=== PATIENT | female | born 1975 | race African-American/Black ===

== ENCOUNTER 2016-06-03 09:44 | Inpatient (IN) ==
--- NOTE | 2016-06-03 10:07 | EKG Report ---
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
[2016-06-03] MEDS ORDERED: ASPIRIN 325 MG TABLET PO STA (11:26)
[2016-06-03] MEDS ORDERED: ASPIRIN 325 MG TABLET ONE (11:34)
[2016-06-03 11:36] LABS: Basophils % 1.2 % (0.0-0.8); Eosinophils # 0.1 10*3/uL (0.0-0.87); Eosinophils % 3.3 % (0.00-10.9); Hematocrit 29.6 VOL% (35.7-47.0); Hemoglobin 9.8 GM/DL (12.0-16.0); Immature Granulocytes % 0.3 %; Immature Granulocytes Absolute 0.01 #; Lymphocytes % 29.4 % (21.3-54.2); Mean Corpuscular HGB Conc 33.1 GM/DL (32-36); Mean Corpuscular Hemoglobin 28 PG (27-34); Mean Corpuscular Volume 82.9 FL (87-102); Mean Platelet Volume 13.5 FL (9.6-12.0); Monocytes # 0.2 10*3/uL (0.11-0.8); Monocytes % 5.6 % (1.7-12.7); Neutrophils % 60.2 % (38.7-73.9); Platelet Count 125 T/CUMM (130-400); Red Blood Count 3.57 MC/CUMM (3.8-5.5); Red Cell Distribution Width 12.7 % (9.3-17.3); White Blood Count 3.4 T/CUMM (4-12)
--- NOTE | 2016-06-03 11:43 | XRay Report ---
Portable chest Date: 06/03/2016 Clinical history: Chest pain Comparison: 02/20/2016 Technique: Portable AP sitting chest Findings: The heart is smaller in size with left subclavian atrioventricular AICD. Coronary artery stents are noted. Chronic scarring in the lungs with stable mediastinum and osseous structures. Impression: No acute cardiopulmonary pathology identified. The heart is smaller in size with left subclavian atrioventricular AICD and coronary artery stents. PROCEDURE INTERPRETED AT [facility] DEPARTMENT OF RADIOLOGY Final Report Signed by: Dr. Ashley Cloud
[2016-06-03 11:51] LABS: Calcium 9.2 MG/DL (8.5-10.1); Osmolality,Calculated 293.7 MOS/KG (273-304); Potassium 5.5 MMOL/L (3.5-5.1)
[2016-06-03] MEDS ORDERED: INSULIN LISPRO 100 UNIT/ML SUBCUT STA (12:29)
[2016-06-03] MEDS ORDERED: INSULIN LISPRO 100 UNIT/ML SUBCUT ONE (12:35)
[2016-06-03] MEDS ORDERED: SODIUM CHLORIDE 0.9% 500 ML IV STA (13:52)
[2016-06-03] MEDS ORDERED: MORPHINE 2 MG/1 ML SYRINGE IV PRN (14:08)
[2016-06-03] MEDS ORDERED: MAGNESIUM SULF RIDER 2 GM in PREMIX 1 EACH IV PRN (14:08)
[2016-06-03] MEDS ORDERED: ONDANSETRON 4 MG/2 ML VIAL IV PRN (14:08)
[2016-06-03] MEDS ORDERED: GLUCAGON 1 MG VIAL IM PRN (14:08)
[2016-06-03] MEDS ORDERED: MAGNESIUM SULF RIDER 4 GM in PREMIX 1 EACH IV PRN (14:08)
[2016-06-03] MEDS ORDERED: DEXTROSE 50% 25 GM/50 ML VIAL IV PRN (14:08)
--- NOTE | 2016-06-03 14:08 | Emergency Department Note ---
Miquel Sandoval Brittany, am scribing for, and in the presence of, Hawk Garcia MD 10:44. Jose Sandoval Doug C, MD, personally performed the services described in this documentation, ascribed by Shanon Lafleur in my presence, and it is both accurate and complete . Arrival - Arrival Chief Complaint: Weakness Stated Complaint: cardiac rehab, bp low, weakness ED Nursing Triage Note: C/o generalized weakness-onset just machine captain while at cardiac rehab. Denies CP or SOB. States that she is feeling better now. Mode of Arrival: Wheelchair Limitations: No Limitations Source: Patient, Old Records Reviewed, RN Notes Reviewed - History of Present Illness HPI Narrative: Patient 41-year-old black female who was exercising at cardiac rehab when she developed sudden onset of weakness. She states she had no chest pain, nausea, vomiting or diaphoresis with this episode. Patient states she felt like her blood pressure had dropped and indeed when it was checked it head. Patient states she has noticed every morning which takes her blood pressure medicine she feels weak and thinks her blood pressure was too low. She states she feels back to her normal now. She does have a history of coronary artery disease and has a permanent pacemaker in place. She did not perceive any palpitations. Onset (ago): hour(s) Consistency: now resolved Date of Last Menstrual Period: hysterectomy Allergies/Adverse Reactions: Allergies Allergy/AdvReac Type Severity Reaction Status Date / Time No Known Allergies Allergy Verified 08/05/15 14:12 Home Medications: Home Medications Medication Instructions Recorded Confirmed Type Omeprazole [Prilosec] 40 mg PO DAILY 07/24/14 04/22/16 History Magnesium Chloride [Slow Mag] 128 mg PO BID tablet 11/23/15 04/22/16 Rx Methocarbamol Tab [Robaxin Tab] 500 mg PO BID tablet 12/23/15 04/22/16 Rx Atorvastatin [Lipitor] 40 mg PO DAILY #30 tablet 02/24/16 04/22/16 Rx Carvedilol [Coreg] 25 mg PO BID #60 tablet 02/24/16 04/22/16 Rx Furosemide Tab [Lasix Tab] 40 mg PO BID DIURETIC #60 tablet 02/24/16 04/22/16 Rx Isosorbide Dinitrate [Isordil] 20 mg PO TID #90 tablet 02/24/16 04/22/16 Rx Pantoprazole Tab [Protonix Tab] 40 mg PO BEDTIME #30 tablet 02/24/16 04/22/16 Rx Sodium Bicarb Tab 650 mg PO TID #90 tablet 02/24/16 04/22/16 Rx Ticagrelor [Brilinta] 90 mg PO BID #60 tablet 02/24/16 04/22/16 Rx hydrALAZINE TAB [Apresoline Tab] 25 mg PO TID #90 tablet 02/24/16 04/22/16 Rx Aspirin [Ecotrin] 81 mg PO QAM 03/13/16 04/22/16 History Digoxin Tab [Lanoxin Tab] 0.125 mg PO DAILY 03/13/16 04/22/16 History HYDROcodone/ACETAMIN 7.5-325 1 tablet PO Q4H #20 tablet 03/13/16 04/22/16 Rx [[place] 7.5-325] Ciprofloxacin/Dexameth Otic 4 drop LEFT EAR BID #1 otic 04/28/16 Rx [Ciprodex Otic Susp] suspension Insulin Glargine [Lantus] 20 unit SUBCUT BID #0 injection 04/28/16 Rx Levofloxacin Tab [Levaquin Tab] 250 mg PO DAILY #25 tablet 04/28/16 Rx Bacitracin Oph Oint 1 applic LEFT EYE TID #1 tube 05/27/16 Rx traMADol TAB [Ultram] 50 mg PO Q6H PRN #15 tablet 05/27/16 Rx Review of System - Review of System 12 point system: reviewed and no additional remarkable complaints except as stated - Review of System Constitutional: Present: weakness, other (hypotension). Absent: diaphoresis Eyes: Absent: vision change Head/Ears/Nose/Throat: Absent: nasal drainage, sore throat Respiratory: Absent: respiratory distress Cardiovascular: Absent: chest pain, palpitations Gastrointestinal: Absent: abdominal pain, nausea, vomiting Genitourinary female: Absent: dysuria, frequency, urgency Musculoskeletal: Absent: arm pain, back pain, leg pain, neck pain Skin: Absent: rash Neurological: Absent: headache Psychiatric: Absent: anxiety, depression Endocrine: Present: fatigue Hematological/Lymphatic: Absent: easy bleeding, easy bruising Medical,Surgical,& Family Hx - Medical History Cardio: History of: Cardiac Dysrhythmia, CHF, CAD, Hypertension, Pacemaker, Cardiovascular Problems (ischemic cardiomyopathy - EF 15-20%) Neurology: History of: Peripheral Neuropathy HEENT: History of: Ear Problem (ongoing left ear problem, previously seen by [facility] (notes not availa), Eye Problem (diabetic retinopathy) Endocrine: History of: Diabetes Mellitus (IDDM), Diabetes Mellitus (NIDDM), Dyslipidemia, Thyroid Disorder Rheumatology: History of;: Gout No history of;: Systemic Lupus Erythematosus Respiratory: History of: Bronchitis, Obstructive Sleep Apnea (C-Pap), Respiratory Problems (Flu Vac 2014) No history of: Asthma, COPD, Pneumonia Renal: History of: Renal Failure (chronic kidney disease stage III) No history of: Dialysis Genitourinary: History of: Recurring Urinary Tract Infections No history of: Kidney Stones Gastrointestinal: History of: GERD, Liver Problems, GI Problems (gastroparesis) No history of: Gastrointestinal Bleed, Hemorrhoids, Pancreatitis Musculoskeletal: No history of: Amputation, Back/Neck Problems Hematology: History of: Anemia No history of: Blood Transfusion Reaction, Sickle Cell Disease Other: No history of: Anesthesia Reactions, Cancer, HIV, MRSA - Surgical History Cardiac Surgeries: Sugical HX of: Cardiac Catheterization (Stents x's 3), Cardiac Surgery (pacemaker) Thoracic Surgeries: Patient denies;: Organ Transplant, Lobectomy Neurologic Surgeries: Patient denies: Neurologic Surgery HEENT Surgeries: Surgical HX of: Eye Surgery (left retina surgery by Dr. Mathis) Patient denies: Tonsilectomy & Adenoidectomy Abdominal Surgeries: Surgical HX of: Cholecystectomy, EGD Patient denies: Abdominal Surgery Reproductive Surgeries: Surgical HX of;: Section, Gynecologic Surgery, Hysterectomy Patient denies;: Genitourinary Surgery Orthopedic Surgeries: Patient denies;: Implanted Devices, Orthopedic Surgery, Spinal Surgery, Total Hip Replacement, Total Knee Replacement - Family History Family History: Reports;: Family Diabetes, Family Heart Disease (mother), Family Hypertension, Family Stroke - Social History Smoking Status: Never smoker Frequency of Alcohol Use: None Type of Drug Use: None Exam Vital Signs: Vital Signs Temperature 97.1 F L 06/03/16 09:45 Pulse Rate 75 06/03/16 10:19 Respiratory Rate 19 06/03/16 10:19 Blood Pressure 107/66 06/03/16 09:45 O2 Sat by Pulse Oximetry 98 06/03/16 09:45 - General General appearance: alert, in no apparent distress - Head Head exam: Present: atraumatic, normocephalic - Eye Eye exam: Present: normal appearance, PERRL, EOMI - ENT ENT exam: Present: normal exam, normal oropharynx, mucous membranes moist, TM's normal bilaterally - Neck Neck exam: Present: normal inspection, full ROM, trachea midline - Chest Chest inspection: Present: normal inspection - Respiratory Respiratory exam: Present: normal lung sounds bilaterally. Absent: rales, rhonchi, wheezes - Cardiovascular Cardiovascular exam: Present: regular rate, normal rhythm, normal heart sounds. Absent: murmur, rubs, gallop - Abdominal Exam Abdominal exam: Present: soft, normal bowel sounds. Absent: distention, tenderness - Extremities Exam Extremities exam: Present: normal inspection, full ROM - Back Exam Back exam: Present: normal inspection, full ROM - Neurological Exam Neurological exam: Present: alert, oriented X3 - Psychiatric Psychiatric exam: Present: normal affect - Skin Skin exam: Present: warm, dry, intact, normal color Course Course Narrative: Patient's clinical presentation, laboratory and radiographic findings were discussed with Dr. Romero. Patient will be admitted to observation telemetry bed to his services per Results - Labs CBC & BMP: 06/03/16 10:54 06/03/16 10:54 Lab Results: I have reviewed the patients labs Labs: Laboratory Tests 06/03/16 10:54 WBC 3.4 L RBC 3.57 L Hgb 9.8 L Hct 29.6 L MCV 82.9 L MCH 28 MCHC 33.1 RDW 12.7 Plt Count 125 L MPV 13.5 H Neut % (Auto) 60.2 Lymph % (Auto) 29.4 [place] % (Auto) 5.6 Eos % (Auto) 3.3 Baso % (Auto) 1.2 H Neut # (Auto) 2.0 Lymph # (Auto) 1.0 L [place] # (Auto) 0.2 Eos # (Auto) 0.1 Baso # (Auto) 0.0 Immature Gran % 0.3 Nucleated RBC % 0.0 Immature Gran # 0.01 Nucleated RBCs # 0.00 Laboratory Tests 06/03/16 06/03/16 10:54 10:54 Sodium 131 L Potassium 5.5 H Chloride 95 L Carbon Dioxide 27 Anion Gap 14.5 BUN 29 H Creatinine 2.00 H GFR Calculation 34 BUN/Creatinine Ratio 14.00 Glucose 560 H* Calculated Osmolality 293.7 Calcium 9.2 Troponin I 0.119 H - EKG EKG results: interpreted by ERMD, no acute changes (Paced rhythm at 73 bpm) - Diagnostic Findings Procedure: Chest x-ray: report reviewed by me (No acute cardiopulmonary pathology is identified. The heart is smaller in size with left subclavian atrioventricular AICD and coronary artery stents.) Disposition Clinical Impression: Orthostatic hypotension, Uncontrolled diabetes mellitus Case discussed with: patient Disposition: Still a Patient Condition: Guarded Time of Disposition: 14:08
--- NOTE | 2016-06-03 14:45 | EKG Report ---
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
[2016-06-03] MEDS: INSULIN LISPRO 100 UNIT/ML SUBCUT SCH ×2 (17:57→22:04)
[2016-06-03] MEDS: ENOXAPARIN 30 MG/0.3 ML SYRINGE SUBCUT SCH (17:57)
[2016-06-03] MEDS: DEXTROSE 5% NACL 0.45% 1,000 ML IV SCH ×2 (17:58→22:04)
[2016-06-04 04:59] LABS: Basophils % 0.7 % (0.0-0.8); Eosinophils # 0.2 10*3/uL (0.0-0.87); Eosinophils % 3.9 % (0.00-10.9); Hematocrit 28.4 VOL% (35.7-47.0); Hemoglobin 9.4 GM/DL (12.0-16.0); Immature Granulocytes % 0.2 %; Immature Granulocytes Absolute 0.01 #; Lymphocytes # 1.9 10*3/uL (1.4-4.0); Lymphocytes % 43.1 % (21.3-54.2); Mean Corpuscular HGB Conc 33.1 GM/DL (32-36); Mean Corpuscular Hemoglobin 27 PG (27-34); Mean Corpuscular Volume 82.8 FL (87-102); Mean Platelet Volume 12.9 FL (9.6-12.0); Monocytes # 0.3 10*3/uL (0.11-0.8); Monocytes % 6.9 % (1.7-12.7); Neutrophils % 45.2 % (38.7-73.9); Platelet Count 128 T/CUMM (130-400); Red Blood Count 3.43 MC/CUMM (3.8-5.5); White Blood Count 4.4 T/CUMM (4-12)
[2016-06-04 05:26] LABS: Calcium 8.9 MG/DL (8.5-10.1); Magnesium 1.9 MG/DL (1.8-2.4); Osmolality,Calculated 286.8 MOS/KG (273-304); Potassium 4.7 MMOL/L (3.5-5.1)
[2016-06-04] MEDS: DEXTROSE 5% NACL 0.45% 1,000 ML IV SCH ×2 (05:45→14:03)
[2016-06-04] MEDS: PANTOPRAZOLE 40 MG TABLET PO SCH (08:33)
[2016-06-04] MEDS: INSULIN LISPRO 100 UNIT/ML SUBCUT SCH ×4 (08:33→20:55)
--- NOTE | 2016-06-04 11:31 | Cardiology History & Physical ---
I, Katie Hays, RN, am scribing for, and in the presence of, Jake Romero MD 11:27. Assessment and Plan - Time spent with patient Time spent with patient: Less than 30 minutes (1) Orthostatic hypotension Status: Acute Assessment and plan: 06/03/16: 1. 41 y/o BF complains of lightheadedness ongoing since February. 2. Orthostasis noted in ER. Blood pressure now returned to normal and patient asymptomatic at present. 3. Will address home medications once confirmed in the chart. 4. Obtain orthostatic vital signs. 5. We will hold all medicines for now, to allow the blood pressure to increase back to normal. Tomorrow, Dr. Howard can restart some medications, maybe at half dose is of some, to allow her blood pressure come down but not be too low. It does seem that she had orthostatic hypotension causing most of her symptoms. [I, Dr. Jake Romero, did see the patient on the day of 06/03/16 and was involved in the interview, examination, and management of this patient. I'm finishing the note at this point.] Current Visit: Yes (2) Uncontrolled diabetes mellitus Status: Acute Current Visit: Yes (3) Anemia in CKD (chronic kidney disease) Status: Acute Current Visit: No (4) CAD (coronary artery disease) Status: Acute Current Visit: No (5) Hyperkalemia Status: Acute Current Visit: No (6) CKD (chronic kidney disease) Status: Chronic Current Visit: No Qualifiers: Chronic kidney disease stage: stage 3 (moderate) Qualified Code(s): N18.3 - Chronic kidney disease, stage 3 (moderate) (7) Cardiomyopathy Status: Chronic Current Visit: No History of Present Illness Chief complaint: lightheadedness, hypotension History of present illness: Ms. Mejía is a 41 year old female who was previously followed by Dr. Connor. Patient has since been seen at [facility] by several of our [facility] physicians but reports her heart doctor is Dr. Roy. She has a history of hypertension, diabetes, prior cardiac stent placement and ICD placement by Dr. Connor in 2011, congestive heart failure, chronic renal failure, peripheral neuropathy, diabetic retinopathy, gastroesophageal reflux disease. She has risk factors significant for: Hypertension, diabetes, personal history of CAD, sedentary lifestyle. She presents to the emergency room today with complaints of lightheadedness and orthostasis. She tells me that she was at cardiac rehabilitation today exercising when she told them she felt weak. When they checked her blood pressure and was noted to be low and they recommended she come to the emergency room. Ms. Mejía tells me that she takes all of her medications daily as directed but she has been feeling lightheaded and sleepy every day following her morning doses of medications. She reports this has been ongoing since February when she was discharged from the hospital. She tells me that when she takes her medications at night she has no symptoms. She also complains of blurry vision but she has diabetic retinopathy. She denies recent chest pain, shortness of breath, palpitations, diaphoresis, syncope, fever, chills, nausea, vomiting, painful inspiration, hematochezia, melena, headaches, hematuria. Upon arrival to the emergency room today around 1300 her blood pressure was noted to be 99/60, heart rate was 79. Her blood pressure did come up to 152/ 100 after being in the emergency room for a couple of hours. She is noted to have a microcytic anemia with hemoglobin 9.8 and hematocrit 29.6, MCV 82.9. Her potassium is 5.5, creatinine 2.0, BUN/creatinine 29, troponin 0.119. Glucose on admission was 560. She has chronic mild elevation of troponin. It is currently the lowest it has been in the last 6 months. Prior echocardiogram done 02/20/16 revealed 2-3+ left atrial enlargement, 2-3+ right ventricular enlargement, ejection fraction 20-25% with septal dyskinesis, 4+ tricuspid regurgitation with RV systolic pressure estimated to be 28 mmHg plus RAP. She underwent left heart catheterization on 02/22/16 and was found to have 30% proximal to mid LAD stenosis, 80% ostial OM1 stenosis, 70-80% mid circumflex stenosis, 70% proximal and mid RCA stenosis, widely patent mid LAD and proximal OM1 stents. She developed a subtotal mid circumflex occlusion due to thrombosis during intervention with resolution after IC integrilin and manual thrombectomy as well as stenting with [id number] JOSS. Home Medications Medication Instructions Recorded Confirmed Type Omeprazole [Prilosec] 40 mg PO DAILY 07/24/14 06/03/16 History Carvedilol [Coreg] 25 mg PO BID #60 tablet 11/09/16 02/17/17 Rx Furosemide Tab [Lasix Tab] 40 mg PO BID DIURETIC #60 tablet 02/24/16 06/03/16 Rx Isosorbide Dinitrate [Isordil] 20 mg PO TID #90 tablet 02/24/16 06/03/16 Rx Ticagrelor [Brilinta] 90 mg PO BID #60 tablet 02/24/16 06/03/16 Rx Aspirin [Ecotrin] 81 mg PO QAM 03/13/16 06/03/16 History Digoxin Tab [Lanoxin Tab] 0.125 mg PO DAILY 03/13/16 06/03/16 History Levofloxacin Tab [Levaquin Tab] 250 mg PO DAILY #25 tablet 04/28/16 06/03/16 Rx Bacitracin Oph Oint 1 applic LEFT EYE TID #1 tube 05/27/16 06/03/16 Rx Insulin Glargine [Lantus] 20 unit SUBCUT BEDTIME 06/03/16 06/03/16 History Allergies Allergy/AdvReac Type Severity Reaction Status Date / Time No Known Allergies Allergy Verified 08/05/15 14:12 12 point system: reviewed and no additional remarkable complaints except as stated - Constitutional Constitutional: Present: fatigue, weakness. Absent: anorexia, chills, daytime sleepiness, excessive sweating, fever(s), frequent falls, headache(s), increased appetite, lethargy, malaise, night sweats, stops breathing during sleep, weight gain, weight loss - EENT Eyes: Present: blurry vision. Absent: diplopia Ears: Absent: decreased hearing, ear discharge, ear pain Nose, mouth and throat: Absent: dysphagia, epistaxis, headache(s), hoarseness, lip swelling, nasal congestion, neck mass, neck pain, sinus pressure, sore throat, throat swelling, tongue swelling, vertigo - Cardiovascular Cardiovascular: Present: as per HPI, lightheadedness. Absent: chest pain at rest, chest pain with activity, claudication, diaphoresis, dyspnea, dyspnea on exertion, edema, radiating jaw, neck or arm pain, orthopnea, palpitations, PND - Respiratory Respiratory: Present: as per HPI. Absent: cough, dyspnea, hemoptysis, dyspnea on exertion, wheezing, snoring, pain on inspiration - Gastrointestinal Gastrointestinal: Absent: abdominal pain, bloating, change in bowel habits, constipation, diarrhea, dysphagia, heartburn, hematemesis, hematochezia, loose stools, melena, nausea, vomiting - Genitourinary Genitourinary: Absent: difficulty urinating, dysuria, flank pain, hematuria, urinary frequency, urinary hesitancy - Musculoskeletal Musculoskeletal: Absent: arthralgias, back pain, joint swelling, limited range of motion, muscle cramps, muscle weakness, myalgias - Neurological Neurological: Absent: abnormal gait, abnormal speech, behavioral changes, confusion, convulsions, disequilibrium, dizziness, focal weakness, frequent falls, headache(s), memory loss, numbness, paresthesias, radicular pain, syncope , tremor(s) - Psychiatric Psychiatric: Absent: anxiety, confusion, depression, memory loss, panic attacks - Endocrine Endocrine: Present: fatigue. Absent: cold intolerance, heat intolerance, polydipsia, polyphagia - Hematologic/Lymphatic Hematologic/Lymphatic: Absent: easy bleeding, easy bruising, lymphadenopathy Medical,Surgical,& Family Hx - Medical History Cardio: History of: Cardiac Dysrhythmia, CHF, CAD, Hypertension, Pacemaker, Cardiovascular Problems (ischemic cardiomyopathy - EF 15-20%) Neurology: History of: Peripheral Neuropathy HEENT: History of: Ear Problem (ongoing left ear problem, previously seen by [facility] (notes not availa), Eye Problem (diabetic retinopathy) Endocrine: History of: Diabetes Mellitus (IDDM), Diabetes Mellitus (NIDDM), Dyslipidemia, Thyroid Disorder Rheumatology: History of;: Gout No history of;: Systemic Lupus Erythematosus Respiratory: History of: Bronchitis, Obstructive Sleep Apnea (C-Pap), Respiratory Problems (Flu Vac 2014) No history of: Asthma, COPD, Pneumonia Renal: History of: Renal Failure (chronic kidney disease stage III) No history of: Dialysis Genitourinary: History of: Recurring Urinary Tract Infections No history of: Kidney Stones Gastrointestinal: History of: GERD, Liver Problems, GI Problems (gastroparesis) No history of: Gastrointestinal Bleed, Hemorrhoids, Pancreatitis Musculoskeletal: No history of: Amputation, Back/Neck Problems Hematology: History of: Anemia No history of: Blood Transfusion Reaction, Sickle Cell Disease Other: No history of: Anesthesia Reactions, Cancer, HIV, MRSA - Surgical History Cardiac Surgeries: Sugical HX of: Cardiac Catheterization (Stents x's 3), Cardiac Surgery (pacemaker) Thoracic Surgeries: Patient denies;: Organ Transplant, Lobectomy Neurologic Surgeries: Patient denies: Neurologic Surgery HEENT Surgeries: Surgical HX of: Eye Surgery (left retina surgery by Dr. Mathis) Patient denies: Tonsilectomy & Adenoidectomy Abdominal Surgeries: Surgical HX of: Cholecystectomy, EGD Patient denies: Abdominal Surgery Reproductive Surgeries: Surgical HX of;: Section, Gynecologic Surgery, Hysterectomy Patient denies;: Genitourinary Surgery Orthopedic Surgeries: Patient denies;: Implanted Devices, Orthopedic Surgery, Spinal Surgery, Total Hip Replacement, Total Knee Replacement - Family History Family History: Reports;: Family Diabetes, Family Heart Disease (mother), Family Hypertension, Family Stroke - Social History Smoking Status: Never smoker Frequency of Alcohol Use: None Type of Drug Use: None Cardiology Physical Exam - Constitutional Vitals: Vital Signs Temp Pulse Resp BP Pulse Ox 97.1 F L 75 19 107/66 98 06/03/16 09:45 06/03/16 10:19 06/03/16 10:19 06/03/16 09:45 06/03/16 09:45 Intake and Output 06/03/16 06/03/16 06/03/16 06:59 14:59 22:59 Intake Total 500 / 500 Balance 500 / 500 Intake: IV 500 / 500 Ns 500 ml @ 999 mls/hr IV 500 / 500 1X ED BOLUS STA Rx#: [id number] General appearance: no acute distress, over weight - Head Head exam: Present: normal inspection, normocephalic - Eye Eye exam: Absent: conjunctival injection, periorbital swelling, scleral icterus Pupils: Present: SG. Absent: dilated - ENT ENT exam: Present: normal exam, normal external ear exam - Neck Neck exam: Present: normal inspection. Absent: tenderness - Respiratory Respiratory exam: Present: clear to auscultation bilaterally. Absent: rales, rhonchi, stridor, wheezes - Cardiovascular Cardiovascular exam: Present: regular rate and rhythm. Absent: carotid bruit, diastolic murmur, systolic murmur - GI/Abdominal GI/Abdominal exam: Present: normal bowel sounds, soft. Absent: distended, mass , tenderness - Extremities Exam Extremities exam: Present: normal inspection, other (peripheral pulses present and palpable). Absent: edema - Back Exam Back exam: Present: normal inspection. Absent: vertebral tenderness - Neurological Exam Neurological exam: Present: alert, oriented X3, other (grossly intact, no resting or essential tremor) - Psychiatric Psychiatric exam: Present: normal affect, normal mood - Skin Skin exam: Present: warm, dry. Absent: cyanosis Result/EKG - Labs CBC & BMP: 06/04/16 04:26 06/04/16 04:26 Lab Results: I have reviewed the past 24 hour labs Labs: Laboratory Results - last 24 hr 06/03/16 06/03/16 06/03/16 14:46 16:34 18:22 WBC RBC Hgb Hct MCV MCH MCHC RDW Plt Count MPV Neut % (Auto) Lymph % (Auto) [place] % (Auto) Eos % (Auto) Baso % (Auto) Neut # (Auto) Lymph # (Auto) [place] # (Auto) Eos # (Auto) Baso # (Auto) Immature Gran % Nucleated RBC % Immature Gran # Nucleated RBCs # Sodium Potassium Chloride Carbon Dioxide Anion Gap BUN Creatinine GFR Calculation BUN/Creatinine Ratio Glucose POC Glucose 286 H Hemoglobin A1c Calculated Osmolality Calcium Magnesium Troponin I 0.100 H 0.115 H 06/03/16 06/04/16 06/04/16 20:01 04:26 04:26 WBC 4.4 RBC 3.43 L Hgb 9.4 L Hct 28.4 L MCV 82.8 L MCH 27 MCHC 33.1 RDW 13.0 Plt Count 128 L MPV 12.9 H Neut % (Auto) 45.2 Lymph % (Auto) 43.1 [place] % (Auto) 6.9 Eos % (Auto) 3.9 Baso % (Auto) 0.7 Neut # (Auto) 2.0 Lymph # (Auto) 1.9 [place] # (Auto) 0.3 Eos # (Auto) 0.2 Baso # (Auto) 0.0 Immature Gran % 0.2 Nucleated RBC % 0.0 Immature Gran # 0.01 Nucleated RBCs # 0.00 Sodium 137 Potassium 4.7 Chloride 98 Carbon Dioxide 28 Anion Gap 15.7 H BUN 33 H Creatinine 1.90 H GFR Calculation 37 BUN/Creatinine Ratio 17.00 Glucose 222 H POC Glucose 136 H Hemoglobin A1c Calculated Osmolality 286.8 Calcium 8.9 Magnesium 1.9 Troponin I 06/04/16 06/04/16 04:26 07:04 WBC RBC Hgb Hct MCV MCH MCHC RDW Plt Count MPV Neut % (Auto) Lymph % (Auto) [place] % (Auto) Eos % (Auto) Baso % (Auto) Neut # (Auto) Lymph # (Auto) [place] # (Auto) Eos # (Auto) Baso # (Auto) Immature Gran % Nucleated RBC % Immature Gran # Nucleated RBCs # Sodium Potassium Chloride Carbon Dioxide Anion Gap BUN Creatinine GFR Calculation BUN/Creatinine Ratio Glucose POC Glucose 239 H Hemoglobin A1c 14.8 H Calculated Osmolality Calcium Magnesium Troponin I - EKG EKG results: interpreted by me, sinus rhythm (ventricularly paced with right bundle branch block) INick Dale, MD, personally performed the services described in this documentation, ascribed by Katie Hays, RN in my presence, and it is both accurate and complete .
[2016-06-04] MEDS ORDERED: CARVEDILOL 3.125 MG TABLET PO STA (13:32)
[2016-06-04] MEDS ORDERED: CLOPIDOGREL 300 MG TABLET PO ONE (13:34)
--- NOTE | 2016-06-04 13:38 | Cardiology Progress Note ---
Assessment and Plan (1) Orthostatic dizziness Status: Acute Assessment and plan: 1. 41-year-old BF with previously controlled hypertension, IDDM, CAD status post stenting 2011 at [facility] with ICD placement (a generator change their in 2015) , with multiple heart failure admissions until I changed several medications after she presented to [facility] February 2016, and I stented her mid circumflex ; she now presents with worsening of her daily "weak spells" after taking her medication with orthostatic hypotension 2. Her symptoms are completely resolved after holding her medication, we will restart her heart failure medications lower dosages 3. Ejection fraction 20-25% with 4+ TR February 2016 4. Change Brilinta to Plavix in case she is having side effects from it 5. Will consider discharge tomorrow if she continues to do well Current Visit: Yes (2) Cardiomyopathy Status: Acute Current Visit: Yes (3) Hypertension Status: Acute Current Visit: Yes (4) CAD (coronary artery disease) Status: Acute Current Visit: Yes Cardiology - PN: Subj Interval history: Mrs. Mejía is feeling quite well although her pressures up bit since holding her medications. She having no chest discomfort shortness of breath at rest palpitations nausea vomiting or diaphoresis. Her dizziness and weak episodes of completely resolved. Exam (Progress Note) - Constitutional Vitals: Period Temp Pulse Resp BP Sys/Valenzuela Pulse Ox Last 24 Hr 97.1 F-98.6 F 72-90 18-20 118-157/70-93 99-100 General appearance: normal weight, no acute distress - Head Head exam: Present: normal inspection, normocephalic, atraumatic - Neck Neck exam: Present: normal inspection - Respiratory Respiratory exam: Present: clear to auscultation bilaterally. Absent: rhonchi, stridor, wheezes - Cardiovascular Cardiovascular exam: Present: regular rate and rhythm. Absent: diastolic murmur , rubs - GI/Abdominal GI/Abdominal exam: Present: soft. Absent: tenderness - Extremities Exam Extremities exam: Absent: edema Result/EKG - Labs CBC & BMP: 06/04/16 04:26 06/04/16 04:26 Labs: Laboratory Results - last 24 hr 06/03/16 06/03/16 06/03/16 14:46 16:34 18:22 WBC RBC Hgb Hct MCV MCH MCHC RDW Plt Count MPV Neut % (Auto) Lymph % (Auto) [place] % (Auto) Eos % (Auto) Baso % (Auto) Neut # (Auto) Lymph # (Auto) [place] # (Auto) Eos # (Auto) Baso # (Auto) Immature Gran % Nucleated RBC % Immature Gran # Nucleated RBCs # Sodium Potassium Chloride Carbon Dioxide Anion Gap BUN Creatinine GFR Calculation BUN/Creatinine Ratio Glucose POC Glucose 286 H Hemoglobin A1c Calculated Osmolality Calcium Magnesium Troponin I 0.100 H 0.115 H 06/03/16 06/04/16 06/04/16 20:01 04:26 04:26 WBC 4.4 RBC 3.43 L Hgb 9.4 L Hct 28.4 L MCV 82.8 L MCH 27 MCHC 33.1 RDW 13.0 Plt Count 128 L MPV 12.9 H Neut % (Auto) 45.2 Lymph % (Auto) 43.1 [place] % (Auto) 6.9 Eos % (Auto) 3.9 Baso % (Auto) 0.7 Neut # (Auto) 2.0 Lymph # (Auto) 1.9 [place] # (Auto) 0.3 Eos # (Auto) 0.2 Baso # (Auto) 0.0 Immature Gran % 0.2 Nucleated RBC % 0.0 Immature Gran # 0.01 Nucleated RBCs # 0.00 Sodium 137 Potassium 4.7 Chloride 98 Carbon Dioxide 28 Anion Gap 15.7 H BUN 33 H Creatinine 1.90 H GFR Calculation 37 BUN/Creatinine Ratio 17.00 Glucose 222 H POC Glucose 136 H Hemoglobin A1c Calculated Osmolality 286.8 Calcium 8.9 Magnesium 1.9 Troponin I 06/04/16 06/04/16 06/04/16 04:26 07:04 11:06 WBC RBC Hgb Hct MCV MCH MCHC RDW Plt Count MPV Neut % (Auto) Lymph % (Auto) [place] % (Auto) Eos % (Auto) Baso % (Auto) Neut # (Auto) Lymph # (Auto) [place] # (Auto) Eos # (Auto) Baso # (Auto) Immature Gran % Nucleated RBC % Immature Gran # Nucleated RBCs # Sodium Potassium Chloride Carbon Dioxide Anion Gap BUN Creatinine GFR Calculation BUN/Creatinine Ratio Glucose POC Glucose 239 H 350 H Hemoglobin A1c 14.8 H Calculated Osmolality Calcium Magnesium Troponin I
[2016-06-04] MEDS: ISOSORBIDE DINITRATE 20 MG TABLET PO SCH ×2 (14:03→20:54)
[2016-06-04] MEDS: hydrALAZINE 25 MG TABLET PO SCH ×2 (14:03→20:55)
[2016-06-04] MEDS: DIGOXIN 0.125 MG TABLET PO SCH (14:03)
[2016-06-04] MEDS: ENOXAPARIN 30 MG/0.3 ML SYRINGE SUBCUT SCH (17:28)
[2016-06-04] MEDS: CARVEDILOL 6.25 MG TABLET PO SCH (20:54)
[2016-06-05] MEDS: DEXTROSE 5% NACL 0.45% 1,000 ML IV SCH ×3 (05:26→14:20)
[2016-06-05 07:41] LABS: Basophils % 0.9 % (0.0-0.8); Eosinophils # 0.1 10*3/uL (0.0-0.87); Eosinophils % 3.8 % (0.00-10.9); Hematocrit 25.7 VOL% (35.7-47.0); Hemoglobin 8.7 GM/DL (12.0-16.0); Lymphocytes # 1.3 10*3/uL (1.4-4.0); Mean Corpuscular HGB Conc 33.9 GM/DL (32-36); Mean Corpuscular Hemoglobin 28 PG (27-34); Mean Corpuscular Volume 81.8 FL (87-102); Mean Platelet Volume 12.9 FL (9.6-12.0); Monocytes # 0.3 10*3/uL (0.11-0.8); Monocytes % 7.2 % (1.7-12.7); Neutrophils # 1.8 10*3/uL (1.4-7.4); Neutrophils % 51.1 % (38.7-73.9); Platelet Count 113 T/CUMM (130-400); Red Blood Count 3.14 MC/CUMM (3.8-5.5); Red Cell Distribution Width 12.9 % (9.3-17.3); White Blood Count 3.5 T/CUMM (4-12)
[2016-06-05 08:08] LABS: Calcium 8.6 MG/DL (8.5-10.1); Magnesium 1.9 MG/DL (1.8-2.4); Osmolality,Calculated 292.1 MOS/KG (273-304); Potassium 5.2 MMOL/L (3.5-5.1)
[2016-06-05] MEDS: INSULIN LISPRO 100 UNIT/ML SUBCUT SCH ×4 (09:32→21:35)
[2016-06-05] MEDS: POTASSIUM CHLORIDE 20 MEQ TABLET PO SCH (09:33)
[2016-06-05] MEDS: CLOPIDOGREL 75 MG TABLET PO SCH (09:33)
[2016-06-05] MEDS: CARVEDILOL 6.25 MG TABLET PO SCH ×2 (09:33→21:34)
[2016-06-05] MEDS: ISOSORBIDE DINITRATE 20 MG TABLET PO SCH ×3 (09:33→21:34)
[2016-06-05] MEDS: PANTOPRAZOLE 40 MG TABLET PO SCH (09:33)
[2016-06-05] MEDS: FUROSEMIDE 40 MG TABLET PO SCH (09:33)
[2016-06-05] MEDS: hydrALAZINE 25 MG TABLET PO SCH ×3 (09:33→21:34)
[2016-06-05] MEDS: DIGOXIN 0.125 MG TABLET PO SCH (13:37)
[2016-06-05] MEDS: ENOXAPARIN 30 MG/0.3 ML SYRINGE SUBCUT SCH (16:40)
[2016-06-06 05:05] LABS: Basophils % 0.7 % (0.0-0.8); Eosinophils # 0.1 10*3/uL (0.0-0.87); Eosinophils % 4.4 % (0.00-10.9); Hematocrit 23.9 VOL% (35.7-47.0); Immature Granulocytes % 0.3 %; Immature Granulocytes Absolute 0.01 #; Lymphocytes # 1.4 10*3/uL (1.4-4.0); Lymphocytes % 47.6 % (21.3-54.2); Mean Corpuscular HGB Conc 33.5 GM/DL (32-36); Mean Corpuscular Hemoglobin 28 PG (27-34); Mean Corpuscular Volume 82.7 FL (87-102); Mean Platelet Volume 12.6 FL (9.6-12.0); Monocytes # 0.2 10*3/uL (0.11-0.8); Monocytes % 7.8 % (1.7-12.7); Neutrophils # 1.2 10*3/uL (1.4-7.4); Neutrophils % 39.2 % (38.7-73.9); Platelet Count 110 T/CUMM (130-400); Red Blood Count 2.89 MC/CUMM (3.8-5.5); White Blood Count 2.9 T/CUMM (4-12)
[2016-06-06 05:31] LABS: Hypochromasia 1+; Ovalocytes Slight; Platelet Estimate Decreased
[2016-06-06 05:34] LABS: Calcium 8.6 MG/DL (8.5-10.1); Osmolality,Calculated 305.7 MOS/KG (273-304); Potassium 5.1 MMOL/L (3.5-5.1)
[2016-06-06] MEDS ORDERED: GLUCAGON 1 MG VIAL IM PRN (08:02)
[2016-06-06] MEDS ORDERED: DEXTROSE 50% 25 GM/50 ML VIAL IV PRN (08:02)
[2016-06-06] MEDS: INSULIN LISPRO 100 UNIT/ML SUBCUT SCH ×4 (08:24→21:25)
[2016-06-06] MEDS: ASPIRIN EC 81 MG TABLET PO SCH (10:45)
[2016-06-06] MEDS: BACITRACIN OPH OINT 3.5 GM TUBE LEFT EYE SCH ×3 (10:45→21:33)
[2016-06-06] MEDS: hydrALAZINE 25 MG TABLET PO SCH ×3 (10:45→21:24)
[2016-06-06] MEDS: CARVEDILOL 6.25 MG TABLET PO SCH (10:46)
[2016-06-06] MEDS: ISOSORBIDE DINITRATE 20 MG TABLET PO SCH ×4 (10:46→21:23)
[2016-06-06] MEDS: CLOPIDOGREL 75 MG TABLET PO SCH (10:46)
[2016-06-06] MEDS: FUROSEMIDE 40 MG TABLET PO SCH (10:47)
[2016-06-06] MEDS: POTASSIUM CHLORIDE 20 MEQ TABLET PO SCH (11:21)
[2016-06-06] MEDS: DIGOXIN 0.125 MG TABLET PO SCH ×2 (11:22→12:05)
[2016-06-06] MEDS: DEXTROSE 5% NACL 0.45% 1,000 ML IV SCH ×3 (11:22→16:42)
--- NOTE | 2016-06-06 11:44 | Cardiology Progress Note ---
<Leidy Salazar E - Last Filed: 06/06/16 15:12> Assessment and Plan - Time spent with patient Time spent with patient: Greater than 30 minutes (1) Anemia Status: Chronic Assessment and plan: SEE PLAN OF CARE LISTED BELOW Current Visit: Yes (2) Hypertension Status: Chronic Assessment and plan: SEE PLAN OF CARE LISTED BELOW Current Visit: No Qualifiers: Hypertension type: essential hypertension Qualified Code(s): I10 - Essential (primary) hypertension (3) Chronic renal insufficiency Status: Chronic Assessment and plan: SEE PLAN OF CARE LISTED BELOW Current Visit: No Qualifiers: Chronic kidney disease stage: stage 3 (moderate) Qualified Code(s): N18.3 - Chronic kidney disease, stage 3 (moderate) (4) Diabetes mellitus type 2, uncontrolled Status: Chronic Assessment and plan: SEE PLAN OF CARE LISTED BELOW Current Visit: No (5) Hypertensive cardiovascular disease Status: Chronic Assessment and plan: SEE PLAN OF CARE LISTED BELOW Current Visit: No (6) Cardiomyopathy Status: Chronic Assessment and plan: SEE PLAN OF CARE LISTED BELOW Current Visit: No (7) Dyslipidemia Status: Chronic Assessment and plan: SEE PLAN OF CARE LISTED BELOW Current Visit: No (8) CAD (coronary artery disease) Status: Chronic Assessment and plan: SEE PLAN OF CARE LISTED BELOW Current Visit: No Cardiology - PN: Subj Interval history: Ms. Mejía is a 41 year old female who was previously followed by Dr. Connor. Patient has since been seen at [facility] by several of our [facility] physicians but reports her heart doctor is Dr. Roy. She has a history of hypertension, diabetes, prior cardiac stent placement and ICD placement by Dr. Connor in 2011, congestive heart failure, chronic renal failure, peripheral neuropathy, diabetic retinopathy, gastroesophageal reflux disease. She has risk factors significant for: Hypertension, diabetes, personal history of CAD, sedentary lifestyle. She presented to the emergency room Friday, June 03, 2016 with complaints of lightheadedness and orthostasis. Upon arrival to the emergency department she was hypotensive (99/60), heart rate 76bpm. This improved in the emergency department without treatment. She is noted to have a microcytic anemia with hemoglobin 9.8 and hematocrit 29.6. Glucose on admission was 560. She has chronic mild elevation of troponin. Troponin is currently the lowest it has been in the last 6 months. Prior echocardiogram done 02/20/16 revealed 2-3+ left atrial enlargement, 2-3+ right ventricular enlargement, ejection fraction 20-25% with septal dyskinesis, 4+ tricuspid regurgitation with RV systolic pressure estimated to be 28 mmHg plus RAP. She underwent left heart catheterization on 02/22/16 and was found to have 30% proximal to mid LAD stenosis, 80% ostial OM1 stenosis, 70-80% mid circumflex stenosis, 70% proximal and mid RCA stenosis, widely patent mid LAD and proximal OM1 stents. She developed a subtotal mid circumflex occlusion due to thrombosis during intervention with resolution after IC integrilin and manual thrombectomy as well as stenting with [id number] JOSS. Her home medications were held as there was a question about exactly which medications she was actually taking at home. After identifying her home meds, decreased doses were initiated. Her blood pressures now have rebound and are averaging 140s to 170s. I'll increase her Coreg at this point from 6.25 mm times orally twice a day to 12-1/2 mg orally twice a day. She is on hydralazine and Imdur were. We are avoiding Martin inhibitors due to fear of worsening her renal insufficiency. Also, I'll add an anemia profile to her labs. Check stool for occult blood 3. ASSESSMENT/PLAN: 1. ORTHOSTATIC DIZZINESS - this has improved during the hospital stay 2. CARDIOMYOPATHY - considered to be ischemic cardiomyopathy, EF 25% 3. HYPERTENSION - after hypotension resolved, incorporated lower dose meds into med regimen. Increasing Coreg today. 4. CAD - See above - required stenting February 2016. Currently taking ASA 81 mg daily and Plavix 75mg orally daily. Avoiding MARTIN (CKD) and using Hydralazine and Imdur combo 5. DYSLIPIDEMIA - continue lipid lowering agent 6. ANEMIA - requesting anemia profile from lab, check stools for occult blood. 7. DIABETES - history of being poorly controlled. Improved while hospitalized 8. RENAL INSUFFICIENCY - CKD, stage III 9. S/P ICD - [address] Connor. Exam (Progress Note) - Constitutional Vitals: Period Temp Pulse Resp BP Sys/Valenzuela Pulse Ox Last 24 Hr 97 F-97.8 F 79-180 18-21 111-171/53-89 97-100 Exam: General: Appears well with no apparent distress. Pleasant and cooperative. Appears comfortable. HEENT: PERRL, normocephalic, atraumatic. Mucous membranes moist. No jaundice noted. Conjunctiva moist and clear, sclerae anicteric Neck: No JVD/HJR, no thyromegaly or lymphadenopathy noted. No carotid bruit appreciated Cardiac: Regular rate and rhythm. II/ HSM heard best at 5ICS left. Lungs: Relatively clear to auscultation without accessory muscle use to assist the respiratory pattern. Uses oxygen intermittently. Abdomen: Soft, bowel sounds normoactive. Nontender and nondistended. No abdominal bruit or thrill noted. No masses noted. Musculoskeletal: No fluid collection. Decreased range of motion is noted. Extremities: No clubbing, cyanosis noted. No edema noted. Upper extremity pulses 2+. Lower extremity pulses 2+. Capillary refill less than 3 seconds. Skin: No unusual lesions or rashes. No skin breakdown appreciated. Neuro: Awake, alert and oriented 3. Moves all extremities well without hemiparesis or paralysis. No essential tremor is appreciated. Result/EKG - Labs CBC & BMP: 06/06/16 11:54 06/06/16 04:24 Lab Results: I have reviewed the past 24 hour labs Labs: Laboratory Results - last 24 hr 06/05/16 06/05/16 06/06/16 15:28 19:47 04:24 WBC 2.9 L RBC 2.89 L Hgb 8.0 L Hct 23.9 L MCV 82.7 L MCH 28 MCHC 33.5 RDW 13.0 Plt Count 110 L MPV 12.6 H Neut % (Auto) 39.2 Lymph % (Auto) 47.6 [place] % (Auto) 7.8 Eos % (Auto) 4.4 Baso % (Auto) 0.7 Neut # (Auto) 1.2 L Lymph # (Auto) 1.4 [place] # (Auto) 0.2 Eos # (Auto) 0.1 Baso # (Auto) 0.0 Immature Gran % 0.3 Nucleated RBC % 0.0 Immature Gran # 0.01 Nucleated RBCs # 0.00 Platelet Estimate Decreased Hypochromasia 1+ Ovalocytes Slight Morphology Comment Sodium Potassium Chloride Carbon Dioxide Anion Gap BUN Creatinine GFR Calculation BUN/Creatinine Ratio Glucose POC Glucose 276 H 272 H Calculated Osmolality Calcium Magnesium 06/06/16 06/06/16 04:24 07:10 WBC RBC Hgb Hct MCV MCH MCHC RDW Plt Count MPV Neut % (Auto) Lymph % (Auto) [place] % (Auto) Eos % (Auto) Baso % (Auto) Neut # (Auto) Lymph # (Auto) [place] # (Auto) Eos # (Auto) Baso # (Auto) Immature Gran % Nucleated RBC % Immature Gran # Nucleated RBCs # Platelet Estimate Hypochromasia Ovalocytes Morphology Comment Sodium 138 Potassium 5.1 Chloride 101 Carbon Dioxide 25 Anion Gap 17.1 H BUN 43 H Creatinine 2.00 H GFR Calculation 35 BUN/Creatinine Ratio 21.00 H Glucose 459 H POC Glucose 393 H Calculated Osmolality 305.7 H Calcium 8.6 Magnesium 2.0 - EKG EKG results: interpreted by vt EKG shows: sinus rhythm <Kenton Holland - Last Filed: 06/06/16 20:20> Exam (Progress Note) - Constitutional Vitals: Period Temp Pulse Resp BP Sys/Valenzuela Pulse Ox Last 24 Hr 96.8 F-96.9 F 83-93 18-18 109-124/65-71 99-100 Result/EKG - Labs CBC & BMP: 06/06/16 11:54 06/06/16 04:24 Labs: Laboratory Results - last 24 hr 06/06/16 06/06/16 15:42 18:59 POC Glucose 275 H 435 H
[2016-06-06] MEDS ORDERED: CARVEDILOL 6.25 MG TABLET PO ONE (11:53)
[2016-06-06] MEDS: PANTOPRAZOLE 40 MG TABLET PO SCH (12:06)
[2016-06-06 12:17] LABS: Basophils % 0.6 % (0.0-0.8); Eosinophils # 0.2 10*3/uL (0.0-0.87); Eosinophils % 4.4 % (0.00-10.9); Hematocrit 27.8 VOL% (35.7-47.0); Hemoglobin 9.1 GM/DL (12.0-16.0); Immature Granulocytes % 0.6 %; Immature Granulocytes Absolute 0.02 #; Lymphocytes # 1.4 10*3/uL (1.4-4.0); Lymphocytes % 39.2 % (21.3-54.2); Mean Corpuscular HGB Conc 32.7 GM/DL (32-36); Mean Corpuscular Hemoglobin 28 PG (27-34); Mean Platelet Volume 12.5 FL (9.6-12.0); Monocytes # 0.3 10*3/uL (0.11-0.8); Monocytes % 7.2 % (1.7-12.7); Neutrophils # 1.7 10*3/uL (1.4-7.4); Platelet Count 143 T/CUMM (130-400); Red Blood Count 3.27 MC/CUMM (3.8-5.5); White Blood Count 3.6 T/CUMM (4-12)
[2016-06-06 13:02] LABS: Folate 19.7 NG/ML (5.4-24.0); Vitamin B12 573 PG/ML (211-911)
[2016-06-06 13:20] LABS: Sedimentation Rate-Westergren 119 MM/HR (0-20)
[2016-06-06] MEDS: LACTULOSE 20 GM/30 ML UDCUP PO PRN ×2 (15:32→21:27)
[2016-06-06] MEDS: ENOXAPARIN 30 MG/0.3 ML SYRINGE SUBCUT SCH (15:35)
[2016-06-06] MEDS ORDERED: FUROSEMIDE 40 MG TABLET PO SCH (16:00)
[2016-06-06] MEDS ORDERED: INSULIN GLARGINE 100 UNIT/ML SUBCUT SCH (21:00)
[2016-06-06] MEDS: CARVEDILOL 12.5 MG TABLET PO SCH (21:24)
[2016-06-07 06:51] LABS: Hemoglobin A1 (Alkaline) 97.3 % (96.5-98.5); Hemoglobin A2 (Alkaline) 2.7 % (1.5-3.5)
[2016-06-07] MEDS: INSULIN LISPRO 100 UNIT/ML SUBCUT SCH ×2 (08:37→13:13)
[2016-06-07] MEDS: ASPIRIN EC 81 MG TABLET PO SCH (09:22)
[2016-06-07] MEDS: CARVEDILOL 12.5 MG TABLET PO SCH (09:22)
[2016-06-07] MEDS: hydrALAZINE 25 MG TABLET PO SCH ×2 (09:22→14:20)
[2016-06-07] MEDS: ISOSORBIDE DINITRATE 20 MG TABLET PO SCH ×2 (09:23→14:20)
[2016-06-07] MEDS: DIGOXIN 0.125 MG TABLET PO SCH ×2 (09:24→14:20)
[2016-06-07] MEDS: CLOPIDOGREL 75 MG TABLET PO SCH (09:28)
[2016-06-07] MEDS: PANTOPRAZOLE 40 MG TABLET PO SCH (09:28)
[2016-06-07] MEDS: BACITRACIN OPH OINT 3.5 GM TUBE LEFT EYE SCH ×2 (09:31→14:20)
[2016-06-07] MEDS: FUROSEMIDE 40 MG TABLET PO SCH (09:41)
[2016-06-07] MEDS: DEXTROSE 5% NACL 0.45% 1,000 ML IV SCH ×2 (09:54→14:19)
[2016-06-07] MEDS: POTASSIUM CHLORIDE 20 MEQ TABLET PO SCH (09:54)
[2016-06-07 11:51] VITALS: BP 129/68
--- NOTE | 2016-06-07 12:17 | Discharge Summary ---
Hospital Course - Hospital Course Hospital Course: Ms. Mejía is a 41 year old female who was previously followed by Dr. Connor. Patient has since been seen at [facility] by several of our [facility] physicians but reports her heart doctor is Dr. Roy. She has a history of hypertension, diabetes, prior cardiac stent placement and ICD placement by Dr. Connor in 2011, congestive heart failure, chronic renal failure, peripheral neuropathy, diabetic retinopathy, gastroesophageal reflux disease. She has risk factors significant for: Hypertension, diabetes, personal history of CAD, sedentary lifestyle. She presented to the emergency room Monday, June 03, 2016 with complaints of lightheadedness and orthostasis. Upon arrival to the emergency department she was hypotensive (99/60), heart rate 76bpm. This improved in the emergency department without treatment. She is noted to have a microcytic anemia with hemoglobin 9.8 and hematocrit 29.6. Glucose on admission was 560. She has chronic mild elevation of troponin. Troponin is currently the lowest it has been in the last 6 months. Prior echocardiogram done 02/20/16 revealed 2-3+ left atrial enlargement, 2-3+ right ventricular enlargement, ejection fraction 20-25% with septal dyskinesis, 4+ tricuspid regurgitation with RV systolic pressure estimated to be 28 mmHg plus RAP. She underwent left heart catheterization on 02/22/16 and was found to have 30% proximal to mid LAD stenosis, 80% ostial OM1 stenosis, 70-80% mid circumflex stenosis, 70% proximal and mid RCA stenosis, widely patent mid LAD and proximal OM1 stents. She developed a subtotal mid circumflex occlusion due to thrombosis during intervention with resolution after IC integrilin and manual thrombectomy as well as stenting with [id number] JOSS. Her home medications were held as there was a question about exactly which medications she was actually taking at home. After identifying her home meds, decreased doses were initiated. Her blood pressures now returned to normal and she is doing well. She is taking betablocker, hydralazine and aimdur combination (avoiding LIBBY due to renal insufficiency), lipid lowering agent. Patient is chronically anemic she is also noted to have no obvious source of bleeding. Elevated ESR, hyper-regenerative anemia with microcytosis. She is anxious for release home. She denies having a primary care provider we will refer her to Dr. Chris at internal medicine clinic for workup of her anemia, management of her diabetes etc. At this point, having felt she met maximal medical therapy, patient's being discharged home in stable condition. She will be given a follow-up appointment with Dr. Roy as she wishes to see Manuela rather than Dr. Connor. - Time spent with patient Time with patient DS: Greater than 30 minutes Diagnosis - Discharge Diagnosis (1) Anemia Status: Chronic (2) Hypertension Status: Chronic (3) Chronic renal insufficiency Status: Chronic (4) Diabetes mellitus type 2, uncontrolled Status: Chronic (5) Hypertensive cardiovascular disease Status: Chronic (6) Cardiomyopathy Status: Chronic (7) Dyslipidemia Status: Chronic (8) CAD (coronary artery disease) Status: Chronic Specialty Discharge - Follow Up or Referrals Follow up with: Jagdish Chris MD [Physician] - 1 Week (BMP, Mg, CBC) Herrera Roy MD [Physician] - 2 Weeks (EKG) Discharge Plan - Discharge Data Disposition: Disch To Home/Self Care Condition at Discharge: Stable Discharge Diet: heart healthy Activity: resume usual activities as tolerated Hygiene: no restrictions Weight Bearing at Discharge: full weight bearing Contact your physician if you experience:: fever over 101, Difficulty voiding, Redness or swelling, Nausea/Vomiting, Shortness of breath, Bleeding, pain uncontrolled by pain medications - Discharge Medications New Clopidogrel [Plavix] 75 mg PO DAILY #30 tablet Potassium Chloride Cap/Tab [K Dur] 20 meq PO DAILY #30 tablet hydrALAZINE TAB [Apresoline Tab] 25 mg PO TID #90 tablet Continue Omeprazole [Prilosec] 40 mg PO DAILY Furosemide Tab [Lasix Tab] 40 mg PO BID DIURETIC #60 tablet Isosorbide Dinitrate [Isordil] 20 mg PO TID #90 tablet Aspirin [Ecotrin] 81 mg PO QAM Digoxin Tab [Lanoxin Tab] 0.125 mg PO DAILY Bacitracin Oph Oint 1 applic LEFT EYE TID #1 tube Insulin Glargine [Lantus] 20 unit SUBCUT BEDTIME Carvedilol [Coreg] 25 mg PO BID #60 tablet Discontinued Ticagrelor [Brilinta] 90 mg PO BID #60 tablet Levofloxacin Tab [Levaquin Tab] 250 mg PO DAILY #25 tablet - Follow Up or Referral - Forms/Instructions Exam - Constitutional Vitals: Period Temp Pulse Resp BP Sys/Valenzuela Pulse Ox Last 24 Hr 96.8 F-98.1 F 72-93 18-20 109-164/65-83 98-100 Exam: General: Appears well with no apparent distress. Pleasant and cooperative. Appears comfortable. HEENT: PERRL, normocephalic, atraumatic. Mucous membranes moist. No jaundice noted. Conjunctiva moist and clear, sclerae anicteric Neck: No JVD/HJR, no thyromegaly or lymphadenopathy noted. No carotid bruit appreciated Cardiac: Regular rate and rhythm. II/ HSM heard best at 5ICS left. Lungs: Relatively clear to auscultation without accessory muscle use to assist the respiratory pattern. Uses oxygen intermittently. Abdomen: Soft, bowel sounds normoactive. Nontender and nondistended. No abdominal bruit or thrill noted. No masses noted. Musculoskeletal: No fluid collection. Decreased range of motion is noted. Extremities: No clubbing, cyanosis noted. No edema noted. Upper extremity pulses 2+. Lower extremity pulses 2+. Capillary refill less than 3 seconds. Skin: No unusual lesions or rashes. No skin breakdown appreciated. Neuro: Awake, alert and oriented 3. Moves all extremities well without hemiparesis or paralysis. No essential tremor is appreciated. Discharge Results Labs on day of discharge: Labs from last 24 hours 06/07/16 06/07/16 06/07/16 11:15 09:51 07:26 POC Glucose 221 H 183 H Digoxin 0.80 L 06/07/16 06/06/16 06/06/16 00:55 18:59 15:42 POC Glucose 221 H 435 H 275 H Digoxin - Imaging and Cardiology Cardiology Procedure: report reviewed by me DS: Provider Date of admission: 06/06/16 12:13 Primary care physician: . No PCP Attending physician on admission: Herrera Melchor Discharging clinician: Leidy Salazar NP Expected date of discharge: 06/07/16
[2016-06-07] MEDS ORDERED: ENOXAPARIN 40 MG/0.4 ML SYRINGE SUBCUT SCH (15:00)
== END 2016-06-07 15:11 | disposition home or self-care (01) | DRG 312 ==
LOC: N.EDINP 09:44 → N.ED 09:44 → N.TELEN 15:42
PROVIDERS: ADMIT Internal Medicine Cardiovascular Disease; ATTEND Internal Medicine Cardiovascular Disease

== ENCOUNTER 2016-06-26 04:16 | Inpatient (IN) ==
[2016-06-26] MEDS ORDERED: INSULIN REGULAR 100 UNIT/ML ONE (04:30)
[2016-06-26] MEDS ORDERED: INSULIN REGULAR 100 UNIT/ML IV STA (04:30)
[2016-06-26 04:42] LABS: Basophils % 0.9 % (0.0-0.8); Eosinophils # 0.2 10*3/uL (0.0-0.87); Eosinophils % 5.7 % (0.00-10.9); Hematocrit 27.3 VOL% (35.7-47.0); Hemoglobin 9.1 GM/DL (12.0-16.0); Immature Granulocytes % 0.2 %; Immature Granulocytes Absolute 0.01 #; Lymphocytes # 1.6 10*3/uL (1.4-4.0); Lymphocytes % 36.6 % (21.3-54.2); Mean Corpuscular HGB Conc 33.3 GM/DL (32-36); Mean Corpuscular Hemoglobin 28 PG (27-34); Mean Corpuscular Volume 82.5 FL (87-102); Mean Platelet Volume 13.2 FL (9.6-12.0); Monocytes # 0.3 10*3/uL (0.11-0.8); Monocytes % 7.3 % (1.7-12.7); Neutrophils # 2.1 10*3/uL (1.4-7.4); Neutrophils % 49.3 % (38.7-73.9); Platelet Count 149 T/CUMM (130-400); Red Blood Count 3.31 MC/CUMM (3.8-5.5); Red Cell Distribution Width 12.1 % (9.3-17.3); White Blood Count 4.2 T/CUMM (4-12)
[2016-06-26 04:54] LABS: PT Patient Result 10.5 SECS; Partial Thromboplastin Time 25.2 SECS (0-40)
[2016-06-26 05:05] LABS: Alanine Aminotransferase 33 U/L (13-56); Albumin 3.4 G/DL (3.4-5.0); Alkaline Phosphatase 399 U/L (45-117); Aspartate Amino Transferase 40 U/L (0-37); Bilirubin,Total < 0.39 MG/DL (0.2-1.0); Blood Urea Nitrogen 29 MG/DL (7-18); CKMB % 3.6 %; Calcium 9.2 MG/DL (8.5-10.1); Glucose 448 MG/DL (74-106); Osmolality,Calculated 292.2 MOS/KG (273-304); Potassium 4.2 MMOL/L (3.5-5.1); Sodium 134 MMOL/L (136-145); Total Protein 6.8 G/DL (6.4-8.3)
[2016-06-26 05:13] LABS: Troponin I Only 0.324 NG/ML (0.00-0.045)
--- NOTE | 2016-06-26 05:25 | Emergency Department Note ---
I, Vonnie Mosquera, am scribing for, and in the presence of, Marlyn Al DO 04:55. IServando Debra, DO, personally performed the services described in this documentation, ascribed by Vonnie Mosquera in my presence, and it is both accurate and complete 525 . Arrival - Arrival Stated Complaint: chest pain ED Nursing Triage Note: pt to room via stretcher. pt c/o chest pain 07/25 since 2200 last night . pt has had mi in past , 2 stents and pacemaker Mode of Arrival: Stretcher Limitations: No Limitations Source: Patient - History of Present Illness HPI Narrative: Pt is a 41 y/o female who was brought to ED by EMS with c/o non radiating chest pain while trying to to go to bed at 10pm last night. Pt reports having taken an aspiring and was given two nitros en route to ED. Pt denies SOB, nausea, numbness and diaphoresis. Pt's blood sugar is 423 and is DM. PMHx of pacemaker 2011 and 2 stents. Onset (ago): hour(s) Consistency: constant Severity: mild Severity scale (1-10): 3 Quality: aching Allergies/Adverse Reactions: Allergies Allergy/AdvReac Type Severity Reaction Status Date / Time No Known Allergies Allergy Verified 06/26/16 04:25 Home Medications: Home Medications Medication Instructions Recorded Confirmed Type Omeprazole [Prilosec] 40 mg PO DAILY 07/24/14 06/03/16 History Furosemide Tab [Lasix Tab] 40 mg PO BID DIURETIC #60 tablet 02/24/16 06/03/16 Rx Isosorbide Dinitrate [Isordil] 20 mg PO TID #90 tablet 02/24/16 06/03/16 Rx Aspirin [Ecotrin] 81 mg PO QAM 03/13/16 06/03/16 History Digoxin Tab [Lanoxin Tab] 0.125 mg PO DAILY 03/13/16 06/03/16 History Bacitracin Oph Oint 1 applic LEFT EYE TID #1 tube 05/27/16 06/03/16 Rx Insulin Glargine [Lantus] 20 unit SUBCUT BEDTIME 06/03/16 06/03/16 History Carvedilol [Coreg] 25 mg PO BID #60 tablet 06/07/16 Rx Clopidogrel [Plavix] 75 mg PO DAILY #30 tablet 06/07/16 Rx Potassium Chloride Cap/Tab [K Dur] 20 meq PO DAILY #30 tablet 06/07/16 Rx hydrALAZINE TAB [Apresoline Tab] 25 mg PO TID #90 tablet 06/07/16 Rx Review of System - Review of System 12 point system: reviewed and no additional remarkable complaints except as stated - Review of System Constitutional: Absent: chills, diaphoresis, fever Cardiovascular: Present: chest pain (non radiating; reproducible). Absent: syncope Gastrointestinal: Absent: nausea, vomiting Musculoskeletal: Absent: arm pain Skin: Absent: rash Neurological: Absent: headache, weakness, numbness, paresthesias Medical,Surgical,& Family Hx - Medical History Cardio: History of: Cardiac Dysrhythmia, CHF, CAD, Hypertension, Pacemaker, Cardiovascular Problems (ischemic cardiomyopathy - EF 15-20%) Neurology: History of: Peripheral Neuropathy HEENT: History of: Ear Problem (ongoing left ear problem, previously seen by [facility] (notes not availa), Eye Problem (diabetic retinopathy) Endocrine: History of: Diabetes Mellitus (IDDM), Diabetes Mellitus (NIDDM), Dyslipidemia, Thyroid Disorder Rheumatology: History of;: Gout No history of;: Systemic Lupus Erythematosus Respiratory: History of: Bronchitis, Obstructive Sleep Apnea (C-Pap), Respiratory Problems (Flu Vac 2014) No history of: Asthma, COPD, Pneumonia Renal: History of: Renal Failure (chronic kidney disease stage III) No history of: Dialysis Genitourinary: History of: Recurring Urinary Tract Infections No history of: Kidney Stones Gastrointestinal: History of: GERD, Liver Problems, GI Problems (gastroparesis) No history of: Gastrointestinal Bleed, Hemorrhoids, Pancreatitis Musculoskeletal: No history of: Amputation, Back/Neck Problems Hematology: History of: Anemia No history of: Blood Transfusion Reaction, Sickle Cell Disease Other: No history of: Anesthesia Reactions, Cancer, HIV, MRSA - Surgical History Cardiac Surgeries: Sugical HX of: Cardiac Catheterization (stents x 2), Cardiac Surgery (pacemaker) Thoracic Surgeries: Patient denies;: Organ Transplant, Lobectomy Neurologic Surgeries: Patient denies: Neurologic Surgery HEENT Surgeries: Surgical HX of: Eye Surgery (left retina surgery by Dr. Mathis) Patient denies: Tonsilectomy & Adenoidectomy Abdominal Surgeries: Surgical HX of: Cholecystectomy, EGD Patient denies: Abdominal Surgery Reproductive Surgeries: Surgical HX of;: Section, Gynecologic Surgery, Hysterectomy Patient denies;: Genitourinary Surgery Orthopedic Surgeries: Patient denies;: Implanted Devices, Orthopedic Surgery, Spinal Surgery, Total Hip Replacement, Total Knee Replacement - Family History Family History: Reports;: Family Diabetes, Family Heart Disease (mother), Family Hypertension, Family Stroke - Social History Smoking Status: Unknown if ever smoked Frequency of Alcohol Use: None Type of Drug Use: None Exam Vital Signs: Vital Signs Temperature 98.1 F 06/26/16 04:16 Pulse Rate 91 H 06/26/16 04:16 Respiratory Rate 14 06/26/16 04:25 Blood Pressure 144/92 06/26/16 04:16 O2 Sat by Pulse Oximetry 98 06/26/16 04:16 - General General appearance: alert, in no apparent distress, other (unkept) - Head Head exam: Present: atraumatic, normocephalic - Eye Eye exam: Present: PERRL, EOMI - ENT ENT exam: Present: mucous membranes moist. Absent: mucous membranes dry - Neck Neck exam: Present: full ROM. Absent: tenderness - Chest Chest inspection: Present: symmetric chest wall rise, tenderness (tender to palpation to chest wall) - Respiratory Respiratory exam: Present: normal lung sounds bilaterally. Absent: respiratory distress - Cardiovascular Cardiovascular exam: Present: regular rate, normal rhythm, normal heart sounds - Abdominal Exam Abdominal exam: Present: soft. Absent: tenderness - Extremities Exam Extremities exam: Present: full ROM. Absent: tenderness, pedal edema - Neurological Exam Neurological exam: Present: alert, oriented X3, CN II-XII intact. Absent: motor sensory deficit - Psychiatric Psychiatric exam: Present: normal affect, normal mood - Skin Skin exam: Present: warm, dry Course Course Narrative: spoke with DR Lane who agreed to admission. pt is stable at this time. chest pain free. Results - Labs CBC & BMP: 06/26/16 04:25 06/26/16 04:25 Lab Results: I have reviewed the patients labs Labs: Laboratory Tests 06/26/16 04:25 RBC 3.31 L Hgb 9.1 L Hct 27.3 L MCV 82.5 L MPV 13.2 H Baso % (Auto) 0.9 H Laboratory Tests 06/26/16 04:25 Sodium 134 L Anion Gap 15.2 H BUN 29 H Creatinine 1.70 H Glucose 448 H AST 40 H Alkaline Phosphatase 399 H CK-MB (CK-2) 5.4 H Troponin I 0.324 H Albumin/Globulin Ratio 1.0 L - EKG EKG results: interpreted by BONNIE, no acute changes - Diagnostic Findings Procedure: Chest x-ray: image reviewed by me Disposition Clinical Impression: Chest pain Case discussed with: patient Disposition: Still a Patient Condition: Stable Time of Disposition: 05:33
[2016-06-26] MEDS ORDERED: SODIUM CHLORIDE 0.9% 500 ML IV STA (05:31)
[2016-06-26] MEDS ORDERED: ENOXAPARIN 80 MG/0.8 ML SYRINGE SUBCUT ONE (05:33)
[2016-06-26] MEDS ORDERED: MORPHINE 2 MG/1 ML SYRINGE IV PRN (05:35)
[2016-06-26] MEDS ORDERED: MAGNESIUM SULF RIDER 2 GM in PREMIX 1 EACH IV PRN (05:35)
[2016-06-26] MEDS ORDERED: MAGNESIUM SULF RIDER 4 GM in PREMIX 1 EACH IV PRN (05:35)
[2016-06-26] MEDS ORDERED: ENOXAPARIN 80 MG/0.8 ML SYRINGE SUBCUT STA (05:39)
[2016-06-26 06:21] LABS: Apearance,Urine CLEAR (Clear); Bilirubin,Urine Negative (Negative); Blood, Urine Small mg/dL (Negative); Glucose,Urine (UA) >=500 mg/dL (Negative); Ketones,Urine Negative (Negative); Mucus,Urine Occasional /LPF (Occasional); Nitrite,Urine Negative (Negative); Protein,Urine >=500 MG/DL; RBC,Urine 5 /HPF (0-4); Squamous Epithelial Cell,Urine Occasional /HPF (0-10); Urine Color Yellow (Yellow); Urine Specific Gravity 1.015 (1.001-1.035); Urine Urobilinogen < 2.0 EU/DL (0.2-1.0); WBC,Urine 1 /HPF (0-6)
[2016-06-26 06:25] LABS: CKMB % 3.7 %
[2016-06-26 06:27] LABS: Troponin I Only 0.334 NG/ML (0.00-0.045)
[2016-06-26 06:55] LABS: Barbiturates Screen,Urine Negative (Negative); Benzodiazepines Screen,Urine Negative (Negative); Cannabinoid Screen,Urine Negative (Negative); Opiate Screen,Urine Negative (Negative); Phencyclidine Screen,Urine Negative (Negative)
--- NOTE | 2016-06-26 07:25 | XRay Report ---
Portable chest Date: 06/26/2016 Clinical history: Shortness of breath Comparison: 06/03/2016 Technique: Portable AP sitting chest Findings: The heart is normal in size with stable left subclavian atrioventricular AICD. Coronary artery stents are noted. Chronic scarring in the lungs with stable mediastinum and osseous structures. Impression: No acute cardiopulmonary pathology identified. Stable left subclavian atrioventricular AICD. PROCEDURE INTERPRETED AT [facility] DEPARTMENT OF RADIOLOGY Final Report Signed by: Dr. Ashley Cloud
--- NOTE | 2016-06-26 09:30 | EKG Report ---
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
[2016-06-26 09:52] LABS: CKMB % 3.8 %; Troponin I Only 0.331 NG/ML (0.00-0.045)
--- NOTE | 2016-06-26 10:12 | Cardiology History & Physical ---
Assessment and Plan - Time spent with patient Time spent with patient: Greater than 30 minutes (1) CAD (coronary artery disease) Status: Chronic Assessment and plan: See plan of care listed below Current Visit: Yes (2) Ischemic cardiomyopathy Status: Chronic Assessment and plan: See plan of care listed below Current Visit: Yes (3) Anemia Status: Chronic Assessment and plan: See plan of care listed below Current Visit: Yes (4) ICD (implantable cardioverter-defibrillator) in place Status: Chronic Assessment and plan: See plan of care listed below Current Visit: Yes (5) Chest pain Status: Acute Current Visit: Yes (6) Hypertension Status: Chronic Assessment and plan: See plan of care listed below Current Visit: No Qualifiers: Hypertension type: essential hypertension Qualified Code(s): I10 - Essential (primary) hypertension (7) Chronic renal insufficiency Status: Chronic Assessment and plan: See plan of care listed below Current Visit: No Qualifiers: Chronic kidney disease stage: stage 3 (moderate) Qualified Code(s): N18.3 - Chronic kidney disease, stage 3 (moderate) History of Present Illness Chief complaint: Chest pain History of present illness: Ms. Mejía is a 41 year old female reports her heart doctors Dr. Roy. She has not followed up with Dr. Roy in clinic. Risk factors include: known history of coronary artery disease, hypertension, dyslipidemia, diabetes, sedentary lifestyle. History of ICD placement by Dr. Connor 2011, chronic renal failure, peripheral neuropathy, diabetic retinopathy, GERD, congestive heart failure, chronic regenerative anemia with microcystosis. Patient presented to the emergency department at [facility] last evening after experiencing chest pain in the center and right chest area while sleeping. It did not radiate, cause nausea, vomiting or diaphoresis. She describes the discomfort as sharp and stabbing. She can identify no aggravating factors nor any alleviating factors. She rates her discomfort as a 7 on a scale of 1-10 she is currently chest pain-free. Although she is not tender to touch at this point, she tells me that when she was experiencing the chest discomfort last evening it was tender to touch. Troponin is 0.324, 0.334, 0.331. Of note, her troponin is chronically elevated each admission. EKG does not reveal any acute event but is abnormal. Prior echocardiogram done 02/20/16 revealed 2-3+ left atrial enlargement, 2-3+ right ventricular enlargement, ejection fraction 20-25% with septal dyskinesis, 4+ tricuspid regurgitation with RV systolic pressure estimated to be 28 mmHg plus RAP. She underwent left heart catheterization on 02/22/16 and was found to have 30% proximal to mid LAD stenosis, 80% ostial OM1 stenosis, 70-80% mid circumflex stenosis, 70% proximal and mid RCA stenosis, widely patent mid LAD and proximal OM1 stents. She developed a subtotal mid circumflex occlusion due to thrombosis during intervention with resolution after IC integrilin and manual thrombectomy as well as stenting with [id number] JOSS. Dr. Holland saw patient in consultation May 2016 for hypotension with the following noted: The LV lead for GENERAL DENTIST/OWNER-D appears to be either in the apical branch of the posterior vein or dislodged into the RV, with suboptimal separation from the RV lead. This is stable since 2014. ECG shows no effective LV pacing. The GENERAL DENTIST/OWNER-D was interrogated. If management of her CHF remains difficult, revision of her GENERAL DENTIST/OWNER-D may be considered. She is scheduled to see Dr. Chris , June 30, 2016 for better management of diabetes and anemia. Hemoglobin 9.1, hematocrit 27.3. Blood glucose level 448. She intends on keeping this appointment. She tells me that after she takes her medications each day she feels significantly fatigued, lightheaded, dizzy and presyncopal. Supine vital signs 154/94, sitting 150/83. Creatinine is 1.7. Alkaline phosphatase 399, AST is 40. We will add an amylase and lipase to her labs today. ASSESSMENT/PLAN: 1. CHEST PAIN -suspect this is noncardiac in nature. We will continue with PPI, monitoring serial cardiac biomarkers which appear to be flat at this point. 2. KNOWN CAD -continue with aspirin and Plavix. 3. ICM -EF 20-25% per echocardiogram February 2016. At this point, no need to repeat echo. She has an ICD 4. DIABETES -continue current plan of care. Will cover with sliding scale insulin. She has an appointment to see Dr. Chris for adjustments in her diabetic regimen. 5. HYPERTENSION -continue current plan of care. Suboptimally controlled and may adjust medications during hospital stay for better blood pressure 6. DYSLIPIDEMIA -hold statins for now 7. ELEVATED TROPONIN -although mildly elevated they have been unchanged for 3 consecutive draws. 8. ANEMIA - seeing Dr. Chris Monday for further work-up of this chronic condition 9. S/P ICD -continue current plan of care 10. ELEVATED ALP, AST - adding amylase and lipase to labs. Holding cholesterol lowering agent Home Medications Medication Instructions Recorded Confirmed Type Omeprazole [Prilosec] 40 mg PO DAILY 07/24/14 06/26/16 History Furosemide Tab [Lasix Tab] 40 mg PO BID DIURETIC #60 tablet 02/24/16 06/26/16 Rx Isosorbide Dinitrate [Isordil] 20 mg PO TID #90 tablet 02/24/16 06/26/16 Rx Aspirin [Ecotrin] 81 mg PO QAM 03/13/16 06/26/16 History Digoxin Tab [Lanoxin Tab] 0.125 mg PO DAILY 03/13/16 06/26/16 History Insulin Glargine [Lantus] 20 unit SUBCUT BEDTIME 06/03/16 06/26/16 History Carvedilol [Coreg] 25 mg PO BID #60 tablet 06/07/16 06/26/16 Rx Clopidogrel [Plavix] 75 mg PO DAILY #30 tablet 06/07/16 06/26/16 Rx Potassium Chloride Cap/Tab [K Dur] 20 meq PO DAILY #30 tablet 06/07/16 06/26/16 Rx hydrALAZINE TAB [Apresoline Tab] 25 mg PO TID #90 tablet 06/07/16 06/26/16 Rx Allergies Allergy/AdvReac Type Severity Reaction Status Date / Time No Known Allergies Allergy Verified 06/26/16 04:25 Review of systems: REVIEW OF SYSTEMS: - Constitutional Constitutional: Present: Fatigue. Absent: syncope, anorexia, night sweats - EENT Eyes: Absent: blurry vision, loss of vision, diplopia Ears: Absent: decreased hearing, ear pain, ear discharge - Cardiovascular Cardiovascular: Present: chest pain at rest. Chronic dyspnea on exertion, reports occasional lower extremity edema. Denies palpitations. Absent: chest pain with deep breath, claudication - Respiratory Respiratory: Present: THOMPSON, denies cough. Absent: wheezing, hemoptysis, change in phlegm color - Gastrointestinal Gastrointestinal: Absent: Constipation, abdominal pain, hematemesis, hematochezia, melena, change in bowel habits, nausea - Genitourinary Genitourinary: Absent: difficulty urinating, dysuria, urinary hesitancy, flank pain - Musculoskeletal Musculoskeletal: Present: back pain Absent: joint swelling, muscle cramps, muscle weakness - Neurological Neurological: Present: normal gait without frequent falls. Absent: dizziness, hemiparesis - Psychiatric Psychiatric: Absent: anxiety, depression, difficulty concentrating - Endocrine Endocrine: Present: fatigue. Absent: cold intolerance, heat intolerance, polyuria, polyphagia, polydipsia - Hematologic/Lymphatic Hematologic/Lymphatic: Present: easy bruising. Absent: easy bleeding -Integumentary Integumentary: Absent: lesions, rashes, skin breakdown Medical,Surgical,& Family Hx - Medical History Cardio: History of: Cardiac Dysrhythmia, CHF, CAD, Hypertension, Pacemaker, Cardiovascular Problems (ischemic cardiomyopathy - EF 15-20%) Neurology: History of: Peripheral Neuropathy HEENT: History of: Ear Problem (ongoing left ear problem, previously seen by [facility] (notes not availa), Eye Problem (diabetic retinopathy) Endocrine: History of: Diabetes Mellitus (IDDM), Diabetes Mellitus (NIDDM), Dyslipidemia, Thyroid Disorder Rheumatology: History of;: Gout No history of;: Systemic Lupus Erythematosus Respiratory: History of: Bronchitis, Obstructive Sleep Apnea (C-Pap), Respiratory Problems (Flu Vac 2015) No history of: Asthma, COPD, Pneumonia Renal: History of: Renal Failure (chronic kidney disease stage III) No history of: Dialysis Genitourinary: History of: Recurring Urinary Tract Infections No history of: Kidney Stones Gastrointestinal: History of: GERD, Liver Problems, GI Problems (gastroparesis) No history of: Gastrointestinal Bleed, Hemorrhoids, Pancreatitis Musculoskeletal: No history of: Amputation, Back/Neck Problems Hematology: History of: Anemia No history of: Blood Transfusion Reaction, Sickle Cell Disease Other: No history of: Anesthesia Reactions, Cancer, HIV, MRSA - Surgical History Cardiac Surgeries: Sugical HX of: Cardiac Catheterization (stents x 2), Cardiac Surgery (pacemaker) Thoracic Surgeries: Patient denies;: Organ Transplant, Lobectomy Neurologic Surgeries: Patient denies: Neurologic Surgery HEENT Surgeries: Surgical HX of: Eye Surgery (left retina surgery by Dr. Mathis) Patient denies: Tonsilectomy & Adenoidectomy Abdominal Surgeries: Surgical HX of: Cholecystectomy, EGD Patient denies: Abdominal Surgery Reproductive Surgeries: Surgical HX of;: Section, Gynecologic Surgery, Hysterectomy Patient denies;: Genitourinary Surgery Orthopedic Surgeries: Patient denies;: Implanted Devices, Orthopedic Surgery, Spinal Surgery, Total Hip Replacement, Total Knee Replacement - Family History Family History: Reports;: Family Diabetes, Family Heart Disease (mother), Family Hypertension, Family Stroke - Social History Smoking Status: Unknown if ever smoked Frequency of Alcohol Use: None Type of Drug Use: None Cardiology Physical Exam - Constitutional Vitals: Vital Signs Temp Pulse Resp BP Pulse Ox 96.8 F L 83 18 166/86 100 06/26/16 07:40 06/26/16 07:40 06/26/16 07:40 06/26/16 07:40 06/26/16 07:40 Intake and Output 06/25/16 06/26/16 06/26/16 22:59 07:59 15:59 Other: Weight Patient Weight 06/27/16 00:59 Weight 67.84 kg Exam: General: [Appears well with no apparent distress.] [Pleasant and cooperative. ] [Appears comfortable.] HEENT: [PERRL, normocephalic, atraumatic. Mucous membranes moist. No jaundice noted. Conjunctiva moist and clear, sclerae anicteric] Neck: No JVD/HJR, no thyromegaly or lymphadenopathy noted. No carotid bruit appreciated Cardiac: [Regular rate and rhythm.] [II/ HSM heard best at 5ICS left] Lungs: [Clear to auscultation without accessory muscle use to assist the respiratory pattern.] Not requiring oxygen. Abdomen: Soft, bowel sounds normoactive. Nontender and nondistended. No abdominal bruit or thrill noted. No masses noted. Musculoskeletal: No fluid collection. Decreased range of motion is noted. Extremities: No clubbing, cyanosis noted. [ No edema noted.] Upper extremity pulses 2+. Lower extremity pulses 2+. Capillary refill less than 3 seconds. Skin: No unusual lesions or rashes. No skin breakdown appreciated. Neuro: Awake, alert and oriented 3. Moves all extremities well without hemiparesis or paralysis. No essential tremor is appreciated. Result/EKG - Labs CBC & BMP: 06/26/16 04:25 06/26/16 04:25 Lab Results: I have reviewed the past 24 hour labs Labs: Laboratory Results - last 24 hr 06/26/16 05:47 POC Glucose 360 H - Diagnostic Findings Procedure: Chest x-ray: report reviewed by me - EKG EKG results: interpreted by me EKG shows: sinus rhythm
[2016-06-26] MEDS: PANTOPRAZOLE 40 MG TABLET PO SCH (11:21)
[2016-06-26] MEDS: ASPIRIN EC 81 MG TABLET PO SCH (11:21)
[2016-06-26] MEDS: CLOPIDOGREL 75 MG TABLET PO SCH (11:22)
[2016-06-26] MEDS: DIGOXIN 0.125 MG TABLET PO SCH (11:22)
[2016-06-26] MEDS: POTASSIUM CHLORIDE 20 MEQ TABLET PO SCH (11:22)
[2016-06-26] MEDS: CARVEDILOL 25 MG TABLET PO SCH ×2 (11:22→21:15)
[2016-06-26 12:25] LABS: CKMB % 3.9 %
[2016-06-26 12:26] LABS: Troponin I Only 0.326 NG/ML (0.00-0.045)
[2016-06-26] MEDS: FUROSEMIDE 40 MG TABLET PO SCH (17:04)
[2016-06-26] MEDS: ISOSORBIDE DINITRATE 20 MG TABLET PO SCH ×2 (17:04→21:17)
[2016-06-26] MEDS: hydrALAZINE 25 MG TABLET PO SCH ×2 (17:04→21:17)
[2016-06-26] MEDS: INSULIN REGULAR 100 UNIT/ML SUBCUT SCH ×2 (17:27→21:15)
[2016-06-26] MEDS ORDERED: INSULIN GLARGINE 100 UNIT/ML SUBCUT SCH (21:00)
[2016-06-26] MEDS ORDERED: INSULIN REGULAR 100 UNIT/ML SUBCUT SCH (21:00)
--- NOTE | 2016-06-27 07:32 | EKG Report ---
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
[2016-06-27] MEDS: ISOSORBIDE DINITRATE 20 MG TABLET PO SCH (08:55)
[2016-06-27] MEDS: DIGOXIN 0.125 MG TABLET PO SCH (08:55)
[2016-06-27] MEDS: ASPIRIN EC 81 MG TABLET PO SCH (08:55)
[2016-06-27] MEDS: POTASSIUM CHLORIDE 20 MEQ TABLET PO SCH (08:55)
[2016-06-27] MEDS: hydrALAZINE 25 MG TABLET PO SCH (08:56)
[2016-06-27] MEDS: PANTOPRAZOLE 40 MG TABLET PO SCH (08:56)
[2016-06-27] MEDS: CLOPIDOGREL 75 MG TABLET PO SCH (08:56)
[2016-06-27] MEDS: CARVEDILOL 25 MG TABLET PO SCH (08:56)
[2016-06-27] MEDS: FUROSEMIDE 40 MG TABLET PO SCH (08:56)
[2016-06-27] MEDS: INSULIN REGULAR 100 UNIT/ML SUBCUT SCH ×2 (10:50→12:42)
--- NOTE | 2016-06-27 12:08 | Discharge Summary ---
Addendum entered and electronically signed by Kartik Ruiz MD 06/27/16 13:16 : I have seen, interviewed, examined the patient and reviewed his chart and discussed the case with the mid-level provider and agree with the plan as outlined in the note. Original Note: <Leidy Salazar - Last Filed: 06/27/16 12:09> Hospital Course - Hospital Course Hospital Course: Ms. Mejía is a 41 year old female reports her heart doctor Dr. Roy. She has not followed up with Dr. Roy in clinic. Risk factors include: known history of coronary artery disease, hypertension, dyslipidemia, diabetes, sedentary lifestyle. History of ICD placement by Dr. Connor 2011, chronic renal failure, peripheral neuropathy, diabetic retinopathy, GERD, congestive heart failure, chronic regenerative anemia with microcystosis. Patient presented to the emergency department at [facility] June 25, 2016 after experiencing chest pain in the center and right chest area while sleeping. She was hospitalized and monitored closely. Troponins were flat, and remained unchanged throughout the hospital stay. EKG stable. Patient had no additional chest discomfort since hospitalization. She has been walking without chest pain, heaviness or tightness. She is scheduled to see Dr. Chris , June 30, 2016 for better management of diabetes and anemia. She intends on keeping this appointment. She is anxious for release home today. She has an appointment to see Dr. Roy in June and she will keep this appointment. Having felt him at maximal medical therapy, patient is released in stable condition. History of elevated liver enzymes in past thererfor not on lipid lowering agent - Time spent with patient Time with patient DS: Greater than 30 minutes Diagnosis - Discharge Diagnosis (1) CAD (coronary artery disease) Status: Chronic (2) Ischemic cardiomyopathy Status: Chronic (3) Anemia Status: Chronic (4) ICD (implantable cardioverter-defibrillator) in place Status: Chronic (5) Chest pain Status: Acute (6) Hypertension Status: Chronic (7) Chronic renal insufficiency Status: Chronic Specialty Discharge - Follow Up or Referrals Follow up with: Jagdish Chris MD [Physician] - (Keep follow-up appointment ) Herrera Roy MD [Physician] - (Keep follow-up appointment in June) Discharge Plan - Discharge Data Disposition: Disch To Home/Self Care Condition at Discharge: Stable Discharge Diet: heart healthy Activity: resume usual activities as tolerated Hygiene: no restrictions Weight Bearing at Discharge: full weight bearing Driving: not until seen by doctor Contact your physician if you experience:: fever over 101, Difficulty voiding, Redness or swelling, Nausea/Vomiting, Shortness of breath, Bleeding, pain uncontrolled by pain medications - Discharge Medications Continue Omeprazole [Prilosec] 40 mg PO DAILY Furosemide Tab [Lasix Tab] 40 mg PO BID DIURETIC #60 tablet Isosorbide Dinitrate [Isordil] 20 mg PO TID #90 tablet Aspirin [Ecotrin] 81 mg PO QAM Digoxin Tab [Lanoxin Tab] 0.125 mg PO DAILY Insulin Glargine [Lantus] 20 unit SUBCUT BEDTIME Clopidogrel [Plavix] 75 mg PO DAILY #30 tablet Potassium Chloride Cap/Tab [K Dur] 20 meq PO DAILY #30 tablet hydrALAZINE TAB [Apresoline Tab] 25 mg PO TID #90 tablet Carvedilol [Coreg] 25 mg PO BID #60 tablet - Follow Up or Referral Follow Up: Jagdish Chris MD [Physician] - (Keep follow-up appointment ) Herrera Roy MD [Physician] - (Keep follow-up appointment in June) - Forms/Instructions Instructions: Chest Pain (DC) Exam - Constitutional Vitals: Period Temp Pulse Resp BP Sys/Valenzuela Pulse Ox Last 24 Hr 97.2 F-97.9 F 70-88 16-20 102-154/53-83 97-100 Exam: General: [Appears well with no apparent distress.] [Pleasant and cooperative. ] [Appears comfortable.] HEENT: [PERRL, normocephalic, atraumatic. Mucous membranes moist. No jaundice noted. Conjunctiva moist and clear, sclerae anicteric] Neck: No JVD/HJR, no thyromegaly or lymphadenopathy noted. No carotid bruit appreciated Cardiac: [Regular rate and rhythm.] [No murmur rub or gallop.] Lungs: [Clear to auscultation without accessory muscle use to assist the respiratory pattern.] Not requiring oxygen. Abdomen: Soft, bowel sounds normoactive. Nontender and nondistended. No abdominal bruit or thrill noted. No masses noted. Musculoskeletal: No fluid collection. Decreased range of motion is noted. Extremities: No clubbing, cyanosis noted. [ No edema noted.] Upper extremity pulses 2+. Lower extremity pulses 2+. Capillary refill less than 3 seconds. Skin: No unusual lesions or rashes. No skin breakdown appreciated. Neuro: Awake, alert and oriented 3. Moves all extremities well without hemiparesis or paralysis. No essential tremor is appreciated. Discharge Results Labs on day of discharge: Labs from last 24 hours 06/27/16 06/27/16 06/27/16 11:37 07:36 01:17 POC Glucose 317 H 165 H 91 06/26/16 06/26/16 06/26/16 22:43 20:22 17:05 POC Glucose 222 H 470 H 465 H - Imaging and Cardiology Procedure: Chest x-ray: report reviewed by me DS: Provider Date of admission: 06/26/16 05:35 Primary care physician: . No PCP Attending physician on admission: Lamar Dexter Consults: 06/26/16 06:24 Consult to Pharmacy [CONS] Routine Reason for Pharmacy Consult: Adjust Meds Renal Funct 06/26/16 07:05 Consult to Pastoral Services [CONS] Routine Comment: Pastoral Screen: Request Client Success Specialist Visit Discharging clinician: Leidy Salazar NP Expected date of discharge: 06/27/16 <Kartik Ruiz - Last Filed: 06/27/16 13:14> Hospital Course - Hospital Course Hospital Course: I have seen, interviewed, examined the patient and reviewed his chart and discussed the case with the mid-level provider and agree with the plan as outlined in the note.
[2016-06-27 12:15] VITALS: BP 114/60
== END 2016-06-27 13:30 | disposition home or self-care (01) | DRG 303 ==
LOC: EDBD → EDUNIT# → N.ED 04:16 → N.EDINP 05:35 → N.TELEN 06:14
PROVIDERS: ADMIT Internal Medicine Cardiovascular Disease; ATTEND Internal Medicine Cardiovascular Disease

== ENCOUNTER 2017-02-11 03:13 | Observation (INO) ==
[2017-02-11] MEDS ORDERED: ASPIRIN 325 MG TABLET PO STA (03:30)
[2017-02-11 05:07] LABS: Basophils % 0.5 % (0.0-0.8); Eosinophils # 0.2 10*3/uL (0.0-0.87); Eosinophils % 4.6 % (0.00-10.9); Hematocrit 25.4 VOL% (35.7-47.0); Hemoglobin 8.8 GM/DL (12.0-16.0); Immature Granulocytes % 0.2 %; Immature Granulocytes Absolute 0.01 #; Lymphocytes # 1.7 10*3/uL (1.4-4.0); Mean Corpuscular HGB Conc 34.6 GM/DL (32-36); Mean Corpuscular Hemoglobin 27 PG (27-34); Mean Corpuscular Volume 79.1 FL (87-102); Mean Platelet Volume 12.4 FL (9.6-12.0); Monocytes # 0.3 10*3/uL (0.11-0.8); Monocytes % 6.2 % (1.7-12.7); Neutrophils # 2.2 10*3/uL (1.4-7.4); Neutrophils % 49.5 % (38.7-73.9); Platelet Count 97 T/CUMM (130-400); Red Blood Count 3.21 MC/CUMM (3.8-5.5); Red Cell Distribution Width 11.9 % (9.3-17.3); White Blood Count 4.4 T/CUMM (4-12)
[2017-02-11 05:15] LABS: Eosinophils 5 % (0-10); Lymphocytes 40 % (20-55); Segmented Neutrophils 50 % (50-85); Total Cells Counted 100
[2017-02-11 05:16] LABS: Platelet Estimate Adequate
[2017-02-11 05:48] LABS: Alanine Aminotransferase 23 U/L (13-56); Albumin 3.2 G/DL (3.4-5.0); Alkaline Phosphatase 222 U/L (45-117); Aspartate Amino Transferase 24 U/L (0-37); Bilirubin,Total < 0.39 MG/DL (0.2-1.0); Blood Urea Nitrogen 28 MG/DL (7-18); Calcium 8.9 MG/DL (8.5-10.1); Glucose 329 MG/DL (74-106); Potassium 4.2 MMOL/L (3.5-5.1); Sodium 136 MMOL/L (136-145); Total Protein 6.4 G/DL (6.4-8.3)
[2017-02-11] MEDS ORDERED: ONDANSETRON 4 MG/2 ML VIAL IV PRN (06:18)
[2017-02-11] MEDS ORDERED: DEXTROSE 50% 25 GM/50 ML VIAL IV PRN (06:18)
[2017-02-11] MEDS ORDERED: MORPHINE 2 MG/1 ML SYRINGE IV PRN (06:18)
[2017-02-11] MEDS ORDERED: ACETAMINOPHEN 325 MG TABLET PO PRN (06:18)
[2017-02-11] MEDS ORDERED: GLUCAGON 1 MG VIAL IM PRN (06:18)
[2017-02-11] MEDS ORDERED: NITROGLYCERIN SL 0.4 MG TABLET SL PRN (06:24)
[2017-02-11] MEDS ORDERED: ALBUTEROL 2.5 MG/3 ML NEB RESP TX PRN (07:05)
[2017-02-11 08:28] LABS: Free T4 (Free Thyroxine) 1.19 NG/DL (0.76-1.46); Magnesium 1.6 MG/DL (1.8-2.4); Thyroid Stimulating Hormone 1.65 uIU/ml (0.358-3.74)
[2017-02-11] MEDS: FUROSEMIDE 40 MG TABLET PO SCH ×2 (09:16→17:11)
[2017-02-11] MEDS: PANTOPRAZOLE 40 MG TABLET PO SCH (09:16)
[2017-02-11] MEDS: CARVEDILOL 25 MG TABLET PO SCH ×2 (09:16→21:14)
[2017-02-11] MEDS: ISOSORBIDE DINITRATE 20 MG TABLET PO SCH ×3 (09:16→21:14)
[2017-02-11] MEDS: GABAPENTIN 300 MG CAPSULE PO SCH (09:16)
[2017-02-11] MEDS: hydrALAZINE 25 MG TABLET PO SCH ×3 (09:17→21:14)
[2017-02-11] MEDS: INSULIN LISPRO 100 UNIT/ML SUBCUT SCH ×4 (09:17→21:15)
[2017-02-11] MEDS: ASPIRIN EC 81 MG TABLET PO SCH (09:17)
[2017-02-12 05:47] LABS: Basophils % 0.5 % (0.0-0.8); Eosinophils # 0.2 10*3/uL (0.0-0.87); Eosinophils % 4.4 % (0.00-10.9); Hematocrit 24.3 VOL% (35.7-47.0); Hemoglobin 8.1 GM/DL (12.0-16.0); Lymphocytes # 2.3 10*3/uL (1.4-4.0); Lymphocytes % 56.3 % (21.3-54.2); Mean Corpuscular HGB Conc 33.3 GM/DL (32-36); Mean Corpuscular Hemoglobin 27 PG (27-34); Mean Platelet Volume 13.1 FL (9.6-12.0); Monocytes # 0.3 10*3/uL (0.11-0.8); Monocytes % 6.2 % (1.7-12.7); Neutrophils # 1.3 10*3/uL (1.4-7.4); Neutrophils % 32.6 % (38.7-73.9); Platelet Count 108 T/CUMM (130-400); Red Cell Distribution Width 12.1 % (9.3-17.3); White Blood Count 4.1 T/CUMM (4-12)
[2017-02-12 06:25] LABS: Alanine Aminotransferase 19 U/L (13-56); Albumin 2.8 G/DL (3.4-5.0); Alkaline Phosphatase 173 U/L (45-117); Aspartate Amino Transferase 15 U/L (0-37); Bilirubin,Total < 0.39 MG/DL (0.2-1.0); Blood Urea Nitrogen 39 MG/DL (7-18); Glucose 219 MG/DL (74-106); Osmolality,Calculated 292.5 MOS/KG (273-304); Potassium 4.2 MMOL/L (3.5-5.1); Sodium 139 MMOL/L (136-145); Thyroid Stimulating Hormone 0.615 uIU/ml (0.358-3.74); Total Protein 5.7 G/DL (6.4-8.3)
[2017-02-12 06:44] LABS: Band Neutrophils 3 % (0-10); Eosinophils 3 % (0-10); Lymphocytes 61 % (20-55); Myelocytes 1 %; Segmented Neutrophils 31 % (50-85)
[2017-02-12 06:46] LABS: Platelet Estimate Adequate; Total Cells Counted 100
[2017-02-12] MEDS: hydrALAZINE 25 MG TABLET PO SCH ×3 (09:25→21:08)
[2017-02-12] MEDS: FUROSEMIDE 40 MG TABLET PO SCH ×2 (09:25→17:40)
[2017-02-12] MEDS: CARVEDILOL 25 MG TABLET PO SCH ×2 (09:25→21:07)
[2017-02-12] MEDS: ASPIRIN EC 81 MG TABLET PO SCH (09:25)
[2017-02-12] MEDS: INSULIN LISPRO 100 UNIT/ML SUBCUT SCH ×4 (09:25→21:08)
[2017-02-12] MEDS: ISOSORBIDE DINITRATE 20 MG TABLET PO SCH ×3 (09:25→21:06)
[2017-02-12] MEDS: PANTOPRAZOLE 40 MG TABLET PO SCH (09:25)
[2017-02-12] MEDS: GABAPENTIN 300 MG CAPSULE PO SCH (09:25)
[2017-02-12] MEDS ORDERED: INSULIN GLARGINE 100 UNIT/ML SUBCUT SCH (21:00)
[2017-02-13 04:57] LABS: Basophils % 0.3 % (0.0-0.8); Eosinophils # 0.1 10*3/uL (0.0-0.87); Eosinophils % 3.6 % (0.00-10.9); Hematocrit 23.6 VOL% (35.7-47.0); Immature Granulocytes % 0.3 %; Immature Granulocytes Absolute 0.01 #; Lymphocytes % 50.6 % (21.3-54.2); Mean Corpuscular HGB Conc 33.9 GM/DL (32-36); Mean Corpuscular Hemoglobin 28 PG (27-34); Mean Corpuscular Volume 81.4 FL (87-102); Mean Platelet Volume 13.1 FL (9.6-12.0); Monocytes # 0.3 10*3/uL (0.11-0.8); Monocytes % 6.4 % (1.7-12.7); Neutrophils # 1.5 10*3/uL (1.4-7.4); Neutrophils % 38.8 % (38.7-73.9); Platelet Count 103 T/CUMM (130-400); Red Cell Distribution Width 12.1 % (9.3-17.3); White Blood Count 3.9 T/CUMM (4-12)
[2017-02-13 05:23] LABS: Calcium 8.1 MG/DL (8.5-10.1); Magnesium 1.8 MG/DL (1.8-2.4); Osmolality,Calculated 295.8 MOS/KG (273-304); Potassium 4.6 MMOL/L (3.5-5.1)
[2017-02-13] MEDS: PANTOPRAZOLE 40 MG TABLET PO SCH (09:05)
[2017-02-13] MEDS: FUROSEMIDE 40 MG TABLET PO SCH (09:05)
[2017-02-13] MEDS: ISOSORBIDE DINITRATE 20 MG TABLET PO SCH (09:06)
[2017-02-13] MEDS: hydrALAZINE 25 MG TABLET PO SCH (09:06)
[2017-02-13] MEDS: GABAPENTIN 300 MG CAPSULE PO SCH (09:06)
[2017-02-13] MEDS: INSULIN LISPRO 100 UNIT/ML SUBCUT SCH ×2 (09:06→13:45)
[2017-02-13] MEDS: ASPIRIN EC 81 MG TABLET PO SCH (09:06)
[2017-02-13] MEDS: CARVEDILOL 25 MG TABLET PO SCH (09:06)
[2017-02-13 12:53] VITALS: BP 117/65
[2017-02-13] MEDS ORDERED: EZETIMIBE 10 MG TABLET PO SCH (21:00)
== END 2017-02-13 14:25 | disposition home or self-care (01) ==
LOC: EDUNIT# → N.EDINP 03:13 → N.ED 03:13 → N.EDINP 07:55 → N.TELEN 08:06
PROVIDERS: ADMIT Hospitalist; ATTEND Hospitalist

== ENCOUNTER 2017-07-13 01:53 | Inpatient (IN) ==
[2017-07-13] MEDS ORDERED: NITROGLYCERIN 2% OINT 1 INCH/GM PACK TOP STA (02:09)
[2017-07-13] MEDS ORDERED: ASPIRIN 325 MG TABLET PO STA (02:09)
[2017-07-13] MEDS ORDERED: MORPHINE 2 MG/1 ML SYRINGE IV STA (02:09)
[2017-07-13] MEDS ORDERED: ALUM/MAG/SIMETH/LIDO VISC 1:1 30 ML BOTTLE PO STA (02:09)
[2017-07-13] MEDS ORDERED: ONDANSETRON 4 MG/2 ML VIAL IV STA (02:09)
[2017-07-13] MEDS ORDERED: PANTOPRAZOLE 40 MG VIAL IV STA (02:09)
[2017-07-13] MEDS ORDERED: PANTOPRAZOLE 40 MG VIAL IV ONE (02:55)
[2017-07-13] MEDS ORDERED: ASPIRIN 325 MG TABLET ONE (02:56)
[2017-07-13] MEDS ORDERED: ALUM/MAG/SIMETH/LIDO VISC 1:1 30 ML BOTTLE PO ONE (02:56)
[2017-07-13] MEDS ORDERED: MORPHINE 2 MG/1 ML SYRINGE ONE (02:56)
[2017-07-13] MEDS ORDERED: NITROGLYCERIN 2% OINT 1 INCH/GM PACK TOP ONE (02:56)
[2017-07-13] MEDS ORDERED: ONDANSETRON 4 MG/2 ML VIAL ONE (02:56)
[2017-07-13 02:57] LABS: Basophils % 0.6 % (0.0-0.8); Eosinophils # 0.4 10*3/uL (0.0-0.87); Eosinophils % 7.6 % (0.00-10.9); Hemoglobin 8.1 GM/DL (12.0-16.0); Immature Granulocytes % 0.2 %; Immature Granulocytes Absolute 0.01 #; Lymphocytes # 1.9 10*3/uL (1.4-4.0); Lymphocytes % 39.6 % (21.3-54.2); Mean Corpuscular HGB Conc 32.4 GM/DL (32-36); Mean Corpuscular Hemoglobin 27 PG (27-34); Mean Corpuscular Volume 84.2 FL (87-102); Mean Platelet Volume 12.9 FL (9.6-12.0); Monocytes # 0.4 10*3/uL (0.11-0.8); Monocytes % 7.1 % (1.7-12.7); Neutrophils # 2.2 10*3/uL (1.4-7.4); Neutrophils % 44.9 % (38.7-73.9); Platelet Count 147 T/CUMM (130-400); Red Blood Count 2.97 MC/CUMM (3.8-5.5); Red Cell Distribution Width 12.7 % (9.3-17.3); White Blood Count 4.9 T/CUMM (4-12)
[2017-07-13 03:07] LABS: PT Patient Result 10.7 SECS
[2017-07-13 03:33] LABS: Alanine Aminotransferase 17 U/L (13-56); Albumin 3.4 G/DL (3.4-5.0); Alkaline Phosphatase 165 U/L (45-117); Aspartate Amino Transferase 27 U/L (0-37); Bilirubin,Total < 0.39 MG/DL (0.2-1.0); Blood Urea Nitrogen 27 MG/DL (7-18); Calcium 8.3 MG/DL (8.5-10.1); Glucose 142 MG/DL (74-106); Osmolality,Calculated 285.4 MOS/KG (273-304); Potassium 3.6 MMOL/L (3.5-5.1); Sodium 140 MMOL/L (136-145); Total Protein 6.3 G/DL (6.4-8.3)
[2017-07-13] MEDS ORDERED: MAGNESIUM SULF RIDER 2 GM in PREMIX 1 EACH IV STA (03:57)
[2017-07-13] MEDS ORDERED: FUROSEMIDE 40 MG/4 ML VIAL IV STA (03:59)
[2017-07-13] MEDS ORDERED: ENOXAPARIN 100 MG/ML SYRINGE SUBCUT STA (04:00)
[2017-07-13] MEDS ORDERED: FUROSEMIDE 40 MG/4 ML VIAL ONE (04:06)
[2017-07-13] MEDS ORDERED: ENOXAPARIN 80 MG/0.8 ML SYRINGE SUBCUT ONE (04:06)
[2017-07-13] MEDS ORDERED: MAGNESIUM SULF RIDER 50 ML IV ONE (04:07)
[2017-07-13] MEDS ORDERED: IBUPROFEN 600 MG TABLET PO PRN (05:41)
[2017-07-13] MEDS ORDERED: ONDANSETRON 4 MG/2 ML VIAL IV PRN (05:41)
[2017-07-13] MEDS ORDERED: MAGNESIUM SULF RIDER 4 GM in PREMIX 1 EACH IV PRN (05:41)
[2017-07-13] MEDS ORDERED: POTASSIUM CHLORIDE 20 MEQ TABLET PO PRN (05:41)
[2017-07-13] MEDS ORDERED: MAGNESIUM SULF RIDER 2 GM in PREMIX 1 EACH IV PRN ×2 (05:41→09:22)
[2017-07-13] MEDS ORDERED: MORPHINE 2 MG/1 ML SYRINGE IV PRN (05:41)
[2017-07-13] MEDS ORDERED: GLUCAGON 1 MG VIAL IM PRN ×2 (05:41→11:33)
[2017-07-13] MEDS ORDERED: ENOXAPARIN 80 MG/0.8 ML SYRINGE SUBCUT SCH (06:00)
[2017-07-13] MEDS: NITROGLYCERIN 2% OINT 1 INCH/GM PACK TOP SCH ×3 (06:01→18:14)
[2017-07-13] MEDS: DEXTROSE 50% 25 GM/50 ML VIAL IV PRN ×2 (08:00→11:50)
[2017-07-13] MEDS ORDERED: NON-FORMULARY MEDICATION (Omeprazole [Prilosec] 40 MG) PO SCH (09:00)
[2017-07-13] MEDS ORDERED: ISOSORBIDE DINITRATE 20 MG TABLET PO SCH (09:00)
[2017-07-13] MEDS ORDERED: ZALEPLON 5 MG CAPSULE PO PRN (09:20)
[2017-07-13] MEDS ORDERED: ACETAMINOPHEN 325 MG TABLET PO PRN (09:20)
[2017-07-13] MEDS ORDERED: POTASSIUM CHLORIDE RIDER 10 MEQ in PREMIX 1 EACH IV PRN (09:22)
[2017-07-13] MEDS ORDERED: DIAZEPAM 5 MG TABLET PO ONE ×2 (09:22→09:24)
[2017-07-13] MEDS ORDERED: diphenhydrAMINE CAP 25 MG CAPSULE PO ONE ×2 (09:22→09:24)
[2017-07-13] MEDS: hydrALAZINE 25 MG TABLET PO SCH ×3 (09:25→20:39)
[2017-07-13] MEDS ORDERED: diphenhydrAMINE CAP 50 MG CAPSULE ONE (09:25)
[2017-07-13] MEDS: SACUBITRIL/VALSARTAN 49-51 MG TABLET PO SCH (09:26)
[2017-07-13] MEDS ORDERED: LIDOCAINE 1% 20 ML VIAL ONE (09:26)
[2017-07-13] MEDS: CARVEDILOL 25 MG TABLET PO SCH ×2 (09:26→20:40)
[2017-07-13] MEDS ORDERED: HEPARIN/NACL 0.9% 2 UNITS/ML 1,000 ML IV ONE (09:26)
[2017-07-13] MEDS: GABAPENTIN 300 MG CAPSULE PO SCH (09:27)
[2017-07-13] MEDS: PANTOPRAZOLE 40 MG TABLET PO SCH (09:27)
[2017-07-13] MEDS: ASPIRIN EC 81 MG TABLET PO SCH (09:29)
[2017-07-13] MEDS: FUROSEMIDE 40 MG TABLET PO SCH ×2 (09:30→16:25)
[2017-07-13] MEDS: INSULIN REGULAR 100 UNIT/ML SUBCUT SCH ×4 (09:31→20:40)
[2017-07-13] MEDS: SODIUM CHLORIDE 0.9% 1,000 ML IV SCH ×2 (09:39→12:11)
[2017-07-13] MEDS ORDERED: NITROGLYCERIN DRIP 50 MG/250 ML BOTTLE IV ONE (09:44)
[2017-07-13] MEDS ORDERED: VERAPAMIL 5 MG/2 ML VIAL ONE (09:44)
[2017-07-13] MEDS ORDERED: fentaNYL 100 MCG/2 ML VIAL ONE (09:44)
[2017-07-13] MEDS ORDERED: MIDAZOLAM 2 MG/2 ML VIAL ONE (09:44)
[2017-07-13] MEDS ORDERED: HEPARIN/NACL 0.9% 2 UNITS/ML 500 ML IV ONE (09:58)
[2017-07-13] MEDS ORDERED: ENOXAPARIN 60 MG/0.6 ML SYRINGE ONE (10:08)
[2017-07-13] MEDS ORDERED: EPTIFIBATIDE 20,000 MCG/10 ML VIAL ONE (10:40)
[2017-07-13] MEDS ORDERED: TICAGRELOR 90 MG TABLET ONE (11:01)
[2017-07-13] MEDS ORDERED: DEXTROSE 50% 25 GM/50 ML VIAL IV PRN (11:33)
[2017-07-13] MEDS: TICAGRELOR 90 MG TABLET PO SCH (20:39)
[2017-07-13] MEDS: BISACODYL 5 MG TABLET PO PRN (20:43)
[2017-07-13] MEDS ORDERED: ATORVASTATIN 20 MG TABLET PO SCH (21:00)
[2017-07-13] MEDS ORDERED: INSULIN GLARGINE 100 UNIT/ML SUBCUT SCH (21:00)
[2017-07-14] MEDS: NITROGLYCERIN 2% OINT 1 INCH/GM PACK TOP SCH ×2 (00:25→06:56)
[2017-07-14 05:07] LABS: Hematocrit 25.2 VOL% (35.7-47.0); Hemoglobin 8.1 GM/DL (12.0-16.0); Lymphocytes % 32.8 % (21.3-54.2); Mean Corpuscular HGB Conc 32.1 GM/DL (32-36); Mean Corpuscular Hemoglobin 27 PG (27-34); Mean Corpuscular Volume 84.8 FL (87-102); Mean Platelet Volume 12.7 FL (9.6-12.0); Neutrophils % 50.5 % (38.7-73.9); Platelet Count 137 T/CUMM (130-400); Red Blood Count 2.97 MC/CUMM (3.8-5.5); Red Cell Distribution Width 12.9 % (9.3-17.3); White Blood Count 4.1 T/CUMM (4-12)
[2017-07-14 05:08] LABS: Basophils % 0.7 % (0.0-0.8); Eosinophils # 0.2 10*3/uL (0.0-0.87); Eosinophils % 5.8 % (0.00-10.9); Immature Granulocytes % 0.2 %; Immature Granulocytes Absolute 0.01 #; Lymphocytes # 1.4 10*3/uL (1.4-4.0); Monocytes # 0.4 10*3/uL (0.11-0.8); Neutrophils # 2.1 10*3/uL (1.4-7.4)
[2017-07-14 05:51] LABS: Risk Ratio 3.39; VLDL CHOLESTEROL 27.6 MG/DL
[2017-07-14 05:59] LABS: Osmolality,Calculated 289.1 MOS/KG (273-304); Potassium 3.8 MMOL/L (3.5-5.1)
[2017-07-14 08:23] VITALS: BP 123/74
[2017-07-14] MEDS: CARVEDILOL 25 MG TABLET PO SCH (08:23)
[2017-07-14] MEDS: TICAGRELOR 90 MG TABLET PO SCH (08:23)
[2017-07-14] MEDS: PANTOPRAZOLE 40 MG TABLET PO SCH (08:24)
[2017-07-14] MEDS: FUROSEMIDE 40 MG TABLET PO SCH (08:24)
[2017-07-14] MEDS: hydrALAZINE 25 MG TABLET PO SCH (08:24)
[2017-07-14] MEDS: BISACODYL 5 MG TABLET PO PRN (08:24)
[2017-07-14] MEDS: ASPIRIN EC 81 MG TABLET PO SCH (08:25)
[2017-07-14] MEDS: SACUBITRIL/VALSARTAN 49-51 MG TABLET PO SCH (08:25)
[2017-07-14] MEDS: GABAPENTIN 300 MG CAPSULE PO SCH (08:25)
[2017-07-14] MEDS: INSULIN REGULAR 100 UNIT/ML SUBCUT SCH (08:35)
[2017-07-14] MEDS ORDERED: MORPHINE 4 MG/1 ML VIAL IV PRN (11:37)
== END 2017-07-14 12:45 | disposition home or self-care (01) | DRG 247 ==
LOC: EDUNIT# → EDBD → N.ED 01:53 → N.EDINP 04:02 → N.TELES 05:03
PROVIDERS: ADMIT Internal Medicine Cardiovascular Disease; ATTEND Internal Medicine Cardiovascular Disease
PROC: CLCCHCL (ICD-10-PCS; 2017-07-13 10:15)

== ENCOUNTER 2017-08-30 19:20 | Observation (INO) ==
[2017-08-30] MEDS ORDERED: ALUM/MAG/SIMETH/LIDO VISC 1:1 30 ML BOTTLE PO STA (20:15)
[2017-08-30] MEDS ORDERED: PANTOPRAZOLE 40 MG VIAL IV STA (20:15)
[2017-08-30] MEDS ORDERED: ONDANSETRON 4 MG/2 ML VIAL IV STA (20:15)
[2017-08-30] MEDS ORDERED: NITROGLYCERIN 2% OINT 1 INCH/GM PACK TOP STA (20:15)
[2017-08-30] MEDS ORDERED: MORPHINE 4 MG/1 ML VIAL IV STA (20:15)
[2017-08-30] MEDS ORDERED: ASPIRIN 325 MG TABLET PO STA (20:15)
[2017-08-30 20:55] LABS: Basophils % 0.7 % (0.0-0.8); Eosinophils # 0.3 10*3/uL (0.0-0.87); Eosinophils % 6.2 % (0.00-10.9); Hematocrit 29.7 VOL% (35.7-47.0); Hemoglobin 9.5 GM/DL (12.0-16.0); Immature Granulocytes % 0.2 %; Immature Granulocytes Absolute 0.01 #; Lymphocytes # 2.1 10*3/uL (1.4-4.0); Lymphocytes % 52.5 % (21.3-54.2); Mean Corpuscular Hemoglobin 27 PG (27-34); Mean Corpuscular Volume 84.4 FL (87-102); Mean Platelet Volume 12.5 FL (9.6-12.0); Monocytes # 0.3 10*3/uL (0.11-0.8); Monocytes % 6.7 % (1.7-12.7); Neutrophils # 1.4 10*3/uL (1.4-7.4); Neutrophils % 33.7 % (38.7-73.9); Platelet Count 125 T/CUMM (130-400); Red Blood Count 3.52 MC/CUMM (3.8-5.5); Red Cell Distribution Width 12.6 % (9.3-17.3)
[2017-08-30 21:04] LABS: PT Patient Result 10.7 SECS
[2017-08-30 21:05] LABS: Amorphous Crystals,Urine Occasional /HPF (Few); Apearance,Urine Slightly Hazy (Clear); Bacteria,Urine Many /HPF (Few); Bilirubin,Urine Negative (Negative); Blood, Urine Moderate mg/dL (Negative); Glucose,Urine (UA) Negative (Negative); Ketones,Urine Negative (Negative); Nitrite,Urine Negative (Negative); Protein,Urine 100 MG/DL; RBC,Urine 4 /HPF (0-4); Squamous Epithelial Cell,Urine Occasional /HPF (0-10); Urine Color Yellow (Yellow); Urine Specific Gravity 1.012 (1.001-1.035); Urine Urobilinogen < 2.0 EU/DL (0.2-1.0); WBC,Urine 45 /HPF (0-6)
[2017-08-30 21:11] LABS: Barbiturates Screen,Urine Negative (Negative); Benzodiazepines Screen,Urine Negative (Negative); Cannabinoid Screen,Urine Negative (Negative); Opiate Screen,Urine Negative (Negative); Phencyclidine Screen,Urine Negative (Negative)
[2017-08-30] MEDS ORDERED: cefTRIAXone 1,000 MG in SODIUM CHLORIDE 0.9% 100 ML IV STA (21:15)
[2017-08-30 21:30] LABS: Alanine Aminotransferase 19 U/L (13-56); Alkaline Phosphatase 199 U/L (45-117); Aspartate Amino Transferase 23 U/L (0-37); Bilirubin,Total < 0.39 MG/DL (0.2-1.0); Blood Urea Nitrogen 33 MG/DL (7-18); Calcium 8.8 MG/DL (8.5-10.1); Glucose 151 MG/DL (74-106); Osmolality,Calculated 284.7 MOS/KG (273-304); Potassium 4.9 MMOL/L (3.5-5.1); Sodium 138 MMOL/L (136-145); Total Protein 7.9 G/DL (6.4-8.3)
[2017-08-30 21:58] LABS: Eosinophils 8 % (0-10); Lymphocytes 43 % (20-55); Platelet Estimate Normal; Segmented Neutrophils 37 % (50-85); Total Cells Counted 100
[2017-08-30] MEDS ORDERED: MORPHINE 4 MG/1 ML VIAL IV PRN (23:42)
[2017-08-30] MEDS ORDERED: POTASSIUM CHLORIDE 20 MEQ TABLET PO PRN (23:42)
[2017-08-30] MEDS ORDERED: DEXTROSE 50% 25 GM/50 ML VIAL IV PRN (23:42)
[2017-08-30] MEDS ORDERED: SODIUM CHLORIDE 0.9% 1,000 ML IV SCH (23:42)
[2017-08-30] MEDS ORDERED: ONDANSETRON 4 MG/2 ML VIAL IV PRN (23:42)
[2017-08-30] MEDS ORDERED: NITROGLYCERIN SL 0.4 MG TABLET SL PRN (23:42)
[2017-08-30] MEDS ORDERED: MAGNESIUM SULF RIDER 4 GM in PREMIX 1 EACH IV PRN (23:42)
[2017-08-30] MEDS ORDERED: MAGNESIUM SULF RIDER 2 GM in PREMIX 1 EACH IV PRN (23:42)
[2017-08-30] MEDS ORDERED: GLUCAGON 1 MG VIAL IM PRN (23:42)
[2017-08-31] MEDS: ENOXAPARIN 80 MG/0.8 ML SYRINGE SUBCUT SCH ×2 (01:33→12:07)
[2017-08-31] MEDS: NITROGLYCERIN 2% OINT 1 INCH/GM PACK TOP SCH ×3 (01:34→12:07)
[2017-08-31 02:09] LABS: Basophils % 0.9 % (0.0-0.8); Eosinophils # 0.2 10*3/uL (0.0-0.87); Eosinophils % 5.6 % (0.00-10.9); Hematocrit 25.5 VOL% (35.7-47.0); Hemoglobin 8.5 GM/DL (12.0-16.0); Immature Granulocytes % 0.3 %; Immature Granulocytes Absolute 0.01 #; Lymphocytes # 1.9 10*3/uL (1.4-4.0); Mean Corpuscular HGB Conc 33.3 GM/DL (32-36); Mean Corpuscular Hemoglobin 28 PG (27-34); Mean Corpuscular Volume 83.3 FL (87-102); Mean Platelet Volume 12.7 FL (9.6-12.0); Monocytes # 0.2 10*3/uL (0.11-0.8); Monocytes % 5.9 % (1.7-12.7); Neutrophils # 1.1 10*3/uL (1.4-7.4); Neutrophils % 31.3 % (38.7-73.9); Platelet Count 100 T/CUMM (130-400); Red Blood Count 3.06 MC/CUMM (3.8-5.5); Red Cell Distribution Width 12.6 % (9.3-17.3); White Blood Count 3.4 T/CUMM (4-12)
[2017-08-31 03:17] LABS: Alanine Aminotransferase 15 U/L (13-56); Albumin 3.3 G/DL (3.4-5.0); Alkaline Phosphatase 167 U/L (45-117); Aspartate Amino Transferase 18 U/L (0-37); Bilirubin,Total < 0.39 MG/DL (0.2-1.0); Blood Urea Nitrogen 34 MG/DL (7-18); Calcium 8.2 MG/DL (8.5-10.1); Cholesterol 183 MG/DL (50-200); Glucose 136 MG/DL (74-106); HDL Cholesterol 43 MG/DL (40-60); Osmolality,Calculated 288.4 MOS/KG (273-304); Potassium 4.9 MMOL/L (3.5-5.1); Risk Ratio 4.26; Sodium 140 MMOL/L (136-145); Total Protein 6.1 G/DL (6.4-8.3); Triglycerides 135 MG/DL (2-150)
[2017-08-31 05:23] LABS: Atypical Lymphocytes Few; Eosinophils 3 % (0-10); Lymphocytes 61 % (20-55); Segmented Neutrophils 35 % (50-85); Total Cells Counted 100
[2017-08-31 05:24] LABS: Hypochromasia 1+; Microcytosis Slight; Platelet Estimate Decreased
[2017-08-31] MEDS: INSULIN REGULAR 100 UNIT/ML SUBCUT SCH ×4 (07:34→16:56)
[2017-08-31] MEDS ORDERED: SACUBITRIL/VALSARTAN 49-51 MG TABLET PO SCH (09:00)
[2017-08-31] MEDS ORDERED: CLOPIDOGREL 75 MG TABLET PO SCH (09:00)
[2017-08-31] MEDS ORDERED: PANTOPRAZOLE 40 MG TABLET PO SCH (09:00)
[2017-08-31] MEDS ORDERED: ASPIRIN EC 81 MG TABLET PO SCH (09:00)
[2017-08-31] MEDS ORDERED: CARVEDILOL 25 MG TABLET PO SCH (09:00)
[2017-08-31] MEDS ORDERED: TICAGRELOR 90 MG TABLET PO SCH (10:00)
[2017-08-31] MEDS: ISOSORBIDE DINITRATE 20 MG TABLET PO SCH ×2 (10:25→16:48)
[2017-08-31] MEDS: hydrALAZINE 25 MG TABLET PO SCH ×2 (10:26→14:01)
[2017-08-31] MEDS: FUROSEMIDE 40 MG TABLET PO SCH ×2 (10:27→16:48)
[2017-08-31 17:24] VITALS: BP 99/57
[2017-08-31] MEDS ORDERED: ATORVASTATIN 20 MG TABLET PO SCH (21:00)
[2017-08-31] MEDS ORDERED: INSULIN GLARGINE 100 UNIT/ML SUBCUT SCH ×2 (21:00)
== END 2017-08-31 18:00 | disposition home or self-care (01) ==
LOC: N.ED 19:20 → N.EDINP 21:49 → INTOOBSV 21:49 → N.TELES 23:05
PROVIDERS: ADMIT Internal Medicine Cardiovascular Disease; ATTEND Internal Medicine Cardiovascular Disease

== ENCOUNTER 2018-04-25 07:19 | Observation (INO) ==
[2018-04-25] MEDS ORDERED: SODIUM CHLORIDE 0.9% 1,000 ML IV STA (07:33)
[2018-04-25] MEDS ORDERED: ONDANSETRON 4 MG/2 ML VIAL IV STA (07:33)
[2018-04-25] MEDS ORDERED: LOPERAMIDE 2 MG CAPSULE PO STA (07:33)
[2018-04-25 08:33] LABS: Basophils % 0.8 % (0.0-0.8); Eosinophils # 0.1 10*3/uL (0.0-0.87); Eosinophils % 2.5 % (0.00-10.9); Hematocrit 25.6 VOL% (35.7-47.0); Hemoglobin 7.9 GM/DL (12.0-16.0); Immature Granulocytes % 0.5 %; Immature Granulocytes Absolute 0.02 #; Lymphocytes # 1.2 10*3/uL (1.4-4.0); Lymphocytes % 31.6 % (21.3-54.2); Mean Corpuscular HGB Conc 30.9 GM/DL (32-36); Mean Corpuscular Hemoglobin 27 PG (27-34); Mean Corpuscular Volume 87.7 FL (87-102); Mean Platelet Volume 13.2 FL (9.6-12.0); Monocytes # 0.2 10*3/uL (0.11-0.8); Monocytes % 4.3 % (1.7-12.7); Neutrophils # 2.4 10*3/uL (1.4-7.4); Neutrophils % 60.3 % (38.7-73.9); Platelet Count 123 T/CUMM (130-400); Red Blood Count 2.92 MC/CUMM (3.8-5.5); Red Cell Distribution Width 13.7 % (9.3-17.3); White Blood Count 3.9 T/CUMM (4-12)
[2018-04-25 08:53] LABS: Albumin 3.8 G/DL (3.4-5.0); Bilirubin,Total 0.6 MG/DL (0.2-1.0); Calcium 9.1 MG/DL (8.5-10.1); Potassium 4.7 MMOL/L (3.5-5.1); Total Protein 7.7 G/DL (6.4-8.3)
[2018-04-25 10:21] LABS: Apearance,Urine CLOUDY (Clear); Bacteria,Urine Many /HPF (Few); Bilirubin,Urine Negative (Negative); Blood, Urine Small mg/dL (Negative); Glucose,Urine (UA) Negative (Negative); Hyaline Casts,Urine 7 /LPF (0-3); Ketones,Urine Negative (Negative); Mucus,Urine Occasional /LPF (Occasional); Nitrite,Urine Negative (Negative); Protein,Urine >=500 MG/DL; RBC,Urine 3 /HPF (0-4); Squamous Epithelial Cell,Urine Moderate /HPF (0-10); Urine Color Yellow (Yellow); Urine Specific Gravity 1.018 (1.001-1.035); Urine Urobilinogen < 2.0 EU/DL (0.2-1.0); WBC,Urine 8 /HPF (0-6)
[2018-04-25] MEDS ORDERED: NITROGLYCERIN SL 0.4 MG TABLET SL PRN (10:51)
[2018-04-25] MEDS ORDERED: BENZONATATE 100 MG CAPSULE PO PRN (10:51)
[2018-04-25] MEDS ORDERED: hydrALAZINE 20 MG/1 ML VIAL IV PRN (11:00)
[2018-04-25] MEDS ORDERED: ONDANSETRON 4 MG/2 ML VIAL IV PRN (11:03)
[2018-04-25] MEDS ORDERED: PROMETHAZINE 25 MG/1 ML VIAL IM PRN (11:03)
[2018-04-25] MEDS ORDERED: LOPERAMIDE 2 MG CAPSULE PO PRN (11:26)
[2018-04-25] MEDS ORDERED: ENOXAPARIN 40 MG/0.4 ML SYRINGE SUBCUT SCH (11:30)
[2018-04-25] MEDS ORDERED: SODIUM CHLORIDE 0.9% 1,000 ML IV SCH (11:30)
[2018-04-25] MEDS ORDERED: cefTRIAXone 1,000 MG in SYRINGE 1 EACH IV SCH (11:30)
[2018-04-25] MEDS ORDERED: cefTRIAXone 1,000 MG VIAL ONE (12:01)
[2018-04-25] MEDS ORDERED: INFLUENZA VIRUS VACCINE 0.5 ML SYRINGE IM ONE (13:24)
[2018-04-25] MEDS: ISOSORBIDE DINITRATE 20 MG TABLET PO SCH ×2 (14:37→21:54)
[2018-04-25] MEDS: hydrALAZINE 25 MG TABLET PO SCH ×2 (17:18→21:54)
[2018-04-25] MEDS: metroNIDAZOLE INJ 500 MG in PREMIX 1 EACH IV SCH (17:19)
[2018-04-25] MEDS: MORPHINE 4 MG/1 ML VIAL IV PRN (17:22)
[2018-04-25] MEDS ORDERED: INSULIN REGULAR 100 UNIT/ML SUBCUT SCH (18:00)
[2018-04-25] MEDS ORDERED: INSULIN GLARGINE 100 UNIT/ML SUBCUT SCH (21:00)
[2018-04-25] MEDS ORDERED: ATORVASTATIN 20 MG TABLET PO SCH (21:00)
[2018-04-25] MEDS ORDERED: SACUBITRIL/VALSARTAN 49-51 MG TABLET PO SCH (21:00)
[2018-04-25] MEDS: CARVEDILOL 25 MG TABLET PO SCH (21:54)
[2018-04-25] MEDS: FAMOTIDINE 20 MG TABLET PO SCH (21:54)
[2018-04-25] MEDS: TICAGRELOR 90 MG TABLET PO SCH (21:54)
[2018-04-25] MEDS: FUROSEMIDE 40 MG TABLET PO SCH (21:55)
[2018-04-26] MEDS: metroNIDAZOLE INJ 500 MG in PREMIX 1 EACH IV SCH ×2 (00:23→09:01)
[2018-04-26 05:58] LABS: Basophils % 0.6 % (0.0-0.8); Eosinophils # 0.1 10*3/uL (0.0-0.87); Eosinophils % 3.5 % (0.00-10.9); Hemoglobin 7.1 GM/DL (12.0-16.0); Immature Granulocytes % 0.3 %; Immature Granulocytes Absolute 0.01 #; Lymphocytes # 1.3 10*3/uL (1.4-4.0); Lymphocytes % 40.1 % (21.3-54.2); Mean Corpuscular HGB Conc 30.9 GM/DL (32-36); Mean Corpuscular Hemoglobin 27 PG (27-34); Mean Corpuscular Volume 87.8 FL (87-102); Mean Platelet Volume 13.1 FL (9.6-12.0); Monocytes # 0.2 10*3/uL (0.11-0.8); Monocytes % 6.1 % (1.7-12.7); Neutrophils # 1.6 10*3/uL (1.4-7.4); Neutrophils % 49.4 % (38.7-73.9); Platelet Count 96 T/CUMM (130-400); Red Blood Count 2.62 MC/CUMM (3.8-5.5); Red Cell Distribution Width 13.6 % (9.3-17.3); White Blood Count 3.1 T/CUMM (4-12)
[2018-04-26 06:18] LABS: Albumin 3.1 G/DL (3.4-5.0); Bilirubin,Total 0.8 MG/DL (0.2-1.0); Calcium 8.2 MG/DL (8.5-10.1); Osmolality,Calculated 291.5 MOS/KG (273-304); Potassium 3.9 MMOL/L (3.5-5.1); Total Protein 6.4 G/DL (6.4-8.3)
[2018-04-26 07:29] LABS: Eosinophils 4 % (0-10); Hypochromasia 1+; Lymphocytes 38 % (20-55); Ovalocytes Slight; Platelet Estimate Decreased; Segmented Neutrophils 51 % (50-85); Total Cells Counted 100
[2018-04-26] MEDS ORDERED: IRON SUCROSE 300 MG in SODIUM CHLORIDE 0.9% 100 ML IV ONE (07:40)
[2018-04-26] MEDS ORDERED: INSULIN REGULAR 100 UNIT/ML SUBCUT SCH (08:00)
[2018-04-26] MEDS ORDERED: ASPIRIN EC 81 MG TABLET PO SCH (09:00)
[2018-04-26] MEDS: CARVEDILOL 25 MG TABLET PO SCH (09:07)
[2018-04-26] MEDS: TICAGRELOR 90 MG TABLET PO SCH (09:07)
[2018-04-26] MEDS: FAMOTIDINE 20 MG TABLET PO SCH (09:07)
[2018-04-26] MEDS: FUROSEMIDE 40 MG TABLET PO SCH (09:07)
[2018-04-26] MEDS: ISOSORBIDE DINITRATE 20 MG TABLET PO SCH (09:08)
[2018-04-26] MEDS: MORPHINE 4 MG/1 ML VIAL IV PRN (09:11)
[2018-04-26 12:06] VITALS: BP 138/71
== END 2018-04-26 11:10 | disposition home or self-care (01) ==
LOC: N.ED 07:19 → INTOOBSV 10:50 → N.EDINP 10:50 → N.5E 12:20 → N.2W 12:57 → N.5E 15:19
PROVIDERS: ADMIT Internal Medicine; ATTEND Internal Medicine

== ENCOUNTER 2018-05-22 22:16 | Inpatient (IN) ==
[2018-05-22] MEDS ORDERED: KETOROLAC 30 MG/1 ML VIAL IV STA (22:36)
[2018-05-22] MEDS ORDERED: METHOCARBAMOL 1,000 MG/10 ML VIAL IV STA (22:36)
[2018-05-22] MEDS ORDERED: ONDANSETRON 4 MG/2 ML VIAL IV STA (22:36)
[2018-05-22] MEDS ORDERED: ASPIRIN 325 MG TABLET PO STA (22:36)
[2018-05-22 23:40] LABS: INR 1.1; PT Patient Result 11.5 SECS; Partial Thromboplastin Time < 21.0 SECS (0-40)
[2018-05-23 00:18] LABS: Albumin 3.7 G/DL (3.4-5.0); Bilirubin,Total 0.7 MG/DL (0.2-1.0); Calcium 8.7 MG/DL (8.5-10.1); Osmolality,Calculated 290.7 MOS/KG (273-304); Potassium 4.2 MMOL/L (3.5-5.1); Total Protein 7.4 G/DL (6.4-8.3)
[2018-05-23 01:01] LABS: Troponin I 0.048 NG/ML (0.00-0.045)
[2018-05-23 01:04] LABS: Eosinophils # 0.1 10*3/uL (0.0-0.87); Eosinophils % 2.2 % (0.00-10.9); Hematocrit 25.8 VOL% (35.7-47.0); Hemoglobin 8.1 GM/DL (12.0-16.0); Immature Granulocytes % 0.5 %; Immature Granulocytes Absolute 0.02 #; Lymphocytes # 1.3 10*3/uL (1.4-4.0); Lymphocytes % 30.8 % (21.3-54.2); Mean Corpuscular HGB Conc 31.4 GM/DL (32-36); Mean Corpuscular Hemoglobin 27 PG (27-34); Mean Corpuscular Volume 86.6 FL (87-102); Mean Platelet Volume 12.8 FL (9.6-12.0); Monocytes # 0.3 10*3/uL (0.11-0.8); Monocytes % 7.9 % (1.7-12.7); Neutrophils # 2.3 10*3/uL (1.4-7.4); Neutrophils % 57.6 % (38.7-73.9); Platelet Count 92 T/CUMM (130-400); Red Blood Count 2.98 MC/CUMM (3.8-5.5); Red Cell Distribution Width 13.7 % (9.3-17.3); White Blood Count 4.1 T/CUMM (4-12)
[2018-05-23 01:13] LABS: Apearance,Urine CLOUDY (Clear); Bilirubin,Urine Negative (Negative); Blood, Urine Moderate mg/dL (Negative); Glucose,Urine (UA) Negative (Negative); Ketones,Urine Negative (Negative); Nitrite,Urine Negative (Negative); Protein,Urine >=500 MG/DL; Urine Color Amber (Yellow); Urine Specific Gravity 1.017 (1.001-1.035)
[2018-05-23 01:20] LABS: RBC,Urine 0-1 /HPF (0-4)
[2018-05-23 01:21] LABS: Squamous Epithelial Cell,Urine Few /HPF (0-10)
[2018-05-23] MEDS ORDERED: ONDANSETRON 4 MG/2 ML VIAL IV PRN (01:27)
[2018-05-23] MEDS ORDERED: ACETAMINOPHEN 325 MG TABLET PO PRN (01:27)
[2018-05-23] MEDS ORDERED: guaiFENesin/DM ER 600-30 MG TABLET PO PRN (01:27)
[2018-05-23] MEDS ORDERED: NITROGLYCERIN SL 0.4 MG TABLET SL PRN (01:31)
[2018-05-23] MEDS ORDERED: GLUCAGON 1 MG VIAL IM PRN (01:32)
[2018-05-23] MEDS ORDERED: DEXTROSE 50% 25 GM/50 ML SYRINGE IV PRN (01:32)
[2018-05-23 05:04] LABS: Eosinophils 5 % (0-10); Lymphocytes 29 % (20-55); Segmented Neutrophils 64 % (50-85); Total Cells Counted 100
[2018-05-23 05:05] LABS: Anisocytosis 1+; Hypochromasia 1+; Ovalocytes 1+; Platelet Estimate Adequate
[2018-05-23 07:27] LABS: Basophils % 0.5 % (0.0-0.8); Eosinophils # 0.1 10*3/uL (0.0-0.87); Eosinophils % 3.6 % (0.00-10.9); Hematocrit 26.1 VOL% (35.7-47.0); Hemoglobin 8.1 GM/DL (12.0-16.0); Immature Granulocytes % 0.8 %; Immature Granulocytes Absolute 0.03 #; Lymphocytes # 1.3 10*3/uL (1.4-4.0); Lymphocytes % 32.7 % (21.3-54.2); Mean Corpuscular Hemoglobin 27 PG (27-34); Mean Corpuscular Volume 86.7 FL (87-102); Mean Platelet Volume 13.4 FL (9.6-12.0); Monocytes # 0.3 10*3/uL (0.11-0.8); Monocytes % 7.3 % (1.7-12.7); Neutrophils # 2.1 10*3/uL (1.4-7.4); Neutrophils % 55.1 % (38.7-73.9); Platelet Count 94 T/CUMM (130-400); Red Blood Count 3.01 MC/CUMM (3.8-5.5); Red Cell Distribution Width 13.7 % (9.3-17.3); White Blood Count 3.9 T/CUMM (4-12)
[2018-05-23 07:45] LABS: Hypochromasia 1+; Ovalocytes Slight; Platelet Estimate Decreased
[2018-05-23 07:50] LABS: Calcium 8.7 MG/DL (8.5-10.1); Osmolality,Calculated 290.7 MOS/KG (273-304)
[2018-05-23] MEDS ORDERED: FUROSEMIDE 40 MG/4 ML VIAL IV SCH (08:00)
[2018-05-23] MEDS ORDERED: CARVEDILOL 25 MG TABLET PO SCH (09:00)
[2018-05-23] MEDS ORDERED: SULFAMETHOX/TRIMETHOPRIM 800-160 MG TABLET PO SCH (09:00)
[2018-05-23] MEDS: ISOSORBIDE DINITRATE 20 MG TABLET PO SCH ×2 (09:30→15:15)
[2018-05-23] MEDS: PANTOPRAZOLE 40 MG TABLET PO SCH (09:30)
[2018-05-23] MEDS: ASPIRIN EC 81 MG TABLET PO SCH (09:30)
[2018-05-23] MEDS: hydrALAZINE 25 MG TABLET PO SCH ×2 (09:30→15:15)
[2018-05-23] MEDS: POTASSIUM CHLORIDE 20 MEQ TABLET PO SCH ×2 (09:30→21:23)
[2018-05-23] MEDS: ENOXAPARIN 30 MG/0.3 ML SYRINGE SUBCUT SCH (09:31)
[2018-05-23] MEDS: INSULIN REGULAR 100 UNIT/ML SUBCUT SCH ×4 (09:31→21:25)
[2018-05-23] MEDS ORDERED: MAGNESIUM CITRATE 300 ML BOTTLE PO ONE (10:38)
[2018-05-23] MEDS: FUROSEMIDE 40 MG/4 ML VIAL IV SCH (16:44)
[2018-05-23] MEDS: guaiFENesin 200 MG/10 ML UDCUP PO PRN ×2 (19:24→23:46)
[2018-05-23] MEDS ORDERED: INSULIN GLARGINE 100 UNIT/ML SUBCUT SCH (21:00)
[2018-05-23] MEDS: ATORVASTATIN 20 MG TABLET PO SCH (21:24)
[2018-05-23] MEDS: CARVEDILOL 3.125 MG TABLET PO SCH (21:28)
[2018-05-24 04:45] LABS: Basophils % 0.6 % (0.0-0.8); Eosinophils # 0.1 10*3/uL (0.0-0.87); Eosinophils % 3.5 % (0.00-10.9); Hematocrit 23.4 VOL% (35.7-47.0); Hemoglobin 7.2 GM/DL (12.0-16.0); Immature Granulocytes % 0.3 %; Immature Granulocytes Absolute 0.01 #; Lymphocytes # 1.1 10*3/uL (1.4-4.0); Lymphocytes % 36.1 % (21.3-54.2); Mean Corpuscular HGB Conc 30.8 GM/DL (32-36); Mean Corpuscular Hemoglobin 27 PG (27-34); Mean Platelet Volume 13.1 FL (9.6-12.0); Monocytes # 0.2 10*3/uL (0.11-0.8); Monocytes % 6.3 % (1.7-12.7); Neutrophils # 1.7 10*3/uL (1.4-7.4); Neutrophils % 53.2 % (38.7-73.9); Platelet Count 96 T/CUMM (130-400); Red Blood Count 2.72 MC/CUMM (3.8-5.5); Red Cell Distribution Width 13.5 % (9.3-17.3); White Blood Count 3.2 T/CUMM (4-12)
[2018-05-24 05:00] LABS: Calcium 8.5 MG/DL (8.5-10.1); Osmolality,Calculated 288.4 MOS/KG (273-304); Potassium 4.2 MMOL/L (3.5-5.1)
[2018-05-24 05:20] LABS: Eosinophils 7 % (0-10); Hypochromasia 1+; Lymphocytes 35 % (20-55); Myelocytes 1 %; Platelet Estimate Decreased; Polychromasia Few; Segmented Neutrophils 55 % (50-85); Total Cells Counted 100
[2018-05-24] MEDS: INSULIN REGULAR 100 UNIT/ML SUBCUT SCH ×4 (07:58→21:36)
[2018-05-24] MEDS: ASPIRIN EC 81 MG TABLET PO SCH (09:28)
[2018-05-24] MEDS: PANTOPRAZOLE 40 MG TABLET PO SCH ×2 (09:28→21:35)
[2018-05-24] MEDS: CARVEDILOL 3.125 MG TABLET PO SCH ×2 (09:28→21:35)
[2018-05-24] MEDS: POTASSIUM CHLORIDE 20 MEQ TABLET PO SCH ×2 (09:28→21:35)
[2018-05-24] MEDS: ENOXAPARIN 30 MG/0.3 ML SYRINGE SUBCUT SCH (09:29)
[2018-05-24] MEDS: FUROSEMIDE 40 MG/4 ML VIAL IV SCH ×2 (09:29→15:51)
[2018-05-24] MEDS ORDERED: SODIUM CHLORIDE 0.9% 1,000 ML IV PRN (13:23)
[2018-05-24] MEDS ORDERED: INSULIN GLARGINE 100 UNIT/ML SUBCUT SCH (13:25)
[2018-05-24] MEDS ORDERED: cefTRIAXone 1,000 MG in SYRINGE 1 EACH IV SCH (14:00)
[2018-05-24 14:27] LABS: Folate 10.2 NG/ML (5.4-24.0)
[2018-05-24] MEDS ORDERED: ALUMINUM/MAGNES/SIMETH MAX STR 30 ML UDCUP PO PRN (15:04)
[2018-05-24] MEDS: ATORVASTATIN 20 MG TABLET PO SCH (21:35)
[2018-05-25 03:57] LABS: Basophils % 0.3 % (0.0-0.8); Eosinophils # 0.1 10*3/uL (0.0-0.87); Eosinophils % 3.3 % (0.00-10.9); Hematocrit 23.8 VOL% (35.7-47.0); Hemoglobin 7.3 GM/DL (12.0-16.0); Immature Granulocytes % 0.6 %; Immature Granulocytes Absolute 0.02 #; Lymphocytes # 1.6 10*3/uL (1.4-4.0); Mean Corpuscular HGB Conc 30.7 GM/DL (32-36); Mean Corpuscular Hemoglobin 27 PG (27-34); Mean Corpuscular Volume 87.2 FL (87-102); Mean Platelet Volume 13.1 FL (9.6-12.0); Monocytes # 0.3 10*3/uL (0.11-0.8); Monocytes % 8.4 % (1.7-12.7); Neutrophils # 1.4 10*3/uL (1.4-7.4); Neutrophils % 40.4 % (38.7-73.9); Platelet Count 115 T/CUMM (130-400); Red Blood Count 2.73 MC/CUMM (3.8-5.5); Red Cell Distribution Width 13.7 % (9.3-17.3); White Blood Count 3.3 T/CUMM (4-12)
[2018-05-25 04:18] LABS: Calcium 8.3 MG/DL (8.5-10.1); Potassium 4.7 MMOL/L (3.5-5.1)
[2018-05-25 05:09] LABS: Eosinophils 5 % (0-10); Lymphocytes 44 % (20-55); Metamyelocytes 1 %; Platelet Estimate Decreased; Segmented Neutrophils 42 % (50-85); Total Cells Counted 100
[2018-05-25 05:10] LABS: Anisocytosis 1+; Atypical Lymphocytes Few; Microcytosis 1+
[2018-05-25] MEDS: INSULIN REGULAR 100 UNIT/ML SUBCUT SCH ×2 (07:24→11:49)
[2018-05-25] MEDS: FUROSEMIDE 40 MG/4 ML VIAL IV SCH (07:24)
[2018-05-25] MEDS ORDERED: ETOMIDATE 20 MG/10 ML VIAL IV ONE (08:49)
[2018-05-25] MEDS ORDERED: LIDOCAINE 100 MG/5 ML SYRINGE ONE (08:49)
[2018-05-25] MEDS ORDERED: PROPOFOL 200 MG/20 ML VIAL IV ONE (08:49)
[2018-05-25] MEDS ORDERED: INSULIN GLARGINE 100 UNIT/ML SUBCUT SCH (09:32)
[2018-05-25 09:42] VITALS: BP 122/97
[2018-05-25] MEDS: CARVEDILOL 3.125 MG TABLET PO SCH (11:48)
[2018-05-25] MEDS: PANTOPRAZOLE 40 MG TABLET PO SCH (11:48)
[2018-05-25] MEDS: POTASSIUM CHLORIDE 20 MEQ TABLET PO SCH (11:49)
== END 2018-05-25 12:28 | disposition home or self-care (01) | DRG 291 ==
LOC: N.ED 22:16 → N.EDINP 22:16 → N.TELES 05-23 03:24
PROVIDERS: ADMIT Internal Medicine; ATTEND Internal Medicine

== ENCOUNTER 2018-11-08 14:56 | Inpatient (IN) ==
[2018-11-08] MEDS ORDERED: ONDANSETRON 4 MG/2 ML VIAL IV STA (15:26)
[2018-11-08] MEDS ORDERED: NITROGLYCERIN SL 0.4 MG TABLET SL PRN ×2 (15:26→17:35)
[2018-11-08] MEDS ORDERED: MORPHINE 4 MG/1 ML VIAL IV STA (15:26)
[2018-11-08] MEDS ORDERED: ASPIRIN 325 MG TABLET PO STA (15:26)
[2018-11-08 16:02] LABS: Basophils % 0.4 % (0.0-0.8); Eosinophils # 0.1 10*3/uL (0.0-0.87); Eosinophils % 4.2 % (0.00-10.9); Hematocrit 24.7 VOL% (35.7-47.0); Hemoglobin 7.8 GM/DL (12.0-16.0); Lymphocytes # 0.6 10*3/uL (1.4-4.0); Lymphocytes % 26.2 % (21.3-54.2); Mean Corpuscular HGB Conc 31.6 GM/DL (32-36); Mean Corpuscular Volume 81.5 FL (87-102); Mean Platelet Volume 12.6 FL (9.6-12.0); Monocytes % 7.2 % (1.7-12.7); Platelet Count 106 T/CUMM (130-400); Red Blood Count 3.03 MC/CUMM (3.8-5.5); Red Cell Distribution Width 15.6 % (9.3-17.3); White Blood Count 2.4 T/CUMM (4-12)
[2018-11-08 16:17] LABS: INR 1.3; Partial Thromboplastin Time 30.1 SECS (0-40)
[2018-11-08 16:19] LABS: Calcium 8.4 MG/DL (8.5-10.1); Osmolality,Calculated 318.7 MOS/KG (273-304)
[2018-11-08] MEDS ORDERED: DEXTROSE 50% 25 GM/50 ML VIAL IV PRN (18:37)
[2018-11-08] MEDS ORDERED: GLUCAGON 1 MG VIAL IM PRN (18:37)
[2018-11-08] MEDS: SODIUM CHLORIDE 0.9% 1,000 ML IV SCH ×2 (19:08→23:39)
[2018-11-08] MEDS: CARVEDILOL 25 MG TABLET PO SCH (22:18)
[2018-11-08] MEDS: ATORVASTATIN 80 MG TABLET PO SCH (22:18)
[2018-11-08] MEDS: PANTOPRAZOLE 40 MG TABLET PO SCH (22:18)
[2018-11-08] MEDS: INSULIN LISPRO 100 UNIT/ML SUBCUT SCH (22:21)
[2018-11-08] MEDS: INSULIN GLARGINE 100 UNIT/ML SUBCUT SCH (22:21)
[2018-11-08] MEDS: MYLANTA/LIDO VISC/DIPH 300 ML BOTTLE SWISH/SWAL SCH (23:18)
[2018-11-09] MEDS: SUCRALFATE 1 GM/10 ML UDCUP PO SCH ×4 (00:29→17:09)
[2018-11-09] MEDS: MYLANTA/LIDO VISC/DIPH 300 ML BOTTLE SWISH/SWAL SCH ×3 (03:08→06:44)
[2018-11-09] MEDS: GABAPENTIN 600 MG TABLET PO SCH ×4 (04:05→21:33)
[2018-11-09 05:08] LABS: Apearance,Urine Slightly Hazy (Clear); Bacteria,Urine Moderate /HPF (Few); Bilirubin,Urine Negative (Negative); Blood, Urine Negative (Negative); Glucose,Urine (UA) Negative (Negative); Hyaline Casts,Urine 3 /LPF (0-3); Ketones,Urine Negative (Negative); Mucus,Urine Occasional /LPF (Occasional); Nitrite,Urine Negative (Negative); Protein,Urine 30 MG/DL; RBC,Urine 2 /HPF (0-4); Squamous Epithelial Cell,Urine Occasional /HPF (0-10); Urine Color Yellow (Yellow); Urine Specific Gravity 1.011 (1.001-1.035); Urine Urobilinogen < 2.0 EU/DL (0.2-1.0); WBC,Urine 20 /HPF (0-6)
[2018-11-09 05:32] LABS: Barbiturates Screen,Urine Negative (Negative); Benzodiazepines Screen,Urine Negative (Negative); Cannabinoid Screen,Urine Negative (Negative); Opiate Screen,Urine Negative (Negative); Phencyclidine Screen,Urine Negative (Negative)
[2018-11-09 05:55] LABS: Basophils % 0.9 % (0.0-0.8); Eosinophils # 0.1 10*3/uL (0.0-0.87); Eosinophils % 4.4 % (0.00-10.9); Hematocrit 23.3 VOL% (35.7-47.0); Hemoglobin 7.4 GM/DL (12.0-16.0); Lymphocytes # 0.7 10*3/uL (1.4-4.0); Lymphocytes % 31.4 % (21.3-54.2); Mean Corpuscular HGB Conc 31.8 GM/DL (32-36); Mean Corpuscular Volume 81.5 FL (87-102); Mean Platelet Volume 12.1 FL (9.6-12.0); Monocytes % 7.4 % (1.7-12.7); Neutrophils % 55.9 % (38.7-73.9); Platelet Count 111 T/CUMM (130-400); Red Blood Count 2.86 MC/CUMM (3.8-5.5); Red Cell Distribution Width 15.7 % (9.3-17.3); White Blood Count 2.3 T/CUMM (4-12)
[2018-11-09 06:14] LABS: Calcium 8.4 MG/DL (8.5-10.1); Osmolality,Calculated 316.7 MOS/KG (273-304)
[2018-11-09 06:18] LABS: Hypochromasia 1+; Platelet Estimate Decreased
[2018-11-09] MEDS: INSULIN LISPRO 100 UNIT/ML SUBCUT SCH ×4 (09:45→21:32)
[2018-11-09] MEDS: ASPIRIN EC 81 MG TABLET PO SCH (09:46)
[2018-11-09] MEDS: CARVEDILOL 25 MG TABLET PO SCH ×2 (09:46→21:32)
[2018-11-09] MEDS: PANTOPRAZOLE 40 MG TABLET PO SCH ×2 (09:46→21:34)
[2018-11-09] MEDS ORDERED: EPOETIN ALFA 10,000 UNIT/1 ML VIAL SUBCUT ONE (16:38)
[2018-11-09] MEDS ORDERED: LEVOFLOXACIN INJ 250 MG in PREMIX 1 EACH IV SCH (17:00)
[2018-11-09] MEDS: METOCLOPRAMIDE 10 MG/10 ML UDCUP PO SCH ×2 (17:08→21:34)
[2018-11-09] MEDS: cefTRIAXone 1,000 MG in SYRINGE 1 EACH IV SCH (17:40)
[2018-11-09] MEDS: INSULIN GLARGINE 100 UNIT/ML SUBCUT SCH (21:33)
[2018-11-09] MEDS: ATORVASTATIN 80 MG TABLET PO SCH (21:33)
[2018-11-10] MEDS: SUCRALFATE 1 GM/10 ML UDCUP PO SCH ×4 (03:17→17:08)
[2018-11-10 04:21] LABS: Basophils % 0.4 % (0.0-0.8); Eosinophils # 0.1 10*3/uL (0.0-0.87); Eosinophils % 3.9 % (0.00-10.9); Hematocrit 22.7 VOL% (35.7-47.0); Hemoglobin 7.2 GM/DL (12.0-16.0); Immature Granulocytes % 0.4 %; Immature Granulocytes Absolute 0.01 #; Lymphocytes # 0.7 10*3/uL (1.4-4.0); Lymphocytes % 27.7 % (21.3-54.2); Mean Corpuscular HGB Conc 31.7 GM/DL (32-36); Mean Corpuscular Volume 81.9 FL (87-102); Mean Platelet Volume 12.2 FL (9.6-12.0); Monocytes % 5.5 % (1.7-12.7); Neutrophils % 62.1 % (38.7-73.9); Red Blood Count 2.77 MC/CUMM (3.8-5.5); Red Cell Distribution Width 15.6 % (9.3-17.3); White Blood Count 2.6 T/CUMM (4-12)
[2018-11-10 04:29] LABS: Platelet Count 96 T/CUMM (130-400)
[2018-11-10 04:50] LABS: Calcium 8.4 MG/DL (8.5-10.1); Osmolality,Calculated 314.1 MOS/KG (273-304)
[2018-11-10 04:57] LABS: Platelet Estimate Decreased
[2018-11-10 04:58] LABS: Hypochromasia Slight
[2018-11-10] MEDS: GABAPENTIN 600 MG TABLET PO SCH ×3 (08:31→22:14)
[2018-11-10] MEDS: CARVEDILOL 25 MG TABLET PO SCH ×2 (08:32→22:14)
[2018-11-10] MEDS: METOCLOPRAMIDE 10 MG/10 ML UDCUP PO SCH ×4 (08:32→22:15)
[2018-11-10] MEDS: PANTOPRAZOLE 40 MG TABLET PO SCH ×2 (08:32→22:15)
[2018-11-10] MEDS: ASPIRIN EC 81 MG TABLET PO SCH (08:32)
[2018-11-10] MEDS: INSULIN LISPRO 100 UNIT/ML SUBCUT SCH ×4 (08:42→22:16)
[2018-11-10] MEDS: SODIUM CHLORIDE 0.9% 1,000 ML IV SCH ×2 (12:52→23:22)
[2018-11-10 15:10] LABS: % Iron Saturation 10.8 % (18-50)
[2018-11-10] MEDS: cefTRIAXone 1,000 MG in SYRINGE 1 EACH IV SCH (17:06)
[2018-11-10] MEDS: ATORVASTATIN 80 MG TABLET PO SCH (22:14)
[2018-11-10] MEDS: INSULIN GLARGINE 100 UNIT/ML SUBCUT SCH (22:17)
[2018-11-10] MEDS ORDERED: MAGNESIUM CITRATE 300 ML BOTTLE PO ONE (22:51)
[2018-11-11] MEDS: SUCRALFATE 1 GM/10 ML UDCUP PO SCH ×5 (00:13→23:10)
[2018-11-11 04:42] LABS: Calcium 8.4 MG/DL (8.5-10.1); Osmolality,Calculated 311.2 MOS/KG (273-304)
[2018-11-11] MEDS ORDERED: LOPERAMIDE 2 MG CAPSULE PO ONE (09:33)
[2018-11-11] MEDS: METOCLOPRAMIDE 10 MG/10 ML UDCUP PO SCH ×4 (09:44→20:59)
[2018-11-11] MEDS: CARVEDILOL 25 MG TABLET PO SCH ×2 (09:44→20:58)
[2018-11-11] MEDS: IRON SUCROSE 200 MG in SODIUM CHLORIDE 0.9% 100 ML IV SCH (09:44)
[2018-11-11] MEDS: ASPIRIN EC 81 MG TABLET PO SCH (09:44)
[2018-11-11] MEDS: PANTOPRAZOLE 40 MG TABLET PO SCH ×2 (09:44→20:59)
[2018-11-11] MEDS: GABAPENTIN 600 MG TABLET PO SCH ×3 (09:44→20:59)
[2018-11-11] MEDS: ACETAMINOPHEN 325 MG TABLET PO PRN (09:54)
[2018-11-11] MEDS: INSULIN LISPRO 100 UNIT/ML SUBCUT SCH ×4 (10:36→20:58)
[2018-11-11] MEDS: SODIUM BICARB INJ 50 MEQ in SODIUM CHLORIDE 0.45% 1,000 ML IV SCH ×2 (11:19→22:54)
[2018-11-11] MEDS ORDERED: BISACODYL 10 MG SUPP RECTAL ONE (14:58)
[2018-11-11] MEDS: MEROPENEM 500 MG in SODIUM CHLORIDE 0.9% 100 ML IV SCH (15:27)
[2018-11-11] MEDS ORDERED: MAGNESIUM HYDROXIDE SUSP 30 ML UDCUP PO ONE (18:07)
[2018-11-11] MEDS ORDERED: MAGNESIUM CITRATE 300 ML BOTTLE PO ONE (18:07)
[2018-11-11] MEDS: INSULIN GLARGINE 100 UNIT/ML SUBCUT SCH (20:59)
[2018-11-11] MEDS: ATORVASTATIN 80 MG TABLET PO SCH (20:59)
[2018-11-11] MEDS ORDERED: ZALEPLON 5 MG CAPSULE PO ONE (21:54)
[2018-11-12] MEDS: MEROPENEM 500 MG in SODIUM CHLORIDE 0.9% 100 ML IV SCH ×2 (03:16→16:09)
[2018-11-12] MEDS: SUCRALFATE 1 GM/10 ML UDCUP PO SCH ×3 (06:15→17:33)
[2018-11-12 06:35] LABS: Calcium 8.4 MG/DL (8.5-10.1); Osmolality,Calculated 309.2 MOS/KG (273-304)
[2018-11-12] MEDS ORDERED: EPOETIN ALFA 2,000 UNIT/1 ML VIAL SUBCUT ONE (08:31)
[2018-11-12] MEDS: GABAPENTIN 600 MG TABLET PO SCH ×3 (08:37→21:57)
[2018-11-12] MEDS: CARVEDILOL 25 MG TABLET PO SCH ×2 (08:37→21:57)
[2018-11-12] MEDS: PANTOPRAZOLE 40 MG TABLET PO SCH ×2 (08:37→21:57)
[2018-11-12] MEDS: ASPIRIN EC 81 MG TABLET PO SCH (08:37)
[2018-11-12] MEDS: ACETAMINOPHEN 325 MG TABLET PO PRN (08:37)
[2018-11-12] MEDS: METOCLOPRAMIDE 10 MG/10 ML UDCUP PO SCH ×4 (08:38→21:56)
[2018-11-12] MEDS: INSULIN LISPRO 100 UNIT/ML SUBCUT SCH ×4 (08:39→21:56)
[2018-11-12] MEDS: IRON SUCROSE 200 MG in SODIUM CHLORIDE 0.9% 100 ML IV SCH (10:36)
[2018-11-12 13:15] LABS: Basophils % 0.8 % (0.0-0.8); Eosinophils # 0.1 10*3/uL (0.0-0.87); Eosinophils % 3.4 % (0.00-10.9); Hematocrit 23.4 VOL% (35.7-47.0); Hemoglobin 7.6 GM/DL (12.0-16.0); Immature Granulocytes % 0.8 %; Immature Granulocytes Absolute 0.02 #; Lymphocytes # 0.6 10*3/uL (1.4-4.0); Mean Corpuscular HGB Conc 32.5 GM/DL (32-36); Mean Corpuscular Volume 81.5 FL (87-102); Mean Platelet Volume 12.7 FL (9.6-12.0); Monocytes % 6.9 % (1.7-12.7); Neutrophils % 67.1 % (38.7-73.9); Platelet Count 93 T/CUMM (130-400); Red Blood Count 2.87 MC/CUMM (3.8-5.5); Red Cell Distribution Width 15.8 % (9.3-17.3); White Blood Count 2.6 T/CUMM (4-12)
[2018-11-12] MEDS: ISOSORBIDE MONONITRATE 30 MG TABLET PO SCH (14:00)
[2018-11-12] MEDS ORDERED: DOCUSATE/SENNA 50-8.6 MG TABLET PO SCH (15:00)
[2018-11-12] MEDS ORDERED: BISACODYL 10 MG SUPP RECTAL SCH (15:07)
[2018-11-12] MEDS: POLYETHYLENE GLYCOL POWDER 17 GM PACK PO SCH ×2 (16:09→21:56)
[2018-11-12] MEDS: ACETAMINOPHEN 500 MG TABLET PO PRN (20:04)
[2018-11-12] MEDS: INSULIN GLARGINE 100 UNIT/ML SUBCUT SCH (21:56)
[2018-11-12] MEDS: ATORVASTATIN 80 MG TABLET PO SCH (21:57)
[2018-11-12] MEDS: hydrALAZINE 10 MG TABLET PO SCH (21:59)
[2018-11-12] MEDS ORDERED: IBUPROFEN 800 MG TABLET PO PRN (23:08)
[2018-11-13] MEDS: SUCRALFATE 1 GM/10 ML UDCUP PO SCH ×3 (01:06→11:47)
[2018-11-13] MEDS: MEROPENEM 500 MG in SODIUM CHLORIDE 0.9% 100 ML IV SCH ×2 (03:08→16:07)
[2018-11-13 05:36] LABS: Basophils % 0.4 % (0.0-0.8); Eosinophils # 0.1 10*3/uL (0.0-0.87); Eosinophils % 4.6 % (0.00-10.9); Hematocrit 22.2 VOL% (35.7-47.0); Hemoglobin 7.4 GM/DL (12.0-16.0); Immature Granulocytes % 0.4 %; Immature Granulocytes Absolute 0.01 #; Lymphocytes # 0.6 10*3/uL (1.4-4.0); Lymphocytes % 22.8 % (21.3-54.2); Mean Corpuscular HGB Conc 33.3 GM/DL (32-36); Mean Corpuscular Volume 80.1 FL (87-102); Mean Platelet Volume 13.8 FL (9.6-12.0); Monocytes % 7.3 % (1.7-12.7); Neutrophils % 64.5 % (38.7-73.9); Red Blood Count 2.77 MC/CUMM (3.8-5.5); Red Cell Distribution Width 15.9 % (9.3-17.3); White Blood Count 2.6 T/CUMM (4-12)
[2018-11-13 05:41] LABS: Platelet Count 87 T/CUMM (130-400)
[2018-11-13 05:45] LABS: Calcium 8.8 MG/DL (8.5-10.1); Osmolality,Calculated 299.7 MOS/KG (273-304)
[2018-11-13 05:55] LABS: Hypochromasia 1+; Ovalocytes Slight; Platelet Estimate Decreased
[2018-11-13] MEDS: INSULIN LISPRO 100 UNIT/ML SUBCUT SCH ×4 (08:34→21:42)
[2018-11-13] MEDS: METOCLOPRAMIDE 10 MG/10 ML UDCUP PO SCH ×2 (08:46→21:38)
[2018-11-13] MEDS: LINACLOTIDE 145 MCG CAPSULE PO SCH (08:48)
[2018-11-13] MEDS: GABAPENTIN 600 MG TABLET PO SCH (08:49)
[2018-11-13] MEDS: CARVEDILOL 25 MG TABLET PO SCH ×2 (08:49→21:38)
[2018-11-13] MEDS: PANTOPRAZOLE 40 MG TABLET PO SCH ×2 (08:49→21:38)
[2018-11-13] MEDS: ASPIRIN EC 81 MG TABLET PO SCH (08:49)
[2018-11-13] MEDS: POLYETHYLENE GLYCOL POWDER 17 GM PACK PO SCH ×2 (08:49→21:01)
[2018-11-13] MEDS: ISOSORBIDE MONONITRATE 30 MG TABLET PO SCH (08:49)
[2018-11-13] MEDS: IRON SUCROSE 200 MG in SODIUM CHLORIDE 0.9% 100 ML IV SCH (08:50)
[2018-11-13] MEDS: hydrALAZINE 10 MG TABLET PO SCH ×2 (08:54→21:40)
[2018-11-13 10:48] LABS: Hepatitis B Surface Ag Quant < 0.10 Index; Hepatitis B Surface Ag Result Negative (Negative); Hepatitis C Virus Ab Quant 0.02 Index; Hepatitis C Virus Ab Result Negative (Negative)
[2018-11-13] MEDS ORDERED: METOCLOPRAMIDE 10 MG/10 ML UDCUP PO SCH (21:00)
[2018-11-13] MEDS: GABAPENTIN 100 MG CAPSULE PO SCH (21:39)
[2018-11-13] MEDS: ATORVASTATIN 80 MG TABLET PO SCH (21:39)
[2018-11-13] MEDS: INSULIN GLARGINE 100 UNIT/ML SUBCUT SCH (21:40)
[2018-11-13] MEDS: ACETAMINOPHEN 500 MG TABLET PO PRN (21:53)
[2018-11-14] MEDS: MEROPENEM 500 MG in SODIUM CHLORIDE 0.9% 100 ML IV SCH ×2 (03:04→15:39)
[2018-11-14 05:28] LABS: Basophils % 0.6 % (0.0-0.8); Eosinophils # 0.1 10*3/uL (0.0-0.87); Eosinophils % 3.6 % (0.00-10.9); Hematocrit 22.1 VOL% (35.7-47.0); Hemoglobin 7.1 GM/DL (12.0-16.0); Immature Granulocytes % 0.6 %; Immature Granulocytes Absolute 0.02 #; Lymphocytes # 0.7 10*3/uL (1.4-4.0); Lymphocytes % 21.8 % (21.3-54.2); Mean Corpuscular HGB Conc 32.1 GM/DL (32-36); Mean Corpuscular Volume 80.7 FL (87-102); Mean Platelet Volume 12.8 FL (9.6-12.0); Monocytes % 8.5 % (1.7-12.7); Neutrophils % 64.9 % (38.7-73.9); Platelet Count 105 T/CUMM (130-400); Red Blood Count 2.74 MC/CUMM (3.8-5.5); Red Cell Distribution Width 15.8 % (9.3-17.3); White Blood Count 3.3 T/CUMM (4-12)
[2018-11-14 05:45] LABS: Calcium 8.9 MG/DL (8.5-10.1); Osmolality,Calculated 304.7 MOS/KG (273-304)
[2018-11-14 06:08] LABS: % Iron Saturation 86.6 % (18-50); Ferritin 218.5 ng/ml (8-252)
[2018-11-14] MEDS: METOCLOPRAMIDE 10 MG/10 ML UDCUP PO SCH (08:49)
[2018-11-14] MEDS: POLYETHYLENE GLYCOL POWDER 17 GM PACK PO SCH ×2 (08:49→21:33)
[2018-11-14] MEDS: INSULIN LISPRO 100 UNIT/ML SUBCUT SCH ×4 (09:08→21:32)
[2018-11-14] MEDS: ISOSORBIDE MONONITRATE 30 MG TABLET PO SCH (09:09)
[2018-11-14] MEDS: CARVEDILOL 25 MG TABLET PO SCH ×2 (09:09→21:33)
[2018-11-14] MEDS: ASPIRIN EC 81 MG TABLET PO SCH (09:10)
[2018-11-14] MEDS: GABAPENTIN 100 MG CAPSULE PO SCH ×3 (09:10→21:33)
[2018-11-14] MEDS: PANTOPRAZOLE 40 MG TABLET PO SCH ×2 (09:10→21:33)
[2018-11-14] MEDS: LINACLOTIDE 145 MCG CAPSULE PO SCH (09:20)
[2018-11-14] MEDS: IRON SUCROSE 200 MG in SODIUM CHLORIDE 0.9% 100 ML IV SCH (10:34)
[2018-11-14] MEDS: hydrALAZINE 10 MG TABLET PO SCH ×2 (10:37→21:33)
[2018-11-14] MEDS ORDERED: SODIUM CHLORIDE 0.9% 1,000 ML IV PRN (14:47)
[2018-11-14] MEDS ORDERED: FUROSEMIDE 40 MG/4 ML VIAL IV ONE (14:48)
[2018-11-14] MEDS ORDERED: FUROSEMIDE 40 MG/4 ML VIAL ONE (21:24)
[2018-11-14] MEDS: INSULIN GLARGINE 100 UNIT/ML SUBCUT SCH (21:31)
[2018-11-14] MEDS: ATORVASTATIN 80 MG TABLET PO SCH (21:32)
[2018-11-15 04:56] LABS: Basophils % 0.3 % (0.0-0.8); Eosinophils # 0.1 10*3/uL (0.0-0.87); Eosinophils % 3.5 % (0.00-10.9); Immature Granulocytes % 0.5 %; Immature Granulocytes Absolute 0.02 #; Lymphocytes # 0.7 10*3/uL (1.4-4.0); Lymphocytes % 17.7 % (21.3-54.2); Mean Corpuscular HGB Conc 32.4 GM/DL (32-36); Mean Corpuscular Volume 80.6 FL (87-102); Mean Platelet Volume 12.6 FL (9.6-12.0); Platelet Count 111 T/CUMM (130-400); Red Cell Distribution Width 15.4 % (9.3-17.3); White Blood Count 3.7 T/CUMM (4-12)
[2018-11-15 04:59] LABS: Hemoglobin 9.4 GM/DL (12.0-16.0)
[2018-11-15 05:18] LABS: Calcium 8.5 MG/DL (8.5-10.1); Osmolality,Calculated 300.1 MOS/KG (273-304)
[2018-11-15 08:35] LABS: Apearance,Urine CLOUDY (Clear); Bilirubin,Urine Negative (Negative); Blood, Urine Large mg/dL (Negative); Glucose,Urine (UA) 50 mg/dL (Negative); Ketones,Urine 5 mg/dL (Negative); Mucus,Urine Occasional /LPF (Occasional); Nitrite,Urine Negative (Negative); Protein,Urine >=500 MG/DL; RBC,Urine 2656 /HPF (0-4); Squamous Epithelial Cell,Urine Few /HPF (0-10); Urine Color Red (Yellow); Urine Urobilinogen < 2.0 EU/DL (0.2-1.0); WBC,Urine 85 /HPF (0-6)
[2018-11-15] MEDS: INSULIN LISPRO 100 UNIT/ML SUBCUT SCH ×4 (09:05→21:48)
[2018-11-15] MEDS: LINACLOTIDE 145 MCG CAPSULE PO SCH (09:06)
[2018-11-15] MEDS: ISOSORBIDE MONONITRATE 30 MG TABLET PO SCH (09:07)
[2018-11-15] MEDS: POLYETHYLENE GLYCOL POWDER 17 GM PACK PO SCH ×2 (09:07→21:49)
[2018-11-15] MEDS: GABAPENTIN 100 MG CAPSULE PO SCH ×3 (09:08→21:48)
[2018-11-15] MEDS: CARVEDILOL 25 MG TABLET PO SCH ×2 (09:08→21:48)
[2018-11-15] MEDS: PANTOPRAZOLE 40 MG TABLET PO SCH ×2 (09:08→21:49)
[2018-11-15] MEDS: ASPIRIN EC 81 MG TABLET PO SCH (09:08)
[2018-11-15] MEDS: hydrALAZINE 10 MG TABLET PO SCH (09:12)
[2018-11-15] MEDS: IRON SUCROSE 200 MG in SODIUM CHLORIDE 0.9% 100 ML IV SCH (10:07)
[2018-11-15] MEDS ORDERED: DIAZEPAM 5 MG TABLET PO ONE (11:19)
[2018-11-15] MEDS ORDERED: MAGNESIUM SULF RIDER 4 GM in PREMIX 1 EACH IV ONE (12:00)
[2018-11-15] MEDS: ATORVASTATIN 80 MG TABLET PO SCH (21:47)
[2018-11-15] MEDS: hydrALAZINE 25 MG TABLET PO SCH (21:47)
[2018-11-15] MEDS: INSULIN GLARGINE 100 UNIT/ML SUBCUT SCH (21:48)
[2018-11-15] MEDS: ACETAMINOPHEN 325 MG TABLET PO PRN (22:24)
[2018-11-16 05:37] LABS: Basophils % 0.6 % (0.0-0.8); Eosinophils # 0.1 10*3/uL (0.0-0.87); Eosinophils % 3.7 % (0.00-10.9); Hematocrit 27.6 VOL% (35.7-47.0); Hemoglobin 8.9 GM/DL (12.0-16.0); Immature Granulocytes % 0.3 %; Immature Granulocytes Absolute 0.01 #; Lymphocytes # 0.6 10*3/uL (1.4-4.0); Lymphocytes % 18.8 % (21.3-54.2); Mean Corpuscular HGB Conc 32.2 GM/DL (32-36); Mean Corpuscular Volume 81.2 FL (87-102); Neutrophils % 68.6 % (38.7-73.9); Platelet Count 97 T/CUMM (130-400); Red Cell Distribution Width 15.7 % (9.3-17.3); White Blood Count 3.3 T/CUMM (4-12)
[2018-11-16 06:01] LABS: Calcium 8.8 MG/DL (8.5-10.1); Osmolality,Calculated 299.2 MOS/KG (273-304)
[2018-11-16 06:13] LABS: Burr Cells Slight; Eosinophils 6 % (0-10); Hypochromasia 1+; Lymphocytes 14 % (20-55); Ovalocytes Slight; Platelet Estimate Decreased; Segmented Neutrophils 70 % (50-85); Total Cells Counted 100
[2018-11-16] MEDS: INSULIN LISPRO 100 UNIT/ML SUBCUT SCH ×4 (08:14→20:50)
[2018-11-16] MEDS: POLYETHYLENE GLYCOL POWDER 17 GM PACK PO SCH ×2 (08:29→20:54)
[2018-11-16] MEDS: ISOSORBIDE MONONITRATE 30 MG TABLET PO SCH (08:29)
[2018-11-16] MEDS: LINACLOTIDE 145 MCG CAPSULE PO SCH (08:29)
[2018-11-16] MEDS: CARVEDILOL 25 MG TABLET PO SCH ×2 (08:30→20:54)
[2018-11-16] MEDS: ASPIRIN EC 81 MG TABLET PO SCH (08:30)
[2018-11-16] MEDS: PANTOPRAZOLE 40 MG TABLET PO SCH ×2 (08:30→20:53)
[2018-11-16] MEDS: GABAPENTIN 100 MG CAPSULE PO SCH ×3 (08:30→20:54)
[2018-11-16] MEDS: hydrALAZINE 25 MG TABLET PO SCH ×2 (08:30→20:54)
[2018-11-16] MEDS ORDERED: DEXTROSE 50% 25 GM/50 ML VIAL IV PRN (16:05)
[2018-11-16] MEDS ORDERED: GLUCAGON 1 MG VIAL IM PRN (16:05)
[2018-11-16] MEDS ORDERED: HEPARIN 10,000 UNIT/10 ML VIAL IV PRN (17:17)
[2018-11-16] MEDS: ATORVASTATIN 80 MG TABLET PO SCH (20:53)
[2018-11-17] MEDS: INSULIN LISPRO 100 UNIT/ML SUBCUT SCH ×4 (09:15→21:43)
[2018-11-17] MEDS: POLYETHYLENE GLYCOL POWDER 17 GM PACK PO SCH ×2 (09:16→21:46)
[2018-11-17] MEDS: LINACLOTIDE 145 MCG CAPSULE PO SCH (09:16)
[2018-11-17] MEDS: GABAPENTIN 100 MG CAPSULE PO SCH ×3 (13:38→21:40)
[2018-11-17] MEDS: CARVEDILOL 25 MG TABLET PO SCH ×2 (13:38→21:40)
[2018-11-17] MEDS: ISOSORBIDE MONONITRATE 30 MG TABLET PO SCH (13:38)
[2018-11-17] MEDS: hydrALAZINE 25 MG TABLET PO SCH ×2 (13:38→21:39)
[2018-11-17] MEDS: ASPIRIN EC 81 MG TABLET PO SCH (13:38)
[2018-11-17] MEDS: PANTOPRAZOLE 40 MG TABLET PO SCH ×2 (13:39→21:39)
[2018-11-17] MEDS: ATORVASTATIN 80 MG TABLET PO SCH (21:39)
[2018-11-17] MEDS: ACETAMINOPHEN 325 MG TABLET PO PRN ×2 (21:41)
[2018-11-18 04:05] LABS: Basophils % 0.4 % (0.0-0.8); Eosinophils # 0.1 10*3/uL (0.0-0.87); Eosinophils % 3.7 % (0.00-10.9); Hemoglobin 8.3 GM/DL (12.0-16.0); Lymphocytes # 0.6 10*3/uL (1.4-4.0); Lymphocytes % 26.6 % (21.3-54.2); Mean Corpuscular HGB Conc 31.9 GM/DL (32-36); Mean Corpuscular Volume 83.1 FL (87-102); Mean Platelet Volume 11.1 FL (9.6-12.0); Monocytes % 9.5 % (1.7-12.7); Neutrophils % 59.8 % (38.7-73.9); Platelet Count 62 T/CUMM (130-400); Red Blood Count 3.13 MC/CUMM (3.8-5.5); Red Cell Distribution Width 16.9 % (9.3-17.3); White Blood Count 2.4 T/CUMM (4-12)
[2018-11-18] MEDS: INSULIN LISPRO 100 UNIT/ML SUBCUT SCH ×4 (08:57→21:57)
[2018-11-18] MEDS: LINACLOTIDE 145 MCG CAPSULE PO SCH (08:57)
[2018-11-18] MEDS: hydrALAZINE 25 MG TABLET PO SCH ×2 (08:58→21:41)
[2018-11-18] MEDS: GABAPENTIN 100 MG CAPSULE PO SCH ×3 (08:59→21:40)
[2018-11-18] MEDS: ASPIRIN EC 81 MG TABLET PO SCH (08:59)
[2018-11-18] MEDS: POLYETHYLENE GLYCOL POWDER 17 GM PACK PO SCH ×2 (08:59→22:10)
[2018-11-18] MEDS: PANTOPRAZOLE 40 MG TABLET PO SCH ×2 (08:59→21:40)
[2018-11-18] MEDS: ISOSORBIDE MONONITRATE 30 MG TABLET PO SCH (08:59)
[2018-11-18] MEDS: CARVEDILOL 25 MG TABLET PO SCH ×2 (08:59→21:41)
[2018-11-18] MEDS: ACETAMINOPHEN 325 MG TABLET PO PRN (16:01)
[2018-11-18] MEDS: ATORVASTATIN 80 MG TABLET PO SCH (21:42)
[2018-11-19] MEDS: INSULIN LISPRO 100 UNIT/ML SUBCUT SCH ×4 (08:14→22:06)
[2018-11-19] MEDS: ASPIRIN EC 81 MG TABLET PO SCH (10:04)
[2018-11-19] MEDS: PANTOPRAZOLE 40 MG TABLET PO SCH ×2 (10:04→21:22)
[2018-11-19] MEDS: GABAPENTIN 100 MG CAPSULE PO SCH ×3 (10:04→21:22)
[2018-11-19] MEDS: LINACLOTIDE 145 MCG CAPSULE PO SCH (10:05)
[2018-11-19] MEDS: POLYETHYLENE GLYCOL POWDER 17 GM PACK PO SCH ×2 (10:05→21:23)
[2018-11-19 13:36] LABS: Basophils % 0.8 % (0.0-0.8); Eosinophils # 0.1 10*3/uL (0.0-0.87); Eosinophils % 3.7 % (0.00-10.9); Hemoglobin 8.4 GM/DL (12.0-16.0); Immature Granulocytes % 0.4 %; Immature Granulocytes Absolute 0.01 #; Lymphocytes # 0.6 10*3/uL (1.4-4.0); Mean Corpuscular HGB Conc 32.3 GM/DL (32-36); Mean Corpuscular Volume 83.1 FL (87-102); Mean Platelet Volume 11.9 FL (9.6-12.0); Neutrophils % 64.1 % (38.7-73.9); Platelet Count 53 T/CUMM (130-400); Red Blood Count 3.13 MC/CUMM (3.8-5.5); Red Cell Distribution Width 17.2 % (9.3-17.3); White Blood Count 2.4 T/CUMM (4-12)
[2018-11-19 13:50] LABS: Calcium 8.5 MG/DL (8.5-10.1); Osmolality,Calculated 283.7 MOS/KG (273-304)
[2018-11-19] MEDS: hydrALAZINE 25 MG TABLET PO SCH ×2 (14:18→21:22)
[2018-11-19] MEDS: CARVEDILOL 25 MG TABLET PO SCH ×2 (14:18→21:22)
[2018-11-19] MEDS: ISOSORBIDE MONONITRATE 30 MG TABLET PO SCH (14:19)
[2018-11-19 17:18] LABS: Polychromasia 1+
[2018-11-19 17:19] LABS: Anisocytosis 2+; Hypochromasia 1+; Ovalocytes Few
[2018-11-19 17:22] LABS: Acanthocytes 1+; Platelet Estimate Decreased
[2018-11-19] MEDS: ACETAMINOPHEN 325 MG TABLET PO PRN (21:22)
[2018-11-19] MEDS: ATORVASTATIN 80 MG TABLET PO SCH (21:22)
[2018-11-20 05:04] LABS: Basophils % 0.9 % (0.0-0.8); Eosinophils # 0.1 10*3/uL (0.0-0.87); Eosinophils % 4.1 % (0.00-10.9); Hemoglobin 8.1 GM/DL (12.0-16.0); Immature Granulocytes % 0.5 %; Immature Granulocytes Absolute 0.01 #; Lymphocytes # 0.6 10*3/uL (1.4-4.0); Lymphocytes % 27.6 % (21.3-54.2); Mean Corpuscular HGB Conc 31.2 GM/DL (32-36); Mean Corpuscular Volume 84.4 FL (87-102); Mean Platelet Volume 11.5 FL (9.6-12.0); Monocytes % 9.5 % (1.7-12.7); Neutrophils % 57.4 % (38.7-73.9); Platelet Count 50 T/CUMM (130-400); Red Blood Count 3.08 MC/CUMM (3.8-5.5); Red Cell Distribution Width 17.6 % (9.3-17.3); White Blood Count 2.2 T/CUMM (4-12)
[2018-11-20 05:10] LABS: Calcium 9.1 MG/DL (8.5-10.1); Osmolality,Calculated 290.7 MOS/KG (273-304)
[2018-11-20 05:26] LABS: Hypochromasia 1+
[2018-11-20 05:27] LABS: Ovalocytes Slight; Platelet Estimate Decreased
[2018-11-20] MEDS: INSULIN LISPRO 100 UNIT/ML SUBCUT SCH ×4 (08:51→20:59)
[2018-11-20] MEDS: hydrALAZINE 25 MG TABLET PO SCH ×2 (09:46→20:58)
[2018-11-20] MEDS: ISOSORBIDE MONONITRATE 30 MG TABLET PO SCH (09:46)
[2018-11-20] MEDS: ASPIRIN EC 81 MG TABLET PO SCH (09:46)
[2018-11-20] MEDS: CARVEDILOL 25 MG TABLET PO SCH ×2 (09:46→20:58)
[2018-11-20] MEDS: PANTOPRAZOLE 40 MG TABLET PO SCH (09:46)
[2018-11-20] MEDS: LINACLOTIDE 145 MCG CAPSULE PO SCH (09:50)
[2018-11-20] MEDS: POLYETHYLENE GLYCOL POWDER 17 GM PACK PO SCH ×2 (09:50→20:59)
[2018-11-20] MEDS: GABAPENTIN 100 MG CAPSULE PO SCH ×2 (09:58→20:58)
[2018-11-20] MEDS: FAMOTIDINE 20 MG TABLET PO SCH (20:58)
[2018-11-20] MEDS: ATORVASTATIN 80 MG TABLET PO SCH (20:58)
[2018-11-20] MEDS: ACETAMINOPHEN 325 MG TABLET PO PRN (21:02)
[2018-11-21 06:08] LABS: Basophils % 0.9 % (0.0-0.8); Eosinophils # 0.1 10*3/uL (0.0-0.87); Eosinophils % 3.9 % (0.00-10.9); Hematocrit 26.3 VOL% (35.7-47.0); Hemoglobin 8.3 GM/DL (12.0-16.0); Immature Granulocytes % 0.4 %; Immature Granulocytes Absolute 0.01 #; Lymphocytes # 0.7 10*3/uL (1.4-4.0); Lymphocytes % 31.6 % (21.3-54.2); Mean Corpuscular HGB Conc 31.6 GM/DL (32-36); Mean Corpuscular Volume 84.6 FL (87-102); Monocytes % 9.5 % (1.7-12.7); Neutrophils % 53.7 % (38.7-73.9); Platelet Count 55 T/CUMM (130-400); Red Blood Count 3.11 MC/CUMM (3.8-5.5); Red Cell Distribution Width 17.7 % (9.3-17.3); White Blood Count 2.3 T/CUMM (4-12)
[2018-11-21 06:35] LABS: Hypochromasia 1+; Ovalocytes Slight; Platelet Estimate Decreased
[2018-11-21 06:42] LABS: Calcium 8.8 MG/DL (8.5-10.1); Osmolality,Calculated 295.7 MOS/KG (273-304)
[2018-11-21] MEDS: INSULIN LISPRO 100 UNIT/ML SUBCUT SCH ×4 (08:07→22:28)
[2018-11-21] MEDS: hydrALAZINE 25 MG TABLET PO SCH ×2 (08:42→21:30)
[2018-11-21] MEDS: CARVEDILOL 25 MG TABLET PO SCH ×2 (08:42→21:30)
[2018-11-21] MEDS: ASPIRIN EC 81 MG TABLET PO SCH (08:42)
[2018-11-21] MEDS: FAMOTIDINE 20 MG TABLET PO SCH (08:43)
[2018-11-21] MEDS: ISOSORBIDE MONONITRATE 30 MG TABLET PO SCH (08:43)
[2018-11-21] MEDS: LINACLOTIDE 145 MCG CAPSULE PO SCH (08:44)
[2018-11-21] MEDS: POLYETHYLENE GLYCOL POWDER 17 GM PACK PO SCH ×2 (08:44→21:35)
[2018-11-21] MEDS: GABAPENTIN 100 MG CAPSULE PO SCH (21:30)
[2018-11-21] MEDS: ATORVASTATIN 80 MG TABLET PO SCH (21:30)
[2018-11-21] MEDS: ACETAMINOPHEN 325 MG TABLET PO PRN (21:34)
[2018-11-22 05:27] LABS: Basophils % 0.9 % (0.0-0.8); Eosinophils # 0.1 10*3/uL (0.0-0.87); Eosinophils % 3.9 % (0.00-10.9); Hematocrit 25.3 VOL% (35.7-47.0); Hemoglobin 7.9 GM/DL (12.0-16.0); Immature Granulocytes % 0.4 %; Immature Granulocytes Absolute 0.01 #; Lymphocytes # 0.7 10*3/uL (1.4-4.0); Lymphocytes % 31.4 % (21.3-54.2); Mean Corpuscular HGB Conc 31.2 GM/DL (32-36); Mean Corpuscular Volume 85.2 FL (87-102); Mean Platelet Volume 11.9 FL (9.6-12.0); Neutrophils % 53.4 % (38.7-73.9); Platelet Count 48 T/CUMM (130-400); Red Blood Count 2.97 MC/CUMM (3.8-5.5); Red Cell Distribution Width 17.2 % (9.3-17.3); White Blood Count 2.3 T/CUMM (4-12)
[2018-11-22 05:57] LABS: Band Neutrophils 1 % (0-10); Eosinophils 3 % (0-10); Hypochromasia 1+; Lymphocytes 34 % (20-55); Segmented Neutrophils 58 % (50-85); Target Cells Slight; Total Cells Counted 100
[2018-11-22 05:58] LABS: Anisocytosis 1+; Microcytosis 1+; Ovalocytes Slight; Platelet Estimate Decreased
[2018-11-22 06:02] LABS: Calcium 8.8 MG/DL (8.5-10.1); Osmolality,Calculated 284.7 MOS/KG (273-304)
[2018-11-22] MEDS: LINACLOTIDE 145 MCG CAPSULE PO SCH (08:21)
[2018-11-22] MEDS: INSULIN LISPRO 100 UNIT/ML SUBCUT SCH ×4 (08:21→20:40)
[2018-11-22] MEDS: FAMOTIDINE 20 MG TABLET PO SCH (08:22)
[2018-11-22] MEDS: ASPIRIN EC 81 MG TABLET PO SCH (08:22)
[2018-11-22] MEDS: POLYETHYLENE GLYCOL POWDER 17 GM PACK PO SCH ×2 (08:22→20:43)
[2018-11-22] MEDS: CARVEDILOL 25 MG TABLET PO SCH ×2 (08:23→20:39)
[2018-11-22] MEDS: ISOSORBIDE MONONITRATE 30 MG TABLET PO SCH (08:23)
[2018-11-22] MEDS: hydrALAZINE 25 MG TABLET PO SCH ×2 (08:23→20:43)
[2018-11-22] MEDS ORDERED: BUPIVACAINE MPF 0.25% /EPI 30 ML VIAL ONE (09:26)
[2018-11-22] MEDS ORDERED: HEPARIN 5,000 UNIT/1 ML VIAL ONE (09:26)
[2018-11-22] MEDS ORDERED: VANCOMYCIN 1,000 MG VIAL ONE (10:36)
[2018-11-22] MEDS ORDERED: KETAMINE 500 MG/10 ML VIAL ONE (11:34)
[2018-11-22] MEDS ORDERED: ONDANSETRON 4 MG/2 ML VIAL ONE (11:34)
[2018-11-22] MEDS ORDERED: MIDAZOLAM 2 MG/2 ML VIAL ONE (12:49)
[2018-11-22] MEDS: GABAPENTIN 100 MG CAPSULE PO SCH (20:39)
[2018-11-22] MEDS: ACETAMINOPHEN 325 MG TABLET PO PRN (20:40)
[2018-11-22] MEDS: ATORVASTATIN 80 MG TABLET PO SCH (20:40)
[2018-11-23 04:58] LABS: Basophils % 0.5 % (0.0-0.8); Eosinophils # 0.1 10*3/uL (0.0-0.87); Eosinophils % 4.2 % (0.00-10.9); Hematocrit 23.9 VOL% (35.7-47.0); Hemoglobin 7.4 GM/DL (12.0-16.0); Lymphocytes # 0.7 10*3/uL (1.4-4.0); Lymphocytes % 31.9 % (21.3-54.2); Mean Corpuscular Volume 85.4 FL (87-102); Mean Platelet Volume 11.5 FL (9.6-12.0); Monocytes % 9.9 % (1.7-12.7); Neutrophils % 53.5 % (38.7-73.9); White Blood Count 2.1 T/CUMM (4-12)
[2018-11-23 05:00] LABS: Platelet Count 44 T/CUMM (130-400)
[2018-11-23 05:13] LABS: Calcium 8.5 MG/DL (8.5-10.1); Osmolality,Calculated 283.4 MOS/KG (273-304)
[2018-11-23 05:21] LABS: Hypochromasia 1+; Microcytosis 1+; Platelet Estimate Decreased
[2018-11-23] MEDS ORDERED: SODIUM CHLORIDE 0.9% 1,000 ML IV PRN (07:01)
[2018-11-23] MEDS: INSULIN LISPRO 100 UNIT/ML SUBCUT SCH ×4 (09:15→21:23)
[2018-11-23] MEDS: LINACLOTIDE 145 MCG CAPSULE PO SCH (09:15)
[2018-11-23] MEDS: POLYETHYLENE GLYCOL POWDER 17 GM PACK PO SCH ×2 (09:16→21:00)
[2018-11-23] MEDS: ISOSORBIDE MONONITRATE 30 MG TABLET PO SCH (09:19)
[2018-11-23] MEDS: ASPIRIN EC 81 MG TABLET PO SCH (09:19)
[2018-11-23] MEDS: FAMOTIDINE 20 MG TABLET PO SCH (09:19)
[2018-11-23] MEDS: hydrALAZINE 25 MG TABLET PO SCH ×2 (09:19→21:00)
[2018-11-23] MEDS: CARVEDILOL 25 MG TABLET PO SCH ×2 (09:19→20:59)
[2018-11-23] MEDS: ACETAMINOPHEN 325 MG TABLET PO PRN ×2 (09:22→20:59)
[2018-11-23] MEDS ORDERED: diphenhydrAMINE CAP 25 MG CAPSULE PO PRN (20:05)
[2018-11-23] MEDS ORDERED: SKIN HEALING OINT (AQUAPHOR) 50 GM TUBE TOP PRN (20:05)
[2018-11-23] MEDS: ATORVASTATIN 80 MG TABLET PO SCH (20:59)
[2018-11-23] MEDS: GABAPENTIN 100 MG CAPSULE PO SCH (20:59)
[2018-11-24 05:10] LABS: Basophils % 0.8 % (0.0-0.8); Eosinophils # 0.1 10*3/uL (0.0-0.87); Eosinophils % 3.8 % (0.00-10.9); Hemoglobin 7.5 GM/DL (12.0-16.0); Immature Granulocytes % 0.4 %; Immature Granulocytes Absolute 0.01 #; Lymphocytes # 0.8 10*3/uL (1.4-4.0); Lymphocytes % 31.5 % (21.3-54.2); Mean Corpuscular HGB Conc 31.3 GM/DL (32-36); Mean Corpuscular Volume 85.7 FL (87-102); Mean Platelet Volume 12.6 FL (9.6-12.0); Monocytes % 8.8 % (1.7-12.7); Neutrophils % 54.7 % (38.7-73.9); Platelet Count 56 T/CUMM (130-400); Red Cell Distribution Width 17.3 % (9.3-17.3); White Blood Count 2.4 T/CUMM (4-12)
[2018-11-24 05:42] LABS: Albumin 3.2 G/DL (3.4-5.0); Calcium 8.7 MG/DL (8.5-10.1); Osmolality,Calculated 285.5 MOS/KG (273-304); Total Protein 6.7 G/DL (6.4-8.3)
[2018-11-24 06:18] LABS: Anisocytosis 1+; Hypochromasia 1+; Microcytosis 1+; Ovalocytes Slight
[2018-11-24 06:19] LABS: Platelet Estimate Decreased
[2018-11-24 08:14] VITALS: BP 114/87
[2018-11-24] MEDS: INSULIN LISPRO 100 UNIT/ML SUBCUT SCH ×2 (09:18→12:30)
[2018-11-24] MEDS: LINACLOTIDE 145 MCG CAPSULE PO SCH (09:18)
[2018-11-24] MEDS: POLYETHYLENE GLYCOL POWDER 17 GM PACK PO SCH (09:19)
[2018-11-24] MEDS ORDERED: EPOETIN ALFA 10,000 UNIT/1 ML VIAL IV PRN (09:30)
[2018-11-24] MEDS: ISOSORBIDE MONONITRATE 30 MG TABLET PO SCH (12:29)
[2018-11-24] MEDS: hydrALAZINE 25 MG TABLET PO SCH (12:29)
[2018-11-24] MEDS: CARVEDILOL 25 MG TABLET PO SCH (12:30)
[2018-11-24] MEDS: ASPIRIN EC 81 MG TABLET PO SCH (12:30)
[2018-11-24] MEDS: FAMOTIDINE 20 MG TABLET PO SCH (12:30)
== END 2018-11-24 16:02 | disposition home or self-care (01) | DRG 674 ==
LOC: EDUNIT# → EDBD → N.ED 14:56 → SUATTDRO 17:34 → N.EDINP 17:34 → N.TELEN 18:07
PROVIDERS: ADMIT Internal Medicine; ATTEND Family Medicine

== ENCOUNTER 2019-02-12 09:26 | Inpatient (IN) ==
[2019-02-12] MEDS ORDERED: VANCOMYCIN INJ 1,000 MG in SODIUM CHLORIDE 0.9% 250 ML IV STA ×2 (10:09→10:12)
[2019-02-12] MEDS ORDERED: ONDANSETRON 4 MG/2 ML VIAL IV STA (10:10)
[2019-02-12 10:16] LABS: Eosinophils # 0.1 10*3/uL (0.0-0.87); Eosinophils % 4.2 % (0.00-10.9); Hematocrit 31.3 VOL% (35.7-47.0); Hemoglobin 9.9 GM/DL (12.0-16.0); Immature Granulocytes % 0.6 %; Immature Granulocytes Absolute 0.01 #; Lymphocytes # 0.4 10*3/uL (1.4-4.0); Lymphocytes % 22.6 % (21.3-54.2); Mean Corpuscular HGB Conc 31.6 GM/DL (32-36); Mean Corpuscular Volume 91.8 FL (87-102); Mean Platelet Volume 13.2 FL (9.6-12.0); Monocytes % 0.6 % (1.7-12.7); Platelet Count 100 T/CUMM (130-400); Red Blood Count 3.41 MC/CUMM (3.8-5.5); Red Cell Distribution Width 16.5 % (9.3-17.3); White Blood Count 1.7 T/CUMM (4-12)
[2019-02-12 10:29] LABS: INR 1.1; PT Patient Result 11.5 SECS (9.6-12.2)
[2019-02-12 10:35] LABS: Albumin 3.9 G/DL (3.4-5.0); Calcium 9.1 MG/DL (8.5-10.1); Osmolality,Calculated 286.3 MOS/KG (273-304); Total Protein 8.3 G/DL (6.4-8.3)
[2019-02-12 10:45] LABS: Band Neutrophils 18 % (0-10); Eosinophils 4 % (0-10); Lymphocytes 14 % (20-55); Nucleated Red Blood Cells 1 (0-5); Platelet Estimate Adequate; Segmented Neutrophils 64 % (50-85); Total Cells Counted 100
[2019-02-12 10:46] LABS: Anisocytosis 2+; Hypochromasia Slight; Macrocytosis 1+; Poikilocytosis Slight
[2019-02-12] MEDS ORDERED: PROMETHAZINE 25 MG/1 ML VIAL IM PRN (13:51)
[2019-02-12] MEDS ORDERED: DEXTROSE 50% 25 GM/50 ML VIAL IV PRN (13:51)
[2019-02-12] MEDS ORDERED: GLUCAGON 1 MG VIAL IM PRN (13:51)
[2019-02-12] MEDS ORDERED: ALBUTEROL/IPRATROPIUM 3 ML NEB RESP TX PRN (13:57)
[2019-02-12] MEDS ORDERED: PIPERACILLIN/TAZOBACTAM 3,375 MG in SODIUM CHLORIDE 0.9% 100 ML IV SCH (14:00)
[2019-02-12 15:00] LABS: Thyroid Stimulating Hormone 1.22 uIU/ml (0.358-3.74)
[2019-02-12] MEDS: HEPARIN 5,000 UNIT/1 ML VIAL SUBCUT SCH (15:01)
[2019-02-12] MEDS: PIPERACILLIN/TAZOBACTAM 3,375 MG in SODIUM CHLORIDE 0.9% 100 ML IV SCH (15:02)
[2019-02-12] MEDS: INSULIN LISPRO 100 UNIT/ML SUBCUT SCH ×2 (17:04→22:50)
[2019-02-12] MEDS: ACETAMINOPHEN 325 MG TABLET PO PRN (19:52)
[2019-02-12] MEDS: ONDANSETRON 4 MG/2 ML VIAL IV PRN (20:00)
[2019-02-12 20:25] LABS: Hepatitis B Core IgM Quant 0.19 Index; Hepatitis B Surface Ag Quant < 0.10 Index; Hepatitis B Surface Ag Result Negative (Negative); Hepatitis C Virus Ab Quant 0.09 Index; Hepatitis C Virus Ab Result Negative (Negative)
[2019-02-12] MEDS: ATORVASTATIN 80 MG TABLET PO SCH (21:16)
[2019-02-12] MEDS: carvediloL 25 MG TABLET PO SCH (21:16)
[2019-02-13] MEDS: ONDANSETRON 4 MG/2 ML VIAL IV PRN (00:34)
[2019-02-13] MEDS: ACETAMINOPHEN 325 MG TABLET PO PRN (00:34)
[2019-02-13] MEDS: HEPARIN 5,000 UNIT/1 ML VIAL SUBCUT SCH ×2 (02:20→14:58)
[2019-02-13] MEDS: PIPERACILLIN/TAZOBACTAM 3,375 MG in SODIUM CHLORIDE 0.9% 100 ML IV SCH ×2 (02:20→14:58)
[2019-02-13 04:56] LABS: Basophils % 0.3 % (0.0-0.8); Eosinophils % 0.7 % (0.00-10.9); Hematocrit 24.3 VOL% (35.7-47.0); Hemoglobin 7.9 GM/DL (12.0-16.0); Immature Granulocytes % 0.7 %; Immature Granulocytes Absolute 0.02 #; Lymphocytes # 0.5 10*3/uL (1.4-4.0); Lymphocytes % 17.2 % (21.3-54.2); Mean Corpuscular HGB Conc 32.5 GM/DL (32-36); Mean Corpuscular Volume 90.3 FL (87-102); Mean Platelet Volume 12.7 FL (9.6-12.0); Monocytes % 7.6 % (1.7-12.7); Neutrophils % 73.5 % (38.7-73.9); Platelet Count 58 T/CUMM (130-400); Red Blood Count 2.69 MC/CUMM (3.8-5.5); Red Cell Distribution Width 16.2 % (9.3-17.3)
[2019-02-13 05:18] LABS: Calcium 8.7 MG/DL (8.5-10.1); Osmolality,Calculated 286.7 MOS/KG (273-304)
[2019-02-13 05:21] LABS: Band Neutrophils 2 % (0-10); Hypochromasia 1+; Lymphocytes 11 % (20-55); Microcytosis 1+; Segmented Neutrophils 82 % (50-85); Total Cells Counted 100
[2019-02-13 05:22] LABS: Platelet Estimate Decreased
[2019-02-13] MEDS: INSULIN LISPRO 100 UNIT/ML SUBCUT SCH ×4 (07:48→21:03)
[2019-02-13] MEDS: ASPIRIN EC 81 MG TABLET PO SCH (08:06)
[2019-02-13] MEDS: PANTOPRAZOLE 40 MG TABLET PO SCH (08:06)
[2019-02-13] MEDS: carvediloL 25 MG TABLET PO SCH ×2 (08:08→21:03)
[2019-02-13] MEDS ORDERED: CLOPIDOGREL 75 MG TABLET PO SCH (09:00)
[2019-02-13] MEDS ORDERED: HEPARIN 10,000 UNIT/10 ML VIAL IV SCH (11:00)
[2019-02-13] MEDS ORDERED: VANCOMYCIN INJ 500 MG in SODIUM CHLORIDE 0.9% 100 ML IV PRN (11:45)
[2019-02-13] MEDS ORDERED: VANCOMYCIN INJ 1,000 MG in SODIUM CHLORIDE 0.9% 250 ML IV ONE (17:00)
[2019-02-13] MEDS: MORPHINE 4 MG/1 ML VIAL IV PRN (21:03)
[2019-02-13] MEDS: ATORVASTATIN 80 MG TABLET PO SCH (21:03)
[2019-02-14] MEDS: HEPARIN 5,000 UNIT/1 ML VIAL SUBCUT SCH ×2 (03:22→15:10)
[2019-02-14] MEDS: PIPERACILLIN/TAZOBACTAM 3,375 MG in SODIUM CHLORIDE 0.9% 100 ML IV SCH ×2 (03:22→15:10)
[2019-02-14] MEDS ORDERED: diphenhydrAMINE CAP 50 MG CAPSULE PO ONE (05:16)
[2019-02-14 06:05] LABS: Basophils % 0.7 % (0.0-0.8); Eosinophils # 0.1 10*3/uL (0.0-0.87); Eosinophils % 3.7 % (0.00-10.9); Hematocrit 24.6 VOL% (35.7-47.0); Hemoglobin 7.9 GM/DL (12.0-16.0); Immature Granulocytes % 0.3 %; Immature Granulocytes Absolute 0.01 #; Lymphocytes # 0.6 10*3/uL (1.4-4.0); Lymphocytes % 19.5 % (21.3-54.2); Mean Corpuscular HGB Conc 32.1 GM/DL (32-36); Mean Corpuscular Volume 90.4 FL (87-102); Mean Platelet Volume 12.7 FL (9.6-12.0); Monocytes % 11.7 % (1.7-12.7); Neutrophils % 64.1 % (38.7-73.9); Platelet Count 58 T/CUMM (130-400); Red Blood Count 2.72 MC/CUMM (3.8-5.5); Red Cell Distribution Width 16.1 % (9.3-17.3)
[2019-02-14 06:20] LABS: Calcium 8.9 MG/DL (8.5-10.1); Osmolality,Calculated 284.5 MOS/KG (273-304)
[2019-02-14 06:35] LABS: Band Neutrophils 3 % (0-10); Eosinophils 3 % (0-10); Lymphocytes 21 % (20-55); Platelet Estimate Decreased; Segmented Neutrophils 61 % (50-85); Total Cells Counted 100
[2019-02-14 06:36] LABS: Acanthocytes 1+; Hypochromasia 2+
[2019-02-14] MEDS: INSULIN LISPRO 100 UNIT/ML SUBCUT SCH ×4 (07:44→20:41)
[2019-02-14] MEDS: ASPIRIN EC 81 MG TABLET PO SCH (07:59)
[2019-02-14] MEDS: PANTOPRAZOLE 40 MG TABLET PO SCH (07:59)
[2019-02-14] MEDS: carvediloL 25 MG TABLET PO SCH ×2 (07:59→20:41)
[2019-02-14] MEDS ORDERED: EPOETIN ALFA 10,000 UNIT/1 ML VIAL IV PRN (09:20)
[2019-02-14] MEDS: IRON SUCROSE 200 MG in SODIUM CHLORIDE 0.9% 100 ML IV SCH (09:57)
[2019-02-14] MEDS: ISOSORBIDE DINITRATE 20 MG TABLET PO SCH ×2 (15:10→20:40)
[2019-02-14] MEDS: diphenhydrAMINE CAP 50 MG CAPSULE PO PRN ×2 (15:10→21:11)
[2019-02-14] MEDS: ATORVASTATIN 80 MG TABLET PO SCH (20:40)
[2019-02-14] MEDS: MORPHINE 4 MG/1 ML VIAL IV PRN (20:59)
[2019-02-15] MEDS: PIPERACILLIN/TAZOBACTAM 3,375 MG in SODIUM CHLORIDE 0.9% 100 ML IV SCH (03:08)
[2019-02-15] MEDS: diphenhydrAMINE CAP 50 MG CAPSULE PO PRN ×3 (03:08→20:21)
[2019-02-15] MEDS: HEPARIN 5,000 UNIT/1 ML VIAL SUBCUT SCH ×2 (03:08→13:12)
[2019-02-15 05:41] LABS: Basophils % 0.4 % (0.0-0.8); Eosinophils # 0.2 10*3/uL (0.0-0.87); Eosinophils % 7.7 % (0.00-10.9); Hematocrit 23.4 VOL% (35.7-47.0); Hemoglobin 7.5 GM/DL (12.0-16.0); Immature Granulocytes % 0.4 %; Immature Granulocytes Absolute 0.01 #; Lymphocytes # 0.8 10*3/uL (1.4-4.0); Lymphocytes % 29.5 % (21.3-54.2); Mean Corpuscular HGB Conc 32.1 GM/DL (32-36); Mean Corpuscular Volume 89.3 FL (87-102); Mean Platelet Volume 14.1 FL (9.6-12.0); Monocytes % 8.1 % (1.7-12.7); Neutrophils % 53.9 % (38.7-73.9); Red Blood Count 2.62 MC/CUMM (3.8-5.5); Red Cell Distribution Width 15.9 % (9.3-17.3); White Blood Count 2.9 T/CUMM (4-12)
[2019-02-15 05:44] LABS: Platelet Count 64 T/CUMM (130-400)
[2019-02-15 06:04] LABS: Platelet Estimate Decreased
[2019-02-15 06:05] LABS: Polychromasia Few
[2019-02-15 06:15] LABS: Calcium 8.5 MG/DL (8.5-10.1); Osmolality,Calculated 289.7 MOS/KG (273-304)
[2019-02-15] MEDS: INSULIN LISPRO 100 UNIT/ML SUBCUT SCH ×4 (07:35→22:10)
[2019-02-15] MEDS ORDERED: MEROPENEM 500 MG in SODIUM CHLORIDE 0.9% 100 ML IV ONE (12:45)
[2019-02-15] MEDS: ASPIRIN EC 81 MG TABLET PO SCH (13:12)
[2019-02-15] MEDS: PANTOPRAZOLE 40 MG TABLET PO SCH (13:12)
[2019-02-15] MEDS: ISOSORBIDE DINITRATE 20 MG TABLET PO SCH ×3 (13:12→22:08)
[2019-02-15] MEDS: carvediloL 25 MG TABLET PO SCH ×2 (13:13→22:09)
[2019-02-15] MEDS: IRON SUCROSE 200 MG in SODIUM CHLORIDE 0.9% 100 ML IV SCH (14:15)
[2019-02-15] MEDS: ATORVASTATIN 80 MG TABLET PO SCH (22:08)
[2019-02-16] MEDS: HEPARIN 5,000 UNIT/1 ML VIAL SUBCUT SCH ×2 (04:23→15:19)
[2019-02-16 08:20] LABS: Basophils % 0.7 % (0.0-0.8); Eosinophils # 0.4 10*3/uL (0.0-0.87); Hematocrit 27.1 VOL% (35.7-47.0); Hemoglobin 8.6 GM/DL (12.0-16.0); Immature Granulocytes % 0.3 %; Immature Granulocytes Absolute 0.01 #; Lymphocytes # 0.8 10*3/uL (1.4-4.0); Lymphocytes % 25.9 % (21.3-54.2); Mean Corpuscular HGB Conc 31.7 GM/DL (32-36); Mean Platelet Volume 13.7 FL (9.6-12.0); Monocytes % 9.3 % (1.7-12.7); Neutrophils % 50.8 % (38.7-73.9); Platelet Count 87 T/CUMM (130-400); Red Blood Count 3.01 MC/CUMM (3.8-5.5); Red Cell Distribution Width 15.8 % (9.3-17.3)
[2019-02-16 08:36] LABS: Osmolality,Calculated 284.5 MOS/KG (273-304)
[2019-02-16] MEDS: INSULIN LISPRO 100 UNIT/ML SUBCUT SCH ×4 (08:40→21:09)
[2019-02-16] MEDS: carvediloL 25 MG TABLET PO SCH ×2 (08:42→21:08)
[2019-02-16] MEDS: DOCUSATE SODIUM 100 MG CAPSULE PO PRN (08:42)
[2019-02-16] MEDS: ISOSORBIDE DINITRATE 20 MG TABLET PO SCH ×3 (08:42→21:08)
[2019-02-16] MEDS: IRON SUCROSE 200 MG in SODIUM CHLORIDE 0.9% 100 ML IV SCH (08:42)
[2019-02-16 08:44] LABS: Atypical Lymphocytes Few; Eosinophils 13 % (0-10); Hypochromasia 2+; Lymphocytes 31 % (20-55); Segmented Neutrophils 49 % (50-85); Total Cells Counted 100
[2019-02-16 08:45] LABS: Microcytosis Slight; Ovalocytes Slight
[2019-02-16 08:46] LABS: Platelet Estimate Decreased
[2019-02-16] MEDS: PANTOPRAZOLE 40 MG TABLET PO SCH (10:15)
[2019-02-16] MEDS: ASPIRIN EC 81 MG TABLET PO SCH (10:15)
[2019-02-16 12:39] LABS: Apearance,Urine CLOUDY (Clear); Bacteria,Urine Occasional /HPF (Few); Bilirubin,Urine Negative (Negative); Blood, Urine Moderate mg/dL (Negative); Glucose,Urine (UA) Negative (Negative); Ketones,Urine Negative (Negative); Mucus,Urine Occasional /LPF (Occasional); Nitrite,Urine Negative (Negative); Protein,Urine >=500 MG/DL; RBC,Urine 7 /HPF (0-4); Squamous Epithelial Cell,Urine Occasional /HPF (0-10); Urine Specific Gravity 1.016 (1.001-1.035); WBC,Urine 183 /HPF (0-6)
[2019-02-16 12:40] LABS: Urine Color Yellow (Yellow)
[2019-02-16] MEDS: MEROPENEM 500 MG in SODIUM CHLORIDE 0.9% 100 ML IV SCH (17:21)
[2019-02-16] MEDS: ATORVASTATIN 80 MG TABLET PO SCH (21:08)
[2019-02-17] MEDS: HEPARIN 5,000 UNIT/1 ML VIAL SUBCUT SCH ×2 (02:24→14:17)
[2019-02-17 05:17] LABS: Basophils % 0.7 % (0.0-0.8); Eosinophils # 0.3 10*3/uL (0.0-0.87); Eosinophils % 11.1 % (0.00-10.9); Hemoglobin 8.4 GM/DL (12.0-16.0); Immature Granulocytes % 0.3 %; Immature Granulocytes Absolute 0.01 #; Lymphocytes # 1.1 10*3/uL (1.4-4.0); Mean Corpuscular HGB Conc 32.3 GM/DL (32-36); Mean Corpuscular Volume 89.3 FL (87-102); Mean Platelet Volume 14.3 FL (9.6-12.0); Monocytes % 9.8 % (1.7-12.7); Neutrophils % 40.1 % (38.7-73.9); Platelet Count 99 T/CUMM (130-400); Red Blood Count 2.91 MC/CUMM (3.8-5.5); Red Cell Distribution Width 15.8 % (9.3-17.3); White Blood Count 2.9 T/CUMM (4-12)
[2019-02-17 05:38] LABS: Calcium 8.9 MG/DL (8.5-10.1); Osmolality,Calculated 288.4 MOS/KG (273-304)
[2019-02-17 06:20] LABS: Eosinophils 13 % (0-10); Lymphocytes 35 % (20-55); Platelet Estimate Decreased; Segmented Neutrophils 47 % (50-85); Total Cells Counted 100
[2019-02-17 06:21] LABS: Acanthocytes Few; Elliptocytes Few; Hypochromasia 2+; Ovalocytes 1+
[2019-02-17] MEDS: ASPIRIN EC 81 MG TABLET PO SCH (08:54)
[2019-02-17] MEDS: INSULIN LISPRO 100 UNIT/ML SUBCUT SCH ×4 (08:54→22:08)
[2019-02-17] MEDS: ISOSORBIDE DINITRATE 20 MG TABLET PO SCH ×3 (08:54→22:07)
[2019-02-17] MEDS: PANTOPRAZOLE 40 MG TABLET PO SCH (08:54)
[2019-02-17] MEDS: IRON SUCROSE 200 MG in SODIUM CHLORIDE 0.9% 100 ML IV SCH (08:54)
[2019-02-17] MEDS: carvediloL 25 MG TABLET PO SCH ×2 (08:54→22:07)
[2019-02-17] MEDS: DOCUSATE SODIUM 100 MG CAPSULE PO PRN (08:54)
[2019-02-17] MEDS: POTASSIUM CHLORIDE 20 MEQ TABLET PO PRN ×3 (09:56→14:17)
[2019-02-17] MEDS ORDERED: AMOXICILLIN/CLAV 875 MG TABLET PO PRN (13:32)
[2019-02-17] MEDS: MEROPENEM 500 MG in SODIUM CHLORIDE 0.9% 100 ML IV SCH (17:03)
[2019-02-17] MEDS: ATORVASTATIN 80 MG TABLET PO SCH (22:07)
[2019-02-17] MEDS: diphenhydrAMINE CAP 50 MG CAPSULE PO PRN (22:12)
[2019-02-18] MEDS: ACETAMINOPHEN 325 MG TABLET PO PRN (00:26)
[2019-02-18] MEDS: HEPARIN 5,000 UNIT/1 ML VIAL SUBCUT SCH ×2 (03:20→14:22)
[2019-02-18 04:55] LABS: White Blood Count 3.8 T/CUMM (4-12)
[2019-02-18 04:56] LABS: Basophils % 0.8 % (0.0-0.8); Eosinophils # 0.4 10*3/uL (0.0-0.87); Eosinophils % 10.6 % (0.00-10.9); Hemoglobin 8.3 GM/DL (12.0-16.0); Immature Granulocytes % 0.3 %; Immature Granulocytes Absolute 0.01 #; Lymphocytes # 1.1 10*3/uL (1.4-4.0); Mean Corpuscular HGB Conc 31.9 GM/DL (32-36); Mean Corpuscular Volume 89.7 FL (87-102); Mean Platelet Volume 13.7 FL (9.6-12.0); Neutrophils % 51.3 % (38.7-73.9); Platelet Count 116 T/CUMM (130-400); Red Cell Distribution Width 15.9 % (9.3-17.3)
[2019-02-18 05:17] LABS: Osmolality,Calculated 286.7 MOS/KG (273-304)
[2019-02-18] MEDS: INSULIN LISPRO 100 UNIT/ML SUBCUT SCH ×2 (07:42→12:26)
[2019-02-18] MEDS: ISOSORBIDE DINITRATE 20 MG TABLET PO SCH ×2 (08:38→16:13)
[2019-02-18] MEDS: ASPIRIN EC 81 MG TABLET PO SCH (08:39)
[2019-02-18] MEDS: carvediloL 25 MG TABLET PO SCH (08:40)
[2019-02-18] MEDS: PANTOPRAZOLE 40 MG TABLET PO SCH (08:40)
[2019-02-18] MEDS ORDERED: AMOXICILLIN/CLAV 875 MG TABLET PO SCH (09:00)
[2019-02-18] MEDS: IRON SUCROSE 200 MG in SODIUM CHLORIDE 0.9% 100 ML IV SCH (09:13)
[2019-02-18 15:30] VITALS: BP 109/73
== END 2019-02-18 16:08 | disposition home or self-care (01) | DRG 193 ==
LOC: EDUNIT# → EDBD → N.ED 09:26 → SUATTDRO 13:51 → N.EDINP 13:51 → N.5E 16:20
PROVIDERS: ADMIT Emergency Medicine; ATTEND Family Medicine

== ENCOUNTER 2019-02-28 09:53 | Inpatient (IN) ==
[2019-02-28] MEDS ORDERED: ONDANSETRON 4 MG/2 ML VIAL IV STA (10:44)
[2019-02-28 11:54] LABS: Basophils % 0.7 % (0.0-0.8); Eosinophils # 0.1 10*3/uL (0.0-0.87); Eosinophils % 1.2 % (0.00-10.9); Hematocrit 27.4 VOL% (35.7-47.0); Hemoglobin 8.7 GM/DL (12.0-16.0); Immature Granulocytes % 1.2 %; Immature Granulocytes Absolute 0.07 #; Lymphocytes # 0.6 10*3/uL (1.4-4.0); Lymphocytes % 9.9 % (21.3-54.2); Mean Corpuscular HGB Conc 31.8 GM/DL (32-36); Mean Corpuscular Volume 90.7 FL (87-102); Mean Platelet Volume 13.8 FL (9.6-12.0); Monocytes % 3.2 % (1.7-12.7); Neutrophils % 83.8 % (38.7-73.9); Red Blood Count 3.02 MC/CUMM (3.8-5.5)
[2019-02-28 11:56] LABS: Platelet Count 88 T/CUMM (130-400)
[2019-02-28 12:08] LABS: Alanine Aminotransferase 31 U/L (13-56); Albumin 3.6 G/DL (3.4-5.0); Alkaline Phosphatase 328 U/L (45-117); Aspartate Amino Transferase 53 U/L (0-37); Blood Urea Nitrogen 16 MG/DL (7-18); Calcium 9.3 MG/DL (8.5-10.1); Estimated Glom Filtration Rate 35 ML/MIN; Glucose 153 MG/DL (74-106); Total Protein 8.2 G/DL (6.4-8.3)
[2019-02-28 12:20] LABS: Platelet Estimate Decreased
[2019-02-28 12:21] LABS: Anisocytosis 2+; Hypochromasia Slight; Macrocytosis 1+; Poikilocytosis Slight
[2019-02-28] MEDS ORDERED: cefTRIAXone 1,000 MG in SODIUM CHLORIDE 0.9% 100 ML IV STA (12:53)
[2019-02-28] MEDS ORDERED: GLUCAGON 1 MG VIAL IM PRN (13:05)
[2019-02-28] MEDS ORDERED: ACETAMINOPHEN 325 MG TABLET PO PRN (13:05)
[2019-02-28] MEDS ORDERED: DEXTROSE 50% 25 GM/50 ML VIAL IV PRN (13:05)
[2019-02-28] MEDS ORDERED: VANCOMYCIN INJ 1,000 MG in SODIUM CHLORIDE 0.9% 250 ML IV ONE (13:41)
[2019-02-28] MEDS ORDERED: PROMETHAZINE 25 MG TABLET PO PRN (13:42)
[2019-02-28] MEDS ORDERED: NITROGLYCERIN SL 0.4 MG TABLET SL PRN (13:42)
[2019-02-28] MEDS ORDERED: VANCOMYCIN INJ 500 MG in SODIUM CHLORIDE 0.9% 100 ML IV PRN (15:32)
[2019-02-28] MEDS: PANTOPRAZOLE 40 MG TABLET PO SCH (15:51)
[2019-02-28] MEDS: ISOSORBIDE DINITRATE 20 MG TABLET PO SCH ×2 (17:10→21:20)
[2019-02-28] MEDS: MEROPENEM 500 MG in SODIUM CHLORIDE 0.9% 100 ML IV SCH (17:10)
[2019-02-28] MEDS: INSULIN REGULAR 100 UNIT/ML SUBCUT SCH ×2 (17:11→21:15)
[2019-02-28] MEDS ORDERED: VANCOMYCIN INJ 1,500 MG in SODIUM CHLORIDE 0.9% 500 ML IV ONE (18:00)
[2019-02-28] MEDS ORDERED: INSULIN GLARGINE 100 UNIT/ML SUBCUT SCH (21:00)
[2019-02-28] MEDS: POLYETHYLENE GLYCOL POWDER 17 GM PACK PO SCH (21:17)
[2019-02-28] MEDS: SACUBITRIL/VALSARTAN 49-51 MG TABLET PO SCH (21:18)
[2019-02-28] MEDS: ATORVASTATIN 80 MG TABLET PO SCH (21:18)
[2019-02-28] MEDS: TORSEMIDE 20 MG TABLET PO SCH (21:18)
[2019-02-28] MEDS: carvediloL 25 MG TABLET PO SCH (21:19)
[2019-02-28] MEDS: GABAPENTIN 100 MG CAPSULE PO SCH (21:19)
[2019-03-01 05:38] LABS: Basophils % 0.7 % (0.0-0.8); Eosinophils # 0.1 10*3/uL (0.0-0.87); Eosinophils % 2.6 % (0.00-10.9); Hematocrit 22.3 VOL% (35.7-47.0); Hemoglobin 7.1 GM/DL (12.0-16.0); Immature Granulocytes % 0.5 %; Immature Granulocytes Absolute 0.02 #; Lymphocytes % 23.2 % (21.3-54.2); Mean Corpuscular HGB Conc 31.8 GM/DL (32-36); Mean Platelet Volume 13.8 FL (9.6-12.0); Monocytes % 7.1 % (1.7-12.7); Neutrophils % 65.9 % (38.7-73.9); Red Blood Count 2.45 MC/CUMM (3.8-5.5); Red Cell Distribution Width 16.3 % (9.3-17.3); White Blood Count 4.2 T/CUMM (4-12)
[2019-03-01 05:42] LABS: Platelet Count 89 T/CUMM (130-400)
[2019-03-01 06:13] LABS: Albumin 2.9 G/DL (3.4-5.0); Bilirubin,Total 1.6 MG/DL (0.2-1.0); Calcium 8.6 MG/DL (8.5-10.1); Osmolality,Calculated 280.4 MOS/KG (273-304); Risk Ratio 2.43; Thyroid Stimulating Hormone 0.871 uIU/ml (0.358-3.74); Total Protein 6.8 G/DL (6.4-8.3); VLDL CHOLESTEROL 16.2 MG/DL
[2019-03-01 06:38] LABS: Platelet Estimate Decreased; Polychromasia Few
[2019-03-01 06:39] LABS: Target Cells Few
[2019-03-01] MEDS ORDERED: MAGNESIUM SULF RIDER 1 GM in PREMIX 1 EACH IV ONE (07:40)
[2019-03-01] MEDS ORDERED: DEXTROSE 10% 250 ML BAG IV PRN (07:45)
[2019-03-01] MEDS ORDERED: EPOETIN ALFA 10,000 UNIT/1 ML VIAL IV PRN (09:21)
[2019-03-01] MEDS: carvediloL 25 MG TABLET PO SCH ×2 (10:50→21:04)
[2019-03-01] MEDS: PANTOPRAZOLE 40 MG TABLET PO SCH (10:50)
[2019-03-01] MEDS: TORSEMIDE 20 MG TABLET PO SCH ×2 (10:50→21:04)
[2019-03-01] MEDS: LINACLOTIDE 145 MCG CAPSULE PO SCH (10:50)
[2019-03-01] MEDS: POLYETHYLENE GLYCOL POWDER 17 GM PACK PO SCH ×2 (10:52→21:04)
[2019-03-01] MEDS: SACUBITRIL/VALSARTAN 49-51 MG TABLET PO SCH ×2 (10:52→21:03)
[2019-03-01] MEDS: ASPIRIN EC 81 MG TABLET PO SCH (10:52)
[2019-03-01] MEDS: ISOSORBIDE DINITRATE 20 MG TABLET PO SCH ×3 (10:52→21:04)
[2019-03-01] MEDS: INSULIN REGULAR 100 UNIT/ML SUBCUT SCH ×4 (10:53→21:00)
[2019-03-01] MEDS ORDERED: HEPARIN 10,000 UNIT/10 ML VIAL IV SCH (13:30)
[2019-03-01] MEDS ORDERED: LIDOCAINE 1% 20 ML VIAL MISC INJ ONE (14:30)
[2019-03-01] MEDS: MEROPENEM 500 MG in SODIUM CHLORIDE 0.9% 100 ML IV SCH (14:59)
[2019-03-01] MEDS ORDERED: VANCOMYCIN INJ 500 MG in SODIUM CHLORIDE 0.9% 100 ML IV ONE (17:00)
[2019-03-01] MEDS: INSULIN GLARGINE 100 UNIT/ML SUBCUT SCH (21:00)
[2019-03-01] MEDS: ATORVASTATIN 80 MG TABLET PO SCH (21:03)
[2019-03-01] MEDS: GABAPENTIN 100 MG CAPSULE PO SCH (21:03)
[2019-03-02 05:49] LABS: Basophils # 0.1 10*3/uL (0.0-0.2); Basophils % 1.3 % (0.0-0.8); Eosinophils # 0.4 10*3/uL (0.0-0.87); Eosinophils % 9.2 % (0.00-10.9); Hematocrit 29.4 VOL% (35.7-47.0); Hemoglobin 9.6 GM/DL (12.0-16.0); Immature Granulocytes % 0.3 %; Immature Granulocytes Absolute 0.01 #; Lymphocytes % 24.9 % (21.3-54.2); Mean Corpuscular HGB Conc 32.7 GM/DL (32-36); Mean Corpuscular Volume 89.6 FL (87-102); Mean Platelet Volume 13.7 FL (9.6-12.0); Monocytes % 8.9 % (1.7-12.7); Neutrophils % 55.4 % (38.7-73.9); Red Blood Count 3.28 MC/CUMM (3.8-5.5); Red Cell Distribution Width 15.4 % (9.3-17.3); White Blood Count 3.8 T/CUMM (4-12)
[2019-03-02 05:50] LABS: Platelet Count 88 T/CUMM (130-400)
[2019-03-02 06:07] LABS: Calcium 8.7 MG/DL (8.5-10.1); Osmolality,Calculated 277.8 MOS/KG (273-304)
[2019-03-02 06:39] LABS: Elliptocytes Few; Platelet Estimate Decreased; Polychromasia Few
[2019-03-02] MEDS ORDERED: MAGNESIUM SULF RIDER 1 GM in PREMIX 1 EACH IV ONE (09:00)
[2019-03-02] MEDS: LINACLOTIDE 145 MCG CAPSULE PO SCH (10:36)
[2019-03-02] MEDS: TORSEMIDE 20 MG TABLET PO SCH ×2 (10:37→21:49)
[2019-03-02] MEDS: carvediloL 25 MG TABLET PO SCH ×2 (10:37→21:49)
[2019-03-02] MEDS: PANTOPRAZOLE 40 MG TABLET PO SCH (10:37)
[2019-03-02] MEDS: ISOSORBIDE DINITRATE 20 MG TABLET PO SCH ×3 (10:37→21:48)
[2019-03-02] MEDS: SACUBITRIL/VALSARTAN 49-51 MG TABLET PO SCH ×2 (10:37→21:48)
[2019-03-02] MEDS: ASPIRIN EC 81 MG TABLET PO SCH (10:37)
[2019-03-02] MEDS: ERTAPENEM 500 MG in SODIUM CHLORIDE 0.9% 100 ML IV SCH (10:39)
[2019-03-02] MEDS: INSULIN REGULAR 100 UNIT/ML SUBCUT SCH ×4 (10:46→21:48)
[2019-03-02] MEDS: POLYETHYLENE GLYCOL POWDER 17 GM PACK PO SCH ×2 (10:46→21:49)
[2019-03-02] MEDS: INSULIN GLARGINE 100 UNIT/ML SUBCUT SCH (21:43)
[2019-03-02] MEDS: GABAPENTIN 100 MG CAPSULE PO SCH (21:49)
[2019-03-02] MEDS: ATORVASTATIN 80 MG TABLET PO SCH (21:49)
[2019-03-03 05:56] LABS: Basophils # 0.1 10*3/uL (0.0-0.2); Basophils % 1.3 % (0.0-0.8); Eosinophils # 0.5 10*3/uL (0.0-0.87); Eosinophils % 12.1 % (0.00-10.9); Hematocrit 31.6 VOL% (35.7-47.0); Hemoglobin 10.2 GM/DL (12.0-16.0); Immature Granulocytes % 0.3 %; Immature Granulocytes Absolute 0.01 #; Lymphocytes % 27.4 % (21.3-54.2); Mean Corpuscular HGB Conc 32.3 GM/DL (32-36); Mean Corpuscular Volume 89.3 FL (87-102); Mean Platelet Volume 13.2 FL (9.6-12.0); Neutrophils % 47.9 % (38.7-73.9); Platelet Count 109 T/CUMM (130-400); Red Blood Count 3.54 MC/CUMM (3.8-5.5); White Blood Count 3.7 T/CUMM (4-12)
[2019-03-03 06:11] LABS: Calcium 8.2 MG/DL (8.5-10.1); Osmolality,Calculated 281.1 MOS/KG (273-304)
[2019-03-03 06:25] LABS: Eosinophils 14 % (0-10); Hypochromasia 1+; Lymphocytes 23 % (20-55); Platelet Estimate Decreased; Segmented Neutrophils 49 % (50-85); Total Cells Counted 100
[2019-03-03 07:49] LABS: Apearance,Urine CLOUDY (Clear); Bacteria,Urine Occasional /HPF (Few); Bilirubin,Urine Negative (Negative); Blood, Urine Moderate mg/dL (Negative); Glucose,Urine (UA) Negative (Negative); Hyaline Casts,Urine 47 /LPF (0-3); Ketones,Urine 5 mg/dL (Negative); Nitrite,Urine Negative (Negative); Protein,Urine 100 MG/DL; RBC,Urine 21 /HPF (0-4); Squamous Epithelial Cell,Urine Moderate /HPF (0-10); Urine Color Amber (Yellow); Urine Specific Gravity 1.021 (1.001-1.035); WBC,Urine 19 /HPF (0-6)
[2019-03-03] MEDS: LINACLOTIDE 145 MCG CAPSULE PO SCH (08:35)
[2019-03-03] MEDS: PANTOPRAZOLE 40 MG TABLET PO SCH (08:35)
[2019-03-03] MEDS: ISOSORBIDE DINITRATE 20 MG TABLET PO SCH ×3 (08:35→20:48)
[2019-03-03] MEDS: SACUBITRIL/VALSARTAN 49-51 MG TABLET PO SCH ×2 (08:36→20:48)
[2019-03-03] MEDS: ASPIRIN EC 81 MG TABLET PO SCH (08:36)
[2019-03-03] MEDS: TORSEMIDE 20 MG TABLET PO SCH ×2 (08:36→20:48)
[2019-03-03] MEDS: carvediloL 25 MG TABLET PO SCH ×2 (08:36→20:48)
[2019-03-03] MEDS: INSULIN REGULAR 100 UNIT/ML SUBCUT SCH ×4 (08:36→20:48)
[2019-03-03] MEDS: POLYETHYLENE GLYCOL POWDER 17 GM PACK PO SCH ×2 (08:39→20:32)
[2019-03-03] MEDS: ERTAPENEM 500 MG in SODIUM CHLORIDE 0.9% 100 ML IV SCH (09:19)
[2019-03-03] MEDS: INSULIN GLARGINE 100 UNIT/ML SUBCUT SCH (20:32)
[2019-03-03] MEDS: ATORVASTATIN 80 MG TABLET PO SCH (20:48)
[2019-03-03] MEDS: GABAPENTIN 100 MG CAPSULE PO SCH (20:48)
[2019-03-04] MEDS ORDERED: FAMOTIDINE 20 MG TABLET PO ONE (06:00)
[2019-03-04] MEDS: LINACLOTIDE 145 MCG CAPSULE PO SCH (09:03)
[2019-03-04] MEDS: ISOSORBIDE DINITRATE 20 MG TABLET PO SCH ×3 (09:03→21:46)
[2019-03-04] MEDS: INSULIN REGULAR 100 UNIT/ML SUBCUT SCH ×4 (09:06→21:48)
[2019-03-04] MEDS: ERTAPENEM 500 MG in SODIUM CHLORIDE 0.9% 100 ML IV SCH (09:08)
[2019-03-04] MEDS ORDERED: HEPARIN 5,000 UNIT/1 ML VIAL ONE (09:34)
[2019-03-04] MEDS ORDERED: BUPIVACAINE 0.5% /EPI 10 ML VIAL ONE (09:34)
[2019-03-04] MEDS ORDERED: LIDOCAINE 1%/EPI INJ 20 ML VIAL ONE (09:34)
[2019-03-04] MEDS ORDERED: ceFAZolin 1,000 MG VIAL ONE (10:36)
[2019-03-04] MEDS ORDERED: KETAMINE 500 MG/10 ML VIAL ONE (11:24)
[2019-03-04] MEDS ORDERED: MIDAZOLAM 2 MG/2 ML VIAL ONE (11:24)
[2019-03-04] MEDS ORDERED: PROPOFOL 200 MG/20 ML VIAL IV ONE (11:24)
[2019-03-04] MEDS ORDERED: ETOMIDATE 40 MG/20 ML VIAL IV ONE (11:25)
[2019-03-04] MEDS ORDERED: TISSUE ADHESIVE 1 EACH APPLICATOR TOP ONE (11:50)
[2019-03-04] MEDS: SACUBITRIL/VALSARTAN 49-51 MG TABLET PO SCH ×2 (13:02→21:47)
[2019-03-04] MEDS: TORSEMIDE 20 MG TABLET PO SCH ×2 (13:02→21:47)
[2019-03-04] MEDS: ASPIRIN EC 81 MG TABLET PO SCH (13:03)
[2019-03-04] MEDS: carvediloL 25 MG TABLET PO SCH ×2 (13:03→21:47)
[2019-03-04] MEDS: PANTOPRAZOLE 40 MG TABLET PO SCH (13:03)
[2019-03-04] MEDS: POLYETHYLENE GLYCOL POWDER 17 GM PACK PO SCH ×2 (13:03→21:48)
[2019-03-04] MEDS: ATORVASTATIN 80 MG TABLET PO SCH (21:47)
[2019-03-04] MEDS: GABAPENTIN 100 MG CAPSULE PO SCH (21:47)
[2019-03-04] MEDS: INSULIN GLARGINE 100 UNIT/ML SUBCUT SCH (21:48)
[2019-03-04] MEDS ORDERED: diphenhydrAMINE CAP 25 MG CAPSULE PO PRN (22:22)
[2019-03-05 06:06] LABS: Basophils # 0.1 10*3/uL (0.0-0.2); Basophils % 1.7 % (0.0-0.8); Eosinophils # 0.5 10*3/uL (0.0-0.87); Eosinophils % 11.5 % (0.00-10.9); Hematocrit 35.8 VOL% (35.7-47.0); Hemoglobin 11.6 GM/DL (12.0-16.0); Immature Granulocytes % 0.2 %; Immature Granulocytes Absolute 0.01 #; Lymphocytes # 1.3 10*3/uL (1.4-4.0); Lymphocytes % 32.6 % (21.3-54.2); Mean Corpuscular HGB Conc 32.4 GM/DL (32-36); Mean Corpuscular Volume 89.1 FL (87-102); Mean Platelet Volume 13.3 FL (9.6-12.0); Monocytes % 8.8 % (1.7-12.7); Neutrophils % 45.2 % (38.7-73.9); Platelet Count 129 T/CUMM (130-400); Red Blood Count 4.02 MC/CUMM (3.8-5.5); Red Cell Distribution Width 15.2 % (9.3-17.3); White Blood Count 4.1 T/CUMM (4-12)
[2019-03-05 06:33] LABS: Calcium 8.9 MG/DL (8.5-10.1); Osmolality,Calculated 277.1 MOS/KG (273-304)
[2019-03-05 07:04] LABS: Eosinophils 15 % (0-10); Lymphocytes 32 % (20-55); Platelet Estimate Decreased; Segmented Neutrophils 45 % (50-85); Total Cells Counted 100
[2019-03-05 07:05] LABS: Hypochromasia 1+; Target Cells Few
[2019-03-05] MEDS: INSULIN REGULAR 100 UNIT/ML SUBCUT SCH ×2 (07:29→11:25)
[2019-03-05] MEDS: carvediloL 25 MG TABLET PO SCH (09:25)
[2019-03-05] MEDS: SACUBITRIL/VALSARTAN 49-51 MG TABLET PO SCH (09:25)
[2019-03-05] MEDS: ASPIRIN EC 81 MG TABLET PO SCH (09:25)
[2019-03-05] MEDS: LINACLOTIDE 145 MCG CAPSULE PO SCH ×2 (09:25→09:33)
[2019-03-05] MEDS: ISOSORBIDE DINITRATE 20 MG TABLET PO SCH (09:25)
[2019-03-05] MEDS: PANTOPRAZOLE 40 MG TABLET PO SCH (09:25)
[2019-03-05] MEDS: TORSEMIDE 20 MG TABLET PO SCH (09:25)
[2019-03-05] MEDS: POLYETHYLENE GLYCOL POWDER 17 GM PACK PO SCH (09:26)
[2019-03-05] MEDS: ERTAPENEM 500 MG in SODIUM CHLORIDE 0.9% 100 ML IV SCH (09:33)
[2019-03-05 10:20] VITALS: BP 115/75
== END 2019-03-05 11:34 | disposition home health service (06) | DRG 871 ==
LOC: EDUNIT# → EDBD → N.ED 09:53 → N.EDINP 09:53 → SUATTDRO 13:05 → N.5E 15:00 → SUATTDRO 03-01 08:53
PROVIDERS: ADMIT Internal Medicine; ATTEND Internal Medicine

== ENCOUNTER 2020-01-09 09:25 | Inpatient (IN) ==
[2020-01-09] MEDS ORDERED: VANCOMYCIN INJ 1,000 MG in SODIUM CHLORIDE 0.9% 250 ML IV STA (09:34)
[2020-01-09 10:20] LABS: Albumin 3.4 G/DL (3.4-5.0); Bilirubin,Total 0.6 MG/DL (0.2-1.0); Calcium 9.1 MG/DL (8.5-10.1); Osmolality,Calculated 282.7 MOS/KG (273-304); Total Protein 7.5 G/DL (6.4-8.3)
[2020-01-09 10:27] LABS: Ferritin 963.1 ng/ml (8-252)
[2020-01-09] MEDS ORDERED: ONDANSETRON ODT 4 MG TABLET PO STA (10:49)
[2020-01-09] MEDS ORDERED: ACETAMINOPHEN 500 MG TABLET PO STA (10:49)
[2020-01-09 10:59] LABS: Basophils % 0.4 % (0.0-0.8); Eosinophils # 0.1 10*3/uL (0.0-0.87); Eosinophils % 2.1 % (0.00-10.9); Hematocrit 33.4 VOL% (35.7-47.0); Hemoglobin 10.9 GM/DL (12.0-16.0); Immature Granulocytes % 0.2 %; Immature Granulocytes Absolute 0.01 #; Lymphocytes # 0.7 10*3/uL (1.4-4.0); Lymphocytes % 13.6 % (21.3-54.2); Mean Corpuscular HGB Conc 32.6 GM/DL (32-36); Mean Corpuscular Volume 95.7 FL (87-102); Monocytes % 3.3 % (1.7-12.7); Neutrophils % 80.4 % (38.7-73.9); Platelet Count 61 T/CUMM (130-400); Red Blood Count 3.49 MC/CUMM (3.8-5.5); Red Cell Distribution Width 15.9 % (9.3-17.3); White Blood Count 4.9 T/CUMM (4-12)
[2020-01-09 11:16] LABS: Anisocytosis 1+; Hypochromasia Slight; Macrocytosis Slight; Platelet Estimate Decreased
[2020-01-09] MEDS ORDERED: GLUCAGON 1 MG VIAL IM PRN (11:20)
[2020-01-09] MEDS ORDERED: DEXTROSE 50% 25 GM/50 ML VIAL IV PRN (11:20)
[2020-01-09] MEDS ORDERED: LACTULOSE 20 GM/30 ML UDCUP PO PRN (11:27)
[2020-01-09] MEDS ORDERED: hydrALAZINE 20 MG/1 ML VIAL IV PRN (11:27)
[2020-01-09] MEDS ORDERED: DOCUSATE SODIUM 100 MG CAPSULE PO PRN (11:27)
[2020-01-09] MEDS ORDERED: VANCOMYCIN INJ 750 MG in SODIUM CHLORIDE 0.9% 250 ML IV PRN (17:00)
[2020-01-09] MEDS: INSULIN LISPRO 100 UNIT/ML SUBCUT SCH ×3 (18:26→22:15)
[2020-01-09] MEDS: OSELTAMIVIR 30 MG CAPSULE PO SCH (18:28)
[2020-01-09] MEDS ORDERED: VANCOMYCIN INJ 750 MG in SODIUM CHLORIDE 0.9% 250 ML IV ONE (21:00)
[2020-01-09] MEDS: ONDANSETRON 4 MG/2 ML VIAL IV PRN (21:07)
[2020-01-10 06:44] LABS: Basophils % 1.1 % (0.0-0.8); Eosinophils # 0.1 10*3/uL (0.0-0.87); Eosinophils % 2.5 % (0.00-10.9); Hematocrit 31.4 VOL% (35.7-47.0); Immature Granulocytes % 0.4 %; Immature Granulocytes Absolute 0.01 #; Lymphocytes # 0.9 10*3/uL (1.4-4.0); Lymphocytes % 31.1 % (21.3-54.2); Mean Corpuscular HGB Conc 31.8 GM/DL (32-36); Mean Corpuscular Volume 96.9 FL (87-102); Monocytes % 8.1 % (1.7-12.7); Neutrophils % 56.8 % (38.7-73.9); Platelet Count 52 T/CUMM (130-400); Red Blood Count 3.24 MC/CUMM (3.8-5.5); Red Cell Distribution Width 16.1 % (9.3-17.3); White Blood Count 2.8 T/CUMM (4-12)
[2020-01-10 07:22] LABS: Atypical Lymphocytes Few; Band Neutrophils 1 % (0-10); Eosinophils 4 % (0-10); Hypochromasia 1+; Lymphocytes 30 % (20-55); Platelet Estimate Decreased; Segmented Neutrophils 63 % (50-85); Total Cells Counted 100
[2020-01-10] MEDS: INSULIN LISPRO 100 UNIT/ML SUBCUT SCH ×4 (08:21→21:59)
[2020-01-10 08:56] LABS: Bilirubin,Total 0.9 MG/DL (0.2-1.0); Total Protein 6.7 G/DL (6.4-8.3)
[2020-01-10 08:57] LABS: Osmolality,Calculated 281.8 MOS/KG (273-304); VLDL CHOLESTEROL 20.4 MG/DL
[2020-01-10 08:58] LABS: Risk Ratio 2.05; Thyroid Stimulating Hormone 1.22 uIU/ml (0.358-3.74)
[2020-01-10] MEDS: cefTRIAXone 2,000 MG in SYRINGE 1 EACH IV SCH (09:24)
[2020-01-10] MEDS: PANTOPRAZOLE 40 MG TABLET PO SCH (09:25)
[2020-01-11 06:55] LABS: Albumin 2.7 G/DL (3.4-5.0); Bilirubin,Total 0.8 MG/DL (0.2-1.0); Calcium 8.9 MG/DL (8.5-10.1); Osmolality,Calculated 282.2 MOS/KG (273-304); Total Protein 6.6 G/DL (6.4-8.3)
[2020-01-11 07:00] LABS: Basophils % 0.9 % (0.0-0.8); Eosinophils # 0.2 10*3/uL (0.0-0.87); Eosinophils % 6.2 % (0.00-10.9); Hemoglobin 9.9 GM/DL (12.0-16.0); Immature Granulocytes % 0.3 %; Immature Granulocytes Absolute 0.01 #; Lymphocytes # 1.4 10*3/uL (1.4-4.0); Lymphocytes % 42.2 % (21.3-54.2); Mean Corpuscular HGB Conc 31.9 GM/DL (32-36); Mean Corpuscular Volume 97.2 FL (87-102); Mean Platelet Volume 13.9 FL (9.6-12.0); Monocytes % 11.8 % (1.7-12.7); Neutrophils % 38.6 % (38.7-73.9); Platelet Count 67 T/CUMM (130-400); Red Blood Count 3.19 MC/CUMM (3.8-5.5); Red Cell Distribution Width 15.8 % (9.3-17.3); White Blood Count 3.2 T/CUMM (4-12)
[2020-01-11 08:42] LABS: Anisocytosis 1+; Eosinophils 9 % (0-10); Lymphocytes 45 % (20-55); Platelet Estimate Decreased; Segmented Neutrophils 36 % (50-85); Total Cells Counted 100
[2020-01-11 08:43] LABS: Macrocytosis 1+
[2020-01-11] MEDS: PANTOPRAZOLE 40 MG TABLET PO SCH (10:14)
[2020-01-11] MEDS: INSULIN LISPRO 100 UNIT/ML SUBCUT SCH ×4 (10:14→20:57)
[2020-01-11] MEDS ORDERED: HEPARIN 10,000 UNIT/10 ML VIAL IV SCH (11:00)
[2020-01-11] MEDS: cefTRIAXone 2,000 MG in SYRINGE 1 EACH IV SCH (12:59)
[2020-01-11] MEDS: OSELTAMIVIR 30 MG CAPSULE PO SCH (14:15)
[2020-01-11] MEDS ORDERED: VANCOMYCIN INJ 750 MG in SODIUM CHLORIDE 0.9% 250 ML IV ONE (17:00)
[2020-01-12] MEDS: ONDANSETRON 4 MG/2 ML VIAL IV PRN (01:18)
[2020-01-12 06:34] LABS: Basophils % 0.6 % (0.0-0.8); Eosinophils # 0.2 10*3/uL (0.0-0.87); Eosinophils % 6.5 % (0.00-10.9); Hematocrit 31.3 VOL% (35.7-47.0); Hemoglobin 9.9 GM/DL (12.0-16.0); Immature Granulocytes % 0.3 %; Immature Granulocytes Absolute 0.01 #; Lymphocytes # 1.1 10*3/uL (1.4-4.0); Lymphocytes % 31.8 % (21.3-54.2); Mean Corpuscular HGB Conc 31.6 GM/DL (32-36); Mean Corpuscular Volume 96.3 FL (87-102); Monocytes % 11.6 % (1.7-12.7); Neutrophils % 49.2 % (38.7-73.9); Platelet Count 65 T/CUMM (130-400); Red Blood Count 3.25 MC/CUMM (3.8-5.5); Red Cell Distribution Width 15.6 % (9.3-17.3); White Blood Count 3.4 T/CUMM (4-12)
[2020-01-12 06:57] LABS: Alanine Aminotransferase 24 U/L (13-56); Albumin 2.9 G/DL (3.4-5.0); Alkaline Phosphatase 134 U/L (45-117); Aspartate Amino Transferase 27 U/L (0-37); Bilirubin,Total < 0.39 MG/DL (0.2-1.0); Blood Urea Nitrogen 30 MG/DL (7-18); Calcium 8.9 MG/DL (8.5-10.1); Estimated Glom Filtration Rate 14 ML/MIN; Glucose 132 MG/DL (74-106); Osmolality,Calculated 277.1 MOS/KG (273-304); Total Protein 6.8 G/DL (6.4-8.3)
[2020-01-12] MEDS: INSULIN LISPRO 100 UNIT/ML SUBCUT SCH ×4 (07:42→21:30)
[2020-01-12 07:44] LABS: Anisocytosis 2+; Band Neutrophils 3 % (0-10); Eosinophils 9 % (0-10); Lymphocytes 38 % (20-55); Macrocytosis Slight; Platelet Estimate Decreased; Segmented Neutrophils 41 % (50-85); Total Cells Counted 100
[2020-01-12] MEDS: PANTOPRAZOLE 40 MG TABLET PO SCH (08:30)
[2020-01-12] MEDS: cefTRIAXone 2,000 MG in SYRINGE 1 EACH IV SCH (08:30)
[2020-01-13] MEDS: INSULIN LISPRO 100 UNIT/ML SUBCUT SCH ×4 (07:38→21:32)
[2020-01-13] MEDS: PANTOPRAZOLE 40 MG TABLET PO SCH (08:54)
[2020-01-13] MEDS: cefTRIAXone 2,000 MG in SYRINGE 1 EACH IV SCH (08:54)
[2020-01-13] MEDS: OSELTAMIVIR 30 MG CAPSULE PO SCH (15:15)
[2020-01-14 07:53] VITALS: BP 152/92
[2020-01-14] MEDS: PANTOPRAZOLE 40 MG TABLET PO SCH (08:13)
[2020-01-14] MEDS: cefTRIAXone 2,000 MG in SYRINGE 1 EACH IV SCH (08:13)
[2020-01-14] MEDS: INSULIN LISPRO 100 UNIT/ML SUBCUT SCH ×2 (08:14→14:05)
== END 2020-01-14 16:05 | disposition home or self-care (01) | DRG 314 ==
LOC: EDUNIT# → EDBD → N.ED 09:25 → N.EDINP 11:45 → SUATTDRO 11:45 → N.3E 13:10
PROVIDERS: ADMIT Internal Medicine; ATTEND Internal Medicine Geriatric Medicine

== ENCOUNTER 2020-01-27 14:30 | Inpatient (IN) ==
[2020-01-27 15:16] LABS: Basophils % 0.7 % (0.0-0.8); Eosinophils # 0.2 10*3/uL (0.0-0.87); Eosinophils % 4.3 % (0.00-10.9); Hematocrit 34.3 VOL% (35.7-47.0); Immature Granulocytes % 0.2 %; Immature Granulocytes Absolute 0.01 #; Lymphocytes # 0.7 10*3/uL (1.4-4.0); Lymphocytes % 15.9 % (21.3-54.2); Mean Corpuscular HGB Conc 32.1 GM/DL (32-36); Mean Corpuscular Volume 95.5 FL (87-102); Mean Platelet Volume 13.5 FL (9.6-12.0); Neutrophils % 74.9 % (38.7-73.9); Platelet Count 103 T/CUMM (130-400); Red Blood Count 3.59 MC/CUMM (3.8-5.5); Red Cell Distribution Width 15.5 % (9.3-17.3); White Blood Count 4.5 T/CUMM (4-12)
[2020-01-27 15:46] LABS: Albumin 3.7 G/DL (3.4-5.0); Bilirubin,Total 0.5 MG/DL (0.2-1.0); Calcium 9.3 MG/DL (8.5-10.1); Total Protein 8.1 G/DL (6.4-8.3)
[2020-01-27] MEDS ORDERED: DEXTROSE 50% 25 GM/50 ML VIAL IV PRN (18:36)
[2020-01-27] MEDS ORDERED: DOCUSATE SODIUM 100 MG CAPSULE PO PRN (18:36)
[2020-01-27] MEDS ORDERED: GLUCAGON 1 MG VIAL IM PRN (18:36)
[2020-01-27] MEDS ORDERED: ONDANSETRON 4 MG/2 ML VIAL IV PRN (18:36)
[2020-01-27] MEDS ORDERED: VANCOMYCIN INJ 1,000 MG in SODIUM CHLORIDE 0.9% 250 ML IV STA (18:37)
[2020-01-27] MEDS: PIPERACILLIN/TAZOBACTAM 3,375 MG in SODIUM CHLORIDE 0.9% 100 ML IV SCH (19:28)
[2020-01-27] MEDS: HEPARIN 5,000 UNIT/1 ML VIAL SUBCUT SCH (20:09)
[2020-01-27] MEDS: INSULIN REGULAR 100 UNIT/ML SUBCUT SCH (21:19)
[2020-01-27] MEDS ORDERED: VANCOMYCIN INJ 750 MG in SODIUM CHLORIDE 0.9% 250 ML IV PRN (22:53)
[2020-01-27] MEDS ORDERED: VANCOMYCIN INJ 1,000 MG in SODIUM CHLORIDE 0.9% 250 ML IV ONE (23:00)
[2020-01-27] MEDS: ACETAMINOPHEN 325 MG TABLET PO PRN (23:55)
[2020-01-28 04:22] LABS: Basophils % 0.7 % (0.0-0.8); Eosinophils # 0.1 10*3/uL (0.0-0.87); Eosinophils % 3.1 % (0.00-10.9); Hematocrit 27.9 VOL% (35.7-47.0); Hemoglobin 9.1 GM/DL (12.0-16.0); Immature Granulocytes % 0.7 %; Immature Granulocytes Absolute 0.03 #; Lymphocytes # 0.7 10*3/uL (1.4-4.0); Lymphocytes % 16.3 % (21.3-54.2); Mean Corpuscular HGB Conc 32.6 GM/DL (32-36); Mean Corpuscular Volume 93.6 FL (87-102); Mean Platelet Volume 14.4 FL (9.6-12.0); Monocytes % 7.5 % (1.7-12.7); Neutrophils % 71.7 % (38.7-73.9); Platelet Count 66 T/CUMM (130-400); Red Blood Count 2.98 MC/CUMM (3.8-5.5); Red Cell Distribution Width 15.5 % (9.3-17.3); White Blood Count 4.2 T/CUMM (4-12)
[2020-01-28] MEDS: HEPARIN 5,000 UNIT/1 ML VIAL SUBCUT SCH ×3 (04:28→21:36)
[2020-01-28 04:41] LABS: Hypochromasia 1+; Platelet Estimate Decreased
[2020-01-28 04:45] LABS: Calcium 8.9 MG/DL (8.5-10.1); Osmolality,Calculated 284.2 MOS/KG (273-304)
[2020-01-28] MEDS: PIPERACILLIN/TAZOBACTAM 3,375 MG in SODIUM CHLORIDE 0.9% 100 ML IV SCH ×2 (06:32→19:06)
[2020-01-28] MEDS ORDERED: ceFAZolin 1,000 MG in SYRINGE 1 EACH IV ONE (07:15)
[2020-01-28] MEDS: INSULIN REGULAR 100 UNIT/ML SUBCUT SCH ×4 (07:54→21:39)
[2020-01-28] MEDS ORDERED: SODIUM CHLORIDE 0.9% 250 ML IV ONE (08:50)
[2020-01-28] MEDS ORDERED: propofoL 200 MG/20 ML VIAL IV ONE (08:50)
[2020-01-28] MEDS ORDERED: LIDOCAINE 2% 5 ML VIAL ONE (08:50)
[2020-01-28] MEDS: MORPHINE 4 MG/1 ML VIAL IV PRN (10:15)
[2020-01-28] MEDS: ACETAMINOPHEN 325 MG TABLET PO PRN (13:12)
[2020-01-28] MEDS ORDERED: SODIUM CHLORIDE 0.9% 1,000 ML IV ONE (14:41)
[2020-01-28] MEDS: PANTOPRAZOLE 40 MG TABLET PO SCH (16:24)
[2020-01-28] MEDS: ASPIRIN EC 81 MG TABLET PO SCH (16:24)
[2020-01-29] MEDS: HEPARIN 5,000 UNIT/1 ML VIAL SUBCUT SCH ×3 (05:45→18:14)
[2020-01-29] MEDS: PIPERACILLIN/TAZOBACTAM 3,375 MG in SODIUM CHLORIDE 0.9% 100 ML IV SCH ×2 (06:05→18:14)
[2020-01-29 06:09] LABS: Basophils % 0.8 % (0.0-0.8); Eosinophils # 0.1 10*3/uL (0.0-0.87); Eosinophils % 2.8 % (0.00-10.9); Hematocrit 26.3 VOL% (35.7-47.0); Hemoglobin 8.5 GM/DL (12.0-16.0); Immature Granulocytes % 0.3 %; Immature Granulocytes Absolute 0.01 #; Lymphocytes % 26.9 % (21.3-54.2); Mean Corpuscular HGB Conc 32.3 GM/DL (32-36); Mean Corpuscular Volume 94.3 FL (87-102); Mean Platelet Volume 13.1 FL (9.6-12.0); Monocytes % 11.1 % (1.7-12.7); Neutrophils % 58.1 % (38.7-73.9); Red Blood Count 2.79 MC/CUMM (3.8-5.5); Red Cell Distribution Width 15.2 % (9.3-17.3); White Blood Count 3.9 T/CUMM (4-12)
[2020-01-29 06:12] LABS: Calcium 8.8 MG/DL (8.5-10.1); Osmolality,Calculated 284.2 MOS/KG (273-304); Uric Acid 5.7 MG/DL (2.6-6.0)
[2020-01-29 06:15] LABS: Platelet Count 59 T/CUMM (130-400)
[2020-01-29 06:34] LABS: Eosinophils 2 % (0-10); Hypochromasia 1+; Lymphocytes 34 % (20-55); Platelet Estimate Decreased; Segmented Neutrophils 59 % (50-85); Total Cells Counted 100
[2020-01-29 06:35] LABS: Ovalocytes Slight
[2020-01-29] MEDS: INSULIN REGULAR 100 UNIT/ML SUBCUT SCH ×4 (11:47→21:47)
[2020-01-29] MEDS: ASPIRIN EC 81 MG TABLET PO SCH (11:48)
[2020-01-29] MEDS: PANTOPRAZOLE 40 MG TABLET PO SCH (11:48)
[2020-01-29] MEDS: ACETAMINOPHEN 325 MG TABLET PO PRN (21:54)
[2020-01-30] MEDS: HEPARIN 5,000 UNIT/1 ML VIAL SUBCUT SCH ×3 (03:15→18:05)
[2020-01-30] MEDS: PIPERACILLIN/TAZOBACTAM 3,375 MG in SODIUM CHLORIDE 0.9% 100 ML IV SCH ×2 (06:05→18:06)
[2020-01-30 06:38] LABS: Eosinophils # 0.2 10*3/uL (0.0-0.87); Eosinophils % 5.2 % (0.00-10.9); Hematocrit 25.5 VOL% (35.7-47.0); Hemoglobin 8.2 GM/DL (12.0-16.0); Immature Granulocytes % 0.3 %; Immature Granulocytes Absolute 0.01 #; Lymphocytes % 34.7 % (21.3-54.2); Mean Corpuscular HGB Conc 32.2 GM/DL (32-36); Mean Corpuscular Volume 93.8 FL (87-102); Mean Platelet Volume 14.1 FL (9.6-12.0); Neutrophils % 46.8 % (38.7-73.9); Platelet Count 67 T/CUMM (130-400); Red Blood Count 2.72 MC/CUMM (3.8-5.5); Red Cell Distribution Width 15.2 % (9.3-17.3); White Blood Count 2.9 T/CUMM (4-12)
[2020-01-30 06:54] LABS: Calcium 8.7 MG/DL (8.5-10.1); Osmolality,Calculated 281.2 MOS/KG (273-304)
[2020-01-30 07:02] LABS: Eosinophils 3 % (0-10); Hypochromasia 1+; Lymphocytes 33 % (20-55); Platelet Estimate Decreased; Segmented Neutrophils 58 % (50-85); Total Cells Counted 100
[2020-01-30] MEDS: INSULIN REGULAR 100 UNIT/ML SUBCUT SCH ×4 (09:04→20:50)
[2020-01-30] MEDS: ASPIRIN EC 81 MG TABLET PO SCH (09:05)
[2020-01-30] MEDS: PANTOPRAZOLE 40 MG TABLET PO SCH (09:05)
[2020-01-30] MEDS: MORPHINE 4 MG/1 ML VIAL IV PRN (20:50)
[2020-01-31] MEDS: HEPARIN 5,000 UNIT/1 ML VIAL SUBCUT SCH ×3 (04:24→18:45)
[2020-01-31] MEDS: PIPERACILLIN/TAZOBACTAM 3,375 MG in SODIUM CHLORIDE 0.9% 100 ML IV SCH (06:20)
[2020-01-31 07:06] LABS: Calcium 8.8 MG/DL (8.5-10.1); Osmolality,Calculated 283.2 MOS/KG (273-304)
[2020-01-31 07:07] LABS: Basophils % 1.1 % (0.0-0.8); Eosinophils # 0.2 10*3/uL (0.0-0.87); Eosinophils % 7.6 % (0.00-10.9); Hematocrit 26.6 VOL% (35.7-47.0); Hemoglobin 8.7 GM/DL (12.0-16.0); Immature Granulocytes % 0.4 %; Immature Granulocytes Absolute 0.01 #; Lymphocytes % 37.6 % (21.3-54.2); Mean Corpuscular HGB Conc 32.7 GM/DL (32-36); Mean Corpuscular Volume 92.4 FL (87-102); Mean Platelet Volume 13.2 FL (9.6-12.0); Monocytes % 9.1 % (1.7-12.7); Neutrophils % 44.2 % (38.7-73.9); PT Patient Result 10.5 SECS (9.8-11.9); Partial Thromboplastin Time 33.3 SECS (23.9-33.8); Platelet Count 89 T/CUMM (130-400); Red Blood Count 2.88 MC/CUMM (3.8-5.5); Red Cell Distribution Width 15.2 % (9.3-17.3); White Blood Count 2.6 T/CUMM (4-12)
[2020-01-31 07:18] LABS: Anisocytosis 1+; Atypical Lymphocytes 1+; Band Neutrophils 1 % (0-10); Eosinophils 8 % (0-10); Lymphocytes 34 % (20-55); Platelet Estimate Decreased; Segmented Neutrophils 50 % (50-85); Total Cells Counted 100
[2020-01-31 07:19] LABS: Hypochromasia 1+; Macrocytosis 1+
[2020-01-31] MEDS: MORPHINE 4 MG/1 ML VIAL IV PRN ×2 (07:47→23:38)
[2020-01-31] MEDS: INSULIN REGULAR 100 UNIT/ML SUBCUT SCH ×4 (07:56→21:59)
[2020-01-31] MEDS: ASPIRIN EC 81 MG TABLET PO SCH (08:00)
[2020-01-31] MEDS: PANTOPRAZOLE 40 MG TABLET PO SCH (08:00)
[2020-01-31] MEDS: cefTRIAXone 1,000 MG in SYRINGE 1 EACH IV SCH (14:42)
[2020-02-01 04:08] LABS: Basophils % 0.8 % (0.0-0.8); Eosinophils # 0.2 10*3/uL (0.0-0.87); Eosinophils % 7.5 % (0.00-10.9); Hematocrit 27.6 VOL% (35.7-47.0); Hemoglobin 8.9 GM/DL (12.0-16.0); Immature Granulocytes % 0.4 %; Immature Granulocytes Absolute 0.01 #; Lymphocytes % 39.1 % (21.3-54.2); Mean Corpuscular HGB Conc 32.2 GM/DL (32-36); Mean Corpuscular Volume 94.2 FL (87-102); Mean Platelet Volume 12.9 FL (9.6-12.0); Monocytes % 9.8 % (1.7-12.7); Neutrophils % 42.4 % (38.7-73.9); Platelet Count 97 T/CUMM (130-400); Red Blood Count 2.93 MC/CUMM (3.8-5.5); Red Cell Distribution Width 14.9 % (9.3-17.3); White Blood Count 2.7 T/CUMM (4-12)
[2020-02-01] MEDS: HEPARIN 5,000 UNIT/1 ML VIAL SUBCUT SCH ×3 (04:11→20:54)
[2020-02-01 04:29] LABS: Hypochromasia 1+; Microcytosis 1+; Ovalocytes Slight; Platelet Estimate Decreased
[2020-02-01 07:19] LABS: Osmolality,Calculated 279.1 MOS/KG (273-304)
[2020-02-01] MEDS: INSULIN REGULAR 100 UNIT/ML SUBCUT SCH ×4 (08:43→20:54)
[2020-02-01] MEDS: ASPIRIN EC 81 MG TABLET PO SCH (09:53)
[2020-02-01] MEDS: cefTRIAXone 1,000 MG in SYRINGE 1 EACH IV SCH (09:53)
[2020-02-01] MEDS: PANTOPRAZOLE 40 MG TABLET PO SCH (09:53)
[2020-02-01] MEDS: diphenhydrAMINE CAP 25 MG CAPSULE PO PRN (09:54)
[2020-02-01] MEDS: MORPHINE 4 MG/1 ML VIAL IV PRN ×2 (13:48→23:26)
[2020-02-02] MEDS: HEPARIN 5,000 UNIT/1 ML VIAL SUBCUT SCH ×3 (04:11→18:27)
[2020-02-02 05:33] LABS: Eosinophils # 0.2 10*3/uL (0.0-0.87); Eosinophils % 8.3 % (0.00-10.9); Hematocrit 27.1 VOL% (35.7-47.0); Hemoglobin 8.9 GM/DL (12.0-16.0); Immature Granulocytes % 0.7 %; Immature Granulocytes Absolute 0.02 #; Lymphocytes # 1.3 10*3/uL (1.4-4.0); Mean Corpuscular HGB Conc 32.8 GM/DL (32-36); Mean Corpuscular Volume 91.9 FL (87-102); Monocytes % 7.6 % (1.7-12.7); Neutrophils % 36.4 % (38.7-73.9); Platelet Count 108 T/CUMM (130-400); Red Blood Count 2.95 MC/CUMM (3.8-5.5); Red Cell Distribution Width 15.2 % (9.3-17.3); White Blood Count 2.9 T/CUMM (4-12)
[2020-02-02 05:58] LABS: Calcium 9.3 MG/DL (8.5-10.1); Eosinophils 6 % (0-10); Hypochromasia 1+; Lymphocytes 55 % (20-55); Microcytosis 1+; Osmolality,Calculated 280.2 MOS/KG (273-304); Ovalocytes Slight; Platelet Estimate Decreased; Segmented Neutrophils 30 % (50-85); Total Cells Counted 100
[2020-02-02] MEDS: INSULIN REGULAR 100 UNIT/ML SUBCUT SCH ×4 (08:28→21:45)
[2020-02-02] MEDS: PANTOPRAZOLE 40 MG TABLET PO SCH (08:29)
[2020-02-02] MEDS: ASPIRIN EC 81 MG TABLET PO SCH (08:29)
[2020-02-02] MEDS: cefTRIAXone 1,000 MG in SYRINGE 1 EACH IV SCH (09:21)
[2020-02-02] MEDS: MORPHINE 4 MG/1 ML VIAL IV PRN (21:45)
[2020-02-03] MEDS: diphenhydrAMINE CAP 25 MG CAPSULE PO PRN (00:04)
[2020-02-03] MEDS: HEPARIN 5,000 UNIT/1 ML VIAL SUBCUT SCH ×2 (02:36→13:21)
[2020-02-03] MEDS: INSULIN REGULAR 100 UNIT/ML SUBCUT SCH ×2 (07:30→13:21)
[2020-02-03] MEDS ORDERED: propofoL 200 MG/20 ML VIAL IV ONE (11:44)
[2020-02-03] MEDS ORDERED: LIDOCAINE 2% 5 ML VIAL ONE (11:44)
[2020-02-03] MEDS ORDERED: SODIUM CHLORIDE 0.9% 250 ML IV SCH (12:00)
[2020-02-03] MEDS: cefTRIAXone 1,000 MG in SYRINGE 1 EACH IV SCH (13:19)
[2020-02-03] MEDS: ASPIRIN EC 81 MG TABLET PO SCH (13:19)
[2020-02-03] MEDS: PANTOPRAZOLE 40 MG TABLET PO SCH (13:19)
[2020-02-03 16:17] VITALS: BP 143/71
[2020-02-03] MEDS ORDERED: ATORVASTATIN 80 MG TABLET PO SCH (21:00)
[2020-02-03] MEDS ORDERED: METOPROLOL SUCCINATE XL 25 MG TABLET PO SCH (21:00)
[2020-02-03] MEDS ORDERED: SACUBITRIL/VALSARTAN 49-51 MG TABLET PO SCH (21:00)
== END 2020-02-03 16:18 | disposition home or self-care (01) | DRG 314 ==
LOC: N.ED 14:30 → N.EDINP 18:35 → N.3E 21:55
PROVIDERS: ADMIT Internal Medicine; ATTEND Internal Medicine

== ENCOUNTER 2020-03-19 23:39 | Observation (INO) ==
[2020-03-20 00:26] LABS: Basophils % 1.1 % (0.0-0.8); Eosinophils # 0.3 10*3/uL (0.0-0.87); Eosinophils % 6.6 % (0.00-10.9); Hematocrit 29.5 VOL% (35.7-47.0); Hemoglobin 9.8 GM/DL (12.0-16.0); Immature Granulocytes % 0.5 %; Immature Granulocytes Absolute 0.02 #; Lymphocytes # 1.2 10*3/uL (1.4-4.0); Lymphocytes % 31.5 % (21.3-54.2); Mean Corpuscular HGB Conc 33.2 GM/DL (32-36); Mean Corpuscular Volume 93.1 FL (87-102); Mean Platelet Volume 12.9 FL (9.6-12.0); Monocytes % 8.5 % (1.7-12.7); Neutrophils % 51.8 % (38.7-73.9); Platelet Count 90 T/CUMM (130-400); Red Blood Count 3.17 MC/CUMM (3.8-5.5); Red Cell Distribution Width 15.1 % (9.3-17.3); White Blood Count 3.8 T/CUMM (4-12)
[2020-03-20 00:36] LABS: PT Patient Result 11.2 SECS (9.8-11.9)
[2020-03-20 00:46] LABS: Bilirubin,Urine Negative (Negative); Blood, Urine Large mg/dL (Negative); Glucose,Urine (UA) >=500 mg/dL (Negative); Hyaline Casts,Urine 131 /LPF (0-3); Ketones,Urine Negative (Negative); Nitrite,Urine Negative (Negative); Protein,Urine 100 MG/DL; RBC,Urine 131 /HPF (0-4); Squamous Epithelial Cell,Urine Few /HPF (0-10); Urine Appearance CLOUDY (Clear); Urine Color Yellow (Yellow); Urine Specific Gravity 1.016 (1.001-1.035); Urine Urobilinogen < 2.0 EU/DL (0.2-1.0); WBC,Urine 1544 /HPF (0-6)
[2020-03-20 00:55] LABS: Albumin 3.8 G/DL (3.4-5.0); Bilirubin,Total 0.6 MG/DL (0.2-1.0); Calcium 9.7 MG/DL (8.5-10.1); Osmolality,Calculated 286.1 MOS/KG (273-304); Total Protein 8.1 G/DL (6.4-8.3)
[2020-03-20] MEDS ORDERED: cefTRIAXone 1,000 MG in SODIUM CHLORIDE 0.9% 100 ML IV STA (01:02)
[2020-03-20] MEDS ORDERED: ACETAMINOPHEN 325 MG TABLET PO PRN (01:52)
[2020-03-20] MEDS ORDERED: DEXTROSE 50% 25 GM/50 ML SYRINGE IV PRN (01:52)
[2020-03-20] MEDS ORDERED: DEXTROSE 50% 25 GM/50 ML VIAL IV PRN (01:52)
[2020-03-20] MEDS ORDERED: GLUCAGON 1 MG VIAL IM PRN ×2 (01:52)
[2020-03-20] MEDS: ONDANSETRON 4 MG/2 ML VIAL IV PRN (02:48)
[2020-03-20] MEDS: PIPERACILLIN/TAZOBACTAM 3,375 MG in SODIUM CHLORIDE 0.9% 100 ML IV SCH ×2 (02:50→14:49)
[2020-03-20 06:43] LABS: Basophils % 1.2 % (0.0-0.8); Eosinophils # 0.3 10*3/uL (0.0-0.87); Eosinophils % 8.2 % (0.00-10.9); Hematocrit 27.5 VOL% (35.7-47.0); Hemoglobin 9.1 GM/DL (12.0-16.0); Immature Granulocytes % 0.3 %; Immature Granulocytes Absolute 0.01 #; Lymphocytes # 1.3 10*3/uL (1.4-4.0); Lymphocytes % 38.4 % (21.3-54.2); Mean Corpuscular HGB Conc 33.1 GM/DL (32-36); Mean Corpuscular Volume 92.3 FL (87-102); Mean Platelet Volume 13.5 FL (9.6-12.0); Monocytes % 7.9 % (1.7-12.7); Platelet Count 85 T/CUMM (130-400); Red Blood Count 2.98 MC/CUMM (3.8-5.5); Red Cell Distribution Width 15.2 % (9.3-17.3); White Blood Count 3.3 T/CUMM (4-12)
[2020-03-20 07:06] LABS: Hypochromasia 1+; Microcytosis 1+; Ovalocytes Slight
[2020-03-20 07:07] LABS: Anisocytosis 1+; Platelet Estimate Decreased
[2020-03-20 07:37] LABS: Albumin 3.2 G/DL (3.4-5.0); Bilirubin,Total 1.1 MG/DL (0.2-1.0); Calcium 9.3 MG/DL (8.5-10.1); Total Protein 6.8 G/DL (6.4-8.3)
[2020-03-20] MEDS ORDERED: ENOXAPARIN 30 MG/0.3 ML SYRINGE SUBCUT SCH (09:00)
[2020-03-20] MEDS: INSULIN REGULAR 100 UNIT/ML SUBCUT SCH ×4 (09:29→22:24)
[2020-03-20] MEDS: PANTOPRAZOLE 40 MG TABLET PO SCH (09:29)
[2020-03-20] MEDS: HEPARIN 5,000 UNIT/1 ML VIAL SUBCUT SCH (14:48)
[2020-03-20] MEDS: POLYETHYLENE GLYCOL POWDER 17 GM PACK PO SCH (14:48)
[2020-03-20] MEDS: SEVELAMER CARBONATE 800 MG TABLET PO SCH ×2 (14:49→22:28)
[2020-03-20] MEDS ORDERED: INSULIN DETEMIR 100 UNIT/ML SUBCUT SCH (21:00)
[2020-03-20] MEDS ORDERED: SACUBITRIL/VALSARTAN 49-51 MG TABLET PO SCH (21:00)
[2020-03-20] MEDS: METOPROLOL SUCCINATE XL 25 MG TABLET PO SCH (22:23)
[2020-03-20] MEDS: LACTULOSE 20 GM/30 ML UDCUP PO SCH (22:23)
[2020-03-20] MEDS: INSULIN GLARGINE 100 UNIT/ML SUBCUT SCH (22:27)
[2020-03-20] MEDS: GABAPENTIN 400 MG CAPSULE PO SCH (22:37)
[2020-03-20] MEDS ORDERED: ALUMINUM/MAGNES/SIMETH MAX STR 30 ML UDCUP PO PRN (23:22)
[2020-03-21] MEDS: HEPARIN 5,000 UNIT/1 ML VIAL SUBCUT SCH ×2 (03:11→15:24)
[2020-03-21] MEDS: PIPERACILLIN/TAZOBACTAM 3,375 MG in SODIUM CHLORIDE 0.9% 100 ML IV SCH (03:11)
[2020-03-21] MEDS: ONDANSETRON 4 MG/2 ML VIAL IV PRN (05:40)
[2020-03-21 06:40] LABS: Basophils % 1.3 % (0.0-0.8); Eosinophils # 0.3 10*3/uL (0.0-0.87); Eosinophils % 9.7 % (0.00-10.9); Hemoglobin 9.9 GM/DL (12.0-16.0); Lymphocytes # 1.3 10*3/uL (1.4-4.0); Lymphocytes % 42.8 % (21.3-54.2); Mean Corpuscular Volume 92.9 FL (87-102); Mean Platelet Volume 14.1 FL (9.6-12.0); Neutrophils % 41.2 % (38.7-73.9); Platelet Count 98 T/CUMM (130-400); Red Blood Count 3.23 MC/CUMM (3.8-5.5); Red Cell Distribution Width 14.9 % (9.3-17.3)
[2020-03-21 08:26] LABS: Calcium 9.6 MG/DL (8.5-10.1)
[2020-03-21] MEDS: POLYETHYLENE GLYCOL POWDER 17 GM PACK PO SCH ×2 (08:57→21:13)
[2020-03-21] MEDS: LACTULOSE 20 GM/30 ML UDCUP PO SCH ×2 (08:58→21:13)
[2020-03-21] MEDS: INSULIN REGULAR 100 UNIT/ML SUBCUT SCH ×4 (08:58→21:15)
[2020-03-21] MEDS: METOPROLOL SUCCINATE XL 25 MG TABLET PO SCH ×2 (09:02→21:15)
[2020-03-21 09:09] LABS: Anisocytosis 2+
[2020-03-21 09:10] LABS: Elliptocytes Few; Polychromasia Slight
[2020-03-21 09:11] LABS: Platelet Estimate Increased
[2020-03-21 09:12] LABS: Stomatocytes Few
[2020-03-21 09:22] LABS: Schistocytes Few
[2020-03-21] MEDS ORDERED: ALUM/MAG/SIMETH/LIDO VISC 1:1 30 ML BOTTLE PO ONE (12:21)
[2020-03-21] MEDS ORDERED: PHENAZOPYRIDINE 95 MG TABLET PO PRN (12:23)
[2020-03-21] MEDS: PANTOPRAZOLE 40 MG TABLET PO SCH ×2 (14:10→21:14)
[2020-03-21] MEDS: ASPIRIN EC 81 MG TABLET PO SCH (14:52)
[2020-03-21] MEDS: SEVELAMER CARBONATE 800 MG TABLET PO SCH ×3 (14:52→21:14)
[2020-03-21] MEDS: MEROPENEM 500 MG in SODIUM CHLORIDE 0.9% 100 ML IV SCH (14:56)
[2020-03-21] MEDS: GABAPENTIN 400 MG CAPSULE PO SCH (21:13)
[2020-03-21] MEDS: INSULIN GLARGINE 100 UNIT/ML SUBCUT SCH (21:16)
[2020-03-22] MEDS: HEPARIN 5,000 UNIT/1 ML VIAL SUBCUT SCH ×2 (03:53→14:47)
[2020-03-22] MEDS: LACTULOSE 20 GM/30 ML UDCUP PO SCH (09:09)
[2020-03-22] MEDS: INSULIN REGULAR 100 UNIT/ML SUBCUT SCH ×4 (09:10→21:49)
[2020-03-22] MEDS: ASPIRIN EC 81 MG TABLET PO SCH (09:10)
[2020-03-22] MEDS: METOPROLOL SUCCINATE XL 25 MG TABLET PO SCH (09:10)
[2020-03-22] MEDS: POLYETHYLENE GLYCOL POWDER 17 GM PACK PO SCH (09:10)
[2020-03-22] MEDS: PANTOPRAZOLE 40 MG TABLET PO SCH ×2 (09:10→21:49)
[2020-03-22] MEDS: SEVELAMER CARBONATE 800 MG TABLET PO SCH ×3 (09:10→21:49)
[2020-03-22] MEDS ORDERED: LACTULOSE 20 GM/30 ML UDCUP PO PRN (11:31)
[2020-03-22] MEDS: MEROPENEM 500 MG in SODIUM CHLORIDE 0.9% 100 ML IV SCH (13:02)
[2020-03-22] MEDS: INSULIN GLARGINE 100 UNIT/ML SUBCUT SCH (21:49)
[2020-03-22] MEDS: GABAPENTIN 400 MG CAPSULE PO SCH (21:49)
[2020-03-23] MEDS: HEPARIN 5,000 UNIT/1 ML VIAL SUBCUT SCH (03:41)
[2020-03-23 05:18] LABS: Basophils % 0.8 % (0.0-0.8); Eosinophils # 0.3 10*3/uL (0.0-0.87); Eosinophils % 8.1 % (0.00-10.9); Hematocrit 29.6 VOL% (35.7-47.0); Hemoglobin 9.7 GM/DL (12.0-16.0); Immature Granulocytes % 0.3 %; Immature Granulocytes Absolute 0.01 #; Mean Corpuscular HGB Conc 32.8 GM/DL (32-36); Mean Corpuscular Volume 92.2 FL (87-102); Monocytes % 8.1 % (1.7-12.7); Neutrophils % 54.7 % (38.7-73.9); Red Blood Count 3.21 MC/CUMM (3.8-5.5); Red Cell Distribution Width 14.6 % (9.3-17.3); White Blood Count 3.6 T/CUMM (4-12)
[2020-03-23 05:19] LABS: Platelet Count 72 T/CUMM (130-400)
[2020-03-23 05:36] LABS: Hypochromasia 1+; Microcytosis 1+; Platelet Estimate Decreased
[2020-03-23 05:38] LABS: Calcium 9.2 MG/DL (8.5-10.1); Osmolality,Calculated 281.8 MOS/KG (273-304)
[2020-03-23] MEDS: INSULIN REGULAR 100 UNIT/ML SUBCUT SCH ×2 (08:09→12:14)
[2020-03-23] MEDS: SEVELAMER CARBONATE 800 MG TABLET PO SCH (08:11)
[2020-03-23] MEDS: ASPIRIN EC 81 MG TABLET PO SCH (08:11)
[2020-03-23] MEDS: PANTOPRAZOLE 40 MG TABLET PO SCH (08:11)
[2020-03-23] MEDS ORDERED: HEPARIN 5,000 UNIT/1 ML VIAL SUBCUT SCH (09:00)
[2020-03-23] MEDS ORDERED: POLYETHYLENE GLYCOL POWDER 17 GM PACK PO SCH (09:00)
[2020-03-23 11:58] VITALS: BP 112/67
[2020-03-23] MEDS: MEROPENEM 500 MG in SODIUM CHLORIDE 0.9% 100 ML IV SCH (12:12)
== END 2020-03-23 13:43 | disposition home health service (06) ==
LOC: EDUNIT# → EDBD → N.ED 23:39 → N.EDINP 23:39 → N.TELES 03-20 13:53
PROVIDERS: ADMIT Internal Medicine; ATTEND Internal Medicine

== ENCOUNTER 2020-11-04 09:52 | Observation (INO) ==
[2020-11-04 10:34] LABS: Basophils % 1.4 % (0.0-0.8); Eosinophils # 0.1 10*3/uL (0.0-0.87); Eosinophils % 3.7 % (0.00-10.9); Hematocrit 34.9 VOL% (35.7-47.0); Immature Granulocytes % 0.3 %; Immature Granulocytes Absolute 0.01 #; Lymphocytes # 0.7 10*3/uL (1.4-4.0); Lymphocytes % 23.8 % (21.3-54.2); Mean Corpuscular HGB Conc 31.5 GM/DL (32-36); Mean Corpuscular Volume 95.1 FL (87-102); Mean Platelet Volume 13.2 FL (9.6-12.0); Monocytes % 7.5 % (1.7-12.7); Neutrophils % 63.3 % (38.7-73.9); Platelet Count 94 T/CUMM (130-400); Red Blood Count 3.67 MC/CUMM (3.8-5.5); Red Cell Distribution Width 16.1 % (9.3-17.3); White Blood Count 2.9 T/CUMM (4-12)
[2020-11-04 10:43] LABS: INR 1.1; PT Patient Result 12.2 SECS (10.5-12.0); Partial Thromboplastin Time 24.7 SECS (23.9-33.8)
[2020-11-04 10:51] LABS: Hypochromasia Slight; Microcytosis Slight; Platelet Estimate Decreased
[2020-11-04 11:05] LABS: Bilirubin,Total 0.9 MG/DL (0.20-1.00); Calcium 9.9 MG/DL (8.5-10.1); Osmolality,Calculated 281.5 MOS/KG (273-304); Potassium 3.6 MMOL/L (3.5-5.1); Total Protein 8.3 G/DL (6.4-8.2)
[2020-11-04] MEDS ORDERED: ONDANSETRON 4 MG/2 ML VIAL ONE (13:13)
[2020-11-04] MEDS ORDERED: HYDROmorphone 2 MG/1 ML VIAL ONE ×2 (13:13→17:21)
[2020-11-04] MEDS ORDERED: ONDANSETRON 4 MG/2 ML VIAL IV STA (13:23)
[2020-11-04] MEDS ORDERED: HYDROmorphone 2 MG/1 ML VIAL IV STA (13:23)
[2020-11-04] MEDS ORDERED: NITROGLYCERIN SL 0.4 MG TABLET SL PRN (14:14)
[2020-11-04] MEDS ORDERED: diphenhydrAMINE CAP 25 MG CAPSULE PO ONE (14:16)
[2020-11-04] MEDS ORDERED: DIAZEPAM 5 MG TABLET PO ONE (14:16)
[2020-11-04] MEDS ORDERED: ASPIRIN CHEW 81 MG TABLET PO ONE (14:16)
[2020-11-04] MEDS ORDERED: PHENOL 1.4% THROAT SPRAY 177 ML BOTTLE PO PRN (14:56)
[2020-11-04] MEDS ORDERED: ACETAMINOPHEN 325 MG TABLET PO PRN (15:03)
[2020-11-04] MEDS ORDERED: DEXTROSE 50% 25 GM/50 ML VIAL IV PRN (15:03)
[2020-11-04] MEDS ORDERED: GLUCAGON 1 MG VIAL IM PRN (15:03)
[2020-11-04] MEDS ORDERED: ONDANSETRON 4 MG/2 ML VIAL IV PRN (15:03)
[2020-11-04] MEDS ORDERED: LIDOCAINE 1% 20 ML VIAL ONE (16:48)
[2020-11-04] MEDS ORDERED: HEPARIN/NACL 0.9% 2 UNITS/ML 2,000 UNIT/1,000 ML BAG IV ONE (16:48)
[2020-11-04] MEDS ORDERED: MIDAZOLAM 2 MG/2 ML VIAL ONE (17:21)
[2020-11-04] MEDS ORDERED: diphenhydrAMINE 50 MG/1 ML VIAL ONE (17:36)
[2020-11-04] MEDS: INSULIN LISPRO 100 UNIT/ML SUBCUT SCH ×2 (18:54→22:40)
[2020-11-04] MEDS ORDERED: METOPROLOL SUCCINATE XL 50 MG TABLET PO SCH (21:00)
[2020-11-04] MEDS: METOPROLOL SUCCINATE XL 25 MG TABLET PO SCH (23:16)
[2020-11-04] MEDS: GABAPENTIN 400 MG CAPSULE PO SCH (23:16)
[2020-11-04] MEDS: SACUBITRIL/VALSARTAN 49-51 MG TABLET PO SCH (23:17)
[2020-11-05 06:11] LABS: Calcium 10.1 MG/DL (8.5-10.1); Osmolality,Calculated 275.1 MOS/KG (273-304); Potassium 4.3 MMOL/L (3.5-5.1); Risk Ratio 2.3; VLDL Cholesterol 14.6 MG/DL
[2020-11-05 06:50] LABS: Eosinophils # 0.1 10*3/uL (0.0-0.87); Eosinophils % 3.4 % (0.00-10.9); Immature Granulocytes % 0.3 %; Immature Granulocytes Absolute 0.01 #; Lymphocytes # 0.6 10*3/uL (1.4-4.0); Lymphocytes % 19.2 % (21.3-54.2); Mean Corpuscular HGB Conc 31.3 GM/DL (32-36); Mean Corpuscular Volume 96.1 FL (87-102); Mean Platelet Volume 12.1 FL (9.6-12.0); Monocytes % 9.3 % (1.7-12.7); Neutrophils % 66.8 % (38.7-73.9); Platelet Count 81 T/CUMM (130-400); Red Blood Count 3.33 MC/CUMM (3.8-5.5); Red Cell Distribution Width 16.2 % (9.3-17.3); White Blood Count 2.9 T/CUMM (4-12)
[2020-11-05 07:12] LABS: Hypochromasia 2+; Microcytosis 1+; Target Cells Slight
[2020-11-05 07:13] LABS: Ovalocytes Slight; Platelet Estimate Decreased
[2020-11-05] MEDS: ASPIRIN EC 81 MG TABLET PO SCH (08:36)
[2020-11-05] MEDS: LINACLOTIDE 145 MCG CAPSULE PO SCH (08:36)
[2020-11-05] MEDS: SEVELAMER CARBONATE 800 MG TABLET PO SCH ×3 (08:36→17:05)
[2020-11-05] MEDS: GABAPENTIN 400 MG CAPSULE PO SCH ×3 (08:36→21:48)
[2020-11-05] MEDS: METOPROLOL SUCCINATE XL 25 MG TABLET PO SCH ×2 (08:36→21:47)
[2020-11-05] MEDS: SACUBITRIL/VALSARTAN 49-51 MG TABLET PO SCH ×2 (08:36→21:48)
[2020-11-05] MEDS: INSULIN LISPRO 100 UNIT/ML SUBCUT SCH ×4 (08:37→20:52)
[2020-11-05] MEDS ORDERED: PANTOPRAZOLE 40 MG TABLET PO SCH (09:00)
[2020-11-05] MEDS: PANTOPRAZOLE 40 MG TABLET PO SCH (21:48)
[2020-11-05] MEDS: BENZONATATE 100 MG CAPSULE PO PRN (23:42)
[2020-11-06 04:25] LABS: Basophils % 1.1 % (0.0-0.8); Eosinophils # 0.1 10*3/uL (0.0-0.87); Eosinophils % 3.2 % (0.00-10.9); Hematocrit 28.4 VOL% (35.7-47.0); Hemoglobin 9.3 GM/DL (12.0-16.0); Immature Granulocytes % 0.4 %; Immature Granulocytes Absolute 0.01 #; Lymphocytes # 0.7 10*3/uL (1.4-4.0); Lymphocytes % 25.1 % (21.3-54.2); Mean Corpuscular HGB Conc 32.7 GM/DL (32-36); Mean Corpuscular Volume 93.1 FL (87-102); Mean Platelet Volume 12.1 FL (9.6-12.0); Neutrophils % 58.2 % (38.7-73.9); Red Blood Count 3.05 MC/CUMM (3.8-5.5); Red Cell Distribution Width 15.9 % (9.3-17.3); White Blood Count 2.8 T/CUMM (4-12)
[2020-11-06 04:29] LABS: Platelet Count 69 T/CUMM (130-400)
[2020-11-06 04:43] LABS: Calcium 9.3 MG/DL (8.5-10.1); Potassium 4.2 MMOL/L (3.5-5.1)
[2020-11-06 04:48] LABS: Hypochromasia 2+
[2020-11-06 04:49] LABS: Microcytosis 1+; Platelet Estimate Decreased; Target Cells Slight
[2020-11-06] MEDS ORDERED: SACUBITRIL/VALSARTAN 49-51 MG TABLET PO SCH (09:00)
[2020-11-06] MEDS: METOPROLOL SUCCINATE XL 25 MG TABLET PO SCH (09:02)
[2020-11-06] MEDS: GABAPENTIN 400 MG CAPSULE PO SCH (09:03)
[2020-11-06] MEDS: ASPIRIN EC 81 MG TABLET PO SCH (09:03)
[2020-11-06] MEDS: PANTOPRAZOLE 40 MG TABLET PO SCH (09:06)
[2020-11-06] MEDS: SEVELAMER CARBONATE 800 MG TABLET PO SCH ×2 (09:06→12:21)
[2020-11-06] MEDS: SACUBITRIL/VALSARTAN 49-51 MG TABLET PO SCH (09:09)
[2020-11-06] MEDS: INSULIN LISPRO 100 UNIT/ML SUBCUT SCH ×2 (09:14→12:22)
[2020-11-06] MEDS: LINACLOTIDE 145 MCG CAPSULE PO SCH (09:39)
[2020-11-06] MEDS: BENZONATATE 100 MG CAPSULE PO PRN (09:46)
[2020-11-06 12:00] VITALS: BP 106/54
== END 2020-11-06 12:45 | disposition home or self-care (01) ==
LOC: N.ED 09:52 → N.EDINP 09:52 → SUATTDRO 15:03 → N.EDINP 16:30 → N.TELEN 18:21
PROVIDERS: ADMIT Internal Medicine; ATTEND Internal Medicine Geriatric Medicine

== ENCOUNTER 2020-11-29 11:29 | Inpatient (IN) ==
[2020-11-29 12:46] LABS: Basophils % 0.9 % (0.0-0.8); Eosinophils # 0.1 10*3/uL (0.0-0.87); Eosinophils % 3.3 % (0.00-10.9); Hematocrit 34.1 VOL% (35.7-47.0); Hemoglobin 10.6 GM/DL (12.0-16.0); Immature Granulocytes % 0.3 %; Immature Granulocytes Absolute 0.01 #; Lymphocytes # 0.9 10*3/uL (1.4-4.0); Lymphocytes % 26.8 % (21.3-54.2); Mean Corpuscular HGB Conc 31.1 GM/DL (32-36); Mean Corpuscular Volume 96.1 FL (87-102); NRBC # 0.02 10*3/uL; Neutrophils % 60.7 % (38.7-73.9); Platelet Count 83 T/CUMM (130-400); Red Blood Count 3.55 MC/CUMM (3.8-5.5); Red Cell Distribution Width 17.2 % (9.3-17.3); White Blood Count 3.4 T/CUMM (4-12)
[2020-11-29 12:47] LABS: Bilirubin,Total 0.9 MG/DL (0.20-1.00); Calcium 10.7 MG/DL (8.5-10.1); Osmolality,Calculated 270.4 MOS/KG (273-304); Potassium 3.4 MMOL/L (3.5-5.1); Total Protein 8.7 G/DL (6.4-8.2)
[2020-11-29 13:55] LABS: Hypochromasia 1+
[2020-11-29] MEDS ORDERED: LACTULOSE 20 GM/30 ML UDCUP PO PRN (15:12)
[2020-11-29] MEDS ORDERED: DEXTROSE 50% 25 GM/50 ML VIAL IV PRN (15:12)
[2020-11-29] MEDS ORDERED: BISACODYL 5 MG TABLET PO PRN (15:12)
[2020-11-29] MEDS ORDERED: GLUCAGON 1 MG VIAL IM PRN (15:12)
[2020-11-29] MEDS ORDERED: ACETAMINOPHEN 325 MG TABLET PO PRN (15:12)
[2020-11-29] MEDS ORDERED: hydrALAZINE 20 MG/1 ML VIAL IV PRN (15:12)
[2020-11-29] MEDS ORDERED: HEPARIN LOCK FLUSH 500 UNIT/5 ML SYRINGE IV ONE ×2 (15:30→16:18)
[2020-11-29] MEDS ORDERED: ALUM/MAG/SIMETH/LIDO VISC 1:1 30 ML BOTTLE PO STA (15:41)
[2020-11-29] MEDS ORDERED: POTASSIUM CHLORIDE 20 MEQ TABLET PO ONE (15:50)
[2020-11-29] MEDS: ONDANSETRON 4 MG/2 ML VIAL IV PRN (16:22)
[2020-11-29] MEDS: INSULIN LISPRO 100 UNIT/ML SUBCUT SCH ×2 (16:29→22:45)
[2020-11-29] MEDS: HEPARIN 5,000 UNIT/1 ML VIAL SUBCUT SCH (18:21)
[2020-11-29] MEDS ORDERED: diphenhydrAMINE CAP 25 MG CAPSULE PO ONE (20:52)
[2020-11-29] MEDS: PANTOPRAZOLE 40 MG TABLET PO SCH (21:19)
[2020-11-30] MEDS: HEPARIN 5,000 UNIT/1 ML VIAL SUBCUT SCH ×3 (01:00→18:15)
[2020-11-30] MEDS: ONDANSETRON 4 MG/2 ML VIAL IV PRN ×3 (03:52→21:53)
[2020-11-30 05:15] LABS: Basophils % 1.3 % (0.0-0.8); Eosinophils # 0.1 10*3/uL (0.0-0.87); Eosinophils % 3.1 % (0.00-10.9); Hematocrit 30.6 VOL% (35.7-47.0); Hemoglobin 9.5 GM/DL (12.0-16.0); Immature Granulocytes % 0.3 %; Immature Granulocytes Absolute 0.01 #; Lymphocytes # 1.2 10*3/uL (1.4-4.0); Lymphocytes % 37.9 % (21.3-54.2); Mean Corpuscular Volume 95.6 FL (87-102); Mean Platelet Volume 12.7 FL (9.6-12.0); Monocytes % 7.5 % (1.7-12.7); Neutrophils % 49.9 % (38.7-73.9); Platelet Count 97 T/CUMM (130-400); Red Cell Distribution Width 17.2 % (9.3-17.3); White Blood Count 3.2 T/CUMM (4-12)
[2020-11-30 05:40] LABS: Hypochromasia 1+; Microcytosis 1+; Platelet Estimate Decreased
[2020-11-30 05:42] LABS: Calcium 10.5 MG/DL (8.5-10.1); Osmolality,Calculated 272.1 MOS/KG (273-304); Potassium 3.2 MMOL/L (3.5-5.1)
[2020-11-30] MEDS: PANTOPRAZOLE 40 MG TABLET PO SCH ×2 (08:51→21:02)
[2020-11-30] MEDS: ASPIRIN EC 81 MG TABLET PO SCH (08:51)
[2020-11-30] MEDS: INSULIN LISPRO 100 UNIT/ML SUBCUT SCH ×4 (08:51→21:02)
[2020-11-30] MEDS ORDERED: PANTOPRAZOLE 40 MG TABLET PO SCH (09:00)
[2020-11-30] MEDS ORDERED: NITROGLYCERIN SL 0.4 MG TABLET SL PRN (12:04)
[2020-11-30] MEDS: diphenhydrAMINE 2% CREAM 28 GM TUBE TOP PRN (14:49)
[2020-11-30] MEDS: METOPROLOL SUCCINATE XL 25 MG TABLET PO SCH ×2 (14:49→21:01)
[2020-11-30] MEDS ORDERED: POTASSIUM CHLORIDE 20 MEQ TABLET PO ONE (15:04)
[2020-11-30] MEDS: SACUBITRIL/VALSARTAN 49-51 MG TABLET PO SCH ×2 (16:27→21:02)
[2020-11-30] MEDS ORDERED: MAGNESIUM SULF RIDER 2 GM/50 ML PREMIX IV PRN (17:38)
[2020-11-30] MEDS ORDERED: POTASSIUM CHLORIDE RIDER 10 MEQ/100 ML PREMIX IV PRN (17:38)
[2020-11-30] MEDS: POTASSIUM CHLORIDE INJ 40 MEQ in LACTATED RINGERS 1,000 ML IV SCH (18:15)
[2020-11-30] MEDS ORDERED: diphenhydrAMINE CAP 50 MG CAPSULE PO ONE (20:15)
[2020-12-01] MEDS: MORPHINE 2 MG/1 ML SYRINGE IV PRN (00:19)
[2020-12-01] MEDS: POTASSIUM CHLORIDE INJ 40 MEQ in LACTATED RINGERS 1,000 ML IV SCH ×2 (02:43→10:25)
[2020-12-01] MEDS: HEPARIN 5,000 UNIT/1 ML VIAL SUBCUT SCH ×3 (03:28→17:42)
[2020-12-01] MEDS ORDERED: DIAZEPAM 5 MG TABLET PO ONE (06:00)
[2020-12-01] MEDS ORDERED: diphenhydrAMINE CAP 50 MG CAPSULE PO ONE (07:00)
[2020-12-01] MEDS: METOPROLOL SUCCINATE XL 25 MG TABLET PO SCH (09:03)
[2020-12-01] MEDS: SACUBITRIL/VALSARTAN 49-51 MG TABLET PO SCH (09:03)
[2020-12-01] MEDS: PANTOPRAZOLE 40 MG TABLET PO SCH (09:03)
[2020-12-01] MEDS: ASPIRIN EC 81 MG TABLET PO SCH (09:03)
[2020-12-01] MEDS: INSULIN LISPRO 100 UNIT/ML SUBCUT SCH ×3 (09:04→16:07)
[2020-12-01] MEDS ORDERED: LIDOCAINE 1% 20 ML VIAL ONE (15:15)
[2020-12-01] MEDS ORDERED: MIDAZOLAM 2 MG/2 ML VIAL ONE (15:46)
[2020-12-01] MEDS ORDERED: HYDROmorphone 2 MG/1 ML VIAL ONE (15:47)
[2020-12-01] MEDS ORDERED: HEPARIN 5,000 UNIT/1 ML VIAL ONE ×2 (16:07→16:40)
[2020-12-01] MEDS ORDERED: PRASUGREL 10 MG TABLET ONE (16:07)
[2020-12-01] MEDS ORDERED: VANCOMYCIN INJ 2,000 MG in SODIUM CHLORIDE 0.9% 500 ML IV ONE ×2 (17:00→19:00)
[2020-12-01] MEDS ORDERED: ZALEPLON 5 MG CAPSULE PO PRN (17:14)
[2020-12-02] MEDS: SACUBITRIL/VALSARTAN 49-51 MG TABLET PO SCH ×3 (01:07→20:02)
[2020-12-02] MEDS: PANTOPRAZOLE 40 MG TABLET PO SCH ×3 (01:08→20:03)
[2020-12-02] MEDS: METOPROLOL SUCCINATE XL 25 MG TABLET PO SCH ×3 (01:08→20:02)
[2020-12-02] MEDS: INSULIN LISPRO 100 UNIT/ML SUBCUT SCH ×5 (01:09→20:17)
[2020-12-02] MEDS: POTASSIUM CHLORIDE INJ 40 MEQ in LACTATED RINGERS 1,000 ML IV SCH ×3 (03:46→10:54)
[2020-12-02] MEDS: HEPARIN 5,000 UNIT/1 ML VIAL SUBCUT SCH ×3 (03:47→17:47)
[2020-12-02 05:44] LABS: Basophils % 0.3 % (0.0-0.8); Eosinophils # 0.1 10*3/uL (0.0-0.87); Eosinophils % 2.6 % (0.00-10.9); Hematocrit 32.9 VOL% (35.7-47.0); Hemoglobin 9.8 GM/DL (12.0-16.0); Immature Granulocytes % 0.6 %; Immature Granulocytes Absolute 0.02 #; Lymphocytes # 0.7 10*3/uL (1.4-4.0); Lymphocytes % 19.4 % (21.3-54.2); Mean Corpuscular HGB Conc 29.8 GM/DL (32-36); Mean Corpuscular Volume 100.3 FL (87-102); Mean Platelet Volume 13.3 FL (9.6-12.0); Monocytes % 8.4 % (1.7-12.7); NRBC # 0.04 10*3/uL; Neutrophils % 68.7 % (38.7-73.9); Platelet Count 91 T/CUMM (130-400); Red Blood Count 3.28 MC/CUMM (3.8-5.5); Red Cell Distribution Width 17.9 % (9.3-17.3); White Blood Count 3.5 T/CUMM (4-12)
[2020-12-02 05:54] LABS: Hypochromasia 1+; Microcytosis 1+; Platelet Estimate Decreased
[2020-12-02 06:10] LABS: Calcium 9.3 MG/DL (8.5-10.1); Osmolality,Calculated 259.8 MOS/KG (273-304); Potassium 5.6 MMOL/L (3.5-5.1)
[2020-12-02 06:12] LABS: Blood Urea Nitrogen 14 MG/DL (7-18); Calcium 9.2 MG/DL (8.5-10.1); Carbon Dioxide 22 MMOL/L (21-32); Estimated Glom Filtration Rate 14 ML/MIN; Glucose 72 MG/DL (74-106); Osmolality,Calculated 267.2 MOS/KG (273-304); Potassium 5.3 MMOL/L (3.5-5.1); Sodium 134 MMOL/L (136-145)
[2020-12-02] MEDS: ASPIRIN EC 81 MG TABLET PO SCH (08:20)
[2020-12-02] MEDS: ceFAZolin 2,000 MG/50 ML DUPLEX IV SCH (17:46)
[2020-12-02] MEDS: diphenhydrAMINE CAP 50 MG CAPSULE PO PRN (20:09)
[2020-12-03] MEDS: HEPARIN 5,000 UNIT/1 ML VIAL SUBCUT SCH ×3 (00:52→17:45)
[2020-12-03] MEDS: diphenhydrAMINE CAP 50 MG CAPSULE PO PRN ×3 (01:55→14:57)
[2020-12-03 07:16] LABS: Eosinophils # 0.2 10*3/uL (0.0-0.87); Eosinophils % 4.7 % (0.00-10.9); Hematocrit 28.5 VOL% (35.7-47.0); Hemoglobin 9.2 GM/DL (12.0-16.0); Immature Granulocytes % 0.5 %; Immature Granulocytes Absolute 0.02 #; Lymphocytes # 1.2 10*3/uL (1.4-4.0); Lymphocytes % 32.4 % (21.3-54.2); Mean Corpuscular HGB Conc 32.3 GM/DL (32-36); Mean Platelet Volume 12.9 FL (9.6-12.0); Monocytes % 10.2 % (1.7-12.7); NRBC # 0.11 10*3/uL; Neutrophils % 51.2 % (38.7-73.9); Platelet Count 100 T/CUMM (130-400); Red Cell Distribution Width 17.9 % (9.3-17.3); White Blood Count 3.8 T/CUMM (4-12)
[2020-12-03 07:36] LABS: Calcium 9.4 MG/DL (8.5-10.1); Osmolality,Calculated 264.5 MOS/KG (273-304); Potassium 4.1 MMOL/L (3.5-5.1)
[2020-12-03] MEDS: METOPROLOL SUCCINATE XL 25 MG TABLET PO SCH ×2 (08:13→20:59)
[2020-12-03] MEDS: PANTOPRAZOLE 40 MG TABLET PO SCH ×2 (08:14→20:59)
[2020-12-03] MEDS: SACUBITRIL/VALSARTAN 49-51 MG TABLET PO SCH ×2 (08:14→20:58)
[2020-12-03] MEDS: ASPIRIN EC 81 MG TABLET PO SCH (08:14)
[2020-12-03] MEDS: INSULIN LISPRO 100 UNIT/ML SUBCUT SCH ×4 (08:24→20:28)
[2020-12-03] MEDS: PRASUGREL 10 MG TABLET PO SCH (14:57)
[2020-12-03] MEDS: SEVELAMER CARBONATE 800 MG TABLET PO SCH (17:44)
[2020-12-03] MEDS: diphenhydrAMINE 2% CREAM 28 GM TUBE TOP PRN (17:44)
[2020-12-03] MEDS: ceFAZolin 2,000 MG/50 ML DUPLEX IV SCH (17:45)
[2020-12-03] MEDS: MORPHINE 2 MG/1 ML SYRINGE IV PRN (21:33)
[2020-12-04] MEDS: HEPARIN 5,000 UNIT/1 ML VIAL SUBCUT SCH ×3 (01:52→17:18)
[2020-12-04] MEDS: diphenhydrAMINE CAP 50 MG CAPSULE PO PRN ×2 (01:52→11:40)
[2020-12-04 06:40] LABS: Basophils % 0.8 % (0.0-0.8); Eosinophils # 0.2 10*3/uL (0.0-0.87); Eosinophils % 6.1 % (0.00-10.9); Hematocrit 32.9 VOL% (35.7-47.0); Hemoglobin 10.4 GM/DL (12.0-16.0); Immature Granulocytes % 0.6 %; Immature Granulocytes Absolute 0.02 #; Lymphocytes # 1.2 10*3/uL (1.4-4.0); Lymphocytes % 32.1 % (21.3-54.2); Mean Corpuscular HGB Conc 31.6 GM/DL (32-36); Mean Corpuscular Volume 97.1 FL (87-102); Mean Platelet Volume 12.9 FL (9.6-12.0); Monocytes % 7.2 % (1.7-12.7); NRBC # 0.05 10*3/uL; Neutrophils % 53.2 % (38.7-73.9); Platelet Count 103 T/CUMM (130-400); Red Blood Count 3.39 MC/CUMM (3.8-5.5); Red Cell Distribution Width 18.4 % (9.3-17.3); White Blood Count 3.6 T/CUMM (4-12)
[2020-12-04 06:54] LABS: Calcium 9.4 MG/DL (8.5-10.1); Potassium 4.6 MMOL/L (3.5-5.1)
[2020-12-04] MEDS: SEVELAMER CARBONATE 800 MG TABLET PO SCH ×3 (08:51→17:17)
[2020-12-04] MEDS: METOPROLOL SUCCINATE XL 25 MG TABLET PO SCH ×2 (08:51→23:07)
[2020-12-04] MEDS: PANTOPRAZOLE 40 MG TABLET PO SCH ×2 (08:52→23:11)
[2020-12-04] MEDS: ASPIRIN EC 81 MG TABLET PO SCH (08:52)
[2020-12-04] MEDS: PRASUGREL 10 MG TABLET PO SCH (08:52)
[2020-12-04] MEDS: SACUBITRIL/VALSARTAN 49-51 MG TABLET PO SCH ×2 (08:52→23:10)
[2020-12-04] MEDS: INSULIN LISPRO 100 UNIT/ML SUBCUT SCH ×4 (08:57→23:11)
[2020-12-04] MEDS: ONDANSETRON 4 MG/2 ML VIAL IV PRN ×2 (18:54→23:54)
[2020-12-05] MEDS: HEPARIN 5,000 UNIT/1 ML VIAL SUBCUT SCH ×3 (01:00→17:53)
[2020-12-05 05:23] LABS: Basophils # 0.1 10*3/uL (0.0-0.2); Basophils % 1.3 % (0.0-0.8); Eosinophils # 0.2 10*3/uL (0.0-0.87); Eosinophils % 4.7 % (0.00-10.9); Hematocrit 31.9 VOL% (35.7-47.0); Immature Granulocytes % 0.5 %; Immature Granulocytes Absolute 0.02 #; Lymphocytes # 1.1 10*3/uL (1.4-4.0); Lymphocytes % 28.3 % (21.3-54.2); Mean Corpuscular HGB Conc 31.3 GM/DL (32-36); Mean Corpuscular Volume 95.5 FL (87-102); Mean Platelet Volume 12.5 FL (9.6-12.0); Monocytes % 7.9 % (1.7-12.7); NRBC # 0.07 10*3/uL; Neutrophils % 57.3 % (38.7-73.9); Platelet Count 104 T/CUMM (130-400); Red Blood Count 3.34 MC/CUMM (3.8-5.5); Red Cell Distribution Width 18.3 % (9.3-17.3); White Blood Count 3.8 T/CUMM (4-12)
[2020-12-05 05:52] LABS: Osmolality,Calculated 269.2 MOS/KG (273-304); Potassium 4.8 MMOL/L (3.5-5.1)
[2020-12-05] MEDS: ONDANSETRON 4 MG/2 ML VIAL IV PRN (06:50)
[2020-12-05] MEDS: ASPIRIN EC 81 MG TABLET PO SCH (08:37)
[2020-12-05] MEDS: SEVELAMER CARBONATE 800 MG TABLET PO SCH ×3 (08:37→17:53)
[2020-12-05] MEDS: SACUBITRIL/VALSARTAN 49-51 MG TABLET PO SCH ×2 (08:37→22:25)
[2020-12-05] MEDS: PANTOPRAZOLE 40 MG TABLET PO SCH ×2 (08:38→22:25)
[2020-12-05] MEDS: PRASUGREL 10 MG TABLET PO SCH (08:38)
[2020-12-05] MEDS: INSULIN LISPRO 100 UNIT/ML SUBCUT SCH ×4 (08:47→22:25)
[2020-12-05] MEDS: METOPROLOL SUCCINATE XL 25 MG TABLET PO SCH ×2 (13:01→22:25)
[2020-12-05] MEDS ORDERED: hydrOXYzine HCL 10 MG TABLET PO PRN (14:50)
[2020-12-05] MEDS: diphenhydrAMINE CAP 50 MG CAPSULE PO PRN (19:33)
[2020-12-06] MEDS: HEPARIN 5,000 UNIT/1 ML VIAL SUBCUT SCH ×3 (01:06→18:00)
[2020-12-06] MEDS: SEVELAMER CARBONATE 800 MG TABLET PO SCH ×3 (10:00→18:00)
[2020-12-06] MEDS: METOPROLOL SUCCINATE XL 25 MG TABLET PO SCH ×2 (10:01→23:20)
[2020-12-06] MEDS: ASPIRIN EC 81 MG TABLET PO SCH (10:01)
[2020-12-06] MEDS: INSULIN LISPRO 100 UNIT/ML SUBCUT SCH ×4 (10:01→23:26)
[2020-12-06] MEDS: PANTOPRAZOLE 40 MG TABLET PO SCH ×2 (10:01→20:19)
[2020-12-06] MEDS: SACUBITRIL/VALSARTAN 49-51 MG TABLET PO SCH ×2 (10:01→23:09)
[2020-12-06] MEDS: PRASUGREL 10 MG TABLET PO SCH (10:01)
[2020-12-06] MEDS: diphenhydrAMINE CAP 50 MG CAPSULE PO PRN (10:06)
[2020-12-06] MEDS: ALUMINUM/MAGNES/SIMETH MAX STR 30 ML UDCUP PO PRN ×2 (13:34→18:30)
[2020-12-06] MEDS ORDERED: ALUM/MAG/SIMETH/LIDO VISC 1:1 30 ML BOTTLE PO ONE (14:47)
[2020-12-06] MEDS ORDERED: SERTRALINE 50 MG TABLET PO SCH (21:00)
[2020-12-06] MEDS ORDERED: ALUM/MAG/SIMETH/LIDO VISC 1:1 30 ML BOTTLE PO STA (21:26)
[2020-12-07] MEDS: HEPARIN 5,000 UNIT/1 ML VIAL SUBCUT SCH ×3 (01:08→18:13)
[2020-12-07 02:18] LABS: Eosinophils # 0.3 10*3/uL (0.0-0.87); Eosinophils % 6.7 % (0.00-10.9); Hemoglobin 10.5 GM/DL (12.0-16.0); Immature Granulocytes % 0.3 %; Immature Granulocytes Absolute 0.01 #; Lymphocytes # 1.7 10*3/uL (1.4-4.0); Lymphocytes % 43.1 % (21.3-54.2); Mean Corpuscular HGB Conc 30.9 GM/DL (32-36); Mean Platelet Volume 12.4 FL (9.6-12.0); Monocytes % 11.3 % (1.7-12.7); NRBC # 0.09 10*3/uL; Neutrophils % 37.6 % (38.7-73.9); Platelet Count 101 T/CUMM (130-400); Red Blood Count 3.54 MC/CUMM (3.8-5.5); White Blood Count 3.9 T/CUMM (4-12)
[2020-12-07 02:37] LABS: Calcium 9.3 MG/DL (8.5-10.1); Osmolality,Calculated 262.7 MOS/KG (273-304); Potassium 4.1 MMOL/L (3.5-5.1)
[2020-12-07] MEDS: ONDANSETRON 4 MG/2 ML VIAL IV PRN ×3 (03:10→23:01)
[2020-12-07 03:12] LABS: Band Neutrophils 1 % (0-10); Eosinophils 3 % (0-10); Lymphocytes 47 % (20-55); Nucleated Red Blood Cells 5 (0-5); Platelet Estimate Normal; Segmented Neutrophils 40 % (50-85); Total Cells Counted 100
[2020-12-07] MEDS: DIPHENOXYLATE/ATROPINE 2.5-0.025 MG TABLET PO PRN (06:00)
[2020-12-07] MEDS: INSULIN LISPRO 100 UNIT/ML SUBCUT SCH ×4 (09:43→21:55)
[2020-12-07] MEDS: SEVELAMER CARBONATE 800 MG TABLET PO SCH ×3 (10:59→18:13)
[2020-12-07] MEDS: PANTOPRAZOLE 40 MG TABLET PO SCH ×2 (11:00→21:04)
[2020-12-07] MEDS: ASPIRIN EC 81 MG TABLET PO SCH (11:00)
[2020-12-07] MEDS: METOPROLOL SUCCINATE XL 25 MG TABLET PO SCH ×2 (11:00→21:03)
[2020-12-07] MEDS: PRASUGREL 10 MG TABLET PO SCH (11:00)
[2020-12-07] MEDS: SACUBITRIL/VALSARTAN 49-51 MG TABLET PO SCH ×2 (11:00→21:04)
[2020-12-07] MEDS: GABAPENTIN 100 MG CAPSULE PO SCH (15:38)
[2020-12-07] MEDS: FLUoxetine 10 MG CAPSULE PO SCH (21:04)
[2020-12-07] MEDS: diphenhydrAMINE CAP 50 MG CAPSULE PO PRN (23:39)
[2020-12-07] MEDS: MORPHINE 2 MG/1 ML SYRINGE IV PRN (23:40)
[2020-12-08] MEDS: HEPARIN 5,000 UNIT/1 ML VIAL SUBCUT SCH ×3 (01:16→16:30)
[2020-12-08 04:58] LABS: Basophils % 0.3 % (0.0-0.8); Eosinophils # 0.3 10*3/uL (0.0-0.87); Eosinophils % 7.3 % (0.00-10.9); Hematocrit 30.3 VOL% (35.7-47.0); Hemoglobin 9.7 GM/DL (12.0-16.0); Immature Granulocytes % 0.3 %; Immature Granulocytes Absolute 0.01 #; Lymphocytes # 1.2 10*3/uL (1.4-4.0); Lymphocytes % 33.1 % (21.3-54.2); Mean Corpuscular Volume 94.1 FL (87-102); Mean Platelet Volume 12.8 FL (9.6-12.0); Monocytes % 9.8 % (1.7-12.7); NRBC # 0.03 10*3/uL; Neutrophils % 49.2 % (38.7-73.9); Red Blood Count 3.22 MC/CUMM (3.8-5.5); Red Cell Distribution Width 18.9 % (9.3-17.3); White Blood Count 3.6 T/CUMM (4-12)
[2020-12-08 04:59] LABS: Platelet Count 98 T/CUMM (130-400)
[2020-12-08 05:15] LABS: Calcium 9.1 MG/DL (8.5-10.1); Osmolality,Calculated 270.2 MOS/KG (273-304); Potassium 4.5 MMOL/L (3.5-5.1)
[2020-12-08 05:34] LABS: Hypochromasia 1+; Microcytosis 1+
[2020-12-08 05:35] LABS: Ovalocytes Few; Platelet Estimate Decreased; Polychromasia Slight; Target Cells Slight
[2020-12-08] MEDS: INSULIN LISPRO 100 UNIT/ML SUBCUT SCH ×4 (07:17→21:47)
[2020-12-08] MEDS: SEVELAMER CARBONATE 800 MG TABLET PO SCH ×3 (08:52→16:30)
[2020-12-08] MEDS: PRASUGREL 10 MG TABLET PO SCH (08:53)
[2020-12-08] MEDS: ASPIRIN EC 81 MG TABLET PO SCH (08:53)
[2020-12-08] MEDS: METOPROLOL SUCCINATE XL 25 MG TABLET PO SCH ×2 (08:53→20:57)
[2020-12-08] MEDS: GABAPENTIN 100 MG CAPSULE PO SCH (08:53)
[2020-12-08] MEDS: PANTOPRAZOLE 40 MG TABLET PO SCH ×2 (08:53→21:48)
[2020-12-08] MEDS: SACUBITRIL/VALSARTAN 49-51 MG TABLET PO SCH ×2 (08:53→20:57)
[2020-12-08] MEDS: ceFAZolin 2,000 MG/50 ML DUPLEX IV SCH (14:44)
[2020-12-08] MEDS: MORPHINE 2 MG/1 ML SYRINGE IV PRN (17:23)
[2020-12-08] MEDS: diphenhydrAMINE CAP 50 MG CAPSULE PO PRN (20:55)
[2020-12-08] MEDS: FLUoxetine 10 MG CAPSULE PO SCH (20:57)
[2020-12-08] MEDS: ONDANSETRON 4 MG/2 ML VIAL IV PRN (20:58)
[2020-12-09] MEDS: HEPARIN 5,000 UNIT/1 ML VIAL SUBCUT SCH ×3 (01:24→17:18)
[2020-12-09] MEDS: DIPHENOXYLATE/ATROPINE 2.5-0.025 MG TABLET PO PRN (01:30)
[2020-12-09] MEDS: MORPHINE 2 MG/1 ML SYRINGE IV PRN (01:30)
[2020-12-09 05:39] LABS: Basophils % 0.9 % (0.0-0.8); Eosinophils # 0.2 10*3/uL (0.0-0.87); Eosinophils % 5.2 % (0.00-10.9); Hematocrit 31.1 VOL% (35.7-47.0); Hemoglobin 9.8 GM/DL (12.0-16.0); Immature Granulocytes % 0.3 %; Immature Granulocytes Absolute 0.01 #; Lymphocytes # 1.1 10*3/uL (1.4-4.0); Lymphocytes % 34.2 % (21.3-54.2); Mean Corpuscular HGB Conc 31.5 GM/DL (32-36); Mean Platelet Volume 12.4 FL (9.6-12.0); Monocytes % 9.5 % (1.7-12.7); Neutrophils % 49.9 % (38.7-73.9); Platelet Count 79 T/CUMM (130-400); Red Blood Count 3.24 MC/CUMM (3.8-5.5); Red Cell Distribution Width 19.1 % (9.3-17.3); White Blood Count 3.3 T/CUMM (4-12)
[2020-12-09 06:01] LABS: Calcium 8.7 MG/DL (8.5-10.1); Osmolality,Calculated 272.1 MOS/KG (273-304); Potassium 4.2 MMOL/L (3.5-5.1)
[2020-12-09] MEDS: INSULIN LISPRO 100 UNIT/ML SUBCUT SCH ×4 (08:53→22:45)
[2020-12-09] MEDS: SEVELAMER CARBONATE 800 MG TABLET PO SCH ×3 (08:55→17:18)
[2020-12-09] MEDS: PANTOPRAZOLE 40 MG TABLET PO SCH ×2 (08:55→23:14)
[2020-12-09] MEDS: GABAPENTIN 100 MG CAPSULE PO SCH (08:55)
[2020-12-09] MEDS: SACUBITRIL/VALSARTAN 49-51 MG TABLET PO SCH ×2 (08:55→23:13)
[2020-12-09] MEDS: ASPIRIN EC 81 MG TABLET PO SCH (08:55)
[2020-12-09] MEDS: PRASUGREL 10 MG TABLET PO SCH (08:55)
[2020-12-09] MEDS: METOPROLOL SUCCINATE XL 25 MG TABLET PO SCH ×2 (10:24→23:13)
[2020-12-09] MEDS: FLUoxetine 10 MG CAPSULE PO SCH (23:13)
[2020-12-10] MEDS: HEPARIN 5,000 UNIT/1 ML VIAL SUBCUT SCH ×3 (00:33→17:40)
[2020-12-10 05:21] LABS: Eosinophils # 0.2 10*3/uL (0.0-0.87); Eosinophils % 4.8 % (0.00-10.9); Hematocrit 31.1 VOL% (35.7-47.0); Hemoglobin 10.1 GM/DL (12.0-16.0); Immature Granulocytes % 0.3 %; Immature Granulocytes Absolute 0.01 #; Lymphocytes # 1.1 10*3/uL (1.4-4.0); Lymphocytes % 35.9 % (21.3-54.2); Mean Corpuscular HGB Conc 32.5 GM/DL (32-36); Mean Corpuscular Volume 93.4 FL (87-102); Mean Platelet Volume 11.9 FL (9.6-12.0); Monocytes % 10.5 % (1.7-12.7); NRBC # 0.02 10*3/uL; Neutrophils % 47.5 % (38.7-73.9); Platelet Count 71 T/CUMM (130-400); Red Blood Count 3.33 MC/CUMM (3.8-5.5); Red Cell Distribution Width 18.8 % (9.3-17.3); White Blood Count 3.2 T/CUMM (4-12)
[2020-12-10 05:33] LABS: Calcium 8.9 MG/DL (8.5-10.1); Potassium 4.3 MMOL/L (3.5-5.1)
[2020-12-10 05:46] LABS: Hypochromasia 1+; Microcytosis 1+; Platelet Estimate Decreased
[2020-12-10] MEDS: INSULIN LISPRO 100 UNIT/ML SUBCUT SCH ×3 (08:32→16:59)
[2020-12-10] MEDS: METOPROLOL SUCCINATE XL 25 MG TABLET PO SCH (10:02)
[2020-12-10] MEDS: SACUBITRIL/VALSARTAN 49-51 MG TABLET PO SCH (10:02)
[2020-12-10] MEDS: PANTOPRAZOLE 40 MG TABLET PO SCH (10:03)
[2020-12-10] MEDS: PRASUGREL 10 MG TABLET PO SCH (10:03)
[2020-12-10] MEDS: ASPIRIN EC 81 MG TABLET PO SCH (10:03)
[2020-12-10] MEDS: SEVELAMER CARBONATE 800 MG TABLET PO SCH ×3 (10:03→17:40)
[2020-12-10] MEDS: GABAPENTIN 100 MG CAPSULE PO SCH (10:03)
[2020-12-10] MEDS: ceFAZolin 2,000 MG/50 ML DUPLEX IV SCH (17:40)
[2020-12-10 17:41] VITALS: BP 120/60
== END 2020-12-10 17:59 | disposition home or self-care (01) | DRG 246 ==
LOC: N.ED 11:29 → SUATTDRO 15:13 → N.EDINP 15:13 → N.5E 17:45
PROVIDERS: ADMIT Internal Medicine; ATTEND Internal Medicine
PROC: CLCCHCL (ICD-10-PCS; 2020-12-01 14:45)

== ENCOUNTER 2021-05-10 06:13 | Observation (INO) ==
[2021-05-10] MEDS ORDERED: ONDANSETRON 4 MG/2 ML VIAL ONE (07:13)
[2021-05-10 07:17] LABS: Basophils % 0.8 % (0.0-0.8); Eosinophils # 0.1 10*3/uL (0.0-0.87); Eosinophils % 1.8 % (0.00-10.9); Hematocrit 30.7 VOL% (35.7-47.0); Hemoglobin 10.1 GM/DL (12.0-16.0); Immature Granulocytes % 0.5 %; Immature Granulocytes Absolute 0.02 #; Lymphocytes # 0.9 10*3/uL (1.4-4.0); Lymphocytes % 23.3 % (21.3-54.2); Mean Corpuscular HGB Conc 32.9 GM/DL (32-36); Mean Corpuscular Volume 89.2 FL (87-102); Monocytes % 4.5 % (1.7-12.7); Neutrophils % 69.1 % (38.7-73.9); Platelet Count 55 T/CUMM (130-400); Red Blood Count 3.44 MC/CUMM (3.8-5.5); Red Cell Distribution Width 15.5 % (9.3-17.3); White Blood Count 3.8 T/CUMM (4-12)
[2021-05-10] MEDS ORDERED: ONDANSETRON 4 MG/2 ML VIAL IV STA (07:19)
[2021-05-10 07:33] LABS: Hypochromia 1+; Microcytosis 1+; Platelet Estimate Decreased
[2021-05-10 07:35] LABS: Calcium 9.9 MG/DL (8.5-10.1); Osmolality,Calculated 308.5 MOS/KG (273-304); Potassium 5.6 MMOL/L (3.5-5.1)
[2021-05-10] MEDS ORDERED: GLUCAGON 1 MG VIAL IM PRN (10:04)
[2021-05-10] MEDS ORDERED: METHOCARBAMOL 750 MG TABLET PO PRN (10:08)
[2021-05-10] MEDS ORDERED: NITROGLYCERIN SL 0.4 MG TABLET SL PRN (10:08)
[2021-05-10] MEDS ORDERED: DEXTROSE 10% 25 GM/250 ML BAG IV PRN (11:25)
[2021-05-10] MEDS: INSULIN LISPRO 100 UNIT/ML SUBCUT SCH ×3 (11:30→22:42)
[2021-05-10] MEDS ORDERED: FUROSEMIDE 100 MG/10 ML VIAL IV SCH (12:00)
[2021-05-10] MEDS ORDERED: HEPARIN 10,000 UNIT/10 ML VIAL IV SCH (13:00)
[2021-05-10] MEDS ORDERED: EPOETIN ALFA-EPBX 2,000 UNIT/ML VIAL IV PRN (13:40)
[2021-05-10] MEDS: ONDANSETRON 4 MG/2 ML VIAL IV PRN ×2 (15:45→22:31)
[2021-05-10] MEDS ORDERED: MORPHINE 2 MG/1 ML SYRINGE ONE (15:47)
[2021-05-10] MEDS ORDERED: MORPHINE 2 MG/1 ML SYRINGE IV PRN (16:25)
[2021-05-10] MEDS ORDERED: HYDROmorphone 2 MG/1 ML VIAL ONE (17:13)
[2021-05-10] MEDS: HEPARIN 5,000 UNIT/1 ML VIAL SUBCUT SCH ×2 (18:30→22:32)
[2021-05-10] MEDS: SUCRALFATE 1 GM TABLET PO SCH (19:00)
[2021-05-10] MEDS: SEVELAMER CARBONATE 800 MG TABLET PO SCH (19:00)
[2021-05-10] MEDS ORDERED: INSULIN GLARGINE 100 UNIT/ML SUBCUT SCH (21:00)
[2021-05-10] MEDS: SACUBITRIL/VALSARTAN 49-51 MG TABLET PO SCH (22:32)
[2021-05-10] MEDS: METOPROLOL SUCCINATE XL 50 MG TABLET PO SCH ×2 (22:32→22:40)
[2021-05-11] MEDS: SUCRALFATE 1 GM TABLET PO SCH ×2 (02:16→10:57)
[2021-05-11 04:56] LABS: Basophils # 0.1 10*3/uL (0.0-0.2); Basophils % 1.2 % (0.0-0.8); Eosinophils # 0.1 10*3/uL (0.0-0.87); Eosinophils % 2.4 % (0.00-10.9); Hematocrit 31.5 VOL% (35.7-47.0); Immature Granulocytes % 0.2 %; Immature Granulocytes Absolute 0.01 #; Lymphocytes # 0.7 10*3/uL (1.4-4.0); Lymphocytes % 17.2 % (21.3-54.2); Mean Corpuscular HGB Conc 31.7 GM/DL (32-36); Mean Corpuscular Volume 92.4 FL (87-102); Monocytes % 7.7 % (1.7-12.7); Neutrophils % 71.3 % (38.7-73.9); Platelet Count 59 T/CUMM (130-400); Red Blood Count 3.41 MC/CUMM (3.8-5.5); Red Cell Distribution Width 17.2 % (9.3-17.3); White Blood Count 4.2 T/CUMM (4-12)
[2021-05-11 05:12] LABS: Hypochromia Slight; Microcytosis Slight; Platelet Estimate Decreased
[2021-05-11] MEDS: HEPARIN 5,000 UNIT/1 ML VIAL SUBCUT SCH (06:50)
[2021-05-11] MEDS: INSULIN LISPRO 100 UNIT/ML SUBCUT SCH (08:15)
[2021-05-11] MEDS: SEVELAMER CARBONATE 800 MG TABLET PO SCH (08:17)
[2021-05-11] MEDS ORDERED: ASPIRIN EC 81 MG TABLET PO SCH (09:00)
[2021-05-11] MEDS ORDERED: LINACLOTIDE 145 MCG CAPSULE PO SCH (09:00)
[2021-05-11] MEDS ORDERED: PANTOPRAZOLE 40 MG TABLET PO SCH (09:00)
[2021-05-11] MEDS: SACUBITRIL/VALSARTAN 49-51 MG TABLET PO SCH (09:52)
[2021-05-11] MEDS: METOPROLOL SUCCINATE XL 50 MG TABLET PO SCH (09:53)
[2021-05-11 11:00] LABS: Calcium 9.9 MG/DL (8.5-10.1); Osmolality,Calculated 299.4 MOS/KG (273-304)
[2021-05-11 11:14] VITALS: BP 126/82
== END 2021-05-11 11:13 | disposition home or self-care (01) ==
LOC: EDUNIT# → N.ED 06:13 → N.EDINP 06:13
PROVIDERS: ADMIT Internal Medicine; ATTEND Internal Medicine

== ENCOUNTER 2021-06-15 09:45 | Inpatient (IN) ==
[2021-06-15] MEDS ORDERED: SODIUM CHLORIDE 0.9% 500 ML IV STA (10:13)
[2021-06-15 10:44] LABS: Albumin 3.2 G/DL (3.4-5.0); Bilirubin,Total 0.4 MG/DL (0.20-1.00); Calcium 9.5 MG/DL (8.5-10.1); Osmolality,Calculated 276.4 MOS/KG (273-304); Potassium 4.3 MMOL/L (3.5-5.1); Total Protein 7.7 G/DL (6.4-8.2)
[2021-06-15 11:35] LABS: Basophils % 0.8 % (0.0-0.8); Eosinophils # 0.2 10*3/uL (0.0-0.87); Eosinophils % 6.1 % (0.00-10.9); Hematocrit 32.2 VOL% (35.7-47.0); Hemoglobin 9.9 GM/DL (12.0-16.0); Immature Granulocytes % 0.3 %; Immature Granulocytes Absolute 0.01 #; Lymphocytes # 1.1 10*3/uL (1.4-4.0); Lymphocytes % 27.4 % (21.3-54.2); Mean Corpuscular HGB Conc 30.7 GM/DL (32-36); Mean Corpuscular Volume 94.4 FL (87-102); Monocytes % 5.6 % (1.7-12.7); Neutrophils % 59.8 % (38.7-73.9); Red Blood Count 3.41 MC/CUMM (3.8-5.5); Red Cell Distribution Width 14.6 % (9.3-17.3); White Blood Count 3.9 T/CUMM (4-12)
[2021-06-15 11:37] LABS: Platelet Count 55 T/CUMM (130-400)
[2021-06-15] MEDS ORDERED: GLUCAGON 1 MG VIAL IM PRN (12:15)
[2021-06-15] MEDS ORDERED: ONDANSETRON 4 MG/2 ML VIAL IV PRN (12:27)
[2021-06-15] MEDS ORDERED: DEXTROSE 10% 250 ML BAG IV PRN (12:32)
[2021-06-15 13:28] LABS: RBC,Urine 15-20 /HPF (0-4); Squamous Epithelial Cell,Urine Occasional /HPF (0-10)
[2021-06-15 13:29] LABS: Glucose,Urine (UA) Negative (Negative); Ketones,Urine Negative (Negative); Nitrite,Urine Negative (Negative); Protein,Urine 3+ MG/DL; Urine Appearance Cloudy (Clear); Urine Color Dark yellow (Yellow); Urine Specific Gravity 1.025 (1.001-1.035)
[2021-06-15 13:30] LABS: Bilirubin,Urine Negative (Negative); Blood, Urine Moderate mg/dL (Negative); Urine Urobilinogen 0.2 EU/DL (<2.0)
[2021-06-15 13:36] LABS: Barbiturates Screen,Urine Negative (Negative); Benzodiazepines Screen,Urine Negative (Negative); Cannabinoid Screen,Urine Negative (Negative); Opiate Screen,Urine Positive (Negative); Phencyclidine Screen,Urine Negative (Negative)
[2021-06-15] MEDS ORDERED: cefTRIAXone 1,000 MG in SODIUM CHLORIDE 0.9% 100 ML IV SCH (15:00)
[2021-06-15] MEDS: SUCRALFATE 1 GM TABLET PO SCH ×2 (15:32→22:25)
[2021-06-15] MEDS: INSULIN LISPRO 100 UNIT/ML SUBCUT SCH ×2 (16:36→22:25)
[2021-06-15] MEDS: SEVELAMER CARBONATE 800 MG TABLET PO SCH (17:28)
[2021-06-15] MEDS ORDERED: NALOXONE 0.4 MG/ML VIAL IV ONE (18:29)
[2021-06-15] MEDS ORDERED: NALOXONE 0.4 MG/ML VIAL ONE (18:30)
[2021-06-15 18:40] LABS: ABG Base Excess -0.4 MMOL/L (-2.5-2.5); ABG HCO3 23.9 MMOL/L (20-26); ABG Oxygen Saturation 87.9 % (95-100); ABG PCO2 39.1 MM HG (35-48); ABG TCO2 22.3 MMOL/L (23-27)
[2021-06-15 21:11] LABS: Acetaminophen < 2.0 UG/ML (10-30); Salicylate < 2.8 MG/DL (2.8-20)
[2021-06-16] MEDS ORDERED: hydrALAZINE 20 MG/1 ML VIAL IV ONE (00:31)
[2021-06-16 07:59] LABS: Basophils % 0.7 % (0.0-0.8); Eosinophils # 0.2 10*3/uL (0.0-0.87); Hematocrit 32.8 VOL% (35.7-47.0); Hemoglobin 10.4 GM/DL (12.0-16.0); Immature Granulocytes % 0.3 %; Immature Granulocytes Absolute 0.01 #; Lymphocytes # 0.7 10*3/uL (1.4-4.0); Lymphocytes % 25.1 % (21.3-54.2); Mean Corpuscular HGB Conc 31.7 GM/DL (32-36); Mean Corpuscular Volume 91.9 FL (87-102); Monocytes % 9.4 % (1.7-12.7); Neutrophils % 57.5 % (38.7-73.9); Platelet Count 65 T/CUMM (130-400); Red Blood Count 3.57 MC/CUMM (3.8-5.5); Red Cell Distribution Width 14.6 % (9.3-17.3); White Blood Count 2.9 T/CUMM (4-12)
[2021-06-16 08:12] LABS: Calcium 9.8 MG/DL (8.5-10.1); Osmolality,Calculated 275.4 MOS/KG (273-304); Potassium 4.7 MMOL/L (3.5-5.1)
[2021-06-16 08:17] LABS: Hypochromia 1+; Microcytosis 1+; Ovalocytes Slight
[2021-06-16 08:18] LABS: Target Cells Slight
[2021-06-16] MEDS: SEVELAMER CARBONATE 800 MG TABLET PO SCH ×3 (09:56→16:13)
[2021-06-16] MEDS: ASPIRIN EC 81 MG TABLET PO SCH (09:56)
[2021-06-16] MEDS: INSULIN LISPRO 100 UNIT/ML SUBCUT SCH ×4 (09:56→21:01)
[2021-06-16] MEDS: SUCRALFATE 1 GM TABLET PO SCH ×3 (09:57→21:01)
[2021-06-16] MEDS: PANTOPRAZOLE 40 MG TABLET PO SCH (09:58)
[2021-06-16] MEDS: LINACLOTIDE 145 MCG CAPSULE PO SCH (09:58)
[2021-06-16] MEDS ORDERED: PROMETHAZINE 25 MG/1 ML VIAL IM ONE (12:18)
[2021-06-16] MEDS: MEROPENEM 500 MG in SODIUM CHLORIDE 0.9% 100 ML IV SCH (14:10)
[2021-06-17 06:18] LABS: Basophils % 0.6 % (0.0-0.8); Eosinophils # 0.2 10*3/uL (0.0-0.87); Eosinophils % 5.8 % (0.00-10.9); Hematocrit 33.3 VOL% (35.7-47.0); Hemoglobin 10.5 GM/DL (12.0-16.0); Lymphocytes # 1.1 10*3/uL (1.4-4.0); Lymphocytes % 33.4 % (21.3-54.2); Mean Corpuscular HGB Conc 31.5 GM/DL (32-36); Mean Corpuscular Volume 92.5 FL (87-102); Mean Platelet Volume 13.6 FL (9.6-12.0); Monocytes % 11.7 % (1.7-12.7); Neutrophils % 48.5 % (38.7-73.9); Platelet Count 73 T/CUMM (130-400); Red Cell Distribution Width 14.6 % (9.3-17.3); White Blood Count 3.3 T/CUMM (4-12)
[2021-06-17 06:29] LABS: Calcium 9.8 MG/DL (8.5-10.1); Osmolality,Calculated 281.1 MOS/KG (273-304)
[2021-06-17 06:45] LABS: Hypochromia Slight; Microcytosis Slight; Platelet Estimate Decreased
[2021-06-17] MEDS: INSULIN LISPRO 100 UNIT/ML SUBCUT SCH ×4 (07:30→22:23)
[2021-06-17] MEDS ORDERED: HEPARIN 10,000 UNIT/10 ML VIAL IV SCH (10:15)
[2021-06-17] MEDS: SEVELAMER CARBONATE 800 MG TABLET PO SCH ×3 (13:44→17:08)
[2021-06-17] MEDS: ASPIRIN EC 81 MG TABLET PO SCH (13:45)
[2021-06-17] MEDS: SUCRALFATE 1 GM TABLET PO SCH ×3 (13:45→21:48)
[2021-06-17] MEDS: PANTOPRAZOLE 40 MG TABLET PO SCH (13:46)
[2021-06-17] MEDS: LINACLOTIDE 145 MCG CAPSULE PO SCH (13:46)
[2021-06-17] MEDS: MEROPENEM 500 MG in SODIUM CHLORIDE 0.9% 100 ML IV SCH (17:06)
[2021-06-17] MEDS ORDERED: PHENYTOIN INJ 1,000 MG in SODIUM CHLORIDE 0.9% 100 ML IV ONE (20:39)
[2021-06-18] MEDS: PHENYTOIN 100 MG/2 ML VIAL IV SCH ×3 (04:34→20:06)
[2021-06-18 06:23] LABS: Basophils % 0.8 % (0.0-0.8); Eosinophils # 0.2 10*3/uL (0.0-0.87); Eosinophils % 4.4 % (0.00-10.9); Hematocrit 34.5 VOL% (35.7-47.0); Immature Granulocytes % 0.5 %; Immature Granulocytes Absolute 0.02 #; Lymphocytes # 1.3 10*3/uL (1.4-4.0); Lymphocytes % 34.2 % (21.3-54.2); Mean Corpuscular HGB Conc 31.9 GM/DL (32-36); Monocytes % 10.4 % (1.7-12.7); Neutrophils % 49.7 % (38.7-73.9); Platelet Count 73 T/CUMM (130-400); Red Blood Count 3.79 MC/CUMM (3.8-5.5); Red Cell Distribution Width 14.5 % (9.3-17.3); White Blood Count 3.9 T/CUMM (4-12)
[2021-06-18 06:39] LABS: Calcium 10.1 MG/DL (8.5-10.1); Osmolality,Calculated 278.4 MOS/KG (273-304); Potassium 5.1 MMOL/L (3.5-5.1)
[2021-06-18 06:47] LABS: Platelet Estimate Decreased; Stomatocytes 1+
[2021-06-18 06:48] LABS: Hypochromia 1+
[2021-06-18] MEDS: INSULIN LISPRO 100 UNIT/ML SUBCUT SCH ×4 (07:53→20:08)
[2021-06-18] MEDS: ASPIRIN EC 81 MG TABLET PO SCH (09:03)
[2021-06-18] MEDS: SEVELAMER CARBONATE 800 MG TABLET PO SCH ×3 (09:03→17:00)
[2021-06-18] MEDS: PANTOPRAZOLE 40 MG TABLET PO SCH (09:04)
[2021-06-18] MEDS: SUCRALFATE 1 GM TABLET PO SCH ×3 (09:04→20:05)
[2021-06-18] MEDS: ACETAMINOPHEN 325 MG TABLET PO PRN ×2 (09:04→20:05)
[2021-06-18] MEDS: LINACLOTIDE 145 MCG CAPSULE PO SCH (09:05)
[2021-06-18] MEDS: MEROPENEM 500 MG in SODIUM CHLORIDE 0.9% 100 ML IV SCH (17:43)
[2021-06-18] MEDS: MELATONIN 3 MG TABLET PO PRN (21:36)
[2021-06-19] MEDS: PHENYTOIN 100 MG/2 ML VIAL IV SCH ×3 (05:22→20:50)
[2021-06-19] MEDS: INSULIN LISPRO 100 UNIT/ML SUBCUT SCH ×4 (07:24→20:53)
[2021-06-19] MEDS: SEVELAMER CARBONATE 800 MG TABLET PO SCH ×4 (08:43→17:01)
[2021-06-19] MEDS: SUCRALFATE 1 GM TABLET PO SCH ×3 (08:43→20:50)
[2021-06-19] MEDS: ASPIRIN EC 81 MG TABLET PO SCH (08:43)
[2021-06-19] MEDS: PANTOPRAZOLE 40 MG TABLET PO SCH (08:43)
[2021-06-19] MEDS: LINACLOTIDE 145 MCG CAPSULE PO SCH (08:43)
[2021-06-19] MEDS ORDERED: ERTAPENEM 500 MG in SODIUM CHLORIDE 0.9% 100 ML IV SCH (12:30)
[2021-06-19] MEDS: ERTAPENEM 500 MG in SODIUM CHLORIDE 0.9% 100 ML IV SCH (16:07)
[2021-06-19] MEDS: MELATONIN 3 MG TABLET PO PRN (20:50)
[2021-06-20] MEDS ORDERED: diphenhydrAMINE CAP 25 MG CAPSULE PO PRN (00:06)
[2021-06-20] MEDS: PHENYTOIN 100 MG/2 ML VIAL IV SCH ×3 (04:37→20:15)
[2021-06-20 05:48] LABS: Calcium 9.2 MG/DL (8.5-10.1); Osmolality,Calculated 279.2 MOS/KG (273-304)
[2021-06-20 05:53] LABS: Basophils % 0.8 % (0.0-0.8); Eosinophils # 0.3 10*3/uL (0.0-0.87); Immature Granulocytes % 0.6 %; Immature Granulocytes Absolute 0.02 #; Lymphocytes # 1.4 10*3/uL (1.4-4.0); Lymphocytes % 39.1 % (21.3-54.2); Mean Corpuscular HGB Conc 31.9 GM/DL (32-36); Mean Corpuscular Volume 93.5 FL (87-102); Mean Platelet Volume 14.2 FL (9.6-12.0); Monocytes % 8.9 % (1.7-12.7); Neutrophils % 43.6 % (38.7-73.9); Red Cell Distribution Width 14.5 % (9.3-17.3); White Blood Count 3.6 T/CUMM (4-12)
[2021-06-20 05:58] LABS: Red Blood Count 2.78 MC/CUMM (3.8-5.5)
[2021-06-20 05:59] LABS: Hemoglobin 8.3 GM/DL (12.0-16.0); Platelet Count 74 T/CUMM (130-400)
[2021-06-20 06:05] LABS: Reactive Lymphocytes 1+
[2021-06-20 06:06] LABS: Hypochromia 1+; Microcytosis 2+; Platelet Estimate Decreased
[2021-06-20] MEDS: INSULIN LISPRO 100 UNIT/ML SUBCUT SCH ×4 (07:22→20:16)
[2021-06-20] MEDS: SUCRALFATE 1 GM TABLET PO SCH ×3 (08:24→20:15)
[2021-06-20] MEDS: PANTOPRAZOLE 40 MG TABLET PO SCH (08:24)
[2021-06-20] MEDS: ASPIRIN EC 81 MG TABLET PO SCH (08:24)
[2021-06-20] MEDS: LINACLOTIDE 145 MCG CAPSULE PO SCH (08:25)
[2021-06-20] MEDS: SEVELAMER CARBONATE 800 MG TABLET PO SCH ×3 (08:25→19:05)
[2021-06-20] MEDS: ERTAPENEM 500 MG in SODIUM CHLORIDE 0.9% 100 ML IV SCH (16:15)
[2021-06-20] MEDS: MELATONIN 3 MG TABLET PO PRN (20:15)
[2021-06-20] MEDS: SACUBITRIL/VALSARTAN 49-51 MG TABLET PO SCH (20:15)
[2021-06-21] MEDS ORDERED: ALUMINUM/MAGNES/SIMETH MAX STR 30 ML UDCUP PO PRN (02:21)
[2021-06-21] MEDS: PHENYTOIN 100 MG/2 ML VIAL IV SCH (04:48)
[2021-06-21 05:43] LABS: Basophils # 0.1 10*3/uL (0.0-0.2); Basophils % 1.4 % (0.0-0.8); Eosinophils # 0.2 10*3/uL (0.0-0.87); Eosinophils % 5.4 % (0.00-10.9); Hematocrit 25.8 VOL% (35.7-47.0); Hemoglobin 8.2 GM/DL (12.0-16.0); Lymphocytes # 1.8 10*3/uL (1.4-4.0); Lymphocytes % 40.9 % (21.3-54.2); Mean Corpuscular HGB Conc 31.8 GM/DL (32-36); Mean Corpuscular Volume 92.8 FL (87-102); Mean Platelet Volume 13.7 FL (9.6-12.0); Monocytes % 7.2 % (1.7-12.7); Neutrophils % 44.9 % (38.7-73.9); Red Blood Count 2.78 MC/CUMM (3.8-5.5); Red Cell Distribution Width 14.4 % (9.3-17.3); White Blood Count 4.3 T/CUMM (4-12)
[2021-06-21 05:50] LABS: Platelet Count 81 T/CUMM (130-400)
[2021-06-21 06:13] LABS: Eosinophils 8 % (0-10); Hypochromia Slight; Lymphocytes 39 % (20-55); Nucleated Red Blood Cells 1 (0-5); Segmented Neutrophils 47 % (50-85)
[2021-06-21 06:14] LABS: Microcytosis 2+; Ovalocytes Slight; Platelet Estimate Decreased
[2021-06-21] MEDS: INSULIN LISPRO 100 UNIT/ML SUBCUT SCH ×4 (07:45→20:53)
[2021-06-21] MEDS: SUCRALFATE 1 GM TABLET PO SCH ×3 (09:43→20:53)
[2021-06-21] MEDS: LINACLOTIDE 145 MCG CAPSULE PO SCH (09:43)
[2021-06-21] MEDS: SEVELAMER CARBONATE 800 MG TABLET PO SCH ×3 (09:44→17:23)
[2021-06-21] MEDS: SACUBITRIL/VALSARTAN 49-51 MG TABLET PO SCH ×2 (09:44→20:53)
[2021-06-21] MEDS: PANTOPRAZOLE 40 MG TABLET PO SCH (09:44)
[2021-06-21] MEDS: ASPIRIN EC 81 MG TABLET PO SCH (09:45)
[2021-06-21] MEDS: PHENYTOIN ER 100 MG CAPSULE PO SCH ×2 (16:31→20:53)
[2021-06-21] MEDS: ERTAPENEM 500 MG in SODIUM CHLORIDE 0.9% 100 ML IV SCH (16:32)
[2021-06-22] MEDS: INSULIN LISPRO 100 UNIT/ML SUBCUT SCH ×4 (07:44→21:58)
[2021-06-22] MEDS: SACUBITRIL/VALSARTAN 49-51 MG TABLET PO SCH ×2 (08:19→20:36)
[2021-06-22] MEDS: ASPIRIN EC 81 MG TABLET PO SCH (08:20)
[2021-06-22] MEDS: SEVELAMER CARBONATE 800 MG TABLET PO SCH ×3 (08:20→18:45)
[2021-06-22] MEDS: PHENYTOIN ER 100 MG CAPSULE PO SCH ×3 (08:20→20:36)
[2021-06-22] MEDS: PANTOPRAZOLE 40 MG TABLET PO SCH (08:20)
[2021-06-22] MEDS: SUCRALFATE 1 GM TABLET PO SCH ×3 (08:20→20:36)
[2021-06-22] MEDS: ACETAMINOPHEN 325 MG TABLET PO PRN ×2 (09:39→21:52)
[2021-06-22] MEDS ORDERED: INFLUENZA VIRUS VACCINE 0.5 ML SYRINGE IM ONE (11:18)
[2021-06-22] MEDS: LINACLOTIDE 145 MCG CAPSULE PO SCH (14:14)
[2021-06-22] MEDS: ERTAPENEM 500 MG in SODIUM CHLORIDE 0.9% 100 ML IV SCH (15:48)
[2021-06-23] MEDS: ACETAMINOPHEN 325 MG TABLET PO PRN ×2 (04:48→20:23)
[2021-06-23] MEDS: INSULIN LISPRO 100 UNIT/ML SUBCUT SCH ×4 (07:49→21:39)
[2021-06-23] MEDS: SUCRALFATE 1 GM TABLET PO SCH ×3 (08:33→20:22)
[2021-06-23] MEDS: SACUBITRIL/VALSARTAN 49-51 MG TABLET PO SCH ×2 (08:33→20:21)
[2021-06-23] MEDS: ASPIRIN EC 81 MG TABLET PO SCH (08:33)
[2021-06-23] MEDS: PANTOPRAZOLE 40 MG TABLET PO SCH (08:34)
[2021-06-23] MEDS: LINACLOTIDE 145 MCG CAPSULE PO SCH (08:34)
[2021-06-23] MEDS: SEVELAMER CARBONATE 800 MG TABLET PO SCH ×3 (08:34→16:49)
[2021-06-23] MEDS: PHENYTOIN ER 100 MG CAPSULE PO SCH ×3 (08:34→20:22)
[2021-06-23] MEDS: ERTAPENEM 500 MG in SODIUM CHLORIDE 0.9% 100 ML IV SCH (15:45)
[2021-06-24 07:30] VITALS: BP 107/68
[2021-06-24] MEDS: INSULIN LISPRO 100 UNIT/ML SUBCUT SCH ×2 (07:35→13:27)
[2021-06-24] MEDS: SEVELAMER CARBONATE 800 MG TABLET PO SCH ×2 (08:09→13:00)
[2021-06-24] MEDS: PHENYTOIN ER 100 MG CAPSULE PO SCH (08:09)
[2021-06-24] MEDS: SACUBITRIL/VALSARTAN 49-51 MG TABLET PO SCH (08:10)
[2021-06-24] MEDS: ASPIRIN EC 81 MG TABLET PO SCH (08:10)
[2021-06-24] MEDS: SUCRALFATE 1 GM TABLET PO SCH (08:10)
[2021-06-24] MEDS: PANTOPRAZOLE 40 MG TABLET PO SCH (08:11)
[2021-06-24] MEDS: LINACLOTIDE 145 MCG CAPSULE PO SCH (08:12)
== END 2021-06-24 15:41 | DRG 100 ==
LOC: N.ED 09:45 → N.EDINP 09:45 → N.3E 18:09 → SUATTDRO 06-16 07:15
PROVIDERS: ADMIT Internal Medicine; ATTEND Hospitalist

== ENCOUNTER 2021-10-05 09:46 | Inpatient (IN) ==
[2021-10-05] MEDS: SODIUM CHLORIDE 0.9% 1,000 ML IV SCH (14:12)
[2021-10-05 14:21] LABS: Basophils % 0.4 % (0.0-0.8); Eosinophils # 0.1 10*3/uL (0.0-0.87); Eosinophils % 1.6 % (0.00-10.9); Hematocrit 32.5 VOL% (35.7-47.0); Hemoglobin 10.3 GM/DL (12.0-16.0); Immature Granulocytes % 0.9 %; Immature Granulocytes Absolute 0.04 #; Lymphocytes # 0.7 10*3/uL (1.4-4.0); Lymphocytes % 14.8 % (21.3-54.2); Mean Corpuscular HGB Conc 31.7 GM/DL (32-36); Mean Corpuscular Volume 88.6 FL (87-102); Monocytes # 0.2 10*3/uL (0.11-0.8); Monocytes % 5.2 % (1.7-12.7); Neutrophils % 77.1 % (38.7-73.9); Platelet Count 59 T/CUMM (130-400); Red Blood Count 3.67 MC/CUMM (3.8-5.5); Red Cell Distribution Width 16.8 % (9.3-17.3); White Blood Count 4.5 T/CUMM (4-12)
[2021-10-05 14:37] LABS: Calcium 9.8 MG/DL (8.5-10.1); Osmolality,Calculated 275.7 MOS/KG (273-304)
[2021-10-05 14:39] LABS: Potassium 6.4 MMOL/L (3.5-5.1)
[2021-10-05] MEDS ORDERED: ONDANSETRON 4 MG/2 ML VIAL IV PRN (15:17)
[2021-10-05] MEDS ORDERED: GLUCAGON 1 MG VIAL IM PRN (15:17)
[2021-10-05] MEDS ORDERED: LINACLOTIDE 145 MCG CAPSULE PO PRN (15:24)
[2021-10-05] MEDS ORDERED: hydrOXYzine HCL 25 MG TABLET PO PRN (15:24)
[2021-10-05] MEDS ORDERED: DEXTROSE 10% 250 ML BAG IV PRN (15:28)
[2021-10-05] MEDS ORDERED: ONDANSETRON ODT 4 MG TABLET PO PRN (15:35)
[2021-10-05] MEDS: INSULIN LISPRO 100 UNIT/ML SUBCUT SCH ×2 (16:52→22:12)
[2021-10-05] MEDS: VANCOMYCIN 125 MG CAPSULE PO SCH ×2 (16:53→21:21)
[2021-10-05] MEDS ORDERED: SODIUM POLYSTYRENE SULFATE 15 GM/60 ML BOTTLE PO ONE (17:30)
[2021-10-05] MEDS: SEVELAMER CARBONATE 800 MG TABLET PO SCH (19:12)
[2021-10-05] MEDS: INSULIN GLARGINE 100 UNIT/ML SUBCUT SCH (21:21)
[2021-10-05] MEDS: SACUBITRIL/VALSARTAN 49-51 MG TABLET PO SCH (21:21)
[2021-10-05] MEDS: MELATONIN 3 MG TABLET PO PRN (21:21)
[2021-10-05] MEDS: ENOXAPARIN 30 MG/0.3 ML SYRINGE SUBCUT SCH (21:21)
[2021-10-06] MEDS: SODIUM CHLORIDE 0.9% 1,000 ML IV SCH ×3 (01:08→20:45)
[2021-10-06] MEDS: VANCOMYCIN 125 MG CAPSULE PO SCH ×4 (04:10→20:07)
[2021-10-06 04:43] LABS: Basophils % 0.3 % (0.0-0.8); Eosinophils % 1.2 % (0.00-10.9); Hematocrit 28.6 VOL% (35.7-47.0); Hemoglobin 9.2 GM/DL (12.0-16.0); Immature Granulocytes % 1.5 %; Immature Granulocytes Absolute 0.05 #; Lymphocytes # 0.6 10*3/uL (1.4-4.0); Mean Corpuscular HGB Conc 32.2 GM/DL (32-36); Mean Corpuscular Volume 86.9 FL (87-102); Monocytes # 0.2 10*3/uL (0.11-0.8); Monocytes % 5.7 % (1.7-12.7); Neutrophils % 74.3 % (38.7-73.9); Platelet Count 57 T/CUMM (130-400); Red Blood Count 3.29 MC/CUMM (3.8-5.5); Red Cell Distribution Width 16.5 % (9.3-17.3); White Blood Count 3.4 T/CUMM (4-12)
[2021-10-06 05:02] LABS: Platelet Estimate Decreased
[2021-10-06 05:04] LABS: Albumin 2.8 G/DL (3.4-5.0); Bilirubin,Total 2.2 MG/DL (0.20-1.00); Calcium 9.4 MG/DL (8.5-10.1); Osmolality,Calculated 281.4 MOS/KG (273-304); Potassium 4.8 MMOL/L (3.5-5.1); Total Protein 6.9 G/DL (6.4-8.2)
[2021-10-06] MEDS: SACUBITRIL/VALSARTAN 49-51 MG TABLET PO SCH ×2 (08:55→20:07)
[2021-10-06] MEDS: SEVELAMER CARBONATE 800 MG TABLET PO SCH ×3 (08:55→16:36)
[2021-10-06] MEDS: METOPROLOL SUCCINATE XL 50 MG TABLET PO SCH (08:56)
[2021-10-06] MEDS: ACETAMINOPHEN 325 MG TABLET PO PRN ×2 (08:56→16:36)
[2021-10-06] MEDS: ASPIRIN EC 81 MG TABLET PO SCH (08:56)
[2021-10-06] MEDS: INSULIN LISPRO 100 UNIT/ML SUBCUT SCH ×4 (08:57→22:07)
[2021-10-06] MEDS: PHENYTOIN ER 100 MG CAPSULE PO SCH ×3 (10:14→20:07)
[2021-10-06] MEDS ORDERED: BISMUTH SUBSALICYLATE 30 ML/524 MG 240 ML/BOTTLE PO SCH (12:31)
[2021-10-06] MEDS ORDERED: GENTAMICIN INJ 120 MG/100 ML PREMIX IV PRN (13:49)
[2021-10-06] MEDS ORDERED: BISMUTH SUBSALICYLATE 30 ML/524 MG 240 ML/BOTTLE PO PRN (16:30)
[2021-10-06] MEDS ORDERED: GENTAMICIN INJ 160 MG in SODIUM CHLORIDE 0.9% 100 ML IV ONE (17:00)
[2021-10-06] MEDS ORDERED: GENTAMICIN INJ 180 MG in SODIUM CHLORIDE 0.9% 100 ML IV ONE (17:00)
[2021-10-06] MEDS ORDERED: SODIUM CHLORIDE 0.9% 500 ML IV ONE ×2 (18:00→20:00)
[2021-10-06] MEDS: MELATONIN 3 MG TABLET PO PRN (20:06)
[2021-10-06] MEDS: ENOXAPARIN 30 MG/0.3 ML SYRINGE SUBCUT SCH (20:11)
[2021-10-06] MEDS: INSULIN GLARGINE 100 UNIT/ML SUBCUT SCH (21:30)
[2021-10-07] MEDS: VANCOMYCIN 125 MG CAPSULE PO SCH ×4 (02:34→20:27)
[2021-10-07] MEDS: SEVELAMER CARBONATE 800 MG TABLET PO SCH ×3 (08:33→16:24)
[2021-10-07] MEDS: SACUBITRIL/VALSARTAN 49-51 MG TABLET PO SCH ×2 (08:33→20:27)
[2021-10-07] MEDS: ASPIRIN EC 81 MG TABLET PO SCH (08:34)
[2021-10-07] MEDS: PHENYTOIN ER 100 MG CAPSULE PO SCH ×3 (08:34→20:27)
[2021-10-07] MEDS: METOPROLOL SUCCINATE XL 50 MG TABLET PO SCH (08:34)
[2021-10-07] MEDS: SODIUM CHLORIDE 0.9% 1,000 ML IV SCH ×2 (08:36→17:54)
[2021-10-07] MEDS: INSULIN LISPRO 100 UNIT/ML SUBCUT SCH ×4 (08:37→21:44)
[2021-10-07 13:23] LABS: Albumin 2.4 G/DL (3.4-5.0); Bilirubin,Total 3.6 MG/DL (0.20-1.00); Calcium 8.1 MG/DL (8.5-10.1); Osmolality,Calculated 280.7 MOS/KG (273-304); Potassium 4.5 MMOL/L (3.5-5.1)
[2021-10-07 16:03] LABS: Basophils % 0.2 % (0.0-0.8); Eosinophils # 0.1 10*3/uL (0.0-0.87); Eosinophils % 1.1 % (0.00-10.9); Hematocrit 32.3 VOL% (35.7-47.0); Hemoglobin 10.4 GM/DL (12.0-16.0); Immature Granulocytes % 1.7 %; Immature Granulocytes Absolute 0.09 #; Lymphocytes # 0.7 10*3/uL (1.4-4.0); Lymphocytes % 12.5 % (21.3-54.2); Mean Corpuscular HGB Conc 32.2 GM/DL (32-36); Mean Corpuscular Volume 87.1 FL (87-102); Monocytes # 0.3 10*3/uL (0.11-0.8); Monocytes % 5.5 % (1.7-12.7); Platelet Count 43 T/CUMM (130-400); Red Blood Count 3.71 MC/CUMM (3.8-5.5); Red Cell Distribution Width 16.9 % (9.3-17.3); White Blood Count 5.3 T/CUMM (4-12)
[2021-10-07 16:33] LABS: Band Neutrophils 6 % (0-10); Eosinophils 1 % (0-10); Lymphocytes 13 % (20-55); Total Cells Counted 100
[2021-10-07 16:34] LABS: Platelet Estimate Decreased
[2021-10-07] MEDS: ENOXAPARIN 30 MG/0.3 ML SYRINGE SUBCUT SCH (20:25)
[2021-10-07] MEDS: INSULIN GLARGINE 100 UNIT/ML SUBCUT SCH (20:26)
[2021-10-07] MEDS: MELATONIN 3 MG TABLET PO PRN (20:27)
[2021-10-08] MEDS: VANCOMYCIN 125 MG CAPSULE PO SCH ×4 (03:32→21:10)
[2021-10-08] MEDS: SODIUM CHLORIDE 0.9% 1,000 ML IV SCH (04:35)
[2021-10-08] MEDS: PHENYTOIN ER 100 MG CAPSULE PO SCH ×3 (08:04→21:11)
[2021-10-08] MEDS: SACUBITRIL/VALSARTAN 49-51 MG TABLET PO SCH ×2 (08:04→21:11)
[2021-10-08] MEDS: ASPIRIN EC 81 MG TABLET PO SCH (08:04)
[2021-10-08] MEDS: INSULIN LISPRO 100 UNIT/ML SUBCUT SCH ×3 (08:04→18:52)
[2021-10-08] MEDS: SEVELAMER CARBONATE 800 MG TABLET PO SCH ×3 (08:04→18:52)
[2021-10-08] MEDS: METOPROLOL SUCCINATE XL 50 MG TABLET PO SCH (08:06)
[2021-10-08] MEDS ORDERED: GENTAMICIN INJ 120 MG/100 ML PREMIX IV ONE (09:00)
[2021-10-08 15:23] LABS: Basophils % 0.4 % (0.0-0.8); Eosinophils # 0.1 10*3/uL (0.0-0.87); Eosinophils % 1.7 % (0.00-10.9); Hemoglobin 9.6 GM/DL (12.0-16.0); Immature Granulocytes % 2.8 %; Immature Granulocytes Absolute 0.15 #; Lymphocytes # 0.9 10*3/uL (1.4-4.0); Lymphocytes % 16.1 % (21.3-54.2); Mean Corpuscular HGB Conc 33.1 GM/DL (32-36); Mean Corpuscular Volume 84.8 FL (87-102); Monocytes # 0.4 10*3/uL (0.11-0.8); Monocytes % 7.3 % (1.7-12.7); Neutrophils % 71.7 % (38.7-73.9); Platelet Count 66 T/CUMM (130-400); Red Blood Count 3.42 MC/CUMM (3.8-5.5); Red Cell Distribution Width 16.7 % (9.3-17.3); White Blood Count 5.5 T/CUMM (4-12)
[2021-10-08 15:26] LABS: Albumin 2.6 G/DL (3.4-5.0); Osmolality,Calculated 271.7 MOS/KG (273-304); Potassium 5.1 MMOL/L (3.5-5.1); Total Protein 7.2 G/DL (6.4-8.2)
[2021-10-08 15:50] LABS: Eosinophils 1 % (0-10); Lymphocytes 28 % (20-55); Target Cells Few; Total Cells Counted 100
[2021-10-08 15:51] LABS: Anisocytosis Slight; Hypochromia Slight; Platelet Estimate Decreased
[2021-10-08] MEDS: INSULIN GLARGINE 100 UNIT/ML SUBCUT SCH (21:09)
[2021-10-08] MEDS: ENOXAPARIN 30 MG/0.3 ML SYRINGE SUBCUT SCH (21:12)
[2021-10-09] MEDS: INSULIN LISPRO 100 UNIT/ML SUBCUT SCH ×5 (01:19→20:57)
[2021-10-09] MEDS: VANCOMYCIN 125 MG CAPSULE PO SCH ×4 (03:25→20:57)
[2021-10-09 04:54] LABS: Basophils % 0.6 % (0.0-0.8); Eosinophils # 0.1 10*3/uL (0.0-0.87); Eosinophils % 1.4 % (0.00-10.9); Hematocrit 27.3 VOL% (35.7-47.0); Hemoglobin 8.8 GM/DL (12.0-16.0); Immature Granulocytes % 1.2 %; Immature Granulocytes Absolute 0.06 #; Lymphocytes # 1.1 10*3/uL (1.4-4.0); Lymphocytes % 21.7 % (21.3-54.2); Mean Corpuscular HGB Conc 32.2 GM/DL (32-36); Mean Corpuscular Volume 84.5 FL (87-102); Monocytes # 0.5 10*3/uL (0.11-0.8); Monocytes % 10.2 % (1.7-12.7); Neutrophils % 64.9 % (38.7-73.9); Platelet Count 51 T/CUMM (130-400); Red Blood Count 3.23 MC/CUMM (3.8-5.5); Red Cell Distribution Width 16.6 % (9.3-17.3); White Blood Count 5.1 T/CUMM (4-12)
[2021-10-09 05:20] LABS: Eosinophils 1 % (0-10); Hypochromia 1+; Lymphocytes 31 % (20-55); Microcytosis 1+; Platelet Estimate Decreased; Total Cells Counted 100
[2021-10-09 05:32] LABS: Albumin 2.6 G/DL (3.4-5.0); Bilirubin,Total 3.3 MG/DL (0.20-1.00); Calcium 9.7 MG/DL (8.5-10.1); Osmolality,Calculated 268.5 MOS/KG (273-304); Potassium 4.5 MMOL/L (3.5-5.1); Total Protein 6.7 G/DL (6.4-8.2)
[2021-10-09] MEDS: cefTRIAXone 1,000 MG in SODIUM CHLORIDE 0.9% 100 ML IV SCH ×2 (08:14→14:06)
[2021-10-09] MEDS: SODIUM CHLORIDE 0.9% 1,000 ML IV SCH (08:14)
[2021-10-09] MEDS: METOPROLOL SUCCINATE XL 50 MG TABLET PO SCH (08:30)
[2021-10-09] MEDS: SACUBITRIL/VALSARTAN 49-51 MG TABLET PO SCH ×2 (08:47→21:00)
[2021-10-09] MEDS: PHENYTOIN ER 100 MG CAPSULE PO SCH ×3 (08:47→20:57)
[2021-10-09] MEDS: SEVELAMER CARBONATE 800 MG TABLET PO SCH ×3 (08:48→16:21)
[2021-10-09] MEDS: ASPIRIN EC 81 MG TABLET PO SCH (08:48)
[2021-10-09] MEDS ORDERED: HEPARIN 10,000 UNIT/10 ML VIAL IV PRN (09:44)
[2021-10-09] MEDS ORDERED: MORPHINE 2 MG/1 ML SYRINGE IV ONE (11:00)
[2021-10-09] MEDS ORDERED: HEPARIN 5,000 UNIT/1 ML VIAL IV PRN (11:23)
[2021-10-09] MEDS: ENOXAPARIN 30 MG/0.3 ML SYRINGE SUBCUT SCH (20:59)
[2021-10-09] MEDS: INSULIN GLARGINE 100 UNIT/ML SUBCUT SCH (21:00)
[2021-10-10] MEDS: VANCOMYCIN 125 MG CAPSULE PO SCH ×4 (02:21→21:10)
[2021-10-10] MEDS: ACETAMINOPHEN 325 MG TABLET PO PRN ×3 (02:23→18:44)
[2021-10-10 05:31] LABS: Basophils % 0.3 % (0.0-0.8); Eosinophils # 0.1 10*3/uL (0.0-0.87); Eosinophils % 0.9 % (0.00-10.9); Hematocrit 25.6 VOL% (35.7-47.0); Hemoglobin 8.5 GM/DL (12.0-16.0); Immature Granulocytes % 0.7 %; Immature Granulocytes Absolute 0.05 #; Lymphocytes # 1.4 10*3/uL (1.4-4.0); Lymphocytes % 20.1 % (21.3-54.2); Mean Corpuscular HGB Conc 33.2 GM/DL (32-36); Mean Corpuscular Volume 84.2 FL (87-102); Monocytes # 0.6 10*3/uL (0.11-0.8); Monocytes % 8.6 % (1.7-12.7); Neutrophils % 69.4 % (38.7-73.9); Red Blood Count 3.04 MC/CUMM (3.8-5.5); Red Cell Distribution Width 16.6 % (9.3-17.3)
[2021-10-10 05:36] LABS: Platelet Count 53 T/CUMM (130-400); White Blood Count 6.9 T/CUMM (4-12)
[2021-10-10 05:56] LABS: Albumin 2.7 G/DL (3.4-5.0); Bilirubin,Total 4.6 MG/DL (0.20-1.00); Calcium 9.9 MG/DL (8.5-10.1); Osmolality,Calculated 271.5 MOS/KG (273-304); Potassium 4.7 MMOL/L (3.5-5.1); Total Protein 6.9 G/DL (6.4-8.2)
[2021-10-10] MEDS: SACUBITRIL/VALSARTAN 49-51 MG TABLET PO SCH ×2 (08:48→21:10)
[2021-10-10] MEDS: PHENYTOIN ER 100 MG CAPSULE PO SCH ×3 (08:48→21:10)
[2021-10-10] MEDS: SEVELAMER CARBONATE 800 MG TABLET PO SCH ×3 (08:49→16:57)
[2021-10-10] MEDS: METOPROLOL SUCCINATE XL 50 MG TABLET PO SCH (08:49)
[2021-10-10] MEDS: ASPIRIN EC 81 MG TABLET PO SCH (08:49)
[2021-10-10] MEDS: INSULIN LISPRO 100 UNIT/ML SUBCUT SCH ×4 (09:27→21:00)
[2021-10-10] MEDS: DICYCLOMINE 10 MG CAPSULE PO SCH ×3 (12:11→21:10)
[2021-10-10] MEDS: cefTRIAXone 1,000 MG in SODIUM CHLORIDE 0.9% 100 ML IV SCH (17:15)
[2021-10-10] MEDS ORDERED: PROMETHAZINE 25 MG/1 ML VIAL IM PRN (20:11)
[2021-10-10] MEDS: ONDANSETRON ODT 4 MG TABLET PO PRN (20:30)
[2021-10-10] MEDS: MELATONIN 3 MG TABLET PO PRN (21:10)
[2021-10-10] MEDS: ENOXAPARIN 30 MG/0.3 ML SYRINGE SUBCUT SCH (21:10)
[2021-10-10] MEDS: INSULIN GLARGINE 100 UNIT/ML SUBCUT SCH (21:10)
[2021-10-11] MEDS: VANCOMYCIN 125 MG CAPSULE PO SCH ×3 (03:34→14:12)
[2021-10-11] MEDS: ONDANSETRON ODT 4 MG TABLET PO PRN (03:34)
[2021-10-11 04:39] LABS: Basophils % 0.3 % (0.0-0.8); Eosinophils # 0.1 10*3/uL (0.0-0.87); Eosinophils % 0.6 % (0.00-10.9); Hematocrit 27.3 VOL% (35.7-47.0); Immature Granulocytes % 10.1 %; Immature Granulocytes Absolute 1.06 #; Lymphocytes # 0.8 10*3/uL (1.4-4.0); Lymphocytes % 7.4 % (21.3-54.2); Mean Corpuscular Volume 83.7 FL (87-102); Mean Platelet Volume 12.7 FL (9.6-12.0); Monocytes # 0.8 10*3/uL (0.11-0.8); Monocytes % 7.2 % (1.7-12.7); NRBC # 0.02 10*3/uL; Neutrophils % 74.4 % (38.7-73.9); Red Blood Count 3.26 MC/CUMM (3.8-5.5); Red Cell Distribution Width 16.8 % (9.3-17.3)
[2021-10-11 04:41] LABS: Platelet Count 74 T/CUMM (130-400); White Blood Count 10.5 T/CUMM (4-12)
[2021-10-11 04:51] LABS: Band Neutrophils 1 % (0-10); Lymphocytes 12 % (20-55); Nucleated Red Blood Cells 1 (0-5); Platelet Estimate Decreased; Total Cells Counted 100
[2021-10-11 04:52] LABS: Hypochromia Slight; Microcytosis Slight
[2021-10-11 04:59] LABS: Albumin 2.7 G/DL (3.4-5.0); Bilirubin,Total 3.8 MG/DL (0.20-1.00); Calcium 10.1 MG/DL (8.5-10.1); Osmolality,Calculated 273.5 MOS/KG (273-304); Potassium 5.3 MMOL/L (3.5-5.1); Total Protein 7.3 G/DL (6.4-8.2)
[2021-10-11] MEDS: INSULIN LISPRO 100 UNIT/ML SUBCUT SCH ×3 (07:50→16:35)
[2021-10-11] MEDS: SACUBITRIL/VALSARTAN 49-51 MG TABLET PO SCH (09:53)
[2021-10-11] MEDS: SEVELAMER CARBONATE 800 MG TABLET PO SCH ×3 (09:53→16:41)
[2021-10-11] MEDS: METOPROLOL SUCCINATE XL 50 MG TABLET PO SCH (09:53)
[2021-10-11] MEDS: PHENYTOIN ER 100 MG CAPSULE PO SCH ×2 (09:53→14:12)
[2021-10-11] MEDS: DICYCLOMINE 10 MG CAPSULE PO SCH ×3 (09:54→16:41)
[2021-10-11] MEDS: ASPIRIN EC 81 MG TABLET PO SCH (09:54)
[2021-10-11] MEDS ORDERED: SODIUM POLYSTYRENE SULFATE 15 GM/60 ML BOTTLE PO ONE (13:00)
[2021-10-11] MEDS: cefTRIAXone 1,000 MG in SODIUM CHLORIDE 0.9% 100 ML IV SCH (15:59)
[2021-10-11 16:09] VITALS: BP 100/59
== END 2021-10-11 16:45 | disposition home health service (06) | DRG 371 ==
LOC: N.ED 09:46 → N.5E 09:46 → SUATTDRO 15:17 → N.5E 17:26 → SUATTDRO 10-06 14:45
PROVIDERS: ADMIT Internal Medicine Geriatric Medicine; ATTEND Family Medicine

== ENCOUNTER 2021-10-26 14:19 | Inpatient (IN) ==
[2021-10-26] MEDS ORDERED: ONDANSETRON 4 MG/2 ML VIAL IV ONE (15:12)
[2021-10-26] MEDS ORDERED: ACETAMINOPHEN 500 MG TABLET PO STA (15:12)
[2021-10-26] MEDS ORDERED: MORPHINE 2 MG/1 ML SYRINGE IV ONE (15:12)
[2021-10-26] MEDS ORDERED: ACETAMINOPHEN 500 MG TABLET ONE (15:12)
[2021-10-26] MEDS ORDERED: SODIUM CHLORIDE 0.9% 500 ML IV STA (15:14)
[2021-10-26 16:14] LABS: Basophils # 0.1 10*3/uL (0.0-0.2); Basophils % 1.2 % (0.0-0.8); Eosinophils # 0.1 10*3/uL (0.0-0.87); Eosinophils % 1.9 % (0.00-10.9); Hematocrit 26.3 VOL% (35.7-47.0); Hemoglobin 8.4 GM/DL (12.0-16.0); Immature Granulocytes % 0.6 %; Immature Granulocytes Absolute 0.03 #; Lymphocytes # 0.5 10*3/uL (1.4-4.0); Lymphocytes % 10.4 % (21.3-54.2); Mean Corpuscular HGB Conc 31.9 GM/DL (32-36); Mean Corpuscular Volume 86.2 FL (87-102); Monocytes # 0.2 10*3/uL (0.11-0.8); Monocytes % 4.3 % (1.7-12.7); Neutrophils % 81.6 % (38.7-73.9); Platelet Count 86 T/CUMM (130-400); Red Blood Count 3.05 MC/CUMM (3.8-5.5); Red Cell Distribution Width 17.8 % (9.3-17.3); White Blood Count 4.8 T/CUMM (4-12)
[2021-10-26 16:27] LABS: INR 1.1; PT Patient Result 12.3 SECS (10.5-12.0)
[2021-10-26 16:54] LABS: Alanine Aminotransferase < 9 U/L (13-56); Albumin 2.8 G/DL (3.4-5.0); Alkaline Phosphatase 173 U/L (45-117); Aspartate Amino Transferase 13 U/L (0-37); Blood Urea Nitrogen 10 MG/DL (7-18); Calcium 9.1 MG/DL (8.5-10.1); Carbon Dioxide 29 MMOL/L (21-32); Chloride 100 MMOL/L (98-107); Glucose 116 MG/DL (74-106); Potassium 3.2 MMOL/L (3.5-5.1); Sodium 136 MMOL/L (136-145)
[2021-10-26 17:59] LABS: Band Neutrophils 8 % (0-10); Eosinophils 5 % (0-10); Lymphocytes 10 % (20-55); Total Cells Counted 100
[2021-10-26 18:00] LABS: Hypochromia 1+; Platelet Estimate Decreased
[2021-10-26 18:01] LABS: Anisocytosis 1+; Target Cells 1+
[2021-10-26] MEDS ORDERED: VANCOMYCIN INJ 1,000 MG in SODIUM CHLORIDE 0.9% 250 ML IV STA (18:23)
[2021-10-26] MEDS ORDERED: PIPERACILLIN/TAZOBACTAM 3,375 MG in SODIUM CHLORIDE 0.9% 100 ML IV STA (18:23)
[2021-10-26] MEDS ORDERED: diphenhydrAMINE CAP 25 MG CAPSULE PO STA (19:24)
[2021-10-26] MEDS ORDERED: GLUCAGON 1 MG VIAL IM PRN (19:56)
[2021-10-26] MEDS ORDERED: DEXTROSE 10% 250 ML BAG IV PRN (20:32)
[2021-10-26] MEDS ORDERED: VANCOMYCIN INJ 500 MG in SODIUM CHLORIDE 0.9% 100 ML IV PRN (20:42)
[2021-10-26] MEDS ORDERED: VANCOMYCIN INJ 1,750 MG in SODIUM CHLORIDE 0.9% 500 ML IV ONE (22:00)
[2021-10-26] MEDS: INSULIN REGULAR 100 UNIT/ML SUBCUT SCH (22:35)
[2021-10-26] MEDS: HEPARIN 5,000 UNIT/1 ML VIAL SUBCUT SCH (22:41)
[2021-10-26] MEDS: hydrOXYzine HCL 10 MG TABLET PO PRN (23:09)
[2021-10-26] MEDS: HYDROCORTISONE 1% CREAM 28 GM TUBE TOP PRN (23:53)
[2021-10-27] MEDS: SIMETHICONE CHEW 125 MG TABLET PO PRN (04:08)
[2021-10-27] MEDS: ACETAMINOPHEN 325 MG TABLET PO PRN (04:35)
[2021-10-27] MEDS: ONDANSETRON 4 MG/2 ML VIAL IV PRN (04:35)
[2021-10-27 05:24] LABS: Basophils # 0.1 10*3/uL (0.0-0.2); Basophils % 1.5 % (0.0-0.8); Eosinophils # 0.2 10*3/uL (0.0-0.87); Eosinophils % 2.9 % (0.00-10.9); Hematocrit 27.7 VOL% (35.7-47.0); Hemoglobin 8.5 GM/DL (12.0-16.0); Immature Granulocytes % 0.7 %; Immature Granulocytes Absolute 0.04 #; Lymphocytes # 1.2 10*3/uL (1.4-4.0); Lymphocytes % 20.6 % (21.3-54.2); Mean Corpuscular HGB Conc 30.7 GM/DL (32-36); Mean Corpuscular Volume 88.5 FL (87-102); Monocytes # 0.4 10*3/uL (0.11-0.8); Monocytes % 6.5 % (1.7-12.7); Neutrophils % 67.8 % (38.7-73.9); Platelet Count 84 T/CUMM (130-400); Red Blood Count 3.13 MC/CUMM (3.8-5.5); White Blood Count 5.9 T/CUMM (4-12)
[2021-10-27 05:38] LABS: Calcium 9.4 MG/DL (8.5-10.1); Osmolality,Calculated 269.1 MOS/KG (273-304); Potassium 3.9 MMOL/L (3.5-5.1)
[2021-10-27] MEDS: hydrOXYzine HCL 10 MG TABLET PO PRN (05:40)
[2021-10-27 05:45] LABS: Platelet Estimate Decreased
[2021-10-27] MEDS: INSULIN REGULAR 100 UNIT/ML SUBCUT SCH ×4 (07:23→20:31)
[2021-10-27] MEDS ORDERED: PANTOPRAZOLE 40 MG TABLET PO SCH (09:00)
[2021-10-27] MEDS: HEPARIN 5,000 UNIT/1 ML VIAL SUBCUT SCH ×2 (09:20→20:29)
[2021-10-27] MEDS: PHENYTOIN ER 100 MG CAPSULE PO SCH ×3 (10:15→20:29)
[2021-10-27] MEDS: SACUBITRIL/VALSARTAN 49-51 MG TABLET PO SCH ×2 (10:15→20:29)
[2021-10-27] MEDS ORDERED: SODIUM CHLORIDE 0.9% 250 ML IV SCH (13:00)
[2021-10-27] MEDS: SUCRALFATE 1 GM TABLET PO SCH ×2 (13:10→13:11)
[2021-10-27] MEDS: SEVELAMER CARBONATE 800 MG TABLET PO SCH ×2 (13:11→16:52)
[2021-10-27] MEDS: ASPIRIN EC 81 MG TABLET PO SCH (13:11)
[2021-10-27] MEDS: METOPROLOL SUCCINATE XL 50 MG TABLET PO SCH (13:11)
[2021-10-27] MEDS: PIPERACILLIN/TAZOBACTAM 3,375 MG in SODIUM CHLORIDE 0.9% 100 ML IV SCH (14:27)
[2021-10-27] MEDS: PANTOPRAZOLE 40 MG VIAL IV SCH ×2 (14:27→20:30)
[2021-10-27] MEDS: MELATONIN 3 MG TABLET PO PRN (20:29)
[2021-10-27] MEDS: INSULIN GLARGINE 100 UNIT/ML SUBCUT SCH (20:31)
[2021-10-28] MEDS: ONDANSETRON 4 MG/2 ML VIAL IV PRN (01:21)
[2021-10-28] MEDS: PIPERACILLIN/TAZOBACTAM 3,375 MG in SODIUM CHLORIDE 0.9% 100 ML IV SCH ×2 (03:13→15:00)
[2021-10-28 06:04] LABS: Basophils # 0.1 10*3/uL (0.0-0.2); Basophils % 2.5 % (0.0-0.8); Eosinophils # 0.2 10*3/uL (0.0-0.87); Eosinophils % 4.8 % (0.00-10.9); Hematocrit 26.9 VOL% (35.7-47.0); Hemoglobin 8.5 GM/DL (12.0-16.0); Immature Granulocytes % 0.5 %; Immature Granulocytes Absolute 0.02 #; Lymphocytes % 24.9 % (21.3-54.2); Mean Corpuscular HGB Conc 31.6 GM/DL (32-36); Mean Corpuscular Volume 86.5 FL (87-102); Monocytes # 0.3 10*3/uL (0.11-0.8); Monocytes % 8.6 % (1.7-12.7); Neutrophils % 58.7 % (38.7-73.9); Platelet Count 93 T/CUMM (130-400); Red Blood Count 3.11 MC/CUMM (3.8-5.5)
[2021-10-28 06:26] LABS: % Iron Saturation 42.8 % (18-50); Calcium 9.4 MG/DL (8.5-10.1); Ferritin 1033.4 ng/mL (8-252); Folate 5.63 NG/ML (5.38-24.0); Osmolality,Calculated 273.2 MOS/KG (273-304); Potassium 3.9 MMOL/L (3.5-5.1)
[2021-10-28] MEDS: INSULIN REGULAR 100 UNIT/ML SUBCUT SCH ×4 (07:41→22:43)
[2021-10-28] MEDS: SEVELAMER CARBONATE 800 MG TABLET PO SCH ×3 (07:42→16:37)
[2021-10-28] MEDS: SODIUM CHLORIDE 0.9% 500 ML IV SCH (08:48)
[2021-10-28] MEDS: PANTOPRAZOLE 40 MG VIAL IV SCH ×2 (08:50→21:33)
[2021-10-28] MEDS ORDERED: ETOMIDATE 20 MG/10 ML VIAL IV ONE (09:09)
[2021-10-28] MEDS ORDERED: LIDOCAINE 2% 5 ML VIAL ONE (09:09)
[2021-10-28] MEDS ORDERED: propofoL 200 MG/20 ML VIAL IV ONE (09:09)
[2021-10-28] MEDS ORDERED: DEXTROSE 50% 25 GM/50 ML VIAL IV PRN (09:16)
[2021-10-28] MEDS: ASPIRIN EC 81 MG TABLET PO SCH (11:30)
[2021-10-28] MEDS: SACUBITRIL/VALSARTAN 49-51 MG TABLET PO SCH (11:32)
[2021-10-28] MEDS: PHENYTOIN ER 100 MG CAPSULE PO SCH ×3 (11:32→21:34)
[2021-10-28] MEDS: ACETAMINOPHEN 325 MG TABLET PO PRN ×2 (11:32→22:52)
[2021-10-28] MEDS: METOPROLOL SUCCINATE XL 50 MG TABLET PO SCH (14:59)
[2021-10-28] MEDS: hydrOXYzine HCL 10 MG TABLET PO PRN (16:37)
[2021-10-28] MEDS ORDERED: VANCOMYCIN INJ 500 MG in SODIUM CHLORIDE 0.9% 100 ML IV ONE (17:00)
[2021-10-28] MEDS: INSULIN GLARGINE 100 UNIT/ML SUBCUT SCH (22:28)
[2021-10-28] MEDS ORDERED: SODIUM CHLORIDE 0.9% 500 ML IV ONE (22:39)
[2021-10-29] MEDS: hydrOXYzine HCL 10 MG TABLET PO PRN (02:28)
[2021-10-29] MEDS: PIPERACILLIN/TAZOBACTAM 3,375 MG in SODIUM CHLORIDE 0.9% 100 ML IV SCH ×2 (04:39→14:36)
[2021-10-29] MEDS: MICONAZOLE 2% CREAM 57 GM TUBE TOP SCH ×3 (05:06→21:13)
[2021-10-29 05:31] LABS: Basophils # 0.1 10*3/uL (0.0-0.2); Basophils % 1.9 % (0.0-0.8); Eosinophils # 0.2 10*3/uL (0.0-0.87); Eosinophils % 3.5 % (0.00-10.9); Hematocrit 28.1 VOL% (35.7-47.0); Hemoglobin 8.6 GM/DL (12.0-16.0); Immature Granulocytes % 0.2 %; Immature Granulocytes Absolute 0.01 #; Lymphocytes # 1.2 10*3/uL (1.4-4.0); Lymphocytes % 27.1 % (21.3-54.2); Mean Corpuscular HGB Conc 30.6 GM/DL (32-36); Mean Corpuscular Volume 88.6 FL (87-102); Monocytes # 0.4 10*3/uL (0.11-0.8); Monocytes % 8.9 % (1.7-12.7); Neutrophils % 58.4 % (38.7-73.9); Platelet Count 100 T/CUMM (130-400); Red Blood Count 3.17 MC/CUMM (3.8-5.5); Red Cell Distribution Width 18.3 % (9.3-17.3); White Blood Count 4.3 T/CUMM (4-12)
[2021-10-29 05:45] LABS: Osmolality,Calculated 267.1 MOS/KG (273-304); Potassium 4.8 MMOL/L (3.5-5.1)
[2021-10-29] MEDS: INSULIN REGULAR 100 UNIT/ML SUBCUT SCH ×4 (08:59→23:02)
[2021-10-29] MEDS: SEVELAMER CARBONATE 800 MG TABLET PO SCH ×3 (09:03→17:21)
[2021-10-29] MEDS: METOPROLOL SUCCINATE XL 50 MG TABLET PO SCH ×2 (09:04→09:11)
[2021-10-29] MEDS: PHENYTOIN ER 100 MG CAPSULE PO SCH ×3 (09:04→21:13)
[2021-10-29] MEDS: HYDROCORTISONE 1% CREAM 28 GM TUBE TOP PRN (09:04)
[2021-10-29] MEDS: ASPIRIN EC 81 MG TABLET PO SCH (09:04)
[2021-10-29] MEDS: PANTOPRAZOLE 40 MG VIAL IV SCH (09:10)
[2021-10-29] MEDS: SACUBITRIL/VALSARTAN 49-51 MG TABLET PO SCH ×2 (09:12→21:13)
[2021-10-29] MEDS: CETIRIZINE 10 MG TABLET PO SCH (12:24)
[2021-10-29] MEDS: predniSONE 20 MG TABLET PO SCH (12:25)
[2021-10-29] MEDS: PANTOPRAZOLE 40 MG TABLET PO SCH (21:12)
[2021-10-29] MEDS: GABAPENTIN 100 MG CAPSULE PO SCH (21:12)
[2021-10-29] MEDS: diphenhydrAMINE CAP 50 MG CAPSULE PO PRN (21:12)
[2021-10-29] MEDS: INSULIN GLARGINE 100 UNIT/ML SUBCUT SCH (23:03)
[2021-10-30] MEDS: PIPERACILLIN/TAZOBACTAM 3,375 MG in SODIUM CHLORIDE 0.9% 100 ML IV SCH ×2 (02:45→16:27)
[2021-10-30] MEDS: diphenhydrAMINE CAP 50 MG CAPSULE PO PRN ×3 (02:56→20:35)
[2021-10-30] MEDS: SIMETHICONE CHEW 125 MG TABLET PO PRN (05:24)
[2021-10-30] MEDS: INSULIN REGULAR 100 UNIT/ML SUBCUT SCH ×4 (10:53→23:31)
[2021-10-30] MEDS: SEVELAMER CARBONATE 800 MG TABLET PO SCH ×3 (10:54→16:32)
[2021-10-30] MEDS: ASPIRIN EC 81 MG TABLET PO SCH (10:54)
[2021-10-30] MEDS: predniSONE 20 MG TABLET PO SCH (10:55)
[2021-10-30] MEDS: SACUBITRIL/VALSARTAN 49-51 MG TABLET PO SCH ×2 (10:55→20:36)
[2021-10-30] MEDS: MICONAZOLE 2% CREAM 57 GM TUBE TOP SCH ×2 (10:55→20:36)
[2021-10-30] MEDS: PHENYTOIN ER 100 MG CAPSULE PO SCH ×3 (10:55→20:35)
[2021-10-30] MEDS: PANTOPRAZOLE 40 MG TABLET PO SCH ×3 (10:55→20:35)
[2021-10-30] MEDS: CETIRIZINE 10 MG TABLET PO SCH (10:56)
[2021-10-30] MEDS: METOPROLOL SUCCINATE XL 50 MG TABLET PO SCH (10:56)
[2021-10-30] MEDS ORDERED: VANCOMYCIN INJ 500 MG in SODIUM CHLORIDE 0.9% 100 ML IV ONE (17:00)
[2021-10-30] MEDS: GABAPENTIN 100 MG CAPSULE PO SCH (20:35)
[2021-10-30] MEDS: MELATONIN 3 MG TABLET PO PRN (20:35)
[2021-10-30] MEDS: INSULIN GLARGINE 100 UNIT/ML SUBCUT SCH (20:38)
[2021-10-31] MEDS: ONDANSETRON 4 MG/2 ML VIAL IV PRN (03:21)
[2021-10-31] MEDS: SIMETHICONE CHEW 125 MG TABLET PO PRN ×2 (04:24→19:54)
[2021-10-31] MEDS: PIPERACILLIN/TAZOBACTAM 3,375 MG in SODIUM CHLORIDE 0.9% 100 ML IV SCH (04:41)
[2021-10-31 05:43] LABS: Calcium 9.6 MG/DL (8.5-10.1); Osmolality,Calculated 272.8 MOS/KG (273-304)
[2021-10-31 05:49] LABS: Basophils # 0.1 10*3/uL (0.0-0.2); Basophils % 1.1 % (0.0-0.8); Eosinophils # 0.2 10*3/uL (0.0-0.87); Eosinophils % 3.3 % (0.00-10.9); Hematocrit 28.1 VOL% (35.7-47.0); Hemoglobin 8.5 GM/DL (12.0-16.0); Immature Granulocytes % 0.6 %; Immature Granulocytes Absolute 0.03 #; Lymphocytes # 1.4 10*3/uL (1.4-4.0); Lymphocytes % 26.4 % (21.3-54.2); Mean Corpuscular HGB Conc 30.2 GM/DL (32-36); Mean Corpuscular Volume 89.2 FL (87-102); Mean Platelet Volume 13.9 FL (9.6-12.0); Monocytes # 0.4 10*3/uL (0.11-0.8); Monocytes % 6.9 % (1.7-12.7); Neutrophils % 61.7 % (38.7-73.9); Platelet Count 129 T/CUMM (130-400); Red Blood Count 3.15 MC/CUMM (3.8-5.5); Red Cell Distribution Width 18.2 % (9.3-17.3); White Blood Count 5.2 T/CUMM (4-12)
[2021-10-31 08:06] LABS: Anisocytosis Slight
[2021-10-31 08:07] LABS: Hypochromia Slight; Target Cells Slight
[2021-10-31 08:08] LABS: Platelet Estimate Normal; Spherocytes Slight
[2021-10-31] MEDS: INSULIN REGULAR 100 UNIT/ML SUBCUT SCH ×4 (09:27→20:48)
[2021-10-31] MEDS: SACUBITRIL/VALSARTAN 49-51 MG TABLET PO SCH ×2 (09:36→20:46)
[2021-10-31] MEDS: HEPARIN 5,000 UNIT/1 ML VIAL SUBCUT SCH ×2 (09:36→23:23)
[2021-10-31] MEDS: PANTOPRAZOLE 40 MG TABLET PO SCH ×2 (09:37→20:46)
[2021-10-31] MEDS: CETIRIZINE 10 MG TABLET PO SCH (09:37)
[2021-10-31] MEDS: ASPIRIN EC 81 MG TABLET PO SCH (09:37)
[2021-10-31] MEDS: SEVELAMER CARBONATE 800 MG TABLET PO SCH ×3 (09:37→16:43)
[2021-10-31] MEDS: PHENYTOIN ER 100 MG CAPSULE PO SCH ×3 (09:37→20:46)
[2021-10-31] MEDS: predniSONE 20 MG TABLET PO SCH (09:37)
[2021-10-31] MEDS: METOPROLOL SUCCINATE XL 50 MG TABLET PO SCH (09:37)
[2021-10-31] MEDS: MICONAZOLE 2% CREAM 57 GM TUBE TOP SCH ×2 (09:49→20:48)
[2021-10-31] MEDS: diphenhydrAMINE CAP 50 MG CAPSULE PO PRN (16:43)
[2021-10-31] MEDS: hydrOXYzine HCL 10 MG TABLET PO PRN (20:46)
[2021-10-31] MEDS: GABAPENTIN 100 MG CAPSULE PO SCH (20:46)
[2021-10-31] MEDS: INSULIN GLARGINE 100 UNIT/ML SUBCUT SCH (20:47)
[2021-11-01] MEDS: ACETAMINOPHEN 325 MG TABLET PO PRN (01:27)
[2021-11-01] MEDS: INSULIN REGULAR 100 UNIT/ML SUBCUT SCH ×4 (08:10→21:05)
[2021-11-01] MEDS: diphenhydrAMINE CAP 50 MG CAPSULE PO PRN ×2 (09:32→21:02)
[2021-11-01] MEDS: PHENYTOIN ER 100 MG CAPSULE PO SCH ×3 (09:32→21:04)
[2021-11-01] MEDS: SEVELAMER CARBONATE 800 MG TABLET PO SCH ×3 (09:32→16:53)
[2021-11-01] MEDS: CETIRIZINE 10 MG TABLET PO SCH (09:32)
[2021-11-01] MEDS: METOPROLOL SUCCINATE XL 50 MG TABLET PO SCH (09:32)
[2021-11-01] MEDS: CEFUROXIME 250 MG TABLET PO SCH (09:33)
[2021-11-01] MEDS: SACUBITRIL/VALSARTAN 49-51 MG TABLET PO SCH ×2 (09:33→21:00)
[2021-11-01] MEDS: PANTOPRAZOLE 40 MG TABLET PO SCH ×2 (09:33→21:04)
[2021-11-01] MEDS: ASPIRIN EC 81 MG TABLET PO SCH (09:33)
[2021-11-01] MEDS: predniSONE 20 MG TABLET PO SCH (09:33)
[2021-11-01] MEDS: MICONAZOLE 2% CREAM 57 GM TUBE TOP SCH ×2 (09:33→21:04)
[2021-11-01] MEDS: HEPARIN 5,000 UNIT/1 ML VIAL SUBCUT SCH ×2 (09:33→21:03)
[2021-11-01] MEDS: SODIUM CHLORIDE 0.9% 500 ML IV SCH (10:34)
[2021-11-01] MEDS: METOCLOPRAMIDE 10 MG/10 ML UDCUP PO SCH ×2 (16:53→21:03)
[2021-11-01] MEDS: GABAPENTIN 100 MG CAPSULE PO SCH (21:03)
[2021-11-01] MEDS: INSULIN GLARGINE 100 UNIT/ML SUBCUT SCH (21:04)
[2021-11-02 07:16] VITALS: BP 97/55
[2021-11-02] MEDS: INSULIN REGULAR 100 UNIT/ML SUBCUT SCH ×2 (08:09→14:02)
[2021-11-02] MEDS: CETIRIZINE 10 MG TABLET PO SCH (08:10)
[2021-11-02] MEDS: PANTOPRAZOLE 40 MG TABLET PO SCH (08:10)
[2021-11-02] MEDS: PHENYTOIN ER 100 MG CAPSULE PO SCH (08:10)
[2021-11-02] MEDS: ASPIRIN EC 81 MG TABLET PO SCH (08:10)
[2021-11-02] MEDS: METOCLOPRAMIDE 10 MG/10 ML UDCUP PO SCH ×2 (08:10→14:02)
[2021-11-02] MEDS: SEVELAMER CARBONATE 800 MG TABLET PO SCH ×2 (08:10→14:02)
[2021-11-02] MEDS: HEPARIN 5,000 UNIT/1 ML VIAL SUBCUT SCH (08:11)
[2021-11-02] MEDS: METOPROLOL SUCCINATE XL 50 MG TABLET PO SCH (08:11)
[2021-11-02] MEDS: SACUBITRIL/VALSARTAN 49-51 MG TABLET PO SCH (08:11)
[2021-11-02] MEDS: CEFUROXIME 250 MG TABLET PO SCH (08:11)
[2021-11-02] MEDS: MICONAZOLE 2% CREAM 57 GM TUBE TOP SCH (08:11)
[2021-11-02] MEDS: VANCOMYCIN 125 MG CAPSULE PO SCH ×2 (08:51→14:02)
[2021-11-02 10:34] LABS: Basophils % 0.3 % (0.0-0.8); Eosinophils # 0.1 10*3/uL (0.0-0.87); Eosinophils % 0.6 % (0.00-10.9); Hematocrit 28.9 VOL% (35.7-47.0); Hemoglobin 9.2 GM/DL (12.0-16.0); Lymphocytes % 20.3 % (21.3-54.2); Mean Corpuscular HGB Conc 31.8 GM/DL (32-36); Mean Corpuscular Volume 86.3 FL (87-102); Mean Platelet Volume 11.9 FL (9.6-12.0); Monocytes # 0.6 10*3/uL (0.11-0.8); Monocytes % 5.6 % (1.7-12.7); NRBC # 0.07 10*3/uL; Neutrophils % 72.2 % (38.7-73.9); Platelet Count 175 T/CUMM (130-400); Red Blood Count 3.35 MC/CUMM (3.8-5.5); Red Cell Distribution Width 18.5 % (9.3-17.3); White Blood Count 9.8 T/CUMM (4-12)
[2021-11-02 10:50] LABS: Calcium 9.3 MG/DL (8.5-10.1); Osmolality,Calculated 276.1 MOS/KG (273-304); Potassium 4.1 MMOL/L (3.5-5.1)
== END 2021-11-02 14:50 | disposition home or self-care (01) | DRG 314 ==
LOC: N.ED 14:19 → SUATTDRO 20:00 → N.EDINP 20:00 → N.5E 21:19
PROVIDERS: ADMIT Internal Medicine; ATTEND Internal Medicine

== ENCOUNTER 2021-11-06 16:43 | Observation (INO) ==
[2021-11-06] MEDS ORDERED: ASPIRIN 325 MG TABLET PO STA (17:49)
[2021-11-06] MEDS ORDERED: MORPHINE 2 MG/1 ML SYRINGE IV ONE (17:49)
[2021-11-06] MEDS ORDERED: DILTIAZEM 25 MG/5 ML VIAL IV STA (17:50)
[2021-11-06 17:53] LABS: Basophils % 0.6 % (0.0-0.8); Eosinophils # 0.2 10*3/uL (0.0-0.87); Eosinophils % 3.6 % (0.00-10.9); Hematocrit 32.1 VOL% (35.7-47.0); Hemoglobin 10.2 GM/DL (12.0-16.0); Immature Granulocytes % 0.2 %; Immature Granulocytes Absolute 0.01 #; Lymphocytes # 1.3 10*3/uL (1.4-4.0); Lymphocytes % 28.7 % (21.3-54.2); Mean Corpuscular HGB Conc 31.8 GM/DL (32-36); Mean Corpuscular Volume 87.2 FL (87-102); Mean Platelet Volume 12.2 FL (9.6-12.0); Monocytes # 0.3 10*3/uL (0.11-0.8); Monocytes % 7.1 % (1.7-12.7); Neutrophils % 59.8 % (38.7-73.9); Platelet Count 160 T/CUMM (130-400); Red Blood Count 3.68 MC/CUMM (3.8-5.5); Red Cell Distribution Width 19.7 % (9.3-17.3); White Blood Count 4.7 T/CUMM (4-12)
[2021-11-06 18:03] LABS: PT Patient Result 11.1 SECS (10.5-12.0)
[2021-11-06 18:12] LABS: Albumin 3.3 G/DL (3.4-5.0); Calcium 9.8 MG/DL (8.5-10.1); Osmolality,Calculated 268.4 MOS/KG (273-304); Potassium 5.5 MMOL/L (3.5-5.1)
[2021-11-06] MEDS ORDERED: DILTIAZEM INJ 100 MG in SODIUM CHLORIDE 0.9% 100 ML IV SCH (19:00)
[2021-11-06 19:12] LABS: Hypochromia 1+; Platelet Estimate Adequate
[2021-11-06 19:13] LABS: Anisocytosis 1+
[2021-11-06] MEDS ORDERED: GLUCAGON 1 MG VIAL IM PRN (19:40)
[2021-11-06] MEDS ORDERED: DOCUSATE SODIUM 100 MG CAPSULE PO PRN (19:40)
[2021-11-06] MEDS ORDERED: DEXTROSE 10% 250 ML BAG IV PRN (19:40)
[2021-11-06] MEDS ORDERED: ONDANSETRON 4 MG/2 ML VIAL IV PRN (19:40)
[2021-11-06] MEDS ORDERED: HYDROCORTISONE 1% CREAM 28 GM TUBE TOP PRN (19:43)
[2021-11-06] MEDS ORDERED: MELATONIN 3 MG TABLET PO PRN (19:43)
[2021-11-06] MEDS ORDERED: hydrOXYzine HCL 25 MG TABLET PO PRN (19:43)
[2021-11-06] MEDS ORDERED: ALUM/MAG/SIMETH/LIDO VISC 1:1 30 ML BOTTLE PO STA (19:43)
[2021-11-06] MEDS ORDERED: LINACLOTIDE 145 MCG CAPSULE PO PRN (19:43)
[2021-11-06] MEDS: VANCOMYCIN 125 MG CAPSULE PO SCH (23:35)
[2021-11-06] MEDS: PHENYTOIN ER 100 MG CAPSULE PO SCH (23:36)
[2021-11-06] MEDS: DICYCLOMINE 10 MG CAPSULE PO SCH (23:36)
[2021-11-06] MEDS: INSULIN REGULAR 100 UNIT/ML SUBCUT SCH (23:36)
[2021-11-06] MEDS: GABAPENTIN 100 MG CAPSULE PO SCH (23:37)
[2021-11-07] MEDS ORDERED: METOPROLOL TARTRATE 5 MG/5 ML VIAL IV ONE (00:43)
[2021-11-07] MEDS: HEPARIN DRIP 25,000 UNITS/500 ML PREMIX IV SCH ×2 (01:20→21:39)
[2021-11-07 05:42] LABS: Basophils # 0.1 10*3/uL (0.0-0.2); Basophils % 1.2 % (0.0-0.8); Eosinophils # 0.2 10*3/uL (0.0-0.87); Eosinophils % 5.6 % (0.00-10.9); Hematocrit 31.2 VOL% (35.7-47.0); Hemoglobin 9.6 GM/DL (12.0-16.0); Immature Granulocytes % 0.2 %; Immature Granulocytes Absolute 0.01 #; Lymphocytes # 1.5 10*3/uL (1.4-4.0); Lymphocytes % 35.7 % (21.3-54.2); Mean Corpuscular HGB Conc 30.8 GM/DL (32-36); Mean Corpuscular Volume 88.4 FL (87-102); Mean Platelet Volume 12.5 FL (9.6-12.0); Monocytes # 0.5 10*3/uL (0.11-0.8); Monocytes % 12.1 % (1.7-12.7); Neutrophils % 45.2 % (38.7-73.9); Red Blood Count 3.53 MC/CUMM (3.8-5.5); Red Cell Distribution Width 19.7 % (9.3-17.3); White Blood Count 4.3 T/CUMM (4-12)
[2021-11-07 05:45] LABS: Platelet Count 125 T/CUMM (130-400)
[2021-11-07 06:17] LABS: Albumin 2.8 G/DL (3.4-5.0); Bilirubin,Total 0.8 MG/DL (0.20-1.00); Calcium 9.5 MG/DL (8.5-10.1); Osmolality,Calculated 266.4 MOS/KG (273-304); Potassium 3.4 MMOL/L (3.5-5.1); Risk Ratio 1.67; Total Protein 6.7 G/DL (6.4-8.2); VLDL Cholesterol 7.8 MG/DL
[2021-11-07] MEDS ORDERED: POTASSIUM CHLORIDE 20 MEQ TABLET PO ONE (08:48)
[2021-11-07] MEDS: PHENYTOIN ER 100 MG CAPSULE PO SCH ×3 (08:51→21:41)
[2021-11-07] MEDS: PANTOPRAZOLE 40 MG TABLET PO SCH (08:51)
[2021-11-07] MEDS: SEVELAMER CARBONATE 800 MG TABLET PO SCH ×3 (08:51→17:37)
[2021-11-07] MEDS: CETIRIZINE 10 MG TABLET PO SCH (08:51)
[2021-11-07] MEDS: VANCOMYCIN 125 MG CAPSULE PO SCH ×4 (08:52→21:41)
[2021-11-07] MEDS: DICYCLOMINE 10 MG CAPSULE PO SCH ×4 (08:52→21:41)
[2021-11-07] MEDS: MICONAZOLE 2% CREAM 57 GM TUBE TOP SCH ×2 (08:52→22:42)
[2021-11-07] MEDS: ASPIRIN EC 81 MG TABLET PO SCH (08:54)
[2021-11-07] MEDS ORDERED: METOPROLOL SUCCINATE XL 50 MG TABLET PO SCH (09:00)
[2021-11-07] MEDS: INSULIN REGULAR 100 UNIT/ML SUBCUT SCH ×4 (10:02→22:42)
[2021-11-07 13:33] LABS: Hepatitis B Core IgM Quant 0.08 Index; Hepatitis B Surface Ag Quant < 0.10 Index; Hepatitis B Surface Ag Result Non-Reactive (NonReactive); Hepatitis C Virus Ab Quant 0.12 Index; Hepatitis C Virus Ab Result Non-Reactive (NonReactive)
[2021-11-07] MEDS: hydrOXYzine HCL 25 MG TABLET PO SCH ×2 (17:38→21:41)
[2021-11-07] MEDS: GABAPENTIN 100 MG CAPSULE PO SCH (21:41)
[2021-11-07] MEDS: METOPROLOL SUCCINATE XL 50 MG TABLET PO SCH (21:42)
[2021-11-08 08:23] LABS: Eosinophils # 0.1 10*3/uL (0.0-0.87); Eosinophils % 3.1 % (0.00-10.9); Hematocrit 29.1 VOL% (35.7-47.0); Hemoglobin 9.1 GM/DL (12.0-16.0); Immature Granulocytes % 0.8 %; Immature Granulocytes Absolute 0.03 #; Lymphocytes # 1.4 10*3/uL (1.4-4.0); Lymphocytes % 37.6 % (21.3-54.2); Mean Corpuscular HGB Conc 31.3 GM/DL (32-36); Mean Platelet Volume 12.1 FL (9.6-12.0); Monocytes # 0.3 10*3/uL (0.11-0.8); Monocytes % 8.9 % (1.7-12.7); NRBC # 0.02 10*3/uL; Neutrophils % 48.6 % (38.7-73.9); Red Blood Count 3.27 MC/CUMM (3.8-5.5); Red Cell Distribution Width 19.5 % (9.3-17.3); White Blood Count 3.8 T/CUMM (4-12)
[2021-11-08 08:24] LABS: Platelet Count 86 T/CUMM (130-400)
[2021-11-08 08:35] LABS: Albumin 3.2 G/DL (3.4-5.0); Bilirubin,Total 0.9 MG/DL (0.20-1.00); Calcium 9.4 MG/DL (8.5-10.1); Osmolality,Calculated 273.2 MOS/KG (273-304); Potassium 5.1 MMOL/L (3.5-5.1); Total Protein 6.9 G/DL (6.4-8.2)
[2021-11-08] MEDS: INSULIN REGULAR 100 UNIT/ML SUBCUT SCH ×2 (08:36→12:45)
[2021-11-08] MEDS: METOPROLOL SUCCINATE XL 50 MG TABLET PO SCH (09:42)
[2021-11-08] MEDS: VANCOMYCIN 125 MG CAPSULE PO SCH ×2 (09:42→13:20)
[2021-11-08] MEDS: CETIRIZINE 10 MG TABLET PO SCH (09:42)
[2021-11-08] MEDS: hydrOXYzine HCL 25 MG TABLET PO SCH ×2 (09:42→13:20)
[2021-11-08] MEDS: PANTOPRAZOLE 40 MG TABLET PO SCH (09:42)
[2021-11-08] MEDS: SEVELAMER CARBONATE 800 MG TABLET PO SCH ×2 (09:42→13:20)
[2021-11-08] MEDS: PHENYTOIN ER 100 MG CAPSULE PO SCH (09:42)
[2021-11-08] MEDS: DICYCLOMINE 10 MG CAPSULE PO SCH ×2 (09:42→13:20)
[2021-11-08] MEDS: ASPIRIN EC 81 MG TABLET PO SCH (09:42)
[2021-11-08] MEDS: MICONAZOLE 2% CREAM 57 GM TUBE TOP SCH (09:43)
[2021-11-08] MEDS ORDERED: APIXABAN 2.5 MG TABLET PO SCH (11:30)
[2021-11-08 11:33] VITALS: BP 103/73
[2021-11-08] MEDS ORDERED: ATORVASTATIN 40 MG TABLET PO SCH (21:00)
== END 2021-11-08 13:40 | disposition home or self-care (01) ==
LOC: EDBD → EDUNIT# → N.EDINP 16:43 → N.ED 16:43 → N.TELEN 21:02
PROVIDERS: ADMIT Internal Medicine; ATTEND Internal Medicine

== ENCOUNTER 2022-04-18 19:01 | Observation (INO) ==
[2022-04-18 20:41] LABS: Basophils % 0.9 % (0.0-0.8); Eosinophils # 0.3 10*3/uL (0.0-0.87); Eosinophils % 7.2 % (0.00-10.9); Hematocrit 29.2 VOL% (35.7-47.0); Hemoglobin 9.3 GM/DL (12.0-16.0); Lymphocytes # 0.9 10*3/uL (1.4-4.0); Lymphocytes % 25.3 % (21.3-54.2); Mean Corpuscular HGB Conc 31.8 GM/DL (32-36); Mean Corpuscular Volume 93.6 FL (87-102); Monocytes # 0.3 10*3/uL (0.11-0.8); Monocytes % 8.9 % (1.7-12.7); Neutrophils % 57.7 % (38.7-73.9); Platelet Count 83 T/CUMM (130-400); Red Blood Count 3.12 MC/CUMM (3.8-5.5); Red Cell Distribution Width 15.1 % (9.3-17.3); White Blood Count 3.5 T/CUMM (4-12)
[2022-04-18 21:02] LABS: Eosinophils 7 % (0-10); Hypochromia Slight; Lymphocytes 39 % (20-55)
[2022-04-18 21:03] LABS: Ovalocytes Slight; Platelet Estimate Decreased; Total Cells Counted 100
[2022-04-18 21:06] LABS: Albumin 3.6 G/DL (3.4-5.0); Bilirubin,Total 0.8 MG/DL (0.20-1.00); Osmolality,Calculated 293.2 MOS/KG (273-304); Potassium 4.7 MMOL/L (3.5-5.1); Total Protein 7.3 G/DL (6.4-8.2)
[2022-04-18] MEDS ORDERED: guaiFENesin/DM ER 600-30 MG TABLET PO PRN (22:31)
[2022-04-18] MEDS ORDERED: ACETAMINOPHEN 325 MG TABLET PO PRN (22:31)
[2022-04-18] MEDS ORDERED: hydrALAZINE 20 MG/1 ML VIAL IV PRN (22:31)
[2022-04-18] MEDS ORDERED: ONDANSETRON 4 MG/2 ML VIAL IV PRN (22:31)
[2022-04-18] MEDS ORDERED: ZALEPLON 5 MG CAPSULE PO PRN (22:31)
[2022-04-18] MEDS ORDERED: NICOTINE 21 MG/24 HR PATCH TRANSDERM PRN (22:31)
[2022-04-18] MEDS ORDERED: diphenhydrAMINE CAP 25 MG CAPSULE PO PRN (22:31)
[2022-04-18] MEDS ORDERED: ALBUTEROL/IPRATROPIUM 3 ML NEB RESP TX ONE (23:29)
[2022-04-19] MEDS: ALBUTEROL/IPRATROPIUM 3 ML NEB RESP TX SCH ×4 (01:00→20:38)
[2022-04-19 02:05] LABS: Basophils % 1.2 % (0.0-0.8); Eosinophils # 0.2 10*3/uL (0.0-0.87); Eosinophils % 6.4 % (0.00-10.9); Hematocrit 27.8 VOL% (35.7-47.0); Hemoglobin 8.8 GM/DL (12.0-16.0); Immature Granulocytes % 0.3 %; Immature Granulocytes Absolute 0.01 #; Lymphocytes # 1.1 10*3/uL (1.4-4.0); Lymphocytes % 32.8 % (21.3-54.2); Mean Corpuscular HGB Conc 31.7 GM/DL (32-36); Mean Platelet Volume 13.5 FL (9.6-12.0); Monocytes # 0.3 10*3/uL (0.11-0.8); Monocytes % 9.3 % (1.7-12.7); Platelet Count 91 T/CUMM (130-400); Red Blood Count 2.99 MC/CUMM (3.8-5.5); Red Cell Distribution Width 14.9 % (9.3-17.3); White Blood Count 3.4 T/CUMM (4-12)
[2022-04-19 02:27] LABS: Calcium 9.9 MG/DL (8.5-10.1); Osmolality,Calculated 289.2 MOS/KG (273-304); Potassium 4.6 MMOL/L (3.5-5.1)
[2022-04-19 02:30] LABS: Hypochromia Slight; Platelet Estimate Decreased
[2022-04-19] MEDS: INSULIN LISPRO 100 UNIT/ML SUBCUT SCH ×4 (06:14→21:26)
[2022-04-19] MEDS ORDERED: PHENYTOIN ER 100 MG CAPSULE PO SCH (09:00)
[2022-04-19] MEDS: SEVELAMER CARBONATE 800 MG TABLET PO SCH ×3 (09:14→16:25)
[2022-04-19] MEDS ORDERED: EPOETIN ALFA-EPBX 4,000 UNIT/ML VIAL IV PRN (11:30)
[2022-04-19] MEDS: SACUBITRIL/VALSARTAN 49-51 MG TABLET PO SCH ×2 (12:57→20:44)
[2022-04-19] MEDS: BISACODYL 5 MG TABLET PO SCH (12:58)
[2022-04-19] MEDS: ASPIRIN EC 81 MG TABLET PO SCH (12:58)
[2022-04-19] MEDS: PANTOPRAZOLE 40 MG TABLET PO SCH (12:58)
[2022-04-19] MEDS: METOPROLOL SUCCINATE XL 50 MG TABLET PO SCH ×2 (12:58→20:44)
[2022-04-20] MEDS: ALBUTEROL/IPRATROPIUM 3 ML NEB RESP TX SCH ×2 (01:51→07:40)
[2022-04-20] MEDS: INSULIN LISPRO 100 UNIT/ML SUBCUT SCH (09:04)
[2022-04-20] MEDS: SACUBITRIL/VALSARTAN 49-51 MG TABLET PO SCH (09:05)
[2022-04-20] MEDS: METOPROLOL SUCCINATE XL 50 MG TABLET PO SCH (09:06)
[2022-04-20] MEDS: BISACODYL 5 MG TABLET PO SCH (09:06)
[2022-04-20] MEDS: ASPIRIN EC 81 MG TABLET PO SCH (09:06)
[2022-04-20] MEDS: SEVELAMER CARBONATE 800 MG TABLET PO SCH (09:06)
[2022-04-20] MEDS: PANTOPRAZOLE 40 MG TABLET PO SCH (09:06)
[2022-04-20 09:34] VITALS: BP 103/64
== END 2022-04-20 11:53 | disposition home or self-care (01) ==
LOC: N.ED 19:01 → INTOOBSV 22:31 → N.EDINP 22:31 → N.TELES 04-19 00:05
PROVIDERS: ADMIT Emergency Medicine; ATTEND Emergency Medicine